=== PATIENT | male | born 1970 | race Caucasian/White ===

== ENCOUNTER 2016-10-29 10:01 | Inpatient (IN) | payer MEDICARE, MEDICAID ==
[2016-10-29] MEDS ORDERED: Insulin Regular, Human 100 Units/ML 3 ML Vial IV ONE (10:24)
[2016-10-29] MEDS ORDERED: Sodium Chloride 0.9% 1,000 ML IV ONE (10:27)
[2016-10-29 10:59] LABS: HEMATOCRIT 34.9 % (40.0-52.0); HEMOGLOBIN 11.6 g/dL (14.0-18.0); MEAN CORPUSCULAR HEMOGLOBIN 30.2 pg (26.0-32.0); MEAN CORPUSCULAR HGB CONC 33.2 g/dL (32.0-36.0); MEAN CORPUSCULAR VOLUME 90.9 fL (78.0-93.0); RED BLOOD CELL COUNT 3.84 x10^6/uL (4.5-6.0)
[2016-10-29 11:21] LABS: BAND PERCENT MAN 1 % (0-6); HYPERSEGMENTED NEUTROPHILS OCCASIONAL; SEG NEUTROPHILS PERCENT MAN 77 % (50-80); TOTAL CELLS COUNTED 100
[2016-10-29 11:24] LABS: A/G RATIO 0.89; ALBUMIN 3.3 g/dL (3.4-5.0); BILIRUBIN TOTAL 0.5 mg/dL (0.2-1.0); CALCIUM 9.7 mg/dL (8.5-10.1); CORRECTED CALCIUM 10.26 mg/dL (8.5-10.1); CREATININE 1.9 mg/dL (0.70-1.30); EST CRCL DRUG DOSING (CG) 51.43 mL/min; PHOSPHORUS 4.8 mg/dL (2.6-4.7)
[2016-10-29 12:06] LABS: HCO3 ARTERIAL,ISTAT 7 mmol/L (22-26); O2 SATURATION ARTERIAL,ISTAT 98 % (95-98); PCO2 ARTERIAL,ISTAT 19 mmHG (35-45); PH ARTERIAL,ISTAT 7.167 (7.35-7.45); PO2 ARTERIAL,ISTAT 135 mmHG (80-105); TCO2 ARTERIAL,ISTAT 8 mmol/L (23-27)
--- NOTE | 2016-10-29 12:26 | EDM.PDOC ---
ED HPI GENERAL MEDICAL PROBLEM - General Chief Complaint: General Stated Complaint: VOMITING Time Seen by Provider: 10/29/16 10:12 Source of Information: Reports: Patient, EMS, Family () - History of Present Illness INITIAL COMMENTS - FREE TEXT/NARRATIVE: The patient comes in and he is in DKA. Patient is belligerent. He is brought in by EMS. His had called because he wasn't making a lot of sense. We did give him some IV fluids and gave him additional insulin. His glucose was found to be over 500. I did give him 12 units and discuss the case with Dr. Nicole and Dr. Nicole was going to put him on a insulin drip. The patient did tear out his IV and use profane language with the nursing staff. The patient is being admitted. The patient otherwise looks very ill and is not a good historian currently. The patient has had nausea emesis and diarrhea. Onset: sudden Location: Reports: generalized Severity: severe Associated Symptoms: Reports: confusion, diaphoresis, fever/chills, loss of appetite, malaise, nausea/vomiting, weakness Treatments BOOK EDITOR: Reports: Other (see below) (The patient's did give him eight units of insulin at 5:00 this morning.) - Related Data Allergies Allergy/AdvReac Type Severity Reaction Status Date / Time cyclobenzaprine HCl AdvReac Muscle Verified 10/29/16 10:31 [From Flexeril] Weakness quetiapine fumarate AdvReac Agitation Verified 10/29/16 10:31 [From Seroquel] Home Meds: Home Meds Cholecalciferol (Vitamin D3) [Vitamin D] 1,000 units PO DAILY 02/13/14 [History] Insulin Aspart [NovoLOG] 0 unit SQ TID 02/13/14 [History] Insulin Detemir [Levemir] 25 unit SUBCUT DAILY 02/13/14 [History] Multivitamin [Multi Vitamin Daily] 1 each PO DAILY 02/13/14 [History] Magnesium 1,000 mg PO BID 12/07/14 [History] Sodium Chloride 0.9% [Normal Saline] 1,000 ml IV Q7D 02/09/16 [History] Past Medical History Cardiovascular History: Reports: High cholesterol, PVD, Syncope, Other (see below) Other Cardiovascular History: orthostatic hypotension Gastrointestinal History: Reports: GI bleed, Other (see below) Other Gastrointestinal History: ischemic colitis Musculoskeletal History: Reports: Fracture, Other (see below) Other Musculoskeletal History: osteomyelitis of foot/ankle Neurological History: Reports: Neuropathy, diabetic, Other (see below) Other Neuro History: cognitive impairment Psychiatric History: Reports: Other (see below) Other Psychiatric History: alcohol abuse Endocrine/Metabolic History: Reports: Diabetes, type I, Other (see below) Other Endocrine/Metabolic History: hypomagnesemia, DKA Hematologic History: Reports: Anemia - Infectious Disease History Infectious Disease History: Reports: C-difficile, Other (see below) Other Infectious Disease History: MSSA pneumonia, Klebsiella bacteremia - Past Surgical History Musculoskeletal Surgical History: Reports: Other (see below) Other Musculoskeletal Surgeries/Procedures:: bilat. foot surgeries Social & Family History - Tobacco Use Smoking Status *Q: Current Every Day Smoker Years of Tobacco use: 30 Packs/Tins Daily: 1.5 - Alcohol Use Days Per Week of Alcohol Use: 0 - Recreational Drug Use Recreational Drug Use: No ED ROS GENERAL - Review of Systems Review Of Systems: See Below (Obtained by interviewing family.) Constitutional: Reports: fever, chills, malaise, weakness, fatigue, night sweats , diaphoresis, decreased appetite Respiratory: Reports: no symptoms Cardiovascular: Reports: Dyspnea on exertion, Lightheadedness Endocrine: Reports: hi glucose, polyuria GI/Abdominal: Reports: Abdominal pain (generalized. ), Diarrhea, Nausea, Vomiting : Reports: frequency Musculoskeletal: Reports: muscle pain, muscle stiffness Skin: Reports: diaphoresis Neurological: Reports: confusion, gait disturbance Psychiatric: Reports: Agitation, Mood lability ED EXAM, GENERAL - Physical Exam Exam: See Below Exam Limited By: Uncooperative General Appearance: alert, anxious, severe distress, thin, other (Older than stated age. ) Eye Exam: bilateral eye: EOMI Ears: normal external exam, normal canal Nose: normal inspection Throat/Mouth: Normal inspection Head: atraumatic Neck: normal inspection Respiratory/Chest: no respiratory distress Cardiovascular: regular rate, rhythm, no murmur GI/Abdominal: normal bowel sounds, soft Extremities: normal inspection Neurological: confused Psychiatric: anxious Skin Exam: Warm Course - Vital Signs Text/Narrative:: Serial bedside accu checks done. Last Recorded V/S: Last Vital Signs Temp 36.3 C 10/30/16 13:44 Pulse 101 H 10/30/16 13:44 Resp 22 H 10/30/16 13:44 BP 142/77 H 10/30/16 13:44 Pulse Ox 95 10/30/16 13:44 - Orders/Labs/Meds Orders: Medication Orders Acetaminophen (Tylenol) 650 mg PO Q4H PRN PRN Reason: analgesia/fever Enoxaparin Sodium (Lovenox) 30 mg SUBCUT DAILY [facility] Last Admin: 10/30/16 08:50 Dose: 30 mg Admin: 10/29/16 14:05 Dose: 30 mg Dextrose/Sodium Chloride (Dextrose 5%-Normal Saline) 1,000 mls @ 150 mls/hr IV ASDIRECTED [facility] Last Admin: 10/30/16 07:30 Dose: 150 mls/hr Infusion: 10/30/16 07:25 Dose: 150 mls/hr Admin: 10/30/16 00:44 Dose: 150 mls/hr Insulin Aspart (Novolog) 3 unit SUBCUT TIDAC [facility] Last Admin: 10/30/16 11:46 Dose: Admin: 10/30/16 08:53 Dose: 3 units Insulin Detemir (Levemir) 25 unit SUBCUT DAILY [facility] Last Admin: 10/30/16 08:52 Dose: 25 units Lorazepam (Ativan) 0.5 mg PO Q6H PRN PRN Reason: Anxiety Lorazepam (Ativan) 0.5 mg IVPUSH Q4H PRN PRN Reason: Agitation Magnesium Oxide (Magnesium Oxide) 1,000 mg PO BID [facility] Last Admin: 10/30/16 11:47 Dose: Not Given Multivitamins/Minerals (Thera M Plus) 1 tab PO DAILY [facility] Last Admin: 10/30/16 11:47 Dose: Not Given Nicotine (Habitrol) 21 mg TRDERM DAILY [facility] Last Admin: 10/30/16 08:51 Dose: 21 mg Admin: 10/29/16 13:58 Dose: 21 mg Labs: Laboratory Tests 10/29/16 10/29/16 10/29/16 Range/Units 10:22 10:55 10:55 WBC 11.3 H (4.0-10.0) x10^3/uL RBC 3.84 L (4.5-6.0) x10^6/uL Hgb 11.6 L (14.0-18.0) g/dL Hct 34.9 L (40.0-52.0) % MCV 90.9 (78.0-93.0) fL MCH 30.2 (26.0-32.0) pg MCHC 33.2 (32.0-36.0) g/dL RDW Coeff of Madeline 12.0 (10.0-15.0) % Plt Count 332 (130-400) x10^3/uL Add Manual Diff Yes Neutrophils % (Manual) 77 (50-80) % Band Neutrophils % 1 (0-6) % Lymphocytes % (Manual) 12 L (25-50) % Monocytes % (Manual) 10 (2-11) % Hypersegmented Neuts Occasional H Platelet Estimate Adequate POC ABG pH (7.35-7.45) POC ABG pCO2 (35-45) mmHG POC ABG pO2 (80-105) mmHG POC ABG HCO3 (22-26) mmol/L POC ABG Total CO2 (23-27) mmol/L POC ABG O2 Sat (95-98) % POC ABG Base Excess (-2-3) mmol/L POC FiO2 Sodium 128 L* (136-145) mmol/L Potassium 5.1 (3.5-5.1) mmol/L Chloride 90 L (98-107) mmol/L Carbon Dioxide 9 L (21-32) mmol/L BUN 42 H (7-18) mg/dL Creatinine 1.9 H (0.70-1.30) mg/dL Est Cr Clr Drug Dosing 51.43 mL/min Estimated GFR (MDRD) 38 Glucose 594 H* (74-106) mg/dL POC Glucose > 500 H* (74-106) mg/dL Calcium 9.7 (8.5-10.1) mg/dL Corrected Calcium 10.26 H (8.5-10.1) mg/dL Phosphorus 4.8 H (2.6-4.7) mg/dL Magnesium (1.8-2.4) mg/dL Total Bilirubin 0.5 (0.2-1.0) mg/dL AST 18 (15-37) U/L ALT 28 (16-63) U/L Alkaline Phosphatase 140 H (46-116) U/L Total Protein 7.0 (6.4-8.2) g/dL Albumin 3.3 L (3.4-5.0) g/dL Globulin 3.7 Albumin/Globulin Ratio 0.89 POC Result Comm 10/29/16 10/29/16 10/29/16 Range/Units 10:55 11:58 12:04 WBC (4.0-10.0) x10^3/uL RBC (4.5-6.0) x10^6/uL Hgb (14.0-18.0) g/dL Hct (40.0-52.0) % MCV (78.0-93.0) fL MCH (26.0-32.0) pg MCHC (32.0-36.0) g/dL RDW Coeff of Madeline (10.0-15.0) % Plt Count (130-400) x10^3/uL Add Manual Diff Neutrophils % (Manual) (50-80) % Band Neutrophils % (0-6) % Lymphocytes % (Manual) (25-50) % Monocytes % (Manual) (2-11) % Hypersegmented Neuts Platelet Estimate POC ABG pH 7.167 L* (7.35-7.45) POC ABG pCO2 19 L (35-45) mmHG POC ABG pO2 135 H (80-105) mmHG POC ABG HCO3 7 L (22-26) mmol/L POC ABG Total CO2 8 L (23-27) mmol/L POC ABG O2 Sat 98 (95-98) % POC ABG Base Excess -22 L (-2-3) mmol/L POC FiO2 0.21 Sodium (136-145) mmol/L Potassium (3.5-5.1) mmol/L Chloride (98-107) mmol/L Carbon Dioxide (21-32) mmol/L BUN (7-18) mg/dL Creatinine (0.70-1.30) mg/dL Est Cr Clr Drug Dosing mL/min Estimated GFR (MDRD) Glucose (74-106) mg/dL POC Glucose > 500 H* (74-106) mg/dL Calcium (8.5-10.1) mg/dL Corrected Calcium (8.5-10.1) mg/dL Phosphorus (2.6-4.7) mg/dL Magnesium 2.0 (1.8-2.4) mg/dL Total Bilirubin (0.2-1.0) mg/dL AST (15-37) U/L ALT (16-63) U/L Alkaline Phosphatase (46-116) U/L Total Protein (6.4-8.2) g/dL Albumin (3.4-5.0) g/dL Globulin Albumin/Globulin Ratio POC Result Comm Called critical res Meds: Medications Generic Name Dose Route Start Last Admin Trade Name Aldair PRN Reason Stop Dose Admin Acetaminophen 650 mg 10/29/16 13:35 Tylenol PO Q4H PRN analgesia/fever Enoxaparin Sodium 30 mg 10/29/16 13:45 10/30/16 08:50 Lovenox SUBCUT 30 mg DAILY [facility] Administration Dextrose/Sodium Chloride 1,000 mls @ 150 mls/hr 10/30/16 00:30 10/30/16 14:18 Dextrose 5%-Normal Saline IV 150 mls/hr ASDIRECTED [facility] Administration Insulin Aspart 3 unit 10/30/16 08:30 10/30/16 11:46 Novolog SUBCUT Not Given TIDAC [facility] Insulin Detemir 25 unit 10/30/16 08:30 10/30/16 08:52 Levemir SUBCUT 25 units DAILY [facility] Administration Lorazepam 0.5 mg 10/30/16 08:57 Ativan PO Q6H PRN Anxiety Lorazepam 0.5 mg 10/30/16 08:59 Ativan IVPUSH Q4H PRN Agitation Magnesium Oxide 1,000 mg 10/30/16 08:30 10/30/16 11:47 Magnesium Oxide PO Not Given BID [facility] Multivitamins/Minerals 1 tab 10/30/16 08:30 10/30/16 11:47 Thera M Plus PO Not Given DAILY [facility] Nicotine 21 mg 10/29/16 13:45 10/30/16 08:51 Habitrol TRDERM 21 mg DAILY [facility] Administration Discontinued Medications Generic Name Dose Route Start Last Admin Trade Name Aldair PRN Reason Stop Dose Admin Sodium Chloride 1,000 mls @ 999 mls/hr 10/29/16 10:27 10/29/16 10:52 Normal Saline IV 10/29/16 11:27 999 mls/hr .BOLUS ONE Administration Insulin Human Regular 100 unit 100 mls @ 0.5 mls/hr 10/29/16 13:45 10/30/16 06:05 / Sodium Chloride IV 1.5 units/hr TITRATE [facility] 1.5 mls/hr Protocol Titration 0.5 UNITS/HR Sodium Chloride 1,000 mls @ 200 mls/hr 10/29/16 13:45 10/29/16 23:07 Normal Saline IV 200 mls/hr ASDIRECTED [facility] Administration Magnesium Sulfate 2 gm/ Premix 50 mls @ 25 mls/hr 10/29/16 20:44 10/29/16 21: 09 IV 10/29/16 22:43 25 mls/hr ONETIME ONE Administration Potassium Chloride 20 meq/ 50 mls @ 25 mls/hr 10/30/16 08:12 10/30/16 08:49 Premix IV 10/30/16 10:11 25 mls/hr ONETIME ONE Administration Insulin Human Regular 12 unit 10/29/16 10:24 10/29/16 10:55 Humulin R IV 10/29/16 10:25 12 units ONETIME ONE Administration Protocol Lorazepam 1 mg 10/29/16 15:03 10/30/16 08:50 Ativan IVPUSH 1 mg Q4H PRN Administration Agitation Magnesium Sulfate 1 gm 10/30/16 08:13 10/30/16 08:49 Magnesium Sulfate 50% IM 10/30/16 08:14 1 gm ONETIME ONE Administration Nicotine 21 mg 10/29/16 18:30 Habitrol TRDERM DAILY [facility] Nicotine 21 mg 10/29/16 22:00 10/29/16 21:11 Habitrol TRDERM 10/29/16 22:01 21 mg ONETIME ONE Administration Departure - Departure Time of Disposition: 11:30 (Decision to admit) Disposition: DC/Tfer to Medicaid [facility] 64 Condition: serious Clinical Impression: Diabetic keto-acidosis Qualifiers: Diabetes mellitus type: type 2 Diabetes mellitus complication detail: without coma Qualified Code(s): E13.10 - Other specified diabetes mellitus with ketoacidosis without coma
[2016-10-29] MEDS ORDERED: Acetaminophen 325 MG Tab PO PRN (13:35)
[2016-10-29] MEDS: Nicotine 21 MG/24 Hr Patch TRDERM SCH (13:58)
[2016-10-29] MEDS: Enoxaparin 30 MG/0.3 ML Syringe SUBCUT SCH (14:05)
[2016-10-29] MEDS: Sodium Chloride 0.9% 1,000 ML IV SCH ×3 (14:06→23:07)
[2016-10-29] MEDS: LORazepam 2 MG/ML MDV IVPUSH PRN ×2 (15:21→19:55)
--- NOTE | 2016-10-29 18:16 | HP ---
REASON FOR ADMISSION: Nausea, vomiting, weakness. HISTORY OF PRESENT ILLNESS: A 46-year-old white male comes in accompanied by his mother with whom he lives. He has been ill for the past day or so and he got worse today. He just was not himself yesterday according to his mother. Today, he has had multiple episodes of nausea, vomiting and not eating. He denies any bladder hematemesis. The patient thought he took his insulin a couple days ago, his mother said he took his long-acting insulin this morning. He has known history of diabetes mellitus type 1. Last known episode of DKA was approximately a year ago. PAST MEDICAL HISTORY: 1. Diabetes mellitus type 1. 2. Autonomic neuropathic orthostatic hypotension for which he receives 1 unit of the fluids weekly to maintain his blood pressure. 3. Hyperlipidemia. 4. Ischemic colitis. 5. Cognitive impairment. 6. Surgery for diabetic foot ulcers. 7. Tonsillectomy. MEDICATIONS: Multivitamin daily, magnesium daily, Levemir 25 units daily, NovoLog t.i.d. with meals, vitamin D3 daily, aspirin 81 mg daily. ALLERGIES: Cyclobenzaprine and quetiapine. HABITS: Tobacco use 1-1/2 packs a day. Alcohol use; he has not had a drink for the past 6 years. He has had a prior history of alcohol abuse. FAMILY AND SOCIAL HISTORY: Lives with his mother. REVIEW OF SYSTEMS: Denies fever or chills. No cold symptoms, except for occasional cough. No chest pain. No shortness of breath. No abdominal pain. He does feel weak. Difficult to obtain history. OBJECTIVE: General: He is lying in bed, at times moaning, at times answering questions. Vital Signs: He is afebrile, pulse of 112, blood pressure is 120/69. In the emergency room, his blood pressure was 95/41 prior to IV fluid administration. Respirations are 22, O2 saturations are 97%. HEENT: TMs negative. Throat clear. Neck: No adenopathy. Heart: Regular rate and rhythm. No murmur heard. Lungs: Clear to auscultation. Abdomen: Soft and nontender. No masses palpable. No hepatosplenomegaly noted. Extremities: Some decreased range of motion. There is trace edema. They are warm and dry. Neurological: Sensation is intact. LABORATORY DATA: White count 11.3, hemoglobin 11.6. Blood gases; pH is 7.167, pCO2 of 19. Sodium 128, potassium 5.1, creatinine 1.9, glucose 594, phosphorus 4.8, magnesium 2.0. LFTs were normal essentially. EKG shows sinus tachycardia. TREATMENT: In the emergency room, he received 12 units of regular insulin IV and then 1 L of normal saline. ASSESSMENT: 1. Diabetic ketoacidosis. 2. Diabetes mellitus type 1, uncontrolled. PLAN: The patient is admitted to acute care status. He will be given insulin drip per protocol, IV fluids. We will monitor his electrolytes magnesium and phosphorus, and replace as indicated. He identifies Dr. Angélica Alejandro as his primary physician and I assume that she will be back tomorrow to assume care. He is a code level 1. FM: 10/29/2016 13:56:13 MODL: 10/29/2016 18:11:47 /[id number]
[2016-10-29] MEDS ORDERED: Nicotine 21 MG/24 Hr Patch TRDERM SCH (18:30)
[2016-10-29 19:25] LABS: CALCIUM 9.2 mg/dL (8.5-10.1); CREATININE 1.6 mg/dL (0.70-1.30); EST CRCL DRUG DOSING (CG) 61.81 mL/min; MAGNESIUM 1.7 mg/dL (1.8-2.4)
[2016-10-29] MEDS ORDERED: Magnesium Sulfate/Water 2 GM in Premix Bag 1 BAG IV ONE (20:44)
[2016-10-29] MEDS ORDERED: Nicotine 21 MG/24 Hr Patch TRDERM ONE (22:00)
[2016-10-30] MEDS: LORazepam 2 MG/ML MDV IVPUSH PRN ×3 (00:39→08:50)
[2016-10-30] MEDS: Dextrose 5%-0.9% NaCl 1,000 ML IV SCH ×3 (00:44→14:18)
[2016-10-30 06:43] LABS: BASOPHILS PERCENT AUTO 0.2 % (0.2-1.2); HEMATOCRIT 29.5 % (40.0-52.0); HEMOGLOBIN 10.4 g/dL (14.0-18.0); LYMPHOCYTES PERCENT AUTO 16.5 % (25.0-50.0); MEAN CORPUSCULAR HEMOGLOBIN 30.3 pg (26.0-32.0); MEAN CORPUSCULAR HGB CONC 35.3 g/dL (32.0-36.0); MONOCYTES PERCENT AUTO 11.6 % (2.0-11.0); NEUTROPHILS PERCENT AUTO 70.7 % (50.0-80.0); RDW CV 11.7 % (10.0-15.0); RED BLOOD CELL COUNT 3.43 x10^6/uL (4.5-6.0)
[2016-10-30 07:02] LABS: CALCIUM 8.4 mg/dL (8.5-10.1); CHLORIDE,CL 108 mmol/L (98-107); CREATININE 1.2 mg/dL (0.70-1.30); EST CRCL DRUG DOSING (CG) 82.41 mL/min; ESTIMATED GFR > 60; GLUCOSE RANDOM 167 mg/dL (74-106); MAGNESIUM 1.6 mg/dL (1.8-2.4); PHOSPHORUS 1.6 mg/dL (2.6-4.7)
[2016-10-30] MEDS ORDERED: Potassium Chloride 20 MEQ in Premix Bag 1 BAG IV ONE (08:12)
[2016-10-30] MEDS ORDERED: Magnesium Sulfate (4.06 MEQ/ML) 1 GM/2 ML SDV IM ONE (08:13)
[2016-10-30] MEDS ORDERED: Insulin Detemir 100 Units/ML 3 ML Pen SUBCUT SCH (08:30)
[2016-10-30] MEDS: Enoxaparin 30 MG/0.3 ML Syringe SUBCUT SCH (08:50)
[2016-10-30] MEDS: Multivitamins with Iron/Calcium/Folic Acid/Minerals Tab PO SCH ×2 (08:50→11:47)
[2016-10-30] MEDS: Magnesium Oxide 400 MG Tab PO SCH ×3 (08:50→20:08)
[2016-10-30] MEDS: Nicotine 21 MG/24 Hr Patch TRDERM SCH (08:51)
[2016-10-30] MEDS: Insulin Aspart 100 Units/ML 3 ML Pen SUBCUT SCH ×3 (08:53→17:36)
[2016-10-30] MEDS ORDERED: LORazepam 0.5 MG Tab PO PRN (08:57)
[2016-10-30] MEDS ORDERED: LORazepam 2 MG/ML MDV IVPUSH PRN (08:59)
--- NOTE | 2016-10-30 09:28 | PN ---
Progress Note for LOYD GRIJALVA Date: 10/30/2016 Room #: VM.214 SUBJECTIVE: This is a 46-year-old, with known uncontrolled type 1 diabetes, admitted yesterday with DKA. The patient has been on IV fluids and IV insulin. His gap has improved from initial 29 down to normal this morning. He was in acute renal failure with creatinine up to 1.9, that has improved down to 1.2. He has been quite sleepy. He has been swearing out at staff, although I reported to them that is his baseline. He has been getting some IV Ativan, last dose was at 4:30 this morning. He pulled out his IV from his port but it was replaced. He is denying any headache. He is denying any chest pain, any nausea. He is aware he is in the hospital but he stated he did not know who I was even though he has met me numerous times. No source of infection was identified. No chest x-ray was done. I do not see a UA on record but he is denying any dysuria. He is denying any cough, and he does have a longstanding history of noncompliance with previous multiple admissions for DKA. He has been on the insulin drip through the night. Blood sugars have now been below 200 consistently. He has been on D5 half-normal saline. His insulin drip was around 1 unit. OBJECTIVE: Vital Signs: Temperature 98.6, pulse 95, blood pressure 118/69, respiratory rate 20, O2 of 97% on room air. General: He is in no acute distress. He does mumble quite a bit. He was able to open his eyes to command. His pupils are equal, round, reactive to light. He is answering most questions appropriately with yes or no. Heart: Regular rate and rhythm. S1, S2 without murmur. Lungs: Sounds are clear to auscultation bilaterally without crackles or wheezes. Abdomen: Positive bowel sounds. Soft and nontender. Extremities: Warm and dry. He does have edema noted to both legs. It is nonpitting. Sort of appears more like a malnutrition type of an edema. Mental Status: He is orientated to place but would not answer questions about the date. LABORATORY DATA: Lab work this morning reviewed. White count is 10.7; hemoglobin 10.4, that is likely down due to some hemodilution; platelets 302. Sodium 141, potassium 3.4, chloride 108, bicarb 24, BUN 26, creatinine 1.2, glucose 169, calcium 8.4, phosphorus 1.6, magnesium 1.6. He did receive 2 g of magnesium yesterday. ASSESSMENT: 1. Diabetic ketoacidosis, likely due to noncompliance. Insulin drip can be discontinued today 1 hour after starting his home Levemir 25 units and 3 units of NovoLog. I will keep to D5 half-normal saline going as I do not know how much he will be eating. He said he is not feeling like eating yet, we will continue to monitor this closely. We will repeat another panel this afternoon at 2:00 p.m. 2. Acute renal failure secondary to diabetic ketoacidosis, resolved with IV fluids. 3. Uncontrolled type 1 diabetes, with unspecified complications, on long-term insulin. He does have a Sensor. 4. Autonomic neuropathic orthostatic hypotension. He has been receiving IV fluids weekly through the hospital. 5. Hyperlipidemia. 6. Ischemic colitis. 7. Cognitive impairment due to severe hypoglycemic episode in the past with fear of hypoglycemia. 8. Previous surgery for diabetic foot ulcers. 9. Severe hypomagnesemia. 10.Mild hypokalemia. 11.Mild hypophosphatemia. PLAN: At this point, the patient will continue on acute cares. We will make adjustments as discussed above with stopping the insulin drip. We will continue IV fluids with D5 half-normal saline until he is eating better. I will get a renal panel this afternoon at 2:00 p.m. We will switch to IV Ativan over to oral for agitation but IV will still be available if needed. Otherwise, the patient will likely spend at least 1 to 2 more nights on acute cares. lead supply worker will also be involved. This is a patient who has had multiple previous admissions for DKA but had been really doing quite well at home with no recent admissions. We will also get him up and working with therapies due to his weakness. MKA: 10/30/2016 08:57:52 MODL: 10/30/2016 09:20:21 /[id number]
--- NOTE | 2016-10-30 12:59 | PCM.SN ---
- Free Text/Narrative Note: Blood sugars stable, he isn't eating yet. We will check accuchecks Q 2 hrs and keep D5 until blood sugar over 200. No meal insulin was given as he didn't eat. Levemir given this AM. Insulin drop off. Anion gap closed. He is due for lab again at 2 pm a renal panel. No further ativan given this AM but up a couple times to the bathroom with staff.
[2016-10-30 14:37] LABS: ALBUMIN 2.8 g/dL (3.4-5.0); CALCIUM 8.5 mg/dL (8.5-10.1); CHLORIDE,CL 110 mmol/L (98-107); CORRECTED CALCIUM 9.46 mg/dL (8.5-10.1); CREATININE 1.1 mg/dL (0.70-1.30); EST CRCL DRUG DOSING (CG) 90.07 mL/min; ESTIMATED GFR > 60; GLUCOSE RANDOM 148 mg/dL (74-106)
[2016-10-30 14:39] LABS: PHOSPHORUS 1.3 mg/dL (2.6-4.7)
[2016-10-30] MEDS: Enoxaparin 40 MG/0.4 ML Syringe SUBCUT SCH (16:49)
[2016-10-30] MEDS: Potassium Phosphate,Mb-Db/Sodium Phosphate,Mb-Db Packet PO SCH ×2 (17:36→20:08)
[2016-10-30] MEDS ORDERED: POTASSIUM PHOSPHATES IV SCH (18:00)
[2016-10-30] MEDS ORDERED: SODIUM CHLORIDE IV SCH (18:00)
[2016-10-31] MEDS: Dextrose 5%-0.9% NaCl 1,000 ML IV SCH (05:00)
[2016-10-31] MEDS ORDERED: Insulin Detemir 100 Units/ML 3 ML Pen SUBCUT SCH (07:02)
[2016-10-31 07:07] LABS: ALBUMIN 2.6 g/dL (3.4-5.0); BUN/CREATININE RATIO 13.75; CALCIUM 8.2 mg/dL (8.5-10.1); CHLORIDE,CL 109 mmol/L (98-107); CORRECTED CALCIUM 9.32 mg/dL (8.5-10.1); CREATININE 0.8 mg/dL (0.70-1.30); EST CRCL DRUG DOSING (CG) 123.84 mL/min; ESTIMATED GFR > 60; GLUCOSE RANDOM 217 mg/dL (74-106); PHOSPHORUS 1.9 mg/dL (2.6-4.7)
[2016-10-31] MEDS: Enoxaparin 40 MG/0.4 ML Syringe SUBCUT SCH (08:02)
[2016-10-31] MEDS: Nicotine 21 MG/24 Hr Patch TRDERM SCH (08:02)
[2016-10-31] MEDS: Magnesium Oxide 400 MG Tab PO SCH ×2 (08:03→20:26)
[2016-10-31] MEDS: Potassium Phosphate,Mb-Db/Sodium Phosphate,Mb-Db Packet PO SCH ×4 (08:04→20:27)
[2016-10-31] MEDS: Multivitamins with Iron/Calcium/Folic Acid/Minerals Tab PO SCH (08:04)
[2016-10-31] MEDS: Insulin Aspart 100 Units/ML 3 ML Pen SUBCUT SCH ×4 (08:26→17:33)
[2016-10-31] MEDS: Potassium Chloride 10 MEQ Tab.ER PO SCH ×3 (10:43→20:26)
[2016-10-31 11:02] LABS: APPEARANCE,URINE CLOUDY (CLEAR); BILIRUBIN,URINE NEGATIVE (NEGATIVE); GLUCOSE,URINE 500 mg/dL (NEGATIVE); KETONES,URINE TRACE mg/dL (NEGATIVE); LEUKOCYTE ESTERASE,URINE SMALL (NEGATIVE); NITRITE,URINE NEGATIVE (NEGATIVE); OCCULT BLOOD,URINE SMALL (NEGATIVE); PROTEIN,URINE NEGATIVE (NEGATIVE); UROBILINOGEN,URINE 0.2 EU/dL (0.2)
[2016-10-31 11:14] LABS: BACTERIA,URINE FEW /HPF (NEGATIVE); RENAL EPITHELIAL CELLS,URINE RARE /HPF (NEGATIVE); WBC,URINE 40-50 /HPF (NOT SEEN)
[2016-10-31 11:15] LABS: MUCUS,URINE NOT SEEN /LPF (NEGATIVE)
[2016-10-31] MEDS: Sulfamethoxazole/Trimethoprim 800-160 MG Tab PO SCH ×2 (14:53→20:27)
--- NOTE | 2016-10-31 15:20 | PN ---
Progress Note for LOYD GRIJALVA Date: 10/31/2016 Room #: VM.214 SUBJECTIVE: Hospital day #3 on a 46-year-old admitted with DKA. The patient was taken off the insulin drip yesterday morning. He finally started eating this morning, but did not receive any meal insulin and had a reduced dose at 18 units of Levemir due to concerns that he may not eat. His blood sugars have therefore went up now into the 210 to 257 range. D5 was actually shut off this morning at 7:00 a.m. He is more alert. He is denying any pain. New symptom of urinary frequency came up during the night. He denies any abdominal pain. He has been coughing more, but no shortness of breath. No nausea. OBJECTIVE: Vital Signs: His temperature is 98.6, pulse 101, blood pressure 136/85, respiratory rate 18, and O2 of 99% on room air. General: He is in no acute distress. He does recognize me, but would not say my name. He is still aware he is in the hospital. He did not give me the date. Heart: Regular rate and rhythm. S1, S2 without murmur. Lungs: Sounds are clear to auscultation bilaterally without crackles or wheezes. Abdomen: Positive bowel sounds. It is soft. There is minimal tenderness, maybe distention, in the suprapubic area. Extremities: Warm and dry. He still has about 1+ taut edema. LABORATORY DATA: Lab work reviewed. White count had normalized yesterday nearly at 10.7, today it was not checked. Phosphorus was severely low yesterday and it came up to 1.9 today after IV phosphorous and oral. Sodium 143, potassium 3.4, chloride 109, bicarb 27, BUN 11, creatinine 0.8, glucose 217, calcium 8.2, albumin 2.6. UA done did show 40 to 50 wbc's and 5 to 10 rbc's. He was able to void 400, but had 1100 on straight cath. ASSESSMENT: 1. Diabetic ketoacidosis due to presumed noncompliance, resolving. He is now back on meal insulin and Levemir. He is eating. We will continue to monitor electrolytes. 2. Urinary tract infection. We will culture his urine. We will place him on Bactrim. 3. Acute renal failure due to diabetic ketoacidosis, resolved. 4. Urinary retention. He was straight cathed today. We will continue bladder scans 3 times a day and straight cath for over 400. He is not a candidate for Flomax due to his hypotension. He will need a prostate exam. Could consider Proscar, but very likely he will need Urology referral. 5. Uncontrolled type 1 diabetes with unspecified complications, on long-term insulin. 6. Autonomic neuropathic orthostatic hypotension. Blood pressures are better today. 7. Hyperlipidemia. 8. History of ischemic colitis, likely in the setting of hypotension. 9. Cognitive impairment related to severe hypoglycemia in the past. 10.Previous diabetic foot ulcers. 11.Hypomagnesemia, hypokalemia, and hypophosphatemia. We will continue his oral supplements and repeat labs tomorrow. PLAN: At this point, the patient will continue on acute cares. He is off IV fluids. He is on his regular insulin and Accu-Cheks, which have been decreased every 3 hours, can now go to 4 times a day with meals and at bedtime. Again, we are culturing his urine, but we will start him on Bactrim. Chest x-ray was done today and did not show any source of infection. Social Service is also involved. The patient is agreeable to go home with home health. He was hopeful to go home today, but due to these bladder issues, I do not recommend discharge. DVT prophylaxis is with Lovenox. MKA: 10/31/2016 14:28:31 MODL: 10/31/2016 15:10:17 /[id number]
[2016-11-01] MEDS: Insulin Detemir 100 Units/ML 3 ML Pen SUBCUT SCH ×2 (06:12→08:16)
[2016-11-01 06:39] LABS: BASOPHILS PERCENT AUTO 0.7 % (0.2-1.2); EOSINOPHILS PERCENT AUTO 0.7 % (0.0-4.0); HEMATOCRIT 35.9 % (40.0-52.0); HEMOGLOBIN 12.3 g/dL (14.0-18.0); LYMPHOCYTES PERCENT AUTO 26.5 % (25.0-50.0); MEAN CORPUSCULAR HEMOGLOBIN 30.2 pg (26.0-32.0); MEAN CORPUSCULAR HGB CONC 34.3 g/dL (32.0-36.0); MEAN CORPUSCULAR VOLUME 88.2 fL (78.0-93.0); MONOCYTES PERCENT AUTO 9.1 % (2.0-11.0); RDW CV 12.5 % (10.0-15.0); RED BLOOD CELL COUNT 4.07 x10^6/uL (4.5-6.0)
[2016-11-01 06:47] LABS: ALBUMIN 2.9 g/dL (3.4-5.0); BUN/CREATININE RATIO 12.22; CALCIUM 9.5 mg/dL (8.5-10.1); CHLORIDE,CL 100 mmol/L (98-107); CORRECTED CALCIUM 10.38 mg/dL (8.5-10.1); CREATININE 0.9 mg/dL (0.70-1.30); EST CRCL DRUG DOSING (CG) 110.08 mL/min; ESTIMATED GFR > 60; MAGNESIUM 1.6 mg/dL (1.8-2.4); PHOSPHORUS 2.6 mg/dL (2.6-4.7)
[2016-11-01 06:49] LABS: GLUCOSE RANDOM 412 mg/dL (74-106)
[2016-11-01] MEDS: Nicotine 21 MG/24 Hr Patch TRDERM SCH (08:12)
[2016-11-01] MEDS: Potassium Chloride 10 MEQ Tab.ER PO SCH ×2 (08:13→11:16)
[2016-11-01] MEDS: Multivitamins with Iron/Calcium/Folic Acid/Minerals Tab PO SCH (08:13)
[2016-11-01] MEDS: Enoxaparin 40 MG/0.4 ML Syringe SUBCUT SCH (08:13)
[2016-11-01] MEDS: Magnesium Oxide 400 MG Tab PO SCH (08:14)
[2016-11-01] MEDS: Sulfamethoxazole/Trimethoprim 800-160 MG Tab PO SCH (08:14)
[2016-11-01] MEDS: Potassium Phosphate,Mb-Db/Sodium Phosphate,Mb-Db Packet PO SCH ×2 (08:14→11:14)
[2016-11-01] MEDS: Insulin Aspart 100 Units/ML 3 ML Pen SUBCUT SCH ×2 (08:15→11:14)
[2016-11-01] MEDS ORDERED: Finasteride 5 MG Tab PO SCH (08:45)
--- NOTE | 2016-11-01 14:10 | DISCH ---
PRIMARY DISCHARGE DIAGNOSES: 1. Diabetic ketoacidosis due to urinary retention, urinary tract infection, and also noncompliance with medications with history of missing doses of insulin. 2. Urinary tract infection. Culture on discharge is still pending. 3. Urinary retention, possible autonomic neuropathy-related. The patient has a history of this, but never followed up with Urology, requiring straight catheterization for over a 1000 mL 3 times and Cerda was placed. The patient is willing to try the Cerda at home. 4. Possible benign prostatic hyperplasia with mildly elevated prostate. Proscar was started. He will not tolerate alpha blockers due to hypotension. 5. Uncontrolled diabetes with unspecified complications, on long-term insulin use. His A1c is 12.9 recently. 6. Autonomic neuropathic orthostatic hypotension, hyperlipidemia, history of ischemic colitis in the setting of hypotension, cognitive impairment related to previous severe hypoglycemic episode. 7. Previous diabetic foot ulcers. 8. Hypomagnesemia, hypokalemia, hypophosphatemia. Replaced and adequate on discharge. REASON FOR ADMISSION: On the date of admission, this 46-year-old came into the ER very lethargic, unable to eat, vomiting, was found to be in DKA. Received IV insulin and insulin drip. His anion gap did close by the next day, and he was able to be taken off the drip. He continued on D5 with his home insulin doses until he was able to the eat and then restarted his meal dosing. He did quite well. He was more alert. He did receive some Ativan initially due to some agitation, but it did get better by discharge. He was denying any burning with urination and no fevers. During his stay, he did have leukocytosis, but it resolved when DKA improved. However, he was having urinary frequency. Urine was positive for infection, and his postvoid residual was quite high, actually 1100 is what he was cath'd for. Therefore, he had a Cerda placed, and he had some scrotal discomfort after this, but no redness or signs of infection. PHYSICAL EXAMINATION: General: On discharge, he is in no acute distress. He recognized me. He is aware he is in the hospital. Heart: Regular rate and rhythm without murmur. Lungs: Sounds are clear to auscultation bilaterally without crackles or wheezes. Abdomen: Positive bowel sounds. Soft and nontender. Extremities: Warm and dry. His edema has resolved with support stockings in place. : He does have a Cerda in place. Prostate exam, mildly enlarged and nontender. No nodules. DISCHARGE PLANS AND INSTRUCTIONS: He is going to follow up with Dr. Alejandro in the clinic in 1 to 2 weeks for post-hospital followup. He is to keep his Cerda in. He is also to follow up with Urology and a referral has been placed. Home Health will be following him for Cerda care. He will continue with his Dexcom, and this may be changed for him today if his mother brings in the supplies. He should continue blood sugar checks at least 4 times a day and during the night if needed when he goes home. His Levemir dosing will be left at 25 units daily. His NovoLog will be 5 to 6 units with breakfast and 7 units with lunch and supper when he is eating. During his stay, he was also treated with Lovenox for DVT prophylaxis. An x-ray was also done, which was negative for any pneumonia. He had a nicotine patch for his smoking. Greater than 30 minutes spent on discharge. MKA: 11/01/2016 13:32:37 MODL: 11/01/2016 14:01:03 /[id number]
[2016-11-01 15:02] VITALS: BP 99/70
== END 2016-11-01 16:35 | disposition home health service (06) | DRG 638 ==
LOC: VM.ED 10:01 → VM.MS 12:23 → UNDOADMIN 12:26
PROVIDERS: ADMIT Family Medicine; ATTEND Internal Medicine
DX: E10.10 Type 1 diabetes mellitus with ketoacidosis without coma (principal); E78.00 Pure hypercholesterolemia, unspecified; I73.9 Peripheral vascular disease, unspecified; N17.9 Acute kidney failure, unspecified; N39.0 Urinary tract infection, site not specified; N40.1 Benign prostatic hyperplasia with lower urinary tract symptoms; Z79.899 Other long term (current) drug therapy; R33.8 Other retention of urine; I95.1 Orthostatic hypotension; E78.5 Hyperlipidemia, unspecified; E83.42 Hypomagnesemia; E87.6 Hypokalemia; E83.39 Other disorders of phosphorus metabolism; Z79.4 Long term (current) use of insulin; Z88.8 Allergy status to other drugs, medicaments and biological substances; F17.200 Nicotine dependence, unspecified, uncomplicated
CPT/HCPCS: 36415; 36600; 80053; 82803; 82962 ×2; 83735; 84100; 85025; 93005; 96361; 96374; 99285 ×2; J7030; 71020; 80048; 80069; 81001; 87086; 97161-GP; 97165-GO; A9270-GY; J1650; J1815-GY; J2060; J3475; J3480; J3490; J7042

== ENCOUNTER 2017-03-05 09:06 | Inpatient (IN) | payer MEDICARE, MEDICAID ==
[2017-03-05] MEDS ORDERED: Loperamide 2 MG Cap PO PRN (09:51)
[2017-03-05] MEDS ORDERED: Ondansetron 4 MG/2 ML SDV IV PRN (09:51)
[2017-03-05] MEDS ORDERED: Acetaminophen 325 MG Tab PO PRN (09:51)
[2017-03-05] MEDS ORDERED: INSULIN ASPART 100 UNIT/ML SUBCUT SCH ×2 (11:30→17:30)
[2017-03-05] MEDS ORDERED: Insulin Aspart 100 Units/ML 3 ML Pen SUBCUT ONE (11:49)
[2017-03-05] MEDS: Magnesium Oxide 400 MG Tab PO SCH ×2 (14:25→20:40)
[2017-03-05] MEDS: INSULIN ASPART 100 UNIT/ML SUBCUT SCH (17:56)
[2017-03-06] MEDS: ATORVASTATIN 10 MG PO SCH (07:35)
[2017-03-06] MEDS: FINASTERIDE 5 MG PO SCH (07:36)
[2017-03-06] MEDS: INSULIN DETEMIR 100 UNIT/ML SUBCUT SCH (07:36)
[2017-03-06] MEDS: INSULIN ASPART 100 UNIT/ML SUBCUT SCH ×4 (07:37→17:21)
[2017-03-06] MEDS: Magnesium Oxide 400 MG Tab PO SCH ×4 (07:38→20:02)
[2017-03-06] MEDS: Multivitamins with Iron/Calcium/Folic Acid/Minerals Tab PO SCH (07:38)
[2017-03-06] MEDS: Cholecalciferol (Vitamin D3) 1,000 Unit Tab PO SCH (07:38)
[2017-03-06] MEDS ORDERED: INSULIN ASPART 100 UNIT/ML SUBCUT SCH (08:00)
[2017-03-07] MEDS: INSULIN DETEMIR 100 UNIT/ML SUBCUT SCH (08:10)
[2017-03-07] MEDS: INSULIN ASPART 100 UNIT/ML SUBCUT SCH ×3 (08:11→17:35)
[2017-03-07] MEDS: ATORVASTATIN 10 MG PO SCH (08:11)
[2017-03-07] MEDS: Magnesium Oxide 400 MG Tab PO SCH ×3 (08:12→20:13)
[2017-03-07] MEDS: Multivitamins with Iron/Calcium/Folic Acid/Minerals Tab PO SCH (08:12)
[2017-03-07] MEDS: FINASTERIDE 5 MG PO SCH (08:12)
[2017-03-07] MEDS: Cholecalciferol (Vitamin D3) 1,000 Unit Tab PO SCH (08:12)
[2017-03-08] MEDS: Multivitamins with Iron/Calcium/Folic Acid/Minerals Tab PO SCH (09:04)
[2017-03-08] MEDS: Cholecalciferol (Vitamin D3) 1,000 Unit Tab PO SCH (09:04)
[2017-03-08] MEDS: Magnesium Oxide 400 MG Tab PO SCH ×3 (09:04→20:38)
[2017-03-08] MEDS: ATORVASTATIN 10 MG PO SCH (09:04)
[2017-03-08] MEDS: FINASTERIDE 5 MG PO SCH (09:04)
[2017-03-08] MEDS: INSULIN ASPART 100 UNIT/ML SUBCUT SCH ×3 (09:05→17:49)
[2017-03-08] MEDS: INSULIN DETEMIR 100 UNIT/ML SUBCUT SCH (09:05)
[2017-03-09] MEDS ORDERED: Sodium Chloride 0.9% 1,000 ML IV ONE (08:30)
--- NOTE | 2017-03-09 09:26 | PN ---
Progress Note for LOYD GRIJALVA Date: 03/09/2017 Room #: VM.214 SUBJECTIVE: Nursing staff reporting the patient is more depressed. The patient is depressed about not smoking, he has told me that. He is concerned about going [facility] the [facility] and not being able to smoke there. He did not get fluids on Sunday for his weekly infusion because he was 146/79. Later that night, he was 91/47. He has been refusing vitals since. He is more withdrawn, not allowing staff to do cares today. Mother was asked by nursing about an antidepressant. I was told that she said no. ASSESSMENT: 1. Today would be probable need for IV fluids again due to recurrent hypotension from severe autonomic insufficiency from uncontrolled diabetes, 1 L of fluid ordered. 2. Uncontrolled type 1 diabetes with multiple complications, on long-term insulin use. Blood sugar has not been checked since Sunday night. It was 337 then. Prior to that, his readings had been better; down in the 105, 143, and 181 range, but he did have a 447 on 03/05/2017, and got some extra insulin for that. He is eating 100% of his meals. He seems to be voiding okay. 3. Chronic anemia. 4. Cognitive impairment related to previous hypoglycemic episodes. He refused his cognitive evaluation. 5. Probable depression. 6. Urinary retention. PLAN: At this point, the patient will continue swing bed cares. Awaiting a bed at the [facility] when the new unit is available. We will continue to encourage him to allow us to help with cares. We will try to get his vitals today and 1 L of fluid. We will also get some Accu-Cheks. MKA: 03/09/2017 08:27:03 MODL: 03/09/2017 08:44:33 /[id number]
[2017-03-09] MEDS: FINASTERIDE 5 MG PO SCH (09:33)
[2017-03-09] MEDS: Magnesium Oxide 400 MG Tab PO SCH ×3 (09:34→20:11)
[2017-03-09] MEDS: Cholecalciferol (Vitamin D3) 1,000 Unit Tab PO SCH (09:34)
[2017-03-09] MEDS: Multivitamins with Iron/Calcium/Folic Acid/Minerals Tab PO SCH (09:34)
[2017-03-09] MEDS: ATORVASTATIN 10 MG PO SCH (09:34)
[2017-03-09] MEDS: INSULIN ASPART 100 UNIT/ML SUBCUT SCH ×3 (09:35→17:19)
[2017-03-09] MEDS: INSULIN DETEMIR 100 UNIT/ML SUBCUT SCH (09:35)
[2017-03-09] MEDS: Sodium Chloride 0.9% 10 ML Syringe FLUSH PRN (18:31)
[2017-03-10] MEDS: Cholecalciferol (Vitamin D3) 1,000 Unit Tab PO SCH ×3 (10:25→11:25)
[2017-03-10] MEDS: ATORVASTATIN 10 MG PO SCH ×3 (10:25→11:25)
[2017-03-10] MEDS: Multivitamins with Iron/Calcium/Folic Acid/Minerals Tab PO SCH ×3 (10:25→11:25)
[2017-03-10] MEDS: Magnesium Oxide 400 MG Tab PO SCH ×4 (10:25→19:50)
[2017-03-10] MEDS: INSULIN ASPART 100 UNIT/ML SUBCUT SCH ×4 (10:26→17:04)
[2017-03-10] MEDS: FINASTERIDE 5 MG PO SCH ×3 (10:26→11:25)
[2017-03-10] MEDS: INSULIN DETEMIR 100 UNIT/ML SUBCUT SCH ×4 (10:26→14:44)
--- NOTE | 2017-03-10 12:49 | PCM.SN ---
- Free Text/Narrative Note: S: Asked by nursing staff to look at a bump on the top of his head noted over the past 48 hours. Patient denies complaints. O: Fluctuant nodule on the top of his head with minimal overlying erythema. A/P: #1 Inflamed Sebaceous Cyst - Does not appear truly infected at this time. - Recommend warm compresses to the area. - Recheck tomorrow, sooner if significant change in appearance. Kelley Marie MD
[2017-03-11] MEDS: FINASTERIDE 5 MG PO SCH (10:35)
[2017-03-11] MEDS: ATORVASTATIN 10 MG PO SCH (10:35)
[2017-03-11] MEDS: Multivitamins with Iron/Calcium/Folic Acid/Minerals Tab PO SCH (10:36)
[2017-03-11] MEDS: Magnesium Oxide 400 MG Tab PO SCH ×4 (10:36→19:56)
[2017-03-11] MEDS: Cholecalciferol (Vitamin D3) 1,000 Unit Tab PO SCH (10:36)
[2017-03-11] MEDS: INSULIN DETEMIR 100 UNIT/ML SUBCUT SCH (10:36)
[2017-03-11] MEDS: INSULIN ASPART 100 UNIT/ML SUBCUT SCH ×3 (10:37→17:10)
[2017-03-11] MEDS: Sodium Chloride 0.9% 1,000 ML IV ONE ×2 (12:15→13:38)
[2017-03-11] MEDS: Sodium Chloride 0.9% 1,000 ML IV SCH (12:30)
--- NOTE | 2017-03-11 12:33 | PCM.SN ---
- Free Text/Narrative Note: Called by nursing due to patient having blood pressures in the 60s/30s. He is at his normal mental status but seemed more unsteady with ambulation today. Patient denies complaints. Lying in bed in no distress. Recheck BP now 104/63 when he is laying down. Will give 1 liter of fluids today. Continue to monitor.
[2017-03-11] MEDS: Sodium Chloride 0.9% 10 ML Syringe FLUSH PRN (15:08)
[2017-03-12] MEDS ORDERED: Insulin Aspart 100 Units/ML 3 ML Pen SUBCUT SCH (08:23)
[2017-03-12] MEDS: Cholecalciferol (Vitamin D3) 1,000 Unit Tab PO SCH (09:39)
[2017-03-12] MEDS: INSULIN DETEMIR 100 UNIT/ML SUBCUT SCH (09:39)
[2017-03-12] MEDS: Multivitamins with Iron/Calcium/Folic Acid/Minerals Tab PO SCH (09:39)
[2017-03-12] MEDS: Magnesium Oxide 400 MG Tab PO SCH ×3 (09:39→19:52)
[2017-03-12] MEDS: FINASTERIDE 5 MG PO SCH (09:40)
[2017-03-12] MEDS: ATORVASTATIN 10 MG PO SCH (09:40)
[2017-03-12] MEDS: INSULIN ASPART 100 UNIT/ML SUBCUT SCH (09:52)
[2017-03-12] MEDS: NOVOLOG SUBCUT SCH ×2 (12:09→17:57)
[2017-03-13] MEDS: INSULIN GLARGINE SUBCUT SCH (07:59)
[2017-03-13] MEDS: NOVOLOG SUBCUT SCH ×3 (07:59→17:13)
[2017-03-13] MEDS: Magnesium Oxide 400 MG Tab PO SCH (08:39)
[2017-03-13] MEDS: ATORVASTATIN 10 MG PO SCH (08:39)
[2017-03-13] MEDS: Cholecalciferol (Vitamin D3) 1,000 Unit Tab PO SCH (08:39)
[2017-03-13] MEDS: Multivitamins with Iron/Calcium/Folic Acid/Minerals Tab PO SCH (08:39)
[2017-03-13] MEDS: FINASTERIDE 5 MG PO SCH (08:39)
--- NOTE | 2017-03-13 09:20 | PN ---
Progress Note for LOYD GRIJALVA Date: 03/13/2017 Room #: VM.214 SUBJECTIVE: This is a 46-year-old on swing bed after significant hypotension. He has uncontrolled diabetes. Blood pressure, again, this morning was 73/43, but he denies feeling lightheaded. He declines IV fluids today, but says he will take them tomorrow, which is his regular day. He did have 1 L over the weekend because he had not had it on the previous week because of good blood pressures. Otherwise, he is denying any trouble breathing. He is denying any pain with urination. He continues to have some retention, but after bladder scan, he will void, and he will go okay. He was incontinent all over his room this morning. He just got out of the shower. He seems to be more content now, but he was swinging at the aide this morning. He did allow them to give him the insulin, but blood sugar was over 400. OBJECTIVE: Vital Signs: His temperature has not yet been assessed. Pulse 100, blood pressure 73/43, respiratory rate 16, and O2 of 100% on room air. General: He is in no acute distress. Heart: Regular rate and rhythm. Lungs: Sounds are clear to auscultation with some rare wheezing. Extremities: Warm and dry. No edema. He has good 2+ dorsal pedis pulses. Mental Status: He is alert. He is orientated. LABORATORY DATA: Lab work again shows blood sugar 464. Yesterday morning, it was 234. No other checks were recorded for yesterday. ASSESSMENT AND PLAN: 1. Recurrent hypotension due to autonomic dysfunction from poorly controlled diabetes. We will check another set of vitals today. If his blood pressure continues to be low, we will encourage the IV fluids today. 2. Uncontrolled diabetes type 1 with multiple complications. We will increase his Lantus to 26 units daily. We did increase meal insulin to 7 units t.i.d. recently, and he did get a dose this morning. He has not yet ate breakfast. 3. Chronic anemia. 4. Cognitive impairment related to previous hypoglycemic episodes. He is set to move in to [facility] tomorrow. 5. Probable depression. 6. Urinary retention. He seems to be voiding okay with postvoid residuals around a 100 after voiding. 7. Behavior concerns. Mother did decline any antidepressants for him. He is upset about not being able to smoke. We will continue to monitor behaviors closely. If the [facility] is unable to manage these, he may end up in the special care unit depending on how things go. MKA: 03/13/2017 08:24:45 MODL: 03/13/2017 09:15:25 /[id number]
[2017-03-13] MEDS ORDERED: Insulin Aspart 100 Units/ML 3 ML Pen SUBCUT ONE ×2 (11:00)
[2017-03-14 03:01] VITALS: BP 137/79
[2017-03-14] MEDS: Sodium Chloride 0.9% 1,000 ML IV SCH (06:58)
[2017-03-14] MEDS ORDERED: Sodium Chloride 0.9% 500 ML IV ONE (07:00)
[2017-03-14] MEDS: FINASTERIDE 5 MG PO SCH (08:29)
[2017-03-14] MEDS: Cholecalciferol (Vitamin D3) 1,000 Unit Tab PO SCH (08:29)
[2017-03-14] MEDS: Multivitamins with Iron/Calcium/Folic Acid/Minerals Tab PO SCH (08:29)
[2017-03-14] MEDS: ATORVASTATIN 10 MG PO SCH (08:29)
[2017-03-14] MEDS: NOVOLOG SUBCUT SCH (08:30)
[2017-03-14] MEDS: INSULIN GLARGINE SUBCUT SCH (08:31)
[2017-03-14] MEDS ORDERED: Insulin Aspart 100 Units/ML 3 ML Pen SUBCUT ONE (09:40)
--- NOTE | 2017-03-15 00:36 | DISCH ---
PRIMARY DISCHARGE DIAGNOSES: 1. Symptomatic hypotension which is recurrent due to autonomic dysfunction due to poorly controlled diabetes. 2. Uncontrolled type 1 diabetes with unspecified complications, on long-term insulin use. 3. Hypomagnesemia due to uncontrolled diabetes. 4. Loose stools due to magnesium replacement. 5. Smoking. 6. Adjustment disorder with concern over going to long-term care and not being able to smoke. 7. Chronic anemia. 8. Cognitive impairment related to previous episodes of hypoglycemia. 9. Urinary retention. The patient was having bladder scans that were elevated but after voiding, they would improve. We will continue to monitor. 10.Behavior concerns due to agitation from not being able to go home and sometimes refusing cares. REASON FOR ADMISSION: On the date of admission, this 46-year-old was admitted under acute care with hypotension, low blood pressures in the 80s. He was given IV fluids, which improved his overall condition. His electrolytes were replaced. He was also having loose stools and diarrhea, but was ruled out for C. diff. He transitioned over to swing bed, but mother felt that she could not take him home and care for him any longer. There was a new unit opening up at the [facility] and she was hoping to place him there. Pino was not excited about going there. He said he did not have a choice, however, his biggest concern continues to be that he will not be allowed to smoke. Otherwise, he did use a nicotine patch early on but has not been using it in the last several days. He states he is fine here because he knows he cannot smoke but is going to be harder over there. Otherwise, he did receive his weekly IV saline bolus today prior to transfer. He had refused it on the previous week on Sunday but then ended up getting it over the weekend. It was not felt that he needed it last Sunday because of higher blood pressures that day and he was overall feeling well, but by Sunday he did need it. Otherwise, he denies pain. He does have a large epidermoid type cyst on his head, minimal redness, but no warmth, no drainage. It is not bothering him at all, so I advised him just to leave it at this point, but if it gets worse, we would consider seeing a surgeon to have it removed. He was not having any breathing trouble. He was not having any burning with urination. PHYSICAL EXAMINATION: Vital Signs: Discharge vitals, temperature 98.2, pulse 87, blood pressure 137/79, respiratory rate 16, and O2 of 98% on room air. General: He is in no acute distress. Heart: Regular rate and rhythm. Lungs: Sounds are clear to auscultation bilaterally without crackles or wheezes. Abdomen: Positive bowel sounds, soft, and nontender. Extremities: Warm and dry. No edema. Mental Status: He is alert, he is orientated. He knows he is at the hospital. He recognizes me. He answers questions appropriately with yes and no. DISCHARGE PLANS/INSTRUCTIONS: Otherwise, he does have a Dexcom sensor in place, it was changed yesterday. Ideally, it should be changed about every 5 to 7 days, but due to the expense, they were changing it about every 2 weeks, so we will continue this with his IV infusions, which are done weekly through [facility] to prevent hypotension. Blood sugars will be checked 4 times a day. On discharge, we had increased his Lantus up to 26 units daily and meal insulin up to 7 units t.i.d. here but if blood sugars under 100, we will do 3 units at the meal. Glucagon was also ordered. His lowest blood sugar during his stay here was 79. Otherwise, many of his readings were in the 200s and even 400 yesterday morning, so he did get extra doses of meal insulin up to 10 units instead of 7. He at times was refusing Accu-Cheks, but otherwise would be cooperative with most cares except when he would get into some periods where he just did not feel like cooperating. Usually if the nurses left him alone, he would do better when they return, but he did have an episode where he did swing at the [employer] on the morning prior to discharge, but did well the rest of the day after that. He did have some loose stools again and we decreased his magnesium dose. Addendum blood sugar check after eating breakfast was over 600 it was checked to sink with his dexcom. He was given 5 extra units of insulin and a bmp was checked with no sign of DKA. Lantus had just been increased on the previous day and we will continue to make insulin adjustments at the [place] as needed. MKA: 03/14/2017 08:38:55 MODL: 03/15/2017 00:31:59 /[id number] BRENT
== END 2017-03-14 10:05 | DRG 639 ==
LOC: VM.MS 11:00
PROVIDERS: ADMIT Internal Medicine; ATTEND Internal Medicine
DX: E10.65 Type 1 diabetes mellitus with hyperglycemia (principal); I95.9 Hypotension, unspecified; Z79.4 Long term (current) use of insulin; E83.42 Hypomagnesemia; D63.8 Anemia in other chronic diseases classified elsewhere; R33.9 Retention of urine, unspecified; F43.20 Adjustment disorder, unspecified; F17.210 Nicotine dependence, cigarettes, uncomplicated; R45.1 Restlessness and agitation; N18.9 Chronic kidney disease, unspecified; G31.84 Mild cognitive impairment of uncertain or unknown etiology; R19.7 Diarrhea, unspecified; L72.8 Other follicular cysts of the skin and subcutaneous tissue; E10.69 Type 1 diabetes mellitus with other specified complication; Z53.29 Procedure and treatment not carried out because of patient's decision for other reasons; E10.22 Type 1 diabetes mellitus with diabetic chronic kidney disease
CPT/HCPCS: 36415; 80048; 82962; 83735; 85025; A9270-GY; J1642; J1815-GY; J7030; J7050

== ENCOUNTER 2017-03-26 11:16 | Emergency (ER) | payer MEDICARE, MEDICAID ==
[2017-03-26] MEDS ORDERED: Sodium Chloride 0.9% 500 ML IV SCH ×2 (11:30→12:15)
--- NOTE | 2017-03-26 11:38 | EDM.PDOC ---
ED HPI GENERAL MEDICAL PROBLEM - General Chief Complaint: General Stated Complaint: sent over from shelter for weakness, hypotension high blood sugar Time Seen by Provider: 03/26/17 11:30 Source of Information: Reports: EMS, EMS Notes Reviewed, Old Records, RN History Limitations: Reports: Other (patient declines to answer lost question, on some will grunt and shake head yes or no, did ask for coffee clearly) - History of Present Illness Onset: Today Onset Date: 03/26/17 Onset Time: 10:00 Duration: Minutes: Location: Reports: Generalized Quality: Reports: Other (wont answer) Improves with: Reports: None Worsens with: Reports: None Context: Reports: Other (wont answer questions) Associated Symptoms: Reports: No Other Symptoms - Related Data Allergies Allergy/AdvReac Type Severity Reaction Status Date / Time cyclobenzaprine HCl AdvReac Muscle Verified 03/26/17 13:33 [From Flexeril] Weakness quetiapine fumarate AdvReac Agitation Verified 03/26/17 13:33 [From Seroquel] Home Meds: Home Meds Cholecalciferol (Vitamin D3) [Vitamin D3] 1,000 units PO DAILY 02/13/14 [History ] Insulin Aspart [NovoLOG] 7 unit SUBCUT TIDMEALS 02/13/14 [History] Multivitamin [Multi-Vitamin Daily] 1 tab PO DAILY 02/13/14 [History] Finasteride [Proscar] 5 mg PO DAILY 02/28/17 [History] atorvaSTATin [Lipitor] 10 mg PO DAILY 02/28/17 [History] Acetaminophen [Tylenol] 650 mg PO Q4H PRN #30 tablet 03/14/17 [Rx] Glucagon,Human Recombinant [Glucagon Emergency Kit] 1 mg IJ DAILY PRN #1 kit [Rx] Insulin Glargine,Hum.Rec.Anlog [Lantus Solostar] 26 unit SQ DAILY #0 03/14/17 [ Rx] Loperamide [Imodium] 2 mg PO Q4H PRN #30 cap 03/14/17 [Rx] Magnesium 500 mg PO DAILY #0 03/14/17 [Rx] Sodium Chloride 0.9% [Normal Saline] 1,000 ml IV ASDIRECTED #1 bag 03/14/17 [Rx] Insulin Aspart [Novolog] 9 unit SQ BID 03/26/17 [History] Past Medical History Cardiovascular History: Reports: High Cholesterol, PVD, Syncope, Other (See Below) Other Cardiovascular History: orthostatic hypotension Gastrointestinal History: Reports: GI Bleed, Other (See Below) Other Gastrointestinal History: ischemic colitis Musculoskeletal History: Reports: Fracture, Other (See Below) Other Musculoskeletal History: osteomyelitis of foot/ankle Neurological History: Reports: Neuropathy, Diabetic, Other (See Below) Other Neuro History: cognitive impairment Psychiatric History: Reports: Other (See Below) Other Psychiatric History: alcohol abuse Endocrine/Metabolic History: Reports: Diabetes, Type I, Other (See Below) Other Endocrine/Metabolic History: hypomagnesemia, DKA Hematologic History: Reports: Anemia - Infectious Disease History Infectious Disease History: Reports: C-Difficile, Other (See Below) Other Infectious Disease History: MSSA pneumonia, Klebsiella bacteremia - Past Surgical History Musculoskeletal Surgical History: Reports: Other (See Below) Social & Family History - Family History Family Medical History: Noncontributory - Tobacco Use Smoking Status *Q: Current Status Unknown Years of Tobacco use: 30 Packs/Tins Daily: 1.5 Used Tobacco, but Quit: No Second Hand Smoke Exposure: No - Caffeine Use Caffeine Use: Reports: None - Alcohol Use Days Per Week of Alcohol Use: 0 - Recreational Drug Use Recreational Drug Use: No ED ROS GENERAL - Review of Systems Review Of Systems: See Below Constitutional: Reports: Weakness HEENT: Reports: No Symptoms Respiratory: Reports: No Symptoms. Denies: Shortness of Breath Cardiovascular: Reports: No Symptoms, Blood Pressure Problem (reportted hypotension at ri). Denies: Chest Pain Endocrine: Reports: High Glucose GI/Abdominal: Reports: No Symptoms. Denies: Abdominal Pain, Diarrhea : Reports: No Symptoms, Other (history of frequent UTI) Musculoskeletal: Reports: No Symptoms Skin: Reports: No Symptoms Neurological: Reports: No Symptoms Psychiatric: Reports: No Symptoms Hematologic/Lymphatic: Reports: No Symptoms Immunologic: Reports: No Symptoms (patient declined to verbally answer but did shake or grunt yes or no in answer to above question. corrobarating infp obtained from EMS and NH) ED EXAM GENERAL NO PERIP PULSE - Physical Exam Exam: See Below Exam Limited By: Other (see previous note) General Appearance: Alert, WD/WN, No Apparent Distress Eye Exam: Bilateral Eye: EOMI, PERRL Ears: Normal External Exam, Normal Canal, Hearing Grossly Normal, Normal TMs Nose: Normal Inspection, Normal Mucosa Throat/Mouth: Normal Inspection, Normal Lips, Normal Oropharynx Head: Atraumatic, Normocephalic, Other (5 cm sebaceous cyst on back of scalp with overlyting reddened skin from pressure lying on it) Neck: Normal Inspection, Supple, Non-Tender Respiratory/Chest: No Respiratory Distress, Lungs Clear, Normal Breath Sounds, No Accessory Muscle Use, Chest Non-Tender Cardiovascular: Regular Rate, Rhythm, Other (1-2 plus edema in feet) GI/Abdominal: Normal Bowel Sounds, Soft, Non-Tender, No Organomegaly, No Distention Back Exam: Normal Inspection. No: Vertebral Tenderness Extremities: Normal Inspection, Normal Range of Motion Neurological: Alert, Oriented EKG INTERPRETATION EKG Date: 03/26/17 Rhythm: NSR Rate (beats/min): 90 [place]: normal P-wave: present QRS: normal ST-T: normal QT: normal Comparison: no change (nsr without acute change) Course - Vital Signs Last Recorded V/S: Last Vital Signs Temp 36.1 C 03/26/17 13:28 Pulse 92 03/26/17 13:28 Resp 14 03/26/17 13:28 BP 89/59 L 03/26/17 13:28 Pulse Ox 97 03/26/17 13:28 - Orders/Labs/Meds Orders: Active Orders 24 hr Category Date Time Status EKG 12 Lead [EKG Documentation Completion] [RC] STAT Care 03/26/17 11:32 Active Sodium Chloride 0.9% [Normal Saline] 1,000 ml Med 03/26/17 12:15 Ordered IV ASDIRECTED Medication Orders Sodium Chloride (Normal Saline) 1,000 mls @ 500 mls/hr IV ASDIRECTED SILVIA Labs: Laboratory Tests 03/26/17 03/26/17 03/26/17 Range/Units 11:26 11:45 11:45 WBC 8.7 (4.0-10.0) x10^3/uL RBC 3.31 L (4.5-6.0) x10^6/uL Hgb 9.9 L (14.0-18.0) g/dL Hct 28.5 L (40.0-52.0) % MCV 86.1 D (78.0-93.0) fL MCH 29.9 (26.0-32.0) pg MCHC 34.7 (32.0-36.0) g/dL RDW Coeff of Madeline 11.4 (10.0-15.0) % Plt Count 291 (130-400) x10^3/uL Neut % (Auto) 49.3 L (50.0-80.0) % Lymph % (Auto) 37.7 (25.0-50.0) % [place] % (Auto) 9.4 (2.0-11.0) % Eos % (Auto) 2.3 (0.0-4.0) % Baso % (Auto) 1.3 H (0.2-1.2) % Sodium 133 L (136-145) mmol/L Potassium 4.5 (3.5-5.1) mmol/L Chloride 96 L (98-107) mmol/L Carbon Dioxide 27 (21-32) mmol/L BUN 39 H (7-18) mg/dL Creatinine 1.7 H (0.70-1.30) mg/dL Est Cr Clr Drug Dosing TNP Estimated GFR (MDRD) 44 Glucose 483 H* (74-106) mg/dL POC Glucose 459 H* (74-106) mg/dL Calcium 9.6 (8.5-10.1) mg/dL Corrected Calcium 10.08 (8.5-10.1) mg/dL Total Bilirubin 0.6 (0.2-1.0) mg/dL AST 25 (15-37) U/L ALT 73 H (16-63) U/L Alkaline Phosphatase 110 (46-116) U/L Total Protein 7.1 (6.4-8.2) g/dL Albumin 3.4 (3.4-5.0) g/dL Globulin 3.7 Albumin/Globulin Ratio 0.92 Urine Color (YELLOW) Urine Appearance (CLEAR) Urine pH (5.0-8.0) Ur Specific [place] Urine Protein (NEGATIVE) mg/dL Urine Glucose (UA) (NEGATIVE) mg/dL Urine Ketones (NEGATIVE) mg/dL Urine Occult Blood (NEGATIVE) Urine Nitrite (NEGATIVE) Urine Bilirubin (NEGATIVE) Urine Urobilinogen (0.2) EU/dL Ur Leukocyte Esterase (NEGATIVE) Urine RBC (NOT SEEN) /HPF Urine WBC (NOT SEEN) /HPF Ur Squamous Epith Cells (NEGATIVE) /HPF Amorphous Sediment Urine Bacteria (NEGATIVE) /HPF Urine Mucus (NEGATIVE) /LPF 03/26/17 03/26/17 Range/Units 12:16 13:03 WBC (4.0-10.0) x10^3/uL RBC (4.5-6.0) x10^6/uL Hgb (14.0-18.0) g/dL Hct (40.0-52.0) % MCV (78.0-93.0) fL MCH (26.0-32.0) pg MCHC (32.0-36.0) g/dL RDW Coeff of Madeline (10.0-15.0) % Plt Count (130-400) x10^3/uL Neut % (Auto) (50.0-80.0) % Lymph % (Auto) (25.0-50.0) % [place] % (Auto) (2.0-11.0) % Eos % (Auto) (0.0-4.0) % Baso % (Auto) (0.2-1.2) % Sodium (136-145) mmol/L Potassium (3.5-5.1) mmol/L Chloride (98-107) mmol/L Carbon Dioxide (21-32) mmol/L BUN (7-18) mg/dL Creatinine (0.70-1.30) mg/dL Est Cr Clr Drug Dosing Estimated GFR (MDRD) Glucose (74-106) mg/dL POC Glucose 412 H* (74-106) mg/dL Calcium (8.5-10.1) mg/dL Corrected Calcium (8.5-10.1) mg/dL Total Bilirubin (0.2-1.0) mg/dL AST (15-37) U/L ALT (16-63) U/L Alkaline Phosphatase (46-116) U/L Total Protein (6.4-8.2) g/dL Albumin (3.4-5.0) g/dL Globulin Albumin/Globulin Ratio Urine Color Yellow (YELLOW) Urine Appearance Cloudy H (CLEAR) Urine pH 7.0 (5.0-8.0) Ur Specific [place] 1.010 Urine Protein Negative (NEGATIVE) mg/dL Urine Glucose (UA) 500 H (NEGATIVE) mg/dL Urine Ketones 15 H (NEGATIVE) mg/dL Urine Occult Blood Trace-intact H (NEGATIVE) Urine Nitrite Negative (NEGATIVE) Urine Bilirubin Negative (NEGATIVE) Urine Urobilinogen 0.2 (0.2) EU/dL Ur Leukocyte Esterase Negative (NEGATIVE) Urine RBC 0-5 (NOT SEEN) /HPF Urine WBC 0-5 (NOT SEEN) /HPF Ur Squamous Epith Cells Not seen (NEGATIVE) /HPF Amorphous Sediment Few Urine Bacteria Moderate H (NEGATIVE) /HPF Urine Mucus Rare H (NEGATIVE) /LPF Meds: Medications Generic Name Dose Route Start Last Admin Trade Name Freq PRN Reason Stop Dose Admin Sodium Chloride 1,000 mls @ 500 mls/hr 03/26/17 12:15 Normal Saline IV ASDIRECTED SILVIA Discontinued Medications Generic Name Dose Route Start Last Admin Trade Name Freq PRN Reason Stop Dose Admin Sodium Chloride 500 mls @ 500 mls/hr 03/26/17 12:15 03/26/17 12:20 Normal Saline IV 500 mls/hr ASDIRECTED SILVIA Administration Insulin Aspart 5 unit 03/26/17 11:42 03/26/17 11:51 Novolog SUBCUT 03/26/17 11:43 Not Given ONETIME ONE Insulin Human Regular 5 unit 03/26/17 11:46 03/26/17 11:50 Humulin R SUBCUT 03/26/17 11:47 5 unit ONETIME ONE Administration Protocol Insulin Human Regular 5 unit 03/26/17 12:17 Humulin R SUBCUT 03/26/17 12:18 ONETIME ONE Protocol Insulin Human Regular 3 unit 03/26/17 12:20 03/26/17 12:21 Humulin R SUBCUT 03/26/17 12:21 3 unit ONETIME ONE Administration Protocol - Re-Assessments/Exams Free Text/Narrative Re-Assessment/Exam: 03/26/17 13:39 Labs and diagnostics done and evaluated. Patient given 8 units insulin. Blood sugars monitored. Given IV NS of 1000 cc NS. Discussed case with PCP Dr Alejandro. Will be transferred back To [place] with orders for outpt IV fluids and BMP tomorrow, Advised mom and patient and they agreed with plan. Free Text/Narrative Re-Assessment/Exam: 03/26/17 13:45 Advised patient I should do a rectal check to follow up on decreased hemoglobin however patient refused, became agitated and and combative. Departure - Departure Time of Disposition: 13:44 Disposition: DC/Tfer to [facility] Condition: good Clinical Impression: Hyperglycemia, Orthostatic hypotension, Prerenal azotemia - Discharge Information Referrals: Angélica Alejandro DO [Primary Care Provider] - Additional Instructions: Come back tomorrow instead of Sunday for a liter of IV NS and check BMP per Dr Alejandro - My Orders Last 24 Hours: My Active Orders 03/26/17 11:32 EKG 12 Lead [EKG Documentation Completion] [RC] STAT 03/26/17 12:15 Sodium Chloride 0.9% [Normal Saline] 1,000 ml IV ASDIRECTED - Assessment/Plan Last 24 Hours: My Active Orders 03/26/17 11:32 EKG 12 Lead [EKG Documentation Completion] [RC] STAT 03/26/17 12:15 Sodium Chloride 0.9% [Normal Saline] 1,000 ml IV ASDIRECTED
[2017-03-26] MEDS ORDERED: Insulin Aspart 100 Units/ML 3 ML Pen SUBCUT ONE (11:42)
[2017-03-26] MEDS ORDERED: Insulin Regular, Human 100 Units/ML 3 ML Vial SUBCUT ONE ×3 (11:46→12:20)
[2017-03-26 12:15] LABS: CHLORIDE,CL 96 mmol/L (98-107); SODIUM,NA 133 mmol/L (136-145)
[2017-03-26] MEDS ORDERED: Sodium Chloride 0.9% 1,000 ML IV SCH (12:15)
[2017-03-26 14:23] VITALS: BP 113/64
== END 2017-03-26 14:04 ==
LOC: VM.ED 11:16
DX: E10.65 Type 1 diabetes mellitus with hyperglycemia (principal); R79.89 Other specified abnormal findings of blood chemistry; I95.1 Orthostatic hypotension; E78.00 Pure hypercholesterolemia, unspecified; E10.41 Type 1 diabetes mellitus with diabetic mononeuropathy; Z79.4 Long term (current) use of insulin; Z88.8 Allergy status to other drugs, medicaments and biological substances; Z79.899 Other long term (current) drug therapy; Z86.2 Personal history of diseases of the blood and blood-forming organs and certain disorders involving the immune mechanism
CPT/HCPCS: 36415; 80053; 81001; 82962; 85025; 93005; 96360; 96361; 96372; 99284; 99285; J1815; J7040

== ENCOUNTER 2017-03-27 14:14 | Inpatient (IN) | payer MEDICARE, MEDICAID ==
[2017-03-27] MEDS ORDERED: Insulin Regular, Human 100 Units/ML 3 ML Vial IV ONE ×3 (14:29→17:15)
[2017-03-27] MEDS ORDERED: Sodium Chloride 0.9% 500 ML IV ONE (14:58)
[2017-03-27] MEDS ORDERED: Sodium Chloride 0.9% 10 ML Syringe IV PRN (15:22)
[2017-03-27] MEDS ORDERED: Ondansetron 4 MG Tab.DIS PO PRN (16:14)
[2017-03-27] MEDS ORDERED: Ondansetron 4 MG/2 ML SDV IV PRN (16:14)
[2017-03-27] MEDS ORDERED: INSULIN REGULAR IV ONE ×4 (16:16→16:21)
[2017-03-27] MEDS ORDERED: DEXTROSE 10% IV ONE ×4 (16:16→16:21)
[2017-03-27] MEDS ORDERED: HUMAN IV ONE ×4 (16:16→16:21)
[2017-03-27] MEDS ORDERED: WATER IV ONE ×4 (16:16→16:21)
[2017-03-27] MEDS ORDERED: Loperamide 2 MG Cap PO PRN (17:22)
[2017-03-27] MEDS ORDERED: Acetaminophen 325 MG Tab PO PRN (17:22)
[2017-03-27] MEDS ORDERED: Glucagon,Human Recombinant 1 MG Vial IM PRN (17:22)
[2017-03-27] MEDS ORDERED: Insulin Aspart 100 Units/ML 3 ML Pen SUBCUT SCH (17:23)
[2017-03-27] MEDS ORDERED: Insulin Glargine,Human Rec. Analog 100 Units/ML 3 ML Pen SUBCUT ONE (17:26)
[2017-03-27] MEDS ORDERED: Sodium Chloride 0.9% 1,000 ML IV SCH (17:30)
--- NOTE | 2017-03-27 22:56 | HP ---
CHIEF COMPLAINT: DKA. HISTORY OF PRESENT ILLNESS: This is a 46-year-old male, who was seen in the ER yesterday [facility] with blood pressure 60/40. He had 1 L of IV fluids. His creatinine was up to 1.7. It had been 1.4 previously. I did advise the recheck of kidney function and another liter of fluids today. Unfortunately, his blood sugar was over 700 and his bicarb had dropped from 27 to 18, his anion gap 15, his sodium 128. He had actually already been sent back to the [facility] and I called the [facility] and had him sent him to the hospital for a direct admit. He had actually been receiving his regular insulin 26 units of Lantus and 7 units with breakfast. The blood sugar was over 400 and he did not eat anything. Then, at lunch, it was reading just high. He got another 9 units at 11:30 and then he was picked up to be brought to the hospital for fluids. [facility] tells me there was a bunch of candy bars and things in his room that was all cleaned out. They are concerned that his mother is bringing him these sweets that are leading to higher blood sugars. Pino himself denies any abdominal pain. He denies any nausea or vomiting. He is not really able to tell me why he did not feel like eating today but he feels like eating now. He has not had any burning with urination, no cough. No shortness of breath or chest pain. Otherwise, the patient received 1.5 L of fluid by the time he had repeat panel at 4:30. His sodium had improved to 134, although his corrected sodium was always normal. His blood sugar had improved down to 468 with a total of 9 units of IV insulin. Creatinine remained elevated at 1.7. White count was normal at 9.5 and hemoglobin 9.6. PAST MEDICAL HISTORY: Reviewed in his recent H and P on 02/[address] Son Chang when he was admitted for another episode of hypotension. The patient has actually been receiving outpatient IV fluids for the last year weekly for severe autonomic insufficiency from uncontrolled diabetes. Other past medical history includes. 1. Long-standing uncontrolled type 1 diabetes with multiple complications. 2. Cognitive impairment from previous hypoglycemic episode. 3. Remote history of alcohol abuse. 4. History of smoking. He quit when [facility] to the [facility]. 5. Past history of GI bleeding, felt to be due to colitis; however, he did not have any followup colonoscopies. 6. Chronic anemia. 7. Urinary retention. 8. Acute on chronic renal failure with creatinine up to 1.7. 9. Mood disorder, likely depression. His mother recently agreed that he could be started on Wellbutrin, this would also help with his smoking. SOCIAL HISTORY: The patient previously lived at home near his mother. [facility] but he states he does not like it there, it is not the place for him. Otherwise, he does have a brother who is his power of workers compensation attorney. FAMILY HISTORY: Mother is living. Brother is living. He has other family members who have diabetes. REVIEW OF SYSTEMS: General: As stated in the HPI. Otherwise, on review it does appear that he has lost a significant amount of weight since discharge when he was around 72 kg and now he is down to 66, so he is down 12 pounds. HEENT: Otherwise, no sore throat. Cardiac: No chest pain. Respiratory: Already reviewed, as in HPI. Abdominal: No diarrhea. Otherwise, all systems reviewed and found to be negative unless otherwise stated. PHYSICAL EXAMINATION: Vital Signs: On admission, his temp 97.8, weight 66.4 kg, pulse 69, blood pressure 111/61, respiratory rate 16, and O2 of 100% on room air. General: He is in no acute distress. Heart: Regular rate and rhythm. S1, S2 without murmur. Lungs: Sounds are clear to auscultation bilaterally without crackles or wheezes. Abdomen: Positive bowel sounds. Soft and nontender. Extremities: Warm and dry. No edema. Mental Status: He is alert. He is orientated. He recognizes me. He knows he is in the hospital. Basically, he is at his baseline mental status. LABORATORY DATA: Lab work already reviewed in HPI. ASSESSMENT AND PLAN: 1. Episode of diabetic ketoacidosis which must have came on quite suddenly since yesterday. I feel this is a minor episode as it has already resolved and his anion gap has closed but at any rate, he needs to be admitted for stabilization of blood sugars. We have given him an extra 10 units of Lantus today. He will be given that. He was given 26 units this morning. We will also continue his meal insulin 7 in the morning, 9 in the afternoon and evening. I think dietary compliance and avoiding large loads of sugar will help significantly with his diabetes. He has not had any lows other than a 79 since being at the [facility]. We will continue to monitor blood sugars frequently. We will decrease from every 1 hour now down to every 3 hours. I think we can hold off on any repeat lab work until the morning. Due to his renal failure, I am going to hold the Lipitor and check a CK level in the morning. 2. Acute renal failure with creatinine up to 1.7. Some of this could be due to urinary retention versus the fluid. Due to the hypotension he had yesterday, we will repeat a UA today. We will do bladder scans and straight cath for elevated postvoid residuals. 3. Long-standing uncontrolled type 1 diabetes, with cognitive impairment. Blood sugars in the 100-200 range are absolutely acceptable. 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 We are working on monitoring how much he is eating at the [facility] and doing some carb counting with Nutrition to make further recommendations. 4. Cognitive impairment. His brother is power of workers compensation attorney and his decision maker. PLAN: At this point, the patient will be admitted under acute cares. We will continue IV fluids. I will decrease his normal saline to 150 mL/h. He has already gotten 1.5 L. We will continue his insulin with the extra 10 units of Lantus. We will do q.3 hours checks. We will continue Proscar for hopefully helping to empty his bladder. We will do bladder scans and straight cath if needed. ANYA: 03/27/2017 17:36:32 MODL: 03/27/2017 22:48:45 /[id number]
[2017-03-28 06:07] VITALS: BP 106/64
[2017-03-28 07:28] LABS: CHLORIDE,CL 106 mmol/L (98-107); SODIUM,NA 141 mmol/L (136-145)
[2017-03-28] MEDS ORDERED: Insulin Aspart 100 Units/ML 3 ML Pen SUBCUT SCH (08:00)
[2017-03-28] MEDS ORDERED: Cholecalciferol (Vitamin D3) 1,000 Unit Tab PO SCH (08:00)
[2017-03-28] MEDS ORDERED: Insulin Glargine,Human Rec. Analog 100 Units/ML 3 ML Pen SUBCUT SCH (08:00)
[2017-03-28] MEDS ORDERED: Multivitamins with Iron/Calcium/Folic Acid/Minerals Tab PO SCH (08:00)
[2017-03-28] MEDS ORDERED: Finasteride 5 MG Tab PO SCH (08:00)
[2017-03-28] MEDS ORDERED: Magnesium Oxide 400 MG Tab PO SCH (08:00)
--- NOTE | 2017-03-28 09:38 | PCM.DCSUM1 ---
Discharge Summary - Discharge Data Discharge Date: 03/28/17 Discharge Disposition: DC[facility] to [facility] Condition: Good - Patient Instructions Diet: Diabetic Diet Activity: As Tolerated Driving: Do Not Drive Showering/Bathing: May Shower Notify Provider of: Fever, Nausea and/or Vomiting Other/Special Instructions: 1. Bactrim 400-80 mg BID for 5 days for UTI. 2. No changes in medications. 3. Avoid foods high in sugar. 4. Dr. Alejnadro will be rounding on Sunday - Discharge Plan Prescriptions/Med Rec: Sulfamethoxazole/Trimethoprim [Bactrim 400-80 MG] 1 each PO BID #10 tablet Home Medications: Home Meds Cholecalciferol (Vitamin D3) [Vitamin D3] 1,000 units PO DAILY 02/13/14 [History ] Insulin Aspart [NovoLOG] 7 unit SUBCUT DAILY 02/13/14 [History] Multivitamin [Multi-Vitamin Daily] 1 tab PO DAILY 02/13/14 [History] Finasteride [Proscar] 5 mg PO DAILY 02/28/17 [History] atorvaSTATin [Lipitor] 10 mg PO DAILY 02/28/17 [History] Acetaminophen [Tylenol] 650 mg PO Q4H PRN #30 tablet 03/14/17 [Rx] Glucagon,Human Recombinant [Glucagon Emergency Kit] 1 mg IJ DAILY PRN #1 kit [Rx] Insulin Glargine,Hum.Rec.Anlog [Lantus Solostar] 26 unit SQ DAILY #0 03/14/17 [ Rx] Loperamide [Imodium] 2 mg PO Q4H PRN #30 cap 03/14/17 [Rx] Magnesium 500 mg PO DAILY #0 03/14/17 [Rx] Insulin Aspart [Novolog Flexpen] 9 unit SQ BID 03/26/17 [History] buPROPion [Wellbutrin] 75 mg PO BID 03/27/17 [History] Sulfamethoxazole/Trimethoprim [Bactrim 400-80 MG] 1 each PO BID #10 tablet 03/28 [Rx] - General Info Date of Service: 03/28/17 Admission Dx/Problem (Free Text: 46 yo male seen on hospital day 2 for DKA. Patient presented to the ER yesterday after the snf noticed his blood sugars were high and his BP was low. Blood sugar was > 700 when he was seen in the ER and BP was 60/40. Patient was sent back to the [facility] but they were contacted and advised to bring him back to [facility] for direct admission. Patient was started on NS and insulin SQ with frequent checks. Sugar had improved to 468 and sodium was back up to 134 by the afternoon. Did not require an insulin drip. Lab work this morning showed Glucose of 136 with a 122 accucheck at 0700. Sodium is now up to 141 and potassium is 3.8. Magnesium is mildly decreased at 1.4. Does take a daily magnesium supplement. Bicarb improved to 27. Creatinine is now down to 1.0 from 1.7 yesterday. The [facility] noticed there were empty candy wrappers and believe this was the cause of the increased sugars. His mother has been bringing in sugary snacks. UA was positive for infection. There was 50-75 WBC and nitrite positive. Patient allergies include flexeril and quetiapine. Patient denies symptoms of dysuria or hematuria. He is feeling ok today. No nausea or vomiting. Has not felt like eating but did finish 100% of his breakfast. No abdominal pain. Would like to go back to the [facility] today. No questions or concerns. - Review of Systems General: Denies: Fever Cardiovascular: Denies: Edema Gastrointestinal: Denies: Abdominal pain, Nausea, Vomiting Genitourinary: Denies: dysuria, hematuria - Patient Data Vitals - Most Recent: Last Vital Signs Temp 36.6 C 03/28/17 06:00 Pulse 90 03/28/17 06:00 Resp 18 03/28/17 06:00 BP 106/64 03/28/17 06:00 Pulse Ox 99 03/28/17 06:00 Weight - Most Recent: 66.451 kg I&O - Last 24 hours: Intake & Output 03/27/17 03/28/17 03/28/17 22:59 06:59 14:59 Intake Total 500 907 240 Output Total 300 Balance 200 907 240 Lab Results - Last 24 hrs: Laboratory Results - last 24 hr 03/26/17 03/27/17 03/27/17 Range/Units 21:54 14:52 16:04 WBC (4.0-10.0) x10^3/uL RBC (4.5-6.0) x10^6/uL Hgb (14.0-18.0) g/dL Hct (40.0-52.0) % MCV (78.0-93.0) fL MCH (26.0-32.0) pg MCHC (32.0-36.0) g/dL RDW Coeff of Madeline (10.0-15.0) % Plt Count (130-400) x10^3/uL Neut % (Auto) (50.0-80.0) % Lymph % (Auto) (25.0-50.0) % [place] % (Auto) (2.0-11.0) % Eos % (Auto) (0.0-4.0) % Baso % (Auto) (0.2-1.2) % Neutrophils % (Manual) (50-80) % Lymphocytes % (Manual) (25-50) % Monocytes % (Manual) (2-11) % Eosinophils % (Manual) (0-4) % Platelet Estimate Hypochromasia Sodium (136-145) mmol/L Potassium (3.5-5.1) mmol/L Chloride (98-107) mmol/L Carbon Dioxide (21-32) mmol/L BUN (7-18) mg/dL Creatinine (0.70-1.30) mg/dL Est Cr Clr Drug Dosing mL/min Estimated GFR (MDRD) Glucose (74-106) mg/dL POC Glucose > 500 H* 473 H* (74-106) mg/dL Calcium (8.5-10.1) mg/dL Magnesium (1.8-2.4) mg/dL Creatine Kinase (39-308) U/L Urine Color Cancelled Urine Appearance Cancelled Urine pH Cancelled Ur Specific [place] Cancelled Urine Protein Cancelled Urine Glucose (UA) Cancelled Urine Ketones Cancelled Urine Occult Blood Cancelled Urine Nitrite Cancelled Urine Bilirubin Cancelled Urine Urobilinogen Cancelled Ur Leukocyte Esterase Cancelled Urine RBC Cancelled Urine Red Cell Clumps Cancelled Urine WBC Cancelled Urine WBC Clumps Cancelled Ur Epithelial Cells Cancelled Ur Squamous Epith Cells Cancelled Ur Transition Epith Cell Cancelled Ur Renal Epithelial Cell Cancelled [place] Biurate Crystals Cancelled Calcium Carbonate Cryst Cancelled Calcium Phosphate Cryst Cancelled Calcium Oxalate Crystal Cancelled Leucine Crystals Cancelled Cystine Crystals Cancelled Uric Acid Crystals Cancelled Triple Phos Crystals Cancelled Sodium Urate Crystals Cancelled Tyrosine Crystals Cancelled Other Crystals Cancelled Amorphous Sediment Cancelled Urine Bacteria Cancelled Epithelial Casts Cancelled Fatty Casts Cancelled Hyaline Casts Cancelled Granular Casts Cancelled Fine Granular Casts Cancelled Coarse Granular Casts Cancelled Waxy Casts Cancelled Broad Casts Cancelled RBC Casts Cancelled WBC Casts Cancelled Urine Mucus Cancelled Urine Other Cancelled Urine Trichomonas Cancelled Urine Yeast Cancelled Ur Yeast w Hyphae Cancelled Urine Yeast (Budding) Cancelled Urinalysis Comment Cancelled 03/27/17 03/27/17 03/27/17 Range/Units 16:33 16:33 17:09 WBC 9.5 (4.0-10.0) x10^3/uL RBC 3.17 L (4.5-6.0) x10^6/uL Hgb 9.6 L (14.0-18.0) g/dL Hct 27.5 L (40.0-52.0) % MCV 86.8 (78.0-93.0) fL MCH 30.3 (26.0-32.0) pg MCHC 34.9 (32.0-36.0) g/dL RDW Coeff of Madeline 11.7 (10.0-15.0) % Plt Count 259 (130-400) x10^3/uL Neut % (Auto) (50.0-80.0) % Lymph % (Auto) (25.0-50.0) % [place] % (Auto) (2.0-11.0) % Eos % (Auto) (0.0-4.0) % Baso % (Auto) (0.2-1.2) % Neutrophils % (Manual) 67 (50-80) % Lymphocytes % (Manual) 27 (25-50) % Monocytes % (Manual) 5 (2-11) % Eosinophils % (Manual) 1 (0-4) % Platelet Estimate Adequate Hypochromasia 2+ moderate H Sodium 134 L (136-145) mmol/L Potassium 4.7 (3.5-5.1) mmol/L Chloride 99 (98-107) mmol/L Carbon Dioxide 22 (21-32) mmol/L BUN 36 H (7-18) mg/dL Creatinine 1.7 H (0.70-1.30) mg/dL Est Cr Clr Drug Dosing 51.03 mL/min Estimated GFR (MDRD) 44 Glucose 468 H* (74-106) mg/dL POC Glucose 398 H (74-106) mg/dL Calcium 9.2 (8.5-10.1) mg/dL Magnesium (1.8-2.4) mg/dL Creatine Kinase (39-308) U/L Urine Color Urine Appearance Urine pH Ur Specific [place] Urine Protein Urine Glucose (UA) Urine Ketones Urine Occult Blood Urine Nitrite Urine Bilirubin Urine Urobilinogen Ur Leukocyte Esterase Urine RBC Urine Red Cell Clumps Urine WBC Urine WBC Clumps Ur Epithelial Cells Ur Squamous Epith Cells Ur Transition Epith Cell Ur Renal Epithelial Cell [place] Biurate Crystals Calcium Carbonate Cryst Calcium Phosphate Cryst Calcium Oxalate Crystal Leucine Crystals Cystine Crystals Uric Acid Crystals Triple Phos Crystals Sodium Urate Crystals Tyrosine Crystals Other Crystals Amorphous Sediment Urine Bacteria Epithelial Casts Fatty Casts Hyaline Casts Granular Casts Fine Granular Casts Coarse Granular Casts Waxy Casts Broad Casts RBC Casts WBC Casts Urine Mucus Urine Other Urine Trichomonas Urine Yeast Ur Yeast w Hyphae Urine Yeast (Budding) Urinalysis Comment 03/27/17 03/27/17 03/27/17 Range/Units 18:01 20:46 21:54 WBC (4.0-10.0) x10^3/uL RBC (4.5-6.0) x10^6/uL Hgb (14.0-18.0) g/dL Hct (40.0-52.0) % MCV (78.0-93.0) fL MCH (26.0-32.0) pg MCHC (32.0-36.0) g/dL RDW Coeff of Madeline (10.0-15.0) % Plt Count (130-400) x10^3/uL Neut % (Auto) (50.0-80.0) % Lymph % (Auto) (25.0-50.0) % [place] % (Auto) (2.0-11.0) % Eos % (Auto) (0.0-4.0) % Baso % (Auto) (0.2-1.2) % Neutrophils % (Manual) (50-80) % Lymphocytes % (Manual) (25-50) % Monocytes % (Manual) (2-11) % Eosinophils % (Manual) (0-4) % Platelet Estimate Hypochromasia Sodium (136-145) mmol/L Potassium (3.5-5.1) mmol/L Chloride (98-107) mmol/L Carbon Dioxide (21-32) mmol/L BUN (7-18) mg/dL Creatinine (0.70-1.30) mg/dL Est Cr Clr Drug Dosing mL/min Estimated GFR (MDRD) Glucose (74-106) mg/dL POC Glucose 369 H 287 H (74-106) mg/dL Calcium (8.5-10.1) mg/dL Magnesium (1.8-2.4) mg/dL Creatine Kinase (39-308) U/L Urine Color Yellow Urine Appearance Slightly cloudy H Urine pH 7.0 Ur Specific [place] 1.010 Urine Protein Negative Urine Glucose (UA) 500 H Urine Ketones 40 H Urine Occult Blood Trace-intact H Urine Nitrite Positive H Urine Bilirubin Negative Urine Urobilinogen 0.2 Ur Leukocyte Esterase Small H Urine RBC 0-5 Urine Red Cell Clumps Urine WBC 50-75 H Urine WBC Clumps Few Ur Epithelial Cells Ur Squamous Epith Cells Occasional H Ur Transition Epith Cell Ur Renal Epithelial Cell Occasional H [place] Biurate Crystals Calcium Carbonate Cryst Calcium Phosphate Cryst Calcium Oxalate Crystal Leucine Crystals Cystine Crystals Uric Acid Crystals Triple Phos Crystals Sodium Urate Crystals Tyrosine Crystals Other Crystals Amorphous Sediment Moderate Urine Bacteria Epithelial Casts Fatty Casts Hyaline Casts Granular Casts Fine Granular Casts Coarse Granular Casts Waxy Casts Broad Casts RBC Casts WBC Casts Urine Mucus Rare H Urine Other Urine Trichomonas Urine Yeast Ur Yeast w Hyphae Urine Yeast (Budding) Urinalysis Comment 03/28/17 03/28/17 03/28/17 Range/Units 00:19 03:19 05:54 WBC (4.0-10.0) x10^3/uL RBC (4.5-6.0) x10^6/uL Hgb (14.0-18.0) g/dL Hct (40.0-52.0) % MCV (78.0-93.0) fL MCH (26.0-32.0) pg MCHC (32.0-36.0) g/dL RDW Coeff of Madeline (10.0-15.0) % Plt Count (130-400) x10^3/uL Neut % (Auto) (50.0-80.0) % Lymph % (Auto) (25.0-50.0) % [place] % (Auto) (2.0-11.0) % Eos % (Auto) (0.0-4.0) % Baso % (Auto) (0.2-1.2) % Neutrophils % (Manual) (50-80) % Lymphocytes % (Manual) (25-50) % Monocytes % (Manual) (2-11) % Eosinophils % (Manual) (0-4) % Platelet Estimate Hypochromasia Sodium (136-145) mmol/L Potassium (3.5-5.1) mmol/L Chloride (98-107) mmol/L Carbon Dioxide (21-32) mmol/L BUN (7-18) mg/dL Creatinine (0.70-1.30) mg/dL Est Cr Clr Drug Dosing mL/min Estimated GFR (MDRD) Glucose (74-106) mg/dL POC Glucose 186 H 164 H 122 H (74-106) mg/dL Calcium (8.5-10.1) mg/dL Magnesium (1.8-2.4) mg/dL Creatine Kinase (39-308) U/L Urine Color Urine Appearance Urine pH Ur Specific [place] Urine Protein Urine Glucose (UA) Urine Ketones Urine Occult Blood Urine Nitrite Urine Bilirubin Urine Urobilinogen Ur Leukocyte Esterase Urine RBC Urine Red Cell Clumps Urine WBC Urine WBC Clumps Ur Epithelial Cells Ur Squamous Epith Cells Ur Transition Epith Cell Ur Renal Epithelial Cell [place] Biurate Crystals Calcium Carbonate Cryst Calcium Phosphate Cryst Calcium Oxalate Crystal Leucine Crystals Cystine Crystals Uric Acid Crystals Triple Phos Crystals Sodium Urate Crystals Tyrosine Crystals Other Crystals Amorphous Sediment Urine Bacteria Epithelial Casts Fatty Casts Hyaline Casts Granular Casts Fine Granular Casts Coarse Granular Casts Waxy Casts Broad Casts RBC Casts WBC Casts Urine Mucus Urine Other Urine Trichomonas Urine Yeast Ur Yeast w Hyphae Urine Yeast (Budding) Urinalysis Comment 03/28/17 03/28/17 03/28/17 Range/Units 06:37 06:37 06:37 WBC 9.6 (4.0-10.0) x10^3/uL RBC 3.14 L (4.5-6.0) x10^6/uL Hgb 9.4 L (14.0-18.0) g/dL Hct 27.1 L (40.0-52.0) % MCV 86.3 (78.0-93.0) fL MCH 29.9 (26.0-32.0) pg MCHC 34.7 (32.0-36.0) g/dL RDW Coeff of Madeline 11.5 (10.0-15.0) % Plt Count 269 (130-400) x10^3/uL Neut % (Auto) 42.3 L (50.0-80.0) % Lymph % (Auto) 43.9 (25.0-50.0) % [place] % (Auto) 8.5 (2.0-11.0) % Eos % (Auto) 4.4 H (0.0-4.0) % Baso % (Auto) 0.9 (0.2-1.2) % Neutrophils % (Manual) (50-80) % Lymphocytes % (Manual) (25-50) % Monocytes % (Manual) (2-11) % Eosinophils % (Manual) (0-4) % Platelet Estimate Hypochromasia Sodium 141 (136-145) mmol/L Potassium 3.8 (3.5-5.1) mmol/L Chloride 106 (98-107) mmol/L Carbon Dioxide 27 (21-32) mmol/L BUN 23 H (7-18) mg/dL Creatinine 1.0 (0.70-1.30) mg/dL Est Cr Clr Drug Dosing 86.76 mL/min Estimated GFR (MDRD) > 60 Glucose 136 H (74-106) mg/dL POC Glucose (74-106) mg/dL Calcium 9.3 (8.5-10.1) mg/dL Magnesium 1.4 L (1.8-2.4) mg/dL Creatine Kinase 129 (39-308) U/L Urine Color Urine Appearance Urine pH Ur Specific [place] Urine Protein Urine Glucose (UA) Urine Ketones Urine Occult Blood Urine Nitrite Urine Bilirubin Urine Urobilinogen Ur Leukocyte Esterase Urine RBC Urine Red Cell Clumps Urine WBC Urine WBC Clumps Ur Epithelial Cells Ur Squamous Epith Cells Ur Transition Epith Cell Ur Renal Epithelial Cell [place] Biurate Crystals Calcium Carbonate Cryst Calcium Phosphate Cryst Calcium Oxalate Crystal Leucine Crystals Cystine Crystals Uric Acid Crystals Triple Phos Crystals Sodium Urate Crystals Tyrosine Crystals Other Crystals Amorphous Sediment Urine Bacteria Epithelial Casts Fatty Casts Hyaline Casts Granular Casts Fine Granular Casts Coarse Granular Casts Waxy Casts Broad Casts RBC Casts WBC Casts Urine Mucus Urine Other Urine Trichomonas Urine Yeast Ur Yeast w Hyphae Urine Yeast (Budding) Urinalysis Comment Med Orders - Current: Current Medications Acetaminophen (Tylenol) 650 mg PO Q4H PRN PRN Reason: Pain Bupropion HCl (Wellbutrin) 75 mg PO BID [facility] Last Admin: 03/28/17 09:24 Dose: 75 mg Cholecalciferol (Vitamin D3) 1,000 units PO DAILY [facility] Last Admin: 03/28/17 09:24 Dose: 1,000 units Finasteride (Proscar) 5 mg PO DAILY [facility] Last Admin: 03/28/17 09:24 Dose: 5 mg Glucagon (Glucagen) 1 mg IM DAILY PRN PRN Reason: Hypoglycemia Heparin Sodium (Porcine) (Heparin Lock Flush 100 Units/Ml Syringe) 500 units IVPUSH ASDIRECTED PRN PRN Reason: Keep Vein Open Last Admin: 03/28/17 06:39 Dose: 500 units Sodium Chloride (Normal Saline) 1,000 mls @ 150 mls/hr IV ASDIRECTED [facility] Last Admin: 03/27/17 17:56 Dose: 150 mls/hr Insulin Aspart (Novolog) 7 unit SUBCUT DAILY [facility] Last Admin: 03/28/17 09:23 Dose: 7 units Insulin Aspart (Novolog) 9 unit SUBCUT BID@1200,1700 [facility] Last Admin: 03/27/17 17:54 Dose: 9 unit Insulin Glargine (Lantus Solostar) 26 units SUBCUT DAILY [facility] Last Admin: 03/28/17 09:22 Dose: 26 units Loperamide HCl (Imodium) 2 mg PO Q4H PRN PRN Reason: Diarrhea Magnesium Oxide (Magnesium Oxide) 400 mg PO DAILY [facility] Last Admin: 03/28/17 09:23 Dose: 400 mg Multivitamins/Minerals (Thera M Plus) 1 tab PO DAILY [facility] Last Admin: 03/28/17 09:24 Dose: 1 tab Ondansetron HCl (Zofran) 4 mg IV Q4H PRN PRN Reason: Nausea/Vomiting Ondansetron HCl (Zofran Odt) 4 mg PO Q4H PRN PRN Reason: nausea, able to take PO Sodium Chloride (Saline Flush) 20 ml IV ASDIRECTED PRN PRN Reason: Keep Vein Open Last Admin: 03/27/17 17:07 Dose: 20 ml Discontinued Medications Sodium Chloride (Normal Saline) 500 mls @ 500 mls/hr IV ONETIME ONE Stop: 03/27/17 15:57 Last Admin: 03/27/17 15:04 Dose: 500 mls/hr Insulin Human Regular 6 unit/ (Dextrose/Water) 500.06 mls @ 500 mls/hr IV ONETIME ONE PRN Reason: Protocol Stop: 03/27/17 17:16 Last Admin: 03/27/17 16:39 Dose: Not Given Insulin Human Regular 3 unit/ (Dextrose/Water) 500.03 mls @ 500 mls/hr IV ONETIME ONE PRN Reason: Protocol Stop: 03/27/17 17:15 Last Admin: 03/27/17 16:43 Dose: Not Given Insulin Glargine (Lantus Solostar) 10 units SUBCUT ONETIME ONE Stop: 03/27/17 17:27 Last Admin: 03/27/17 17:55 Dose: 10 unit Insulin Human Regular (Humulin R) 6 unit IV ONETIME ONE PRN Reason: Protocol Stop: 03/27/17 14:30 Last Admin: 03/27/17 14:54 Dose: 6 units Insulin Human Regular (Humulin R) 3 unit IV ONETIME ONE PRN Reason: Protocol Stop: 03/27/17 16:40 Last Admin: 03/27/17 17:10 Dose: Not Given Insulin Human Regular (Humulin R) 3 unit IV ONETIME ONE Stop: 03/27/17 17:16 Last Admin: 03/27/17 17:07 Dose: 3 unit - Exam Quality Assessment: Denies: supplemental oxygen General: Reports: alert, oriented Lungs: Reports: Clear to auscultation, Normal respiratory effort. Denies: Decreased breath sounds, Crackles, Rales, Rhonchi, Wheezing Cardiovascular: Reports: Regular Rate, Regular Rhythm, No Murmurs Abdomen: Reports: bowel sounds present, soft, no tenderness, no distension Extremities: Reports: no edema Skin: Reports: warm, dry Psy/Mental Status: Reports: alert, normal affect, normal mood *Q Meaningful Use (DIS) - VTE *Q VTE Criteria *Q: - Stroke *Q Stroke Criteria *Q: - AMI *Q AMI Criteria *Q:
== END 2017-03-28 10:10 | DRG 638 ==
LOC: VM.MS 14:20
PROVIDERS: ADMIT Internal Medicine; ATTEND Internal Medicine
DX: E10.10 Type 1 diabetes mellitus with ketoacidosis without coma (principal); N39.0 Urinary tract infection, site not specified; N17.9 Acute kidney failure, unspecified; Z79.4 Long term (current) use of insulin; G31.84 Mild cognitive impairment of uncertain or unknown etiology; R33.9 Retention of urine, unspecified; E10.22 Type 1 diabetes mellitus with diabetic chronic kidney disease; N18.9 Chronic kidney disease, unspecified; Z87.891 Personal history of nicotine dependence; F10.21 Alcohol dependence, in remission
CPT/HCPCS: 36415; 80048; 81001; 82550; 82962; 83735; 85025; 87086; A9270-GY; J1642; J1815-GY; J7030; J7040; J7050

== ENCOUNTER 2017-04-03 17:31 | Emergency (ER) | payer MEDICARE, MEDICAID ==
[2017-04-03] MEDS ORDERED: Sodium Chloride 0.9% 10 ML Syringe FLUSH PRN (17:40)
[2017-04-03] MEDS ORDERED: Sodium Chloride 0.9% 1,000 ML IV ONE (17:41)
[2017-04-03 18:25] LABS: CHLORIDE,CL 106 mmol/L (98-107); SODIUM,NA 141 mmol/L (136-145)
[2017-04-04 16:10] VITALS: BP 123/75
--- NOTE | 2017-04-10 09:12 | ER ---
Date of Service: 04/03/2017 SUBJECTIVE: Pino presents to the emergency room via EMS. The patient is a resident at [facility]. He is from the [facility] with complaints of lightheadedness. The patient is a frequent utilizer of the emergency room being sent here due to dehydration as he refuses to drink at the [facility]. The patient has a history of alcoholism and traumatic brain injury. Staff states that he was exhibiting decreased level of consciousness and was found to be hypotensive with the blood pressure of approximately 80/40. The patient was subsequently transferred here to the emergency room. PAST MEDICAL HISTORY: 1. Depression. 2. Anxiety. 3. Type 2 diabetes mellitus. 4. Dyslipidemia. 5. Traumatic brain injury. 6. History of alcohol abuse. 7. History of GI bleeding. 8. Ischemic colitis. 9. Acute renal failure. 10.History of hypomagnesemia. 11.History of DKA. 12.Anemia. MEDICATIONS: 1. Bupropion. 2. Lipitor. 3. Multivitamin. 4. Magnesium. 5. Imodium. 6. NovoLog. 7. Lantus. 8. Glucagon. 9. Proscar. 10.Vitamin D3. 11.Tylenol. ALLERGIES: Cyclobenzaprine and Seroquel. REVIEW OF SYSTEMS: Unobtainable. The patient was nonverbal and unable to relate any complaints. PHYSICAL EXAMINATION: General: This is a 46-year-old male patient, who is in no acute distress. Vital Signs: Initially, blood pressure was 73/48, heart rate was 98, temperature was 36.8, respiratory rate was 18, O2 saturations 98%. Skin: Warm, pink, and dry. HEENT: Head is normocephalic, atraumatic. Mouth, oral mucosa is moist. Lungs: Clear to auscultation. Heart: Regular rate and rhythm. Abdomen: Soft and nontender. There is no hepatosplenomegaly noted. There are no masses noted. Extremities: Without edema. Neurologic: He is minimally responsive, only to verbal stimuli. He is maintaining his own airway. Remainder of his physical examination is within normal limits. LABORATORY DATA: WBCs 14.5, hemoglobin is 10.1, platelets are 319. PT is 10.4, INR is 0.9. Sodium is 141, potassium is 4.7, chloride is 106, bicarb is 26, BUN is 32, creatinine is 1.8, glucose is 236, GFR is 41, calcium is 8.9, corrected calcium is 9.54, total bilirubin is 0.2, AST is 28, ALT is 49, alkaline phosphatase is 96. Troponin is less than 0.017. EMERGENCY ROOM COURSE: IV access was established. The patient was given a total of 1500 mL of normal saline. As he was rehydrated, his blood pressure improved and at time of discharge, was approximately 123/75. He was alert and was verbally abusive to staff which is the norm for him. He was unwilling to answer any meaningful questions but certainly appeared improved. ASSESSMENT: Hypotension secondary to acute dehydration. PLAN: The patient will be sent back to the care center via taxi. The patient's mother was present during his care. Follow up in the clinic as needed. The staff and mother were encouraged to offer more fluids for this patient. MWK: 04/09/2017 18:59:14 MODL: 04/10/2017 00:51:12 /[id number]
== END 2017-04-03 19:53 | disposition home or self-care (01) ==
LOC: VM.ED 17:31
DX: E86.0 Dehydration (principal); I95.9 Hypotension, unspecified; E11.9 Type 2 diabetes mellitus without complications; D64.9 Anemia, unspecified; F32.9 Major depressive disorder, single episode, unspecified; F41.9 Anxiety disorder, unspecified; Z79.4 Long term (current) use of insulin; E78.5 Hyperlipidemia, unspecified
CPT/HCPCS: 36415; 80053; 84484; 85025; 85610; 93005; 96360; 99283-GF; 99285

== ENCOUNTER 2017-04-06 10:30 | Emergency (ER) | payer MEDICARE, MEDICAID ==
[2017-04-06] MEDS ORDERED: Sodium Chloride 0.9% 1,000 ML IV ONE (11:06)
--- NOTE | 2017-04-06 11:06 | EDM.PDOC ---
ED HPI GENERAL MEDICAL PROBLEM - General Chief Complaint: General Stated Complaint: low blood pressure Time Seen by Provider: 04/06/17 10:56 Source of Information: Reports: EMS Notes Reviewed, [facility] Records, RN, RN Notes Reviewed History Limitations: Reports: Altered Mental Status - History of Present Illness INITIAL COMMENTS - FREE TEXT/NARRATIVE: Patient is brought to the ED at [facility] for elevated blood sugar and low blood pressure. Patient has a history and is very chronic with low blood pressure and high blood sugars. According to [facility] records, patient has been refusing to drink fluids over the past few days. Otherwise, [facility] staff do not have any other concerns. Patient is a very poor historian due to TBI. Onset: Unknown/Unsure Duration: Chronic - Related Data Allergies Allergy/AdvReac Type Severity Reaction Status Date / Time cyclobenzaprine HCl AdvReac Muscle Verified 04/06/17 10:44 [From Flexeril] Weakness quetiapine fumarate AdvReac Agitation Verified 04/06/17 10:44 [From Seroquel] Home Meds: Home Meds Cholecalciferol (Vitamin D3) [Vitamin D3] 1,000 units PO DAILY 02/13/14 [History ] Insulin Aspart [NovoLOG] 7 unit SUBCUT DAILY 02/13/14 [History] Multivitamin [Multi-Vitamin Daily] 1 tab PO DAILY 02/13/14 [History] Finasteride [Proscar] 5 mg PO DAILY 02/28/17 [History] atorvaSTATin [Lipitor] 10 mg PO DAILY 02/28/17 [History] Acetaminophen [Tylenol] 650 mg PO Q4H PRN #30 tablet 03/14/17 [Rx] Glucagon,Human Recombinant [Glucagon Emergency Kit] 1 mg IJ DAILY PRN #1 kit [Rx] Insulin Glargine,Hum.Rec.Anlog [Lantus Solostar] 26 unit SQ DAILY #0 03/14/17 [ Rx] Loperamide [Imodium] 2 mg PO Q4H PRN #30 cap 03/14/17 [Rx] Magnesium 500 mg PO DAILY #0 03/14/17 [Rx] Insulin Aspart [Novolog Flexpen] 9 unit SQ BID 03/26/17 [History] buPROPion [Wellbutrin] 75 mg PO BID 03/27/17 [History] Sulfamethoxazole/Trimethoprim [Bactrim 400-80 MG] 1 each PO BID #10 tablet 03/28 [Rx] Past Medical History Cardiovascular History: Reports: High Cholesterol, PVD, Syncope, Other (See Below) Other Cardiovascular History: orthostatic hypotension Gastrointestinal History: Reports: GI Bleed, Other (See Below) Other Gastrointestinal History: ischemic colitis Genitourinary History: Reports: Acute Renal Failure, Retention, Urinary Musculoskeletal History: Reports: Fracture, Other (See Below) Other Musculoskeletal History: osteomyelitis of foot/ankle Neurological History: Reports: Neuropathy, Diabetic, Other (See Below) Other Neuro History: cognitive impairment. TBI Psychiatric History: Reports: Other (See Below) Other Psychiatric History: alcohol abuse Endocrine/Metabolic History: Reports: Diabetes, Type I, Other (See Below) Other Endocrine/Metabolic History: hypomagnesemia, DKA Hematologic History: Reports: Anemia - Infectious Disease History Infectious Disease History: Reports: C-Difficile, Other (See Below) Other Infectious Disease History: MSSA pneumonia, Klebsiella bacteremia - Past Surgical History Musculoskeletal Surgical History: Reports: Other (See Below) Social & Family History - Family History Family Medical History: Noncontributory - Tobacco Use Smoking Status *Q: Current Status Unknown Years of Tobacco use: 30 Packs/Tins Daily: 1.5 Used Tobacco, but Quit: No Second Hand Smoke Exposure: No - Caffeine Use Caffeine Use: Reports: Coffee - Alcohol Use Days Per Week of Alcohol Use: 0 - Recreational Drug Use Recreational Drug Use: No ED ROS GENERAL - Review of Systems Review Of Systems: See Below Constitutional: Denies: Fever, Chills, Weakness Respiratory: Denies: Shortness of Breath, Cough Cardiovascular: Reports: Blood Pressure Problem. Denies: Chest Pain, Palpitations Endocrine: Reports: High Glucose GI/Abdominal: Denies: Abdominal Pain, Nausea, Vomiting Skin: Reports: No Symptoms Neurological: Reports: No Symptoms ED EXAM, GENERAL - Physical Exam Exam: See Below Exam Limited By: Altered Mental Status General Appearance: Alert, No Apparent Distress Respiratory/Chest: No Respiratory Distress, Lungs Clear, Normal Breath Sounds Cardiovascular: Normal Peripheral Pulses, Regular Rate, Rhythm, No Edema Peripheral Pulses: 2+: Radial (L), Radial (R) GI/Abdominal: Normal Bowel Sounds, Soft, Non-Tender Neurological: Alert, Oriented Skin Exam: Warm, Dry, Intact, Normal Color, No Rash Course - Vital Signs Last Recorded V/S: Last Vital Signs Temp 36.2 C 04/06/17 10:30 Pulse 99 04/06/17 11:01 Resp 14 04/06/17 10:30 BP 126/73 04/06/17 11:36 Pulse Ox 99 04/06/17 10:30 - Orders/Labs/Meds Orders: Active Orders 24 hr Category Date Time Status Implanted Port Access [RC] ONETIME Care 04/06/17 11:06 Active Labs: Laboratory Tests 04/06/17 Range/Units 11:10 Sodium 130 L D (136-145) mmol/L Potassium 5.5 H (3.5-5.1) mmol/L Chloride 95 L (98-107) mmol/L Carbon Dioxide 22 (21-32) mmol/L BUN 32 H (7-18) mg/dL Creatinine 1.4 H (0.70-1.30) mg/dL Est Cr Clr Drug Dosing TNP Estimated GFR (MDRD) 55 Glucose 631 H* (74-106) mg/dL Calcium 9.1 (8.5-10.1) mg/dL Meds: Medications Discontinued Medications Generic Name Dose Route Start Last Admin Trade Name Freq PRN Reason Stop Dose Admin Sodium Chloride 1,000 mls @ 999 mls/hr 04/06/17 11:06 04/06/17 11:16 Normal Saline IV 04/06/17 12:06 999 mls/hr ONETIME ONE Administration Insulin Human Regular 12 unit 04/06/17 12:01 04/06/17 12:07 Humulin R IV 04/06/17 12:02 12 units ONETIME ONE Administration Protocol Departure - Departure Time of Disposition: 12:19 Disposition: DC/Tfer to [facility] Condition: Fair Clinical Impression: Hyperglycemia - Discharge Information Referrals: Angélica Alejandro DO [Primary Care Provider] - Forms: ED Department Discharge Additional Instructions: 1. Patient to return to [facility] on 04/07/2017 for IVF hydration ED Communication - ED Communication Date/Time Date: 04/06/17 Time Called: 12:03 - Discussed Case With (1) Discussed Case With (1): Other Person/s Notified (1): Angélica Alejandro - Conversation Summary Outpatient Provider Agreed to Follow-up on this Patient: Yes Summary Comment: Case discussed with Dr. Angélica Alejandro, PCP. Will feed patient in the ER and give 12 units regular insulin and discharge back to [facility]. Patient to continue on [facility] [employer] schedule for tomorrow for IVF's. - Problem List Review Problem List Initiated/Reviewed/Updated: Yes - My Orders Last 24 Hours: My Active Orders 04/06/17 11:06 Implanted Port Access [RC] ONETIME - Assessment/Plan Last 24 Hours: My Active Orders 04/06/17 11:06 Implanted Port Access [RC] ONETIME
[2017-04-06 11:39] LABS: CHLORIDE,CL 95 mmol/L (98-107); SODIUM,NA 130 mmol/L (136-145)
[2017-04-06] MEDS ORDERED: Insulin Regular, Human 100 Units/ML 3 ML Vial IV ONE (12:01)
[2017-04-06 12:41] VITALS: BP 104/67
== END 2017-04-06 12:40 ==
LOC: VM.ED 10:30
DX: E10.65 Type 1 diabetes mellitus with hyperglycemia (principal); E78.00 Pure hypercholesterolemia, unspecified; I73.9 Peripheral vascular disease, unspecified; Z86.2 Personal history of diseases of the blood and blood-forming organs and certain disorders involving the immune mechanism; Z79.899 Other long term (current) drug therapy; Z88.8 Allergy status to other drugs, medicaments and biological substances
CPT/HCPCS: 80048; 96361; 96374; 99285; J1815; J7030; 99284-GF

== ENCOUNTER 2017-04-06 18:08 | Emergency (ER) | payer MEDICARE, MEDICAID ==
[2017-04-06 18:16] VITALS: BP 105/59
[2017-04-06] MEDS ORDERED: Sodium Chloride 0.9% 1,000 ML IV ONE (18:24)
--- NOTE | 2017-04-06 18:30 | EDM.PDOC ---
ED HPI GENERAL MEDICAL PROBLEM - General Chief Complaint: General Stated Complaint: Hyperglycemia; Hypotension Time Seen by Provider: 04/06/17 18:11 Source of Information: Reports: EMS, EMS Notes Reviewed, Family, Assisted Records, RN, RN Notes Reviewed History Limitations: Reports: Altered Mental Status - History of Present Illness INITIAL COMMENTS - FREE TEXT/NARRATIVE: Patient brought to the ED at [facility] via EMS for severe hyperglycemia and problems with low blood pressure. Patient is very well known to this facility. Patient has a long standing history of uncontrolled Type I DM, TBI, Hypotension, Weakness, and kidney disease. 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 Patient blood pressure were ok around 90. Patient is responsive. Patient is a poor historian due to his TBI. Communication with patient is difficult. Patient was seen in this ER earlier today for the same symptoms. At that time, again, blood sugar was >600. Patient was given 12 units of regular insulin, fluids, and a meal and sent back to the skilled nursing. Onset: Other (Chronic) - Related Data Allergies Allergy/AdvReac Type Severity Reaction Status Date / Time cyclobenzaprine HCl AdvReac Muscle Verified 04/06/17 18:18 [From Flexeril] Weakness quetiapine fumarate AdvReac Agitation Verified 04/06/17 18:18 [From Seroquel] Home Meds: Home Meds Cholecalciferol (Vitamin D3) [Vitamin D3] 1,000 units PO DAILY 02/13/14 [History ] Insulin Aspart [NovoLOG] 7 unit SUBCUT DAILY 02/13/14 [History] Multivitamin [Multi-Vitamin Daily] 1 tab PO DAILY 02/13/14 [History] Finasteride [Proscar] 5 mg PO DAILY 02/28/17 [History] atorvaSTATin [Lipitor] 10 mg PO DAILY 02/28/17 [History] Acetaminophen [Tylenol] 650 mg PO Q4H PRN #30 tablet 03/14/17 [Rx] Glucagon,Human Recombinant [Glucagon Emergency Kit] 1 mg IJ DAILY PRN #1 kit [Rx] Insulin Glargine,Hum.Rec.Anlog [Lantus Solostar] 26 unit SQ DAILY #0 03/14/17 [ Rx] Loperamide [Imodium] 2 mg PO Q4H PRN #30 cap 03/14/17 [Rx] Magnesium 500 mg PO DAILY #0 03/14/17 [Rx] Insulin Aspart [Novolog Flexpen] 9 unit SQ BID 03/26/17 [History] buPROPion [Wellbutrin] 75 mg PO BID 03/27/17 [History] Sulfamethoxazole/Trimethoprim [Bactrim 400-80 MG] 1 each PO BID #10 tablet 03/28 [Rx] Past Medical History Cardiovascular History: Reports: High Cholesterol, PVD, Syncope, Other (See Below) Other Cardiovascular History: orthostatic hypotension Gastrointestinal History: Reports: GI Bleed, Other (See Below) Other Gastrointestinal History: ischemic colitis Musculoskeletal History: Reports: Fracture, Other (See Below) Other Musculoskeletal History: osteomyelitis of foot/ankle Neurological History: Reports: Neuropathy, Diabetic, Other (See Below) Other Neuro History: cognitive impairment Psychiatric History: Reports: Other (See Below) Other Psychiatric History: alcohol abuse Endocrine/Metabolic History: Reports: Diabetes, Type I, Other (See Below) Other Endocrine/Metabolic History: hypomagnesemia, DKA Hematologic History: Reports: Anemia - Infectious Disease History Infectious Disease History: Reports: C-Difficile, Other (See Below) Other Infectious Disease History: MSSA pneumonia, Klebsiella bacteremia - Past Surgical History Musculoskeletal Surgical History: Reports: Other (See Below) Social & Family History - Family History Family Medical History: Noncontributory - Tobacco Use Smoking Status *Q: Current Status Unknown Years of Tobacco use: 30 Packs/Tins Daily: 1.5 Used Tobacco, but Quit: No Second Hand Smoke Exposure: No - Caffeine Use Caffeine Use: Reports: Coffee - Alcohol Use Days Per Week of Alcohol Use: 0 - Recreational Drug Use Recreational Drug Use: No ED ROS GENERAL - Review of Systems Review Of Systems: See Below Constitutional: Reports: Weakness. Denies: Fever, Chills Respiratory: Denies: Shortness of Breath, Cough Cardiovascular: Denies: Chest Pain, Palpitations GI/Abdominal: Denies: Abdominal Pain, Nausea, Vomiting : Reports: Incontinence Skin: Reports: No Symptoms Neurological: Reports: No Symptoms ED EXAM, GENERAL - Physical Exam Exam: See Below Exam Limited By: Altered Mental Status General Appearance: Alert, No Apparent Distress, Thin Neck: Supple Respiratory/Chest: No Respiratory Distress, Lungs Clear, Normal Breath Sounds Cardiovascular: Regular Rate, Rhythm Peripheral Pulses: 2+: Radial (L), Radial (R) GI/Abdominal: Soft, Non-Tender, Abnormal Bowel Sounds (Hyperactive) Neurological: Alert, Inattentive, Disoriented, Memory Loss Remote Events, Memory Loss Recent Events, Other (garbled speech secondary to TBI) Skin Exam: Warm, Dry, Intact, Normal Color, No Rash Course - Vital Signs Last Recorded V/S: Last Vital Signs Temp 35.6 C 04/06/17 18:08 Pulse 105 H 04/06/17 18:08 Resp 14 04/06/17 18:08 BP 105/59 L 04/06/17 18:08 Pulse Ox 98 04/06/17 18:08 - Orders/Labs/Meds Orders: Active Orders 24 hr Category Date Time Status Implanted Port Access [RC] ONETIME Care 04/06/17 18:24 Ordered C-REACTIVE PROTEIN [CHEM] Stat Lab 04/06/17 18:13 Ordered CBC WITH AUTO DIFF [HEME] Stat Lab 04/06/17 18:13 Ordered CK W CKMB [CHEM] Stat Lab 04/06/17 18:13 Ordered COMPREHENSIVE METABOLIC PN,CMP [CHEM] Stat Lab 04/06/17 18:13 Ordered GLYCOSYLATED HEMOGLOBIN,HGBA1C [CHEM] Stat Lab 04/06/17 18:16 Ordered LACTIC ACID [CHEM] Stat Lab 04/06/17 18:13 Ordered MAGNESIUM [CHEM] Stat Lab 04/06/17 18:13 Ordered PH,VENOUS [BG] Stat Lab 04/06/17 18:13 Ordered PHOSPHORUS [CHEM] Stat Lab 04/06/17 18:13 Ordered TROPONIN I [CHEM] Stat Lab 04/06/17 18:13 Ordered TSH ULTRASENSITIVE [CHEM] Stat Lab 04/06/17 18:16 Ordered UA W/MICROSCOPIC [URIN] Stat Lab 04/06/17 18:23 Uncollected Sodium Chloride 0.9% [Normal Saline] 1,000 ml Med 04/06/17 18:24 Ordered IV ONETIME Medication Orders Sodium Chloride (Normal Saline) 1,000 mls @ 999 mls/hr IV ONETIME ONE Stop: 04/06/17 19:24 Meds: Medications Generic Name Dose Route Start Last Admin Trade Name Freq PRN Reason Stop Dose Admin Sodium Chloride 1,000 mls @ 999 mls/hr 04/06/17 18:24 Normal Saline IV 04/06/17 19:24 ONETIME ONE Departure - Discharge Information Forms: ED Department Discharge - Problem List Review Problem List Initiated/Reviewed/Updated: Yes - My Orders Last 24 Hours: My Active Orders 04/06/17 18:13 C-REACTIVE PROTEIN [CHEM] Stat CBC WITH AUTO DIFF [HEME] Stat CK W CKMB [CHEM] Stat COMPREHENSIVE METABOLIC PN,CMP [CHEM] Stat LACTIC ACID [CHEM] Stat MAGNESIUM [CHEM] Stat PH,VENOUS [BG] Stat PHOSPHORUS [CHEM] Stat TROPONIN I [CHEM] Stat 04/06/17 18:16 GLYCOSYLATED HEMOGLOBIN,HGBA1C [CHEM] Stat TSH ULTRASENSITIVE [CHEM] Stat 04/06/17 18:23 UA W/MICROSCOPIC [URIN] Stat 04/06/17 18:24 Implanted Port Access [RC] ONETIME Sodium Chloride 0.9% [Normal Saline] 1,000 ml IV ONETIME - Assessment/Plan Last 24 Hours: My Active Orders 04/06/17 18:13 C-REACTIVE PROTEIN [CHEM] Stat CBC WITH AUTO DIFF [HEME] Stat CK W CKMB [CHEM] Stat COMPREHENSIVE METABOLIC PN,CMP [CHEM] Stat LACTIC ACID [CHEM] Stat MAGNESIUM [CHEM] Stat PH,VENOUS [BG] Stat PHOSPHORUS [CHEM] Stat TROPONIN I [CHEM] Stat 04/06/17 18:16 GLYCOSYLATED HEMOGLOBIN,HGBA1C [CHEM] Stat TSH ULTRASENSITIVE [CHEM] Stat 04/06/17 18:23 UA W/MICROSCOPIC [URIN] Stat 04/06/17 18:24 Implanted Port Access [RC] ONETIME Sodium Chloride 0.9% [Normal Saline] 1,000 ml IV ONETIME
--- NOTE | 2017-04-06 18:46 | EDM.PDOC ---
ED HPI GENERAL MEDICAL PROBLEM - General Chief Complaint: General Stated Complaint: Hyperglycemia; Hypotension Time Seen by Provider: 04/06/17 18:11 Source of Information: Reports: EMS, EMS Notes Reviewed, Family, [facility] Records, RN, RN Notes Reviewed History Limitations: Reports: Altered Mental Status - History of Present Illness INITIAL COMMENTS - FREE TEXT/NARRATIVE: Patient brought to the ED at [facility] via EMS for severe hyperglycemia and problems with low blood pressure. Patient is very well known to this facility. Patient has a long standing history of uncontrolled Type I DM, TBI, Hypotension, Weakness, and kidney disease. 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 Patient blood pressure were ok around 90. Patient is responsive. Patient is a poor historian due to his TBI. Communication with patient is difficult. Patient was seen in this ER earlier today for the same symptoms. At that time, again, blood sugar was >600. Patient was given 12 units of regular insulin, fluids, and a meal and [facility] to the [facility]. Onset: Other (Chronic) - Related Data Allergies Allergy/AdvReac Type Severity Reaction Status Date / Time cyclobenzaprine HCl AdvReac Muscle Verified 04/06/17 18:18 [From Flexeril] Weakness quetiapine fumarate AdvReac Agitation Verified 04/06/17 18:18 [From Seroquel] Home Meds: Home Meds Cholecalciferol (Vitamin D3) [Vitamin D3] 1,000 units PO DAILY 02/13/14 [History ] Insulin Aspart [NovoLOG] 7 unit SUBCUT DAILY 02/13/14 [History] Multivitamin [Multi-Vitamin Daily] 1 tab PO DAILY 02/13/14 [History] Finasteride [Proscar] 5 mg PO DAILY 02/28/17 [History] atorvaSTATin [Lipitor] 10 mg PO DAILY 02/28/17 [History] Acetaminophen [Tylenol] 650 mg PO Q4H PRN #30 tablet 03/14/17 [Rx] Glucagon,Human Recombinant [Glucagon Emergency Kit] 1 mg IJ DAILY PRN #1 kit [Rx] Insulin Glargine,Hum.Rec.Anlog [Lantus Solostar] 26 unit SQ DAILY #0 03/14/17 [ Rx] Loperamide [Imodium] 2 mg PO Q4H PRN #30 cap 03/14/17 [Rx] Magnesium 500 mg PO DAILY #0 03/14/17 [Rx] Insulin Aspart [Novolog Flexpen] 9 unit SQ BID 03/26/17 [History] buPROPion [Wellbutrin] 75 mg PO BID 03/27/17 [History] Past Medical History Cardiovascular History: Reports: High Cholesterol, PVD, Syncope, Other (See Below) Other Cardiovascular History: orthostatic hypotension Gastrointestinal History: Reports: GI Bleed, Other (See Below) Other Gastrointestinal History: ischemic colitis Musculoskeletal History: Reports: Fracture, Other (See Below) Other Musculoskeletal History: osteomyelitis of foot/ankle Neurological History: Reports: Neuropathy, Diabetic, Other (See Below) Other Neuro History: cognitive impairment Psychiatric History: Reports: Other (See Below) Other Psychiatric History: alcohol abuse Endocrine/Metabolic History: Reports: Diabetes, Type I, Other (See Below) Other Endocrine/Metabolic History: hypomagnesemia, DKA Hematologic History: Reports: Anemia - Infectious Disease History Infectious Disease History: Reports: C-Difficile, Other (See Below) Other Infectious Disease History: MSSA pneumonia, Klebsiella bacteremia - Past Surgical History Musculoskeletal Surgical History: Reports: Other (See Below) Social & Family History - Family History Family Medical History: Noncontributory - Tobacco Use Smoking Status *Q: Current Status Unknown Years of Tobacco use: 30 Packs/Tins Daily: 1.5 Used Tobacco, but Quit: No Second Hand Smoke Exposure: No - Caffeine Use Caffeine Use: Reports: Coffee - Alcohol Use Days Per Week of Alcohol Use: 0 - Recreational Drug Use Recreational Drug Use: No ED ROS GENERAL - Review of Systems Review Of Systems: See Below Constitutional: Reports: Weakness. Denies: Fever, Chills Respiratory: Denies: Shortness of Breath, Cough Cardiovascular: Denies: Chest Pain, Palpitations GI/Abdominal: Denies: Abdominal Pain, Nausea, Vomiting : Reports: Incontinence Skin: Reports: No Symptoms Neurological: Reports: No Symptoms ED EXAM, GENERAL - Physical Exam Exam: See Below Exam Limited By: Altered Mental Status General Appearance: Alert, No Apparent Distress, Thin Neck: Supple Respiratory/Chest: No Respiratory Distress, Lungs Clear, Normal Breath Sounds Cardiovascular: Regular Rate, Rhythm Peripheral Pulses: 2+: Radial (L), Radial (R) GI/Abdominal: Soft, Non-Tender, Abnormal Bowel Sounds (Hyperactive) Neurological: Alert, Inattentive, Disoriented, Memory Loss Remote Events, Memory Loss Recent Events, Other (garbled speech secondary to TBI) Skin Exam: Warm, Dry, Intact, Normal Color, No Rash Course - Vital Signs Last Recorded V/S: Last Vital Signs Temp 35.6 C 04/06/17 18:08 Pulse 105 H 04/06/17 18:08 Resp 14 04/06/17 18:08 BP 105/59 L 04/06/17 18:08 Pulse Ox 98 04/06/17 18:08 - Orders/Labs/Meds Orders: Active Orders 24 hr Category Date Time Status Implanted Port Access [RC] ONETIME Care 04/06/17 18:24 Active UA W/MICROSCOPIC [URIN] Stat Lab 04/06/17 18:23 Uncollected Labs: Laboratory Tests 04/06/17 04/06/17 04/06/17 Range/Units 18:30 18:30 18:30 WBC 9.5 (4.0-10.0) x10^3/uL RBC 3.08 L (4.5-6.0) x10^6/uL Hgb 9.3 L (14.0-18.0) g/dL Hct 26.8 L (40.0-52.0) % MCV 87.0 D (78.0-93.0) fL MCH 30.2 (26.0-32.0) pg MCHC 34.7 (32.0-36.0) g/dL RDW Coeff of Madeline 11.6 (10.0-15.0) % Plt Count 309 (130-400) x10^3/uL Neut % (Auto) 49.9 L (50.0-80.0) % Lymph % (Auto) 38.1 (25.0-50.0) % [place] % (Auto) 9.9 (2.0-11.0) % Eos % (Auto) 1.3 (0.0-4.0) % Baso % (Auto) 0.8 (0.2-1.2) % POC ABG pH POC ABG pCO2 POC ABG pO2 POC ABG HCO3 POC ABG Total CO2 POC ABG O2 Sat POC ABG Base Excess VBG pH 7.32 (7.31-7.41) POC VBG pH POC VBG pCO2 POC VBG pO2 POC VBG HCO3 POC VBG Total CO2 POC VBG Base Excess O2 Delivery Device POC O2 Flow Rate POC FiO2 Sodium 131 L (136-145) mmol/L Potassium 4.6 (3.5-5.1) mmol/L Chloride 97 L (98-107) mmol/L Carbon Dioxide 23 (21-32) mmol/L BUN 33 H (7-18) mg/dL Creatinine 1.6 H (0.70-1.30) mg/dL Est Cr Clr Drug Dosing TNP Estimated GFR (MDRD) 47 Glucose 541 H* (74-106) mg/dL Hemoglobin A1c (4.5-6.2) % Lactic Acid (0.4-2.0) mmol/L Calcium 9.0 (8.5-10.1) mg/dL Corrected Calcium 9.64 (8.5-10.1) mg/dL Phosphorus 3.6 (2.6-4.7) mg/dL Magnesium 1.6 L (1.8-2.4) mg/dL Total Bilirubin 0.4 (0.2-1.0) mg/dL AST 20 (15-37) U/L ALT 53 (16-63) U/L Alkaline Phosphatase 103 (46-116) U/L Creatine Kinase 66 (39-308) U/L Creatine Kinase Index 3.6 (0.0-4.0) % CK-MB (CK-2) 2.4 (0.0-3.6) ng/mL Troponin I < 0.017 (<=0.056) ng/mL C-Reactive Protein < 0.2 (<=0.9) mg/dL Total Protein 6.5 (6.4-8.2) g/dL Albumin 3.2 L (3.4-5.0) g/dL Globulin 3.3 Albumin/Globulin Ratio 0.97 TSH, Ultra Sensitive 1.887 (0.358-3.74) uIU/mL 04/06/17 04/06/17 04/06/17 Range/Units 18:30 18:30 18:37 WBC (4.0-10.0) x10^3/uL RBC (4.5-6.0) x10^6/uL Hgb (14.0-18.0) g/dL Hct (40.0-52.0) % MCV (78.0-93.0) fL MCH (26.0-32.0) pg MCHC (32.0-36.0) g/dL RDW Coeff of Madeline (10.0-15.0) % Plt Count (130-400) x10^3/uL Neut % (Auto) (50.0-80.0) % Lymph % (Auto) (25.0-50.0) % [place] % (Auto) (2.0-11.0) % Eos % (Auto) (0.0-4.0) % Baso % (Auto) (0.2-1.2) % POC ABG pH Cancelled POC ABG pCO2 Cancelled POC ABG pO2 Cancelled POC ABG HCO3 Cancelled POC ABG Total CO2 Cancelled POC ABG O2 Sat Cancelled POC ABG Base Excess Cancelled VBG pH (7.31-7.41) POC VBG pH Cancelled POC VBG pCO2 Cancelled POC VBG pO2 Cancelled POC VBG HCO3 Cancelled POC VBG Total CO2 Cancelled POC VBG Base Excess Cancelled O2 Delivery Device Cancelled POC O2 Flow Rate Cancelled POC FiO2 Cancelled Sodium (136-145) mmol/L Potassium (3.5-5.1) mmol/L Chloride (98-107) mmol/L Carbon Dioxide (21-32) mmol/L BUN (7-18) mg/dL Creatinine (0.70-1.30) mg/dL Est Cr Clr Drug Dosing Estimated GFR (MDRD) Glucose (74-106) mg/dL Hemoglobin A1c 11.8 H (4.5-6.2) % Lactic Acid 1.2 (0.4-2.0) mmol/L Calcium (8.5-10.1) mg/dL Corrected Calcium (8.5-10.1) mg/dL Phosphorus (2.6-4.7) mg/dL Magnesium (1.8-2.4) mg/dL Total Bilirubin (0.2-1.0) mg/dL AST (15-37) U/L ALT (16-63) U/L Alkaline Phosphatase (46-116) U/L Creatine Kinase (39-308) U/L Creatine Kinase Index (0.0-4.0) % CK-MB (CK-2) (0.0-3.6) ng/mL Troponin I (<=0.056) ng/mL C-Reactive Protein (<=0.9) mg/dL Total Protein (6.4-8.2) g/dL Albumin (3.4-5.0) g/dL Globulin Albumin/Globulin Ratio TSH, Ultra Sensitive (0.358-3.74) uIU/mL Meds: Medications Discontinued Medications Generic Name Dose Route Start Last Admin Trade Name Aldair PRN Reason Stop Dose Admin Sodium Chloride 1,000 mls @ 999 mls/hr 04/06/17 18:24 04/06/17 18:30 Normal Saline IV 04/06/17 19:24 999 mls/hr ONETIME ONE Administration Departure - Departure Time of Disposition: 20:09 Disposition: DC/Tfer to Acute Hospital 02 Condition: Fair Clinical Impression: Hyponatremia, Hypomagnesemia, Dehydration Uncontrolled diabetes mellitus Qualifiers: Diabetes mellitus type: type 1 Diabetes mellitus complication status: with kidney complications Diabetes mellitus complication detail: with nephropathy Qualified Code(s): E10.29 - Type 1 diabetes mellitus with other diabetic kidney complication; E10.65 - Type 1 diabetes mellitus with hyperglycemia - Discharge Information Forms: Interfacility Transfer [facility] ED Communication - ED Communication Date/Time Date: 04/06/17 Time Called: 20:07 - Discussed Case With (1) Discussed Case With (1): Admitting Provider (Dr. Crawford, Hospitalist) - Conversation Summary Admitting Provider Agreed to Patient's Admission: Yes Summary Comment: Patient will be transferred to [facility] for further treatment and care. Patient will need Endocrine consult. Dr. Crawford accepted patient. Report given. - Problem List Review Problem List Initiated/Reviewed/Updated: Yes - My Orders Last 24 Hours: My Active Orders 04/06/17 18:23 UA W/MICROSCOPIC [URIN] Stat 04/06/17 18:24 Implanted Port Access [RC] ONETIME - Assessment/Plan Last 24 Hours: My Active Orders 04/06/17 18:23 UA W/MICROSCOPIC [URIN] Stat 04/06/17 18:24 Implanted Port Access [RC] ONETIME
[2017-04-06 19:11] LABS: CHLORIDE,CL 97 mmol/L (98-107); SODIUM,NA 131 mmol/L (136-145)
== END 2017-04-06 21:02 | disposition short-term general hospital (02) ==
LOC: VM.ED 18:08
DX: E10.65 Type 1 diabetes mellitus with hyperglycemia (principal); E10.29 Type 1 diabetes mellitus with other diabetic kidney complication; E87.1 Hypo-osmolality and hyponatremia; E86.0 Dehydration; E83.42 Hypomagnesemia; E78.00 Pure hypercholesterolemia, unspecified; Z86.2 Personal history of diseases of the blood and blood-forming organs and certain disorders involving the immune mechanism; Z79.899 Other long term (current) drug therapy; Z88.8 Allergy status to other drugs, medicaments and biological substances; I73.9 Peripheral vascular disease, unspecified
CPT/HCPCS: 80048; 80053; 82550; 82553; 82800; 83036; 83605; 83735; 84100; 84443; 84484; 85025; 86140; 96360; 96361; 96374; 99284; 99285; J1815; J7030

== ENCOUNTER 2018-01-30 04:18 | Inpatient (IN) | payer MEDICARE, MEDICAID ==
[2018-01-30] MEDS ORDERED: Ondansetron 4 MG/2 ML SDV IVPUSH ONE (04:41)
[2018-01-30] MEDS ORDERED: Lactated Ringers 1,000 ML IV SCH ×2 (04:45→06:45)
--- NOTE | 2018-01-30 06:26 | EDM.PDOC ---
ED HPI GENERAL MEDICAL PROBLEM - General Chief Complaint: Gastrointestinal Problem Stated Complaint: Vomiting, Diarrhea Time Seen by Provider: 01/30/18 04:20 Source of Information: Reports: Patient History Limitations: Reports: No Limitations - History of Present Illness INITIAL COMMENTS - FREE TEXT/NARRATIVE: pt. presents to ER with complaints of nausea, vomiting, and diarrhea. Pt. 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 Pt. lives with his mother. She states that he has vomited numerous times and has had several episodes of diarrhea/lose stools. He is very difficult to communicate with due to his brain injury. His mom states he has not been exposed to any sick contacts. Onset: Today Onset Date: 01/30/18 Onset Time: 01:00 Duration: Constant, Getting Worse Treatments DINKEY ENGINEER: Reports: Other (see below) Other Treatments DINKEY ENGINEER: Accu check, 350 - Related Data Allergies Allergy/AdvReac Type Severity Reaction Status Date / Time cyclobenzaprine HCl AdvReac Muscle Verified 01/30/18 05:21 [From Flexeril] Weakness quetiapine fumarate AdvReac Agitation Verified 01/30/18 05:21 [From Seroquel] Home Meds: Home Meds Cholecalciferol (Vitamin D3) [Vitamin D3] 1,000 units PO DAILY 02/13/14 [History ] Insulin Aspart [NovoLOG] 0 unit SUBCUT TIDMEALS 02/13/14 [History] Multivitamin [Multi-Vitamin Daily] 1 tab PO DAILY 02/13/14 [History] Acetaminophen [Tylenol] 650 mg PO Q4H PRN #30 tablet 03/14/17 [Rx] Glucagon,Human Recombinant [Glucagon Emergency Kit] 1 mg IJ DAILY PRN #1 kit [Rx] Loperamide [Imodium] 2 mg PO Q4H PRN #30 cap 03/14/17 [Rx] Magnesium 500 mg PO DAILY #0 03/14/17 [Rx] Insulin Aspart [Novolog Flexpen] 3 - 8 unit SQ TIDMEALS 03/26/17 [History] Insulin Glargine,Hum.Rec.Anlog [Lantus Solostar] 23 unit SQ DAILY 08/26/17 [ History] Past Medical History Cardiovascular History: Reports: High Cholesterol, PVD, Syncope, Other (See Below) Other Cardiovascular History: orthostatic hypotension Gastrointestinal History: Reports: GI Bleed, Other (See Below) Other Gastrointestinal History: ischemic colitis Genitourinary History: Reports: Acute Renal Failure, Retention, Urinary Musculoskeletal History: Reports: Fracture, Other (See Below) Other Musculoskeletal History: osteomyelitis of foot/ankle Neurological History: Reports: Neuropathy, Diabetic, Other (See Below) Other Neuro History: cognitive impairment Psychiatric History: Reports: Other (See Below) Other Psychiatric History: alcohol abuse Endocrine/Metabolic History: Reports: Diabetes, Type I, Other (See Below) Other Endocrine/Metabolic History: hypomagnesemia, DKA Hematologic History: Reports: Anemia - Infectious Disease History Infectious Disease History: Reports: C-Difficile, Other (See Below) Other Infectious Disease History: MSSA pneumonia, Klebsiella bacteremia - Past Surgical History Musculoskeletal Surgical History: Reports: Other (See Below) Social & Family History - Family History Family Medical History: Noncontributory - Tobacco Use Smoking Status *Q: Former Smoker Years of Tobacco use: 30 Packs/Tins Daily: 1.5 Used Tobacco, but Quit: No Second Hand Smoke Exposure: No - Caffeine Use Caffeine Use: Reports: Coffee - Alcohol Use Days Per Week of Alcohol Use: 0 - Recreational Drug Use Recreational Drug Use: No ED ROS GENERAL - Review of Systems Review Of Systems: See Below Constitutional: Reports: No Symptoms. Denies: Fever, Chills HEENT: Reports: No Symptoms Respiratory: Reports: No Symptoms Cardiovascular: Reports: No Symptoms Endocrine: Reports: High Glucose GI/Abdominal: Reports: Abdominal Pain, Diarrhea, Nausea, Vomiting : Reports: No Symptoms Musculoskeletal: Reports: No Symptoms Skin: Reports: No Symptoms Neurological: Reports: Pre-Existing Deficit Psychiatric: Reports: No Symptoms Hematologic/Lymphatic: Reports: No Symptoms Immunologic: Reports: No Symptoms ED EXAM, GENERAL - Physical Exam Exam: See Below Exam Limited By: No Limitations General Appearance: Alert, WD/WN, No Apparent Distress Eye Exam: Bilateral Eye: EOMI, PERRL Ears: Normal External Exam, Normal Canal, Hearing Grossly Normal, Normal TMs Ear Exam: Bilateral Ear: Auricle Normal, Canal Normal, TM normal Nose: Normal Inspection, Normal Mucosa, No Blood Throat/Mouth: Normal Lips, Normal Teeth, Normal Gums, Normal Voice, No Airway Compromise, Other (oral mucosa dry) Head: Atraumatic, Normocephalic Neck: Normal Inspection, Supple, Full Range of Motion Respiratory/Chest: No Respiratory Distress, Lungs Clear, Normal Breath Sounds, No Accessory Muscle Use, Chest Non-Tender Cardiovascular: Normal Peripheral Pulses, Regular Rate, Rhythm, No Edema GI/Abdominal: Normal Bowel Sounds, Soft, No Organomegaly, No Distention, No Abnormal Bruit, No Mass, Tender (Male) Exam: Deferred Rectal (Males) Exam: Deferred Back Exam: Normal Inspection, Full Range of Motion, NT Extremities: Normal Inspection, Normal Range of Motion, Non-Tender, Normal Capillary Refill, No Pedal Edema Neurological: Alert, Oriented, CN II-XII Intact, Normal Cognition, Normal Gait, Normal Reflexes, No Motor/Sensory Deficits Psychiatric: Normal Affect, Normal Mood Skin Exam: Warm, Dry, Intact, Normal Color, No Rash Course - Vital Signs Last Recorded V/S: Last Vital Signs Temp 36.3 C 01/30/18 04:20 Pulse 88 01/30/18 04:20 Resp 20 01/30/18 04:20 BP 70/39 L 01/30/18 04:20 Pulse Ox 100 01/30/18 04:20 - Orders/Labs/Meds Orders: Active Orders 24 hr Category Date Time Status Patient Status [ADT] Routine ADT 01/30/18 06:02 Cancelled Patient Status [ADT] Routine ADT 01/30/18 06:16 Ordered Implanted Port Access [RC] DAILY Care 01/30/18 04:40 Active Lactated Ringers [Ringers, Lactated] 1,000 ml Med 01/30/18 04:45 Active IV ASDIRECTED Medication Orders Lactated Ringer's (Ringers, Lactated) 1,000 mls @ 500 mls/hr IV ASDIRECTED SILVIA Last Admin: 01/30/18 04:55 Dose: 500 mls/hr Labs: Laboratory Tests 01/30/18 01/30/18 01/30/18 Range/Units 04:45 04:45 04:45 WBC 10.6 H (4.0-10.0) x10^3/uL RBC 3.76 L (4.5-6.0) x10^6/uL Hgb 11.5 L D (14.0-18.0) g/dL Hct 32.6 L (40.0-52.0) % MCV 86.7 (78.0-93.0) fL MCH 30.6 (26.0-32.0) pg MCHC 35.3 (32.0-36.0) g/dL RDW Coeff of Madeline 12.3 (10.0-15.0) % Plt Count 320 (130-400) x10^3/uL Neut % (Auto) 73.2 (50.0-80.0) % Lymph % (Auto) 12.0 L (25.0-50.0) % [place] % (Auto) 13.0 H (2.0-11.0) % Eos % (Auto) 1.5 (0.0-4.0) % Baso % (Auto) 0.3 (0.2-1.2) % PT 9.6 L (9.8-11.8) SEC INR 0.9 L (2.0-3.5) Sodium 136 (136-145) mmol/L Potassium 4.3 (3.5-5.1) mmol/L Chloride 101 (98-107) mmol/L Carbon Dioxide 22 (21-32) mmol/L Anion Gap 17.3 BUN 34 H (7-18) mg/dL Creatinine 3.1 H* D (0.70-1.30) mg/dL Est Cr Clr Drug Dosing 31.75 mL/min Estimated GFR (MDRD) 22 Glucose 249 H (74-106) mg/dL Calcium 9.8 (8.5-10.1) mg/dL Corrected Calcium 9.96 (8.5-10.1) mg/dL Phosphorus 2.7 (2.6-4.7) mg/dL Magnesium 1.3 L (1.8-2.4) mg/dL Total Bilirubin 0.4 (0.2-1.0) mg/dL AST 15 (15-37) U/L ALT 28 (16-63) U/L Alkaline Phosphatase 132 H (46-116) U/L C-Reactive Protein 0.3 (<=0.9) mg/dL Total Protein 8.1 (6.4-8.2) g/dL Albumin 3.8 (3.4-5.0) g/dL Globulin 4.3 Albumin/Globulin Ratio 0.88 Meds: Medications Generic Name Dose Route Start Last Admin Trade Name Freq PRN Reason Stop Dose Admin Lactated Ringer's 1,000 mls @ 500 mls/hr 01/30/18 04:45 01/30/18 04:55 Ringers, Lactated IV 500 mls/hr ASDIRECTED SILVIA Administration Discontinued Medications Generic Name Dose Route Start Last Admin Trade Name Aldair PRN Reason Stop Dose Admin Ondansetron HCl 4 mg 01/30/18 04:41 01/30/18 05:00 Zofran IVPUSH 01/30/18 04:42 4 mg ONETIME ONE Administration Departure - Departure Time of Disposition: 06:31 Disposition: Admitted As Inpatient 66 Clinical Impression: Gastroenteritis, Acute kidney injury, Hypomagnesemia - Discharge Information Referrals: PCP,Unobtain [Primary Care Provider] - - My Orders Last 24 Hours: My Active Orders 01/30/18 04:40 Implanted Port Access [RC] DAILY 01/30/18 04:45 Lactated Ringers [Ringers, Lactated] 1,000 ml IV ASDIRECTED 01/30/18 06:02 Patient Status [ADT] Routine (Cancelled) 01/30/18 06:16 Patient Status [ADT] Routine - Assessment/Plan Last 24 Hours: My Active Orders 01/30/18 04:40 Implanted Port Access [RC] DAILY 01/30/18 04:45 Lactated Ringers [Ringers, Lactated] 1,000 ml IV ASDIRECTED 01/30/18 06:02 Patient Status [ADT] Routine (Cancelled) 01/30/18 06:16 Patient Status [ADT] Routine
[2018-01-30] MEDS ORDERED: Magnesium Sulfate/Water 100 ML IV ONE (06:38)
[2018-01-30] MEDS ORDERED: Metoclopramide 10 MG/2 ML SDV IVPUSH ONE (07:03)
[2018-01-30] MEDS: Lactated Ringers 1,000 ML IV SCH ×3 (07:30→17:05)
[2018-01-30] MEDS ORDERED: Acetaminophen 325 MG Tab PO PRN (07:54)
[2018-01-30] MEDS ORDERED: Ondansetron 4 MG/2 ML SDV IVPUSH PRN (07:57)
--- NOTE | 2018-01-30 08:20 | PCM.HP ---
H&P History of Present Illness - General Date of Service: 01/30/18 Admit Problem/Dx: Admission Diagnosis/Problem Admission Diagnosis/Problem Gastroenteritis Source of Information: Patient, Family History Limitations: Reports: Other (patient has underlying cognitive impairment but is able to answer simple questions) - History of Present Illness Initial Comments - Free Text/Narative: Mr. Stern is a 47 yo male with PMH of autonomic neuropathy with associated orthostatic hypotension as well as brittle type 1 DM who presented to the ER for evaluation of vomiting and diarrhea that started abruptly at 1 am. He ate at [employer] last night between 6-7 pm. He did fine right after that but then woke up in the implementation technician hours with vomiting and diarrhea. No blood in either that his mother could see. She was unable to count the number of emesis or diarrhea because both were happening so frequently. He has not had any abdominal pain, fever, or chills. His mother does report 2 prior occurrences of presumed food poisoning for which he required IV fluids but was not quite as ill as he has been this time. He also became increasingly weak and also had a syncopal episode. He did not sustain any injuries with this. His glucose at home was 500 and his mother did give him 12 units of novolog; when he arrived in the ER, it was in the 200's. He was given IV fluids and IV zofran in the ER with good relief in symptoms. He has a long history of admissions for syncope related to his orthostatic hypotension. Over the past 4 months, he has been getting biweekly IV fluids here at [facility] and has been doing well over that time period. He is currently residing with his mother. - Related Data Allergies/Adverse Reactions: Allergies Allergy/AdvReac Type Severity Reaction Status Date / Time cyclobenzaprine HCl AdvReac Muscle Verified 01/30/18 05:21 [From Flexeril] Weakness quetiapine fumarate AdvReac Agitation Verified 01/30/18 05:21 [From Seroquel] Home Medications: Home Meds Cholecalciferol (Vitamin D3) [Vitamin D3] 1,000 units PO DAILY 02/13/14 [History ] Insulin Aspart [NovoLOG] 0 unit SUBCUT TIDMEALS 02/13/14 [History] Multivitamin [Multi-Vitamin Daily] 1 tab PO DAILY 02/13/14 [History] Acetaminophen [Tylenol] 650 mg PO Q4H PRN #30 tablet 03/14/17 [Rx] Glucagon,Human Recombinant [Glucagon Emergency Kit] 1 mg IJ DAILY PRN #1 kit [Rx] Loperamide [Imodium] 2 mg PO Q4H PRN #30 cap 03/14/17 [Rx] Magnesium 500 mg PO DAILY #0 03/14/17 [Rx] Insulin Aspart [Novolog Flexpen] 3 - 8 unit SQ TIDMEALS 03/26/17 [History] Insulin Glargine,Hum.Rec.Anlog [Lantus Solostar] 23 unit SQ DAILY 08/26/17 [ History] Fludrocortisone [Fludrocortisone Acetate] 0.1 mg PO DAILY 01/30/18 [History] Past Medical History HEENT History: Reports: None Cardiovascular History: Reports: High Cholesterol, PVD, Syncope, Other (See Below) Other Cardiovascular History: orthostatic hypotension Respiratory History: Reports: None Gastrointestinal History: Reports: GI Bleed, Other (See Below) Other Gastrointestinal History: ischemic colitis Genitourinary History: Reports: Acute Renal Failure, Retention, Urinary Musculoskeletal History: Reports: Fracture, Other (See Below) Other Musculoskeletal History: osteomyelitis of foot/ankle Neurological History: Reports: Neuropathy, Diabetic, Other (See Below) Other Neuro History: cognitive impairment Psychiatric History: Reports: Other (See Below) Other Psychiatric History: alcohol abuse Endocrine/Metabolic History: Reports: Diabetes, Type I, Other (See Below) Other Endocrine/Metabolic History: hypomagnesemia, DKA Hematologic History: Reports: Anemia Immunologic History: Reports: None Oncologic (Cancer) History: Reports: None Dermatologic History: Reports: None - Infectious Disease History Infectious Disease History: Reports: C-Difficile, Other (See Below) Other Infectious Disease History: MSSA pneumonia, Klebsiella bacteremia - Past Surgical History HEENT Surgical History: Reports: Adenoidectomy, Tonsillectomy GI Surgical History: Reports: Colonoscopy Musculoskeletal Surgical History: Reports: Other (See Below) (I&D left hallux; right hallux arthroplasty) Social & Family History - Family History Cardiac: Reports: Hypertension Musculoskeletal: Reports: Arthritis Endocrine/Metabolic: Reports: Diabetes, Type I, Diabetes, type II, Hypothyroidism - Tobacco Use Smoking Status *Q: Former Smoker Years of Tobacco use: 30 Packs/Tins Daily: 1.5 Used Tobacco, but Quit: No Second Hand Smoke Exposure: No - Caffeine Use Caffeine Use: Reports: Coffee - Alcohol Use Alcohol Use History: Yes Days Per Week of Alcohol Use: 0 Alcohol Use in Last Twelve Months: No - Recreational Drug Use Recreational Drug Use: No - Living Situation & Occupation Living situation: Reports: Single, with Family Occupation: Disabled H&P Review of Systems - Review of Systems: Review Of Systems: See Below General: Reports: No Symptoms HEENT: Reports: No Symptoms Pulmonary: Reports: No Symptoms Cardiovascular: Reports: No Symptoms Gastrointestinal: Reports: Diarrhea, Nausea, Vomiting. Denies: Abdominal Pain Genitourinary: Reports: No Symptoms Musculoskeletal: Reports: No Symptoms Skin: Reports: No Symptoms Neurological: Reports: No Symptoms Exam - Exam Exam: See Below - Vital Signs Vital Signs: Last Vital Signs Temp 36.8 C 01/30/18 06:34 Pulse 98 01/30/18 06:34 Resp 18 01/30/18 06:34 BP 136/89 01/30/18 06:34 Pulse Ox 98 01/30/18 06:34 Weight: 76.204 kg - Exam General: Alert, Cooperative HEENT: Conjunctiva Clear, Mucosa Moist & [place], Pupils Equal, Pupils Reactive Neck: Supple, Trachea Midline. No: Lymphadenopathy, Thyromegaly Lungs: Clear to Auscultation, Normal Respiratory Effort Cardiovascular: Regular Rate, Regular Rhythm, Normal S1, Normal S2 GI/Abdominal Exam: Normal Bowel Sounds, Soft, Non-Tender, No Organomegaly, No Distention, No Mass Extremities: Non-Tender, No Pedal Edema, Normal Capillary Refill Peripheral Pulses: 2+: Radial (L), Radial (R) Skin: Warm, Dry, Intact Neuro Extensive - Mental Status: Alert, Other (patient has a chronically odd affect; no focal neurologic deficits) - Patient Data Lab Results Last 24 hrs: Laboratory Results - last 24 hr 01/30/18 01/30/18 01/30/18 Range/Units 04:45 04:45 04:45 WBC 10.6 H (4.0-10.0) x10^3/uL RBC 3.76 L (4.5-6.0) x10^6/uL Hgb 11.5 L D (14.0-18.0) g/dL Hct 32.6 L (40.0-52.0) % MCV 86.7 (78.0-93.0) fL MCH 30.6 (26.0-32.0) pg MCHC 35.3 (32.0-36.0) g/dL RDW Coeff of Madeline 12.3 (10.0-15.0) % Plt Count 320 (130-400) x10^3/uL Neut % (Auto) 73.2 (50.0-80.0) % Lymph % (Auto) 12.0 L (25.0-50.0) % [place] % (Auto) 13.0 H (2.0-11.0) % Eos % (Auto) 1.5 (0.0-4.0) % Baso % (Auto) 0.3 (0.2-1.2) % PT 9.6 L (9.8-11.8) SEC INR 0.9 L (2.0-3.5) Sodium 136 (136-145) mmol/L Potassium 4.3 (3.5-5.1) mmol/L Chloride 101 (98-107) mmol/L Carbon Dioxide 22 (21-32) mmol/L Anion Gap 17.3 BUN 34 H (7-18) mg/dL Creatinine 3.1 H* D (0.70-1.30) mg/dL Est Cr Clr Drug Dosing 31.75 mL/min Estimated GFR (MDRD) 22 Glucose 249 H (74-106) mg/dL Calcium 9.8 (8.5-10.1) mg/dL Corrected Calcium 9.96 (8.5-10.1) mg/dL Phosphorus 2.7 (2.6-4.7) mg/dL Magnesium 1.3 L (1.8-2.4) mg/dL Total Bilirubin 0.4 (0.2-1.0) mg/dL AST 15 (15-37) U/L ALT 28 (16-63) U/L Alkaline Phosphatase 132 H (46-116) U/L C-Reactive Protein 0.3 (<=0.9) mg/dL Total Protein 8.1 (6.4-8.2) g/dL Albumin 3.8 (3.4-5.0) g/dL Globulin 4.3 Albumin/Globulin Ratio 0.88 Result Diagrams: 01/30/18 04:45 01/30/18 04:45 - Problem List (1) Acute kidney injury SNOMED Code(s): 58584675 ICD Code: N17.9 - ACUTE KIDNEY FAILURE, UNSPECIFIED Status: Acute Current Visit: Yes Problem Details: - Creatinine up to 3.1 on admission. Recent baseline normal at 1-1.2. - Likely prerenal based on clinical history. - Patient will receive IV fluids throughout the day today. - Recheck tomorrow and consider further work-up if not improving. (2) Dehydration SNOMED Code(s): 61318342 ICD Code: E86.0 - DEHYDRATION Status: Acute Current Visit: No Problem Details: - IV fluids as above. (3) Gastroenteritis SNOMED Code(s): 92655627 ICD Code: K52.9 - NONINFECTIVE GASTROENTERITIS AND COLITIS, UNSPECIFIED Status: Acute Current Visit: Yes Problem Details: - More likely food-borne illness based on timing of onset of symptoms after eating out last night. Consider viral gastroenteritis but time will tell on this. - IV fluids. - Will also do PRN zofran for nausea. (4) Hypomagnesemia SNOMED Code(s): 931805901 ICD Code: E83.42 - HYPOMAGNESEMIA Status: Acute Current Visit: Yes Problem Details: - Magnesium repletion ordered by ER provider. - Will recheck magnesium in the am. (5) Autonomic dysfunction with type 2 diabetes mellitus SNOMED Code(s): 86732850, 854882402 ICD Code: E11.43 - TYPE 2 DIABETES W DIABETIC AUTONOMIC (POLY)NEUROPATHY Status: Chronic Priority: Low Current Visit: No Problem Details: - BP low on admission, which is not unusual for him. - Improved after initial IV fluid bolus. - Will continue IV fluids throughout the day today and bolus as needed for drops in BP. - His florinef will be continued. (6) DM type 1 (diabetes mellitus, type 1) SNOMED Code(s): 29043670 ICD Code: E10.9 - TYPE 1 DIABETES MELLITUS WITHOUT COMPLICATIONS Status: Chronic Current Visit: No Problem Details: - Glucose on presentation acceptable after his mom gave him additional units overnight. - Labs not consistent with DKA. - Will continue levemir but at dose before increase (22 units). Mom states he gets this at 11 am. - Will do lower mealtime dosing with hold instructions. - QID glucoses. Qualifiers: Diabetes mellitus complication status: with neurologic complications Diabetes mellitus complication detail: with autonomic neuropathy Qualified Code(s): E10.43 - Type 1 diabetes mellitus with diabetic autonomic (poly) neuropathy (7) Anemia SNOMED Code(s): 288097338 ICD Code: D64.9 - ANEMIA, UNSPECIFIED Status: Chronic Current Visit: No Problem Details: - Hgb stable. Qualifiers: Anemia type: unspecified type Qualified Code(s): D64.9 - Anemia, unspecified (8) Cognitive impairment SNOMED Code(s): 416035763 ICD Code: R41.89 - OTH SYMPTOMS AND SIGNS W COGNITIVE FUNCTIONS AND AWARENESS Status: Chronic Current Visit: No Problem Details: - severe, related to hypoglycemic reaction, functions @ 8-10yo level - Mother is with him today to give the history. - Main risk here during admission is fall risk and nursing staff is well aware of his behaviors. (9) Orthostatic hypotension SNOMED Code(s): 50876543 ICD Code: I95.1 - ORTHOSTATIC HYPOTENSION Status: Chronic Current Visit: No Problem Details: - Fluids as above. Problem List Initiated/Reviewed/Updated: Yes Orders Last 24hrs: Active Orders 24 hr Category Date Time Status Patient Status [ADT] Routine ADT 01/30/18 06:16 Active Implanted Port Access [RC] DAILY Care 01/30/18 04:40 Active Intake and Output [RC] 06,18 Care 01/30/18 06:40 Active Notify Provider Vital Signs [RC] ASDIRECTED Care 01/30/18 07:55 Active Oxygen Therapy [RC] PRN Care 01/30/18 07:54 Active Up With Assistance [RC] ASDIRECTED Care 01/30/18 06:40 Active VTE/DVT Education [RC] PER UNIT ROUTINE Care 01/30/18 07:54 Active Vital Signs [RC] 06,10,14,18,22,02 Care 01/30/18 06:40 Active Vital Signs [RC] Q4H Care 01/30/18 07:54 Active [place] [employer] Diet [DIET] Diet 01/30/18 Breakfast Active BASIC METABOLIC PANEL,BMP [CHEM] Routine Lab 01/31/18 05:11 Ordered CBC WITH AUTO DIFF [HEME] Routine Lab 01/31/18 05:11 Ordered Acetaminophen [Tylenol] Med 01/30/18 07:54 Active 650 mg PO Q6H PRN Lactated Ringers [Ringers, Lactated] 1,000 ml Med 01/30/18 08:00 Active IV ASDIRECTED Magnesium Sulfate/Water [Magnesium Sulfate 4 GM in Med 01/30/18 06:38 Active Water 100 ML] 100 ml IV ONETIME Ondansetron [Zofran] Med 01/30/18 07:57 Active 4 mg IVPUSH Q6H PRN Resuscitation Status Routine Resus Stat 01/30/18 07:54 Ordered Medication Orders Acetaminophen (Tylenol) 650 mg PO Q6H PRN PRN Reason: Pain (Mild 1-3)/fever Magnesium Sulfate (Magnesium Sulfate 4 Gm In Water 100 Ml) 100 mls @ 25 mls/hr IV ONETIME ONE Stop: 01/30/18 10:37 Last Admin: 01/30/18 07:58 Dose: 25 mls/hr Lactated Ringer's (Ringers, Lactated) 1,000 mls @ 125 mls/hr IV ASDIRECTED SILVIA Ondansetron HCl (Zofran) 4 mg IVPUSH Q6H PRN PRN Reason: Nausea Assessment/Plan Comment:: 47 yo male admitted with WILMER secondary to vomiting and diarrhea, most likely related to food-borne illness. IV fluids, PRN zofran, and monitoring of vital signs. Otherwise, see details as above. Admitted to acute status due to fairly significant WILMER - anticipate admission for 2 nights but may be able to go home tomorrow if labs significantly improved overnight. Hold off on VTE prophylaxis until duration of hospitalization is established. He does not require this if he is discharged in less than 48 hours. Code status is full. Dr. Alejandro is his PCP and will assume care in the morning.
[2018-01-30] MEDS ORDERED: Glucagon,Human Recombinant 1 MG Vial IM PRN (08:40)
[2018-01-30] MEDS ORDERED: Lactated Ringers 500 ML IV ONE (10:45)
[2018-01-30] MEDS: Fludrocortisone 0.1 MG Tab PO SCH (10:57)
[2018-01-30] MEDS: Insulin Detemir 100 Units/ML 3 ML Pen SUBCUT SCH (10:59)
[2018-01-30] MEDS: Insulin Aspart 100 Units/ML 3 ML Pen SUBCUT SCH ×2 (12:00→17:04)
[2018-01-31] MEDS: Lactated Ringers 1,000 ML IV SCH (01:42)
[2018-01-31 07:33] LABS: CHLORIDE,CL 106 mmol/L (98-107); SODIUM,NA 143 mmol/L (136-145)
[2018-01-31] MEDS: Fludrocortisone 0.1 MG Tab PO SCH (07:52)
[2018-01-31] MEDS: Insulin Aspart 100 Units/ML 3 ML Pen SUBCUT SCH ×2 (07:53→12:07)
[2018-01-31] MEDS ORDERED: Magnesium Sulfate/Water 2 GM in Premix Bag 1 BAG IV ONE (08:14)
[2018-01-31] MEDS ORDERED: Potassium Chloride 10 MEQ Tab.ER PO ONE (08:44)
--- NOTE | 2018-01-31 10:25 | PN ---
Progress Note for LOYD GRIJALVA Date: 01/31/2018 Room #: VM.215 SUBJECTIVE: This is hospital day #2 for a 47-year-old admitted yesterday with vomiting and diarrhea. Working diagnosis was felt to be food poisoning. It started during the night and when he got up to the floor yesterday morning, he has had no further episodes of emesis or diarrhea. He was eating only about 25% of his meals, but did not have ate a snack. He has uncontrolled type 1 diabetes. He was getting regular long-acting insulin. His blood sugar was down to 82 this morning. He was not symptomatic, but has not eaten his breakfast yet. Creatinine was up to 3.1 when it was around 1.0 in October. He had residual of 500 of urine and then on recheck after being unable to void, it was 700, so a Cerda was placed. His creatinine is down to 1.2 now. He had 3.5 L in and 2.9 L out. He denies any shortness of breath. The only complaint or concern he has is that he wants to go home and the catheter bothers him. He wants it out. His urine test did show no infection. He was not in DKA. OBJECTIVE: Vital Signs: Otherwise objectively, he has been afebrile. His temperature is 97.8, his pulse is 100, blood pressure 86/49. He did receive a bolus yesterday for an 83/36, but then he also got his fludrocortisone which he did not get routinely that morning otherwise blood pressure has been between 96 and 110 which is the norm for him. Respiratory rate 18 and O2 of 97% on room air. General: He is in no acute distress. Heart: Regular rate and rhythm. Lungs: Lung sounds are decreased in the bases. There is poor respiratory effort. He is not coughing. No crackles appreciated. Abdomen: Nondistended and nontender. Extremities: Warm and dry. He has trace ankle edema. Mental Status: He is alert. He is orientated x3. He is able to answer questions appropriately. He seems to be in a good mood and very cooperative this morning. LABORATORY DATA: Lab work does show his white count 10, hemoglobin 9.2 which is similar to his October reading. It was 11.5 on admission, but he was very dehydrated. Platelets 277. Sodium 143, potassium 3.5, chloride 106, bicarb 29, BUN 23, creatinine 1.2, magnesium 1.7. ASSESSMENT AND PLAN: 1. Acute renal failure due to volume depletion from nausea, vomiting, and diarrhea. This has resolved. Working diagnosis is food poisoning. He also had some urinary retention, which is a chronic problem. He had a Cerda. 2. Urinary retention due to autonomic dysfunction from type 2 diabetes. 3. Autonomic dysfunction with recurrent hypotension. He normally gets a liter of fluids twice weekly. He would have been due yesterday. 4. Hypomagnesemia replaced IV yesterday. I will order 1 more IV dose today. This is probably also from his uncontrolled underlying diabetes, but could be from the diarrhea as well. 5. Chronic anemia. Hemoglobin at baseline. 6. Type 1 diabetes. Blood sugars here have been okay. He has been 190 last evening then up to 264. He is on his home Levemir 22 units. No changes will be made. I think he will not on the lower end in the morning when he starts eating better. He is on NovoLog 3 units t.i.d. with meals. We will hold this morning due to blood sugar under 100. We are also holding if he does not eat. 7. Cognitive impairment, longstanding. He lives at home. He gets some assistance from his mother. He has some impaired mobility due to his autonomic dysfunction. We will get PT to see him, get him up and moving around and make sure he is safe for discharge today. Possibly, he will be staying 1 more night to see how he does off IV fluids to make sure he maintains his blood pressure and also ensure that he is voiding appropriately. We will do bladder scans. ANYA: 01/31/2018 08:43:55 MODL: 01/31/2018 09:07:09 /[id number]
[2018-01-31] MEDS: Insulin Detemir 100 Units/ML 3 ML Pen SUBCUT SCH (10:49)
[2018-01-31 17:08] VITALS: BP 120/76
--- NOTE | 2018-02-01 10:18 | DISCH ---
PRIMARY DISCHARGE DIAGNOSES: 1. Acute renal failure due to volume depletion and dehydration along with acute urinary. 2. Possible gastroenteritis versus food poisoning. 3. Autonomic dysfunction with type 1 diabetes. 4. Type 1 diabetes, uncontrolled with A1c over 10. 5. Urinary retention, longstanding due to autonomic dysfunction due to diabetes. Postvoid residuals were only around 500 initially, after IV fluids, they went up to 700. A Cerda was placed. It was removed the next morning, and he was able to void without problems. 6. Anemia due to some hemodilution. His hemoglobin is around his baseline of 9. 7. Cognitive impairment, longstanding due to a previous hypoglycemic episode. 8. Orthostatic hypotension. This has been worked up extensively. He received IV fluids and fludrocortisone during his stay. His fluid balance was positive only around 1.9 L. He was breathing well, not requiring any oxygen. REASON FOR ADMISSION: On the date of admission, this 47-year-old was brought into the ER with nausea, vomiting, diarrhea. His creatinine was found to be 3.1. He was given IV fluids, IV nausea medications, and his symptoms resolved. By the next morning, his creatinine had improved down to 1.2. His baseline is around 1.0. His Cerda was removed. He was voiding. He was up ambulating with his walker. He was tolerating a diet and wanting to be discharged. Blood sugars during his stay went up to 306, but it was lower at 82 this morning, so he only got long-acting insulin. Magnesium was low at 1.7. He received some more IV magnesium and he is on oral magnesium at home. His UA did not show any infection. He did not require any antibiotics. He had no further nausea or vomiting or diarrhea. DISCHARGE PLANS AND INSTRUCTIONS: He will see Dr. Alejandro in the clinic on 02/18. He will resume twice weekly saline or LR 1 L infusions through [facility] next on Sunday. No insulin changes were made. No medication changes were made. FELIPEA: 01/31/2018 15:35:19 MODL: 01/31/2018 19:02:11 /[id number]
== END 2018-01-31 17:30 | disposition home or self-care (01) | DRG 684 ==
LOC: VM.ED 04:18 → UNDOADMIN 06:15 → VM.MS 06:15
PROVIDERS: ADMIT Family Medicine; ATTEND Internal Medicine
DX: N17.9 Acute kidney failure, unspecified (principal); K52.9 Noninfective gastroenteritis and colitis, unspecified; R33.9 Retention of urine, unspecified; E10.40 Type 1 diabetes mellitus with diabetic neuropathy, unspecified; R10.9 Unspecified abdominal pain; R11.2 Nausea with vomiting, unspecified; E83.42 Hypomagnesemia; E86.9 Volume depletion, unspecified; E86.0 Dehydration; R19.7 Diarrhea, unspecified; E78.00 Pure hypercholesterolemia, unspecified; T62.91XA Toxic effect of unspecified noxious substance eaten as food, accidental (unintentional), initial encounter; E10.43 Type 1 diabetes mellitus with diabetic autonomic (poly)neuropathy; D64.9 Anemia, unspecified; Z88.8 Allergy status to other drugs, medicaments and biological substances; R41.89 Other symptoms and signs involving cognitive functions and awareness; R33.8 Other retention of urine; Z74.09 Other reduced mobility; Z87.891 Personal history of nicotine dependence; Z79.899 Other long term (current) drug therapy; I95.1 Orthostatic hypotension; Z79.4 Long term (current) use of insulin
CPT/HCPCS: 80053; 83735; 84100; 85025; 85610; 86140; 96361; 96374; 99285 ×2; J2405; J7120; 36415; 51702; 80048; 81001; 82962; 97161-GP; A9270-GY; J1815-GY; J2765; J3475

== ENCOUNTER 2019-04-16 08:33 | Inpatient (IN) | payer MEDICARE, MEDICAID ==
--- NOTE | 2019-04-16 08:48 | EDM.PDOC ---
ED HPI GENERAL MEDICAL PROBLEM - General Chief Complaint: Diabetic Complaint Stated Complaint: Hyperglycemia; URI; Weakness Time Seen by Provider: 04/16/19 08:40 Source of Information: Reports: EMS Notes Reviewed, Family, Old Records, RN, RN Notes Reviewed History Limitations: Reports: No Limitations - History of Present Illness INITIAL COMMENTS - FREE TEXT/NARRATIVE: Patient is brought to the ED at [facility] for weakness, fall, and elevated blood sugars. The patients mother states she had trouble getting the patient off the commode last evening and he ended up falling. She states he did not hit his head or have any LOC. She states he had been feeling weak. This AM, she notes his blood sugar was >500 on home meter. Patient continued to have weakness , so the mother called EMS. Patient was sitting in a chair upon EMS arrival. Patient was alert and cooperative. They transferred the patient to the cart and was brought to the ED. Due to history of head injury, the patient is a poor historian. ROS obtained from patient's mother. Patient has a very long standing history of uncontrolled DM. He has had many previous admissions for DKA. Patient receives IVF boluses 2-3 times per week. Patient current resides with his mother at home. Onset: Today Onset Date: 04/16/19 - Related Data Allergies Allergy/AdvReac Type Severity Reaction Status Date / Time cyclobenzaprine HCl AdvReac Muscle Verified 04/16/19 09:12 [From Flexeril] Weakness quetiapine fumarate AdvReac Agitation Verified 04/16/19 09:12 [From Seroquel] Heniewl-Rzf-Rmq Reductase AdvReac Confusion Verified 04/16/19 09:12 Inhibitor Home Meds: Home Meds Cholecalciferol (Vitamin D3) [Vitamin D3] 1,000 units PO DAILY 02/13/14 [History ] Multivitamin [Multi-Vitamin Daily] 1 tab PO DAILY 02/13/14 [History] Magnesium 500 mg PO DAILY #0 03/14/17 [Rx] Insulin Aspart [Novolog Flexpen] 3 - 8 unit SQ TIDMEALS 03/26/17 [History] Acetaminophen [Tylenol] 650 mg PO Q6H PRN 09/27/18 [History] Glucagon,Human Recombinant [Glucagon Emergency Kit] 1 mg SUBCUT ASDIRECTED PRN 09/27/18 [History] Insulin Detemir [Levemir] 23 unit SUBCUT DAILY 09/27/18 [History] Brimonidine Tartrate/Timolol [Combigan Eye Drops] 1 drop EYELF BID 03/12/19 [ History] Past Medical History HEENT History: Reports: None Cardiovascular History: Reports: High Cholesterol, PVD, Syncope, Other (See Below) Other Cardiovascular History: orthostatic hypotension Respiratory History: Reports: None Gastrointestinal History: Reports: GI Bleed, Other (See Below) Other Gastrointestinal History: ischemic colitis Genitourinary History: Reports: Acute Renal Failure, Retention, Urinary Musculoskeletal History: Reports: Fracture, Other (See Below) Other Musculoskeletal History: osteomyelitis of foot/ankle Neurological History: Reports: Neuropathy, Diabetic, Other (See Below) Other Neuro History: cognitive impairment Psychiatric History: Reports: Other (See Below) Other Psychiatric History: alcohol abuse Endocrine/Metabolic History: Reports: Diabetes, Type I, Other (See Below) Other Endocrine/Metabolic History: hypomagnesemia, DKA Hematologic History: Reports: Anemia Immunologic History: Reports: None Oncologic (Cancer) History: Reports: None Dermatologic History: Reports: None - Infectious Disease History Infectious Disease History: Reports: C-Difficile, Other (See Below) Other Infectious Disease History: MSSA pneumonia, Klebsiella bacteremia - Past Surgical History HEENT Surgical History: Reports: Adenoidectomy, Tonsillectomy GI Surgical History: Reports: Colonoscopy Musculoskeletal Surgical History: Reports: Other (See Below) Social & Family History - Family History Family Medical History: Noncontributory Cardiac: Reports: Hypertension Musculoskeletal: Reports: Arthritis Endocrine/Metabolic: Reports: Diabetes, Type I, Diabetes, type II, Hypothyroidism - Caffeine Use Caffeine Use: Reports: Soda - Living Situation & Occupation Living situation: Reports: Single, with Family Occupation: Disabled ED ROS GENERAL - Review of Systems Review Of Systems: See Below (ROS obtained from patient's mother) Constitutional: Denies: Fever, Chills HEENT: Reports: Rhinitis, Sinus Problem Respiratory: Denies: Shortness of Breath, Cough Cardiovascular: Denies: Chest Pain, Palpitations GI/Abdominal: Denies: Abdominal Pain, Nausea, Vomiting Skin: Reports: No Symptoms Neurological: Reports: Other (No new symptoms) ED EXAM GENERAL NO PERIP PULSE - Physical Exam Exam: See Below Exam Limited By: Altered Mental Status General Appearance: Alert, No Apparent Distress Respiratory/Chest: No Respiratory Distress, Lungs Clear, Normal Breath Sounds Cardiovascular: Normal Peripheral Pulses, Regular Rate, Rhythm GI/Abdominal: Normal Bowel Sounds, Soft, Non-Tender Neurological: Alert Skin Exam: Warm, Dry, Intact, Normal Color Course - Vital Signs Last Recorded V/S: Last Vital Signs Temp 98.1 F 04/16/19 08:31 Pulse 105 H 04/16/19 08:31 Resp 16 04/16/19 08:31 BP 92/53 L 04/16/19 08:31 Pulse Ox 99 04/16/19 08:31 - Orders/Labs/Meds Orders: Active Orders 24 hr Category Date Time Status Admission Status [Patient Status] [ADT] Routine ADT 04/16/19 10:31 Ordered Accu Check [Blood Glucose Check, Bedside] [RC] ONETIME Care 04/16/19 08:42 Active Accu Check [Blood Glucose Check, Bedside] [RC] ONETIME Care 04/16/19 08:42 Active Implanted Port Access [RC] PRN Care 04/16/19 08:49 Active OSMOLALITY - SERUM [REF] Stat Lab 04/16/19 09:00 Received PH,VENOUS [BG] Stat Lab 04/16/19 08:52 Received Serum Ketones [B-HYDROXYBUTYRATE] [REF] Stat Lab 04/16/19 09:00 Received UA RFX NICOLE AND CULT IF INDIC [URIN] Stat Lab 04/16/19 08:52 Ordered Lactated Ringers [Ringers, Lactated] 1,000 ml Med 04/16/19 10:06 Active IV ONETIME Medication Orders Lactated Ringer's (Ringers, Lactated) 1,000 mls @ 999 mls/hr IV ONETIME ONE Stop: 04/16/19 11:06 Last Admin: 04/16/19 10:11 Dose: 999 mls/hr Labs: Laboratory Tests 04/16/19 04/16/19 04/16/19 Range/Units 08:41 08:52 08:52 WBC 6.4 (4.0-10.0) x10^3/uL RBC 3.37 L (4.5-6.0) x10^6/uL Hgb 10.0 L (14.0-18.0) g/dL Hct 29.7 L (40.0-52.0) % MCV 88.1 D (78.0-93.0) fL MCH 29.7 (26.0-32.0) pg MCHC 33.7 (32.0-36.0) g/dL RDW Coeff of Madeline 12.4 (10.0-15.0) % Plt Count 296 (130-400) x10^3/uL Neut % (Auto) 55.0 (50.0-80.0) % Lymph % (Auto) 35.6 (25.0-50.0) % Gaines % (Auto) 8.6 (2.0-11.0) % Eos % (Auto) 0.2 (0.0-4.0) % Baso % (Auto) 0.6 (0.2-1.2) % POC ABG pH (7.35-7.45) POC ABG pCO2 (35-45) mmHG POC ABG pO2 (80-105) mmHG POC ABG HCO3 (22-26) mmol/L POC ABG Total CO2 (23-27) mmol/L POC ABG O2 Sat (95-98) % POC ABG Base Excess (-2-3) mmol/L POC VBG pH (7.31-7.41) O2 Delivery Device POC FiO2 Sodium 132 L (136-145) mmol/L Potassium 3.9 (3.5-5.1) mmol/L Chloride 92 L (98-107) mmol/L Carbon Dioxide 13 L D (21-32) mmol/L Anion Gap 30.9 H (10-20) mmol/L BUN 40 H (7-18) mg/dL Creatinine 2.0 H (0.70-1.30) mg/dL Est Cr Clr Drug Dosing TNP Estimated GFR (MDRD) 36 Glucose 491 H* (74-106) mg/dL POC Glucose > 500 H* (74-106) mg/dL Lactic Acid (0.4-2.0) mmol/L Calcium 9.4 (8.5-10.1) mg/dL Corrected Calcium 10.12 H (8.5-10.1) mg/dL Phosphorus 3.6 (2.6-4.7) mg/dL Magnesium 1.5 L (1.8-2.4) mg/dL Total Bilirubin 0.5 (0.2-1.0) mg/dL AST 21 (15-37) U/L ALT 36 (16-63) U/L Alkaline Phosphatase 158 H (46-116) U/L Creatine Kinase 116 (39-308) U/L Troponin I < 0.017 (<=0.056) ng/mL Total Protein 7.4 (6.4-8.2) g/dL Albumin 3.1 L (3.4-5.0) g/dL Globulin 4.3 Albumin/Globulin Ratio 0.72 Amylase 35 (25-115) U/L Lipase 76 (73-393) U/L 04/16/19 04/16/19 04/16/19 Range/Units 08:52 08:52 09:31 WBC (4.0-10.0) x10^3/uL RBC (4.5-6.0) x10^6/uL Hgb (14.0-18.0) g/dL Hct (40.0-52.0) % MCV (78.0-93.0) fL MCH (26.0-32.0) pg MCHC (32.0-36.0) g/dL RDW Coeff of Madeline (10.0-15.0) % Plt Count (130-400) x10^3/uL Neut % (Auto) (50.0-80.0) % Lymph % (Auto) (25.0-50.0) % Gaines % (Auto) (2.0-11.0) % Eos % (Auto) (0.0-4.0) % Baso % (Auto) (0.2-1.2) % POC ABG pH 7.337 L (7.35-7.45) POC ABG pCO2 22 L (35-45) mmHG POC ABG pO2 119 H (80-105) mmHG POC ABG HCO3 12 L (22-26) mmol/L POC ABG Total CO2 12 L (23-27) mmol/L POC ABG O2 Sat 99 H (95-98) % POC ABG Base Excess -14 L (-2-3) mmol/L POC VBG pH 7.26 L (7.31-7.41) O2 Delivery Device Room air POC FiO2 0.21 0.21 Sodium (136-145) mmol/L Potassium (3.5-5.1) mmol/L Chloride (98-107) mmol/L Carbon Dioxide (21-32) mmol/L Anion Gap (10-20) mmol/L BUN (7-18) mg/dL Creatinine (0.70-1.30) mg/dL Est Cr Clr Drug Dosing Estimated GFR (MDRD) Glucose (74-106) mg/dL POC Glucose (74-106) mg/dL Lactic Acid 2.2 H* (0.4-2.0) mmol/L Calcium (8.5-10.1) mg/dL Corrected Calcium (8.5-10.1) mg/dL Phosphorus (2.6-4.7) mg/dL Magnesium (1.8-2.4) mg/dL Total Bilirubin (0.2-1.0) mg/dL AST (15-37) U/L ALT (16-63) U/L Alkaline Phosphatase (46-116) U/L Creatine Kinase (39-308) U/L Troponin I (<=0.056) ng/mL Total Protein (6.4-8.2) g/dL Albumin (3.4-5.0) g/dL Globulin Albumin/Globulin Ratio Amylase (25-115) U/L Lipase (73-393) U/L Meds: Medications Generic Name Dose Route Start Last Admin Trade Name Freq PRN Reason Stop Dose Admin Lactated Ringer's 1,000 mls @ 999 mls/hr 04/16/19 10:06 04/16/19 10:11 Ringers, Lactated IV 04/16/19 11:06 999 mls/hr ONETIME ONE Administration Discontinued Medications Generic Name Dose Route Start Last Admin Trade Name Freq PRN Reason Stop Dose Admin Lactated Ringer's 1,000 mls @ 999 mls/hr 04/16/19 08:50 04/16/19 09:00 Ringers, Lactated IV 04/16/19 09:50 999 mls/hr ONETIME ONE Administration Insulin Human Regular 10 unit 04/16/19 09:46 04/16/19 09:59 Humulin R IVPUSH 04/16/19 09:47 10 units ONETIME ONE Administration Sodium Bicarbonate 50 meq 04/16/19 09:44 04/16/19 10:00 Sodium Bicarbonate 8.4% IVPUSH 04/16/19 09:45 50 meq ONETIME ONE Administration Departure - Departure Time of Disposition: 10:34 Disposition: Admitted As Inpatient 66 Condition: Good Clinical Impression: WILMER (acute kidney injury), Dehydration DKA (diabetic ketoacidoses) Qualifiers: Diabetes mellitus type: type 1 Diabetes mellitus complication detail: without coma Qualified Code(s): E10.10 - Type 1 diabetes mellitus with ketoacidosis without coma - Discharge Information *PRESCRIPTION DRUG MONITORING PROGRAM REVIEWED*: Not Applicable *COPY OF PRESCRIPTION DRUG MONITORING REPORT IN PATIENT BEATRICE: Not Applicable ED Communication - ED Communication Date/Time Date: 04/16/19 Time Called: 10:32 - Discussed Case With (1) Discussed Case With (1): Admitting Provider Person/s Notified (1): Parveen Pérez - Conversation Summary Admitting Provider Agreed to Patient's Admission: Yes Patient Aware of Amendments fo Care Plan: Yes Patient's POA/Guardian Aware of Amendments to Care Plan: Yes - Problem List Review Problem List Initiated/Reviewed/Updated: Yes - My Orders Last 24 Hours: My Active Orders 04/16/19 08:42 Accu Check [Blood Glucose Check, Bedside] [RC] ONETIME Accu Check [Blood Glucose Check, Bedside] [RC] ONETIME 04/16/19 08:49 Implanted Port Access [RC] PRN 04/16/19 08:52 PH,VENOUS [BG] Stat UA RFX NICOLE AND CULT IF INDIC [URIN] Stat 04/16/19 09:00 OSMOLALITY - SERUM [REF] Stat Serum Ketones [B-HYDROXYBUTYRATE] [REF] Stat 04/16/19 10:06 Lactated Ringers [Ringers, Lactated] 1,000 ml IV ONETIME 04/16/19 10:31 Admission Status [Patient Status] [ADT] Routine - Assessment/Plan Last 24 Hours: My Active Orders 04/16/19 08:42 Accu Check [Blood Glucose Check, Bedside] [RC] ONETIME Accu Check [Blood Glucose Check, Bedside] [RC] ONETIME 04/16/19 08:49 Implanted Port Access [RC] PRN 04/16/19 08:52 PH,VENOUS [BG] Stat UA RFX NICOLE AND CULT IF INDIC [URIN] Stat 04/16/19 09:00 OSMOLALITY - SERUM [REF] Stat Serum Ketones [B-HYDROXYBUTYRATE] [REF] Stat 04/16/19 10:06 Lactated Ringers [Ringers, Lactated] 1,000 ml IV ONETIME 04/16/19 10:31 Admission Status [Patient Status] [ADT] Routine Assessment:: DKA WILMER Dehydration Plan: Case discussed with Dr. Pérez. Patient will be admitted acute for DKA, WILMER, and dehydration. Anticipate >48 stay. Patient signed out to Dr. Pérez.
[2019-04-16] MEDS ORDERED: Lactated Ringers 1,000 ML IV ONE ×2 (08:50→10:06)
[2019-04-16] MEDS ORDERED: Sodium Bicarbonate 8.4% 50 MEQ/50 ML Syringe IVPUSH ONE (09:44)
[2019-04-16] MEDS ORDERED: Insulin Regular, Human 100 Units/ML 3 ML Vial IVPUSH ONE (09:46)
[2019-04-16 09:53] LABS: ANION GAP 30.9 mmol/L (10-20); CHLORIDE,CL 92 mmol/L (98-107); SODIUM,NA 132 mmol/L (136-145)
[2019-04-16] MEDS ORDERED: Acetaminophen 325 MG Tab PO PRN (14:54)
[2019-04-16] MEDS ORDERED: 50% Dextrose in Water 50 ML Syringe IV PRN (14:54)
[2019-04-16] MEDS ORDERED: Sodium Chloride 0.9% 10 ML Syringe IV PRN (15:17)
[2019-04-16] MEDS: Insulin Lispro 100 Unit/ML 3 ML KwikPen SUBCUT SCH ×4 (15:26→18:05)
[2019-04-16] MEDS: Insulin Glargine,Human Rec. Analog 100 Units/ML 3 ML Pen SUBCUT SCH (15:28)
--- NOTE | 2019-04-16 16:47 | PCM.HP ---
H&P History of Present Illness - General Date of Service: 04/16/19 Admit Problem/Dx: Admission Diagnosis/Problem Admission Diagnosis/Problem Diabetic ketoacidosis - History of Present Illness Initial Comments - Free Text/Narative: HPI: 48-year-old man who has had type 1 diabetes since age 21. His control has been remarkably poor during most of that time, glycated Hb ran from 09-11 for most of the time between and , between 11 and 13 since then. He was brought to ER by ambulance this morning because his mother had trouble getting him on and off the toilet yesterday, he was very weak, he was still weak this morning and his blood sugars so over 500. He was actually sitting in a chair when the ambulance arrived. In the ER his blood sugar was 490, his pH was minimally decreased at 7.3 and 0, and he was ordered admitted to get 2 L of Ringers lactate to start with and insulin drip at 10 units per hour IV. He got 10 units of regular insulin SC in the ER also. He seemed to improve with just the IV fluid, and his mother refuses to let him have the insulin infusion. Even with that his blood sugars came down to the high 300s. His NovoLog orders read 3-8 units with each meal, and he cannot begin to describe to me how he chooses how much to take, says sometimes Im hungry and sometimes not, sometimes I eat and sometimes I dont. His mother apparently does not become involved in that decision either. He also has a supplemental mealtime order of 1-4 units and it is possible that he is only using that and not the 3-8 units ordered. His Levemir dose is 23 units daily. Medical History: In his chart this is a list of diagnoses, foot ulcer, tobacco use disorder ( says he quit 2 years ago), traumatic brain injury, peripheral artery disease, hyperlipidemia, osteomyelitis of ankle or foot, cataracts, macular degeneration with injections, cognitive impairment, kidney disease, erectile dysfunction, hypertriglyceridemia, group B strep infection, diabetic neuropathy, anemia. He has been hospitalized for acidosis in the past, including prolonged intensive care at his initial DX. Surgical History: -Tonsillectomy age 12 -Tracheostomy during his initial hospitalization at DX of type 1 diabetes -Eye injections -Colonoscopy 10/03 and 04/04 -Arthroplasty of R great toe 02/01 Family History: Parents, brother, and sister are said to be living Social History: Lives with his mother, Pino Setrn said to be guardian, presume medical as well as financial. Systems Review: -Constitutional: Says he did eat yesterday, says no longer drinks alcohol -Eyes: Im kind of blind -ENT: Has his own teeth, says hearing OK -Pulmonary: Has been a 1 ppd smoker but quit 2 years ago, denies any DX of COPD -Cardiac: Denies any heart disease or chest pain; he has a vascular port in his upper right chest for venous access; he did have THIERRY of both ankles a couple years ago and it was OK, about 1.15 -GI: Denies any problems such as diarrhea or constipation. -: Denies any urinary hesitancy or other problems -Musculoskeletal: Says his joints are pretty good -Neurologic: Doesnt comment on the weakness he had yesterday but says he does not have any trouble with syncope -Psych: Denies any depression or mood trouble -Skin: Has open sores on his L thigh, which he picks, says theyve been there a couple years and they come and go. Physical Exam: -General: He is able to answer questions, is very vague -Eyes: Pupils equal -ENT: Some of his teeth are present but he will open his mouth very wide -Neck: No bruit heard -Cardiac: Sounds are distant but regular and normal -Pulmonary: Lung sounds clear -Abdomen: No organomegaly or tenderness noted -Neuro: Affect is extremely dull, speech is halting, he has a swinging motion of his neck, speech is difficult to understand -Psych: Affect is dull but he answers questions appropriately and does not offer any vulgarities as he did in the ER this morning and seems to be cooperative. -Skin: Band-Aids over to open ulcerations on L5 which have had some serous drainage, did not remove them -Extremities: 1+ ankle edema, unable to palpate pulses Impression: -Mild diabetic DKA in type 1 diabetes, improved with IV fluid, did not get insulin infusion, just 10 units subcu in ER -Diabetes overall very poorly controlled Plan: -After the ER insulin he got one extra dose of NovoLog 4 units in the afternoon , now we will switch to regular meals and mealtime insulin at his previous dose , NovoLog 3-8 units with meals (we will give 5), additional 1-4 units depending on his pre-meal readings; Levemir 23 units daily -After these 2 units of LR, no further IV fluid -His regular physician ANYA will assume care tomorrow - Related Data Allergies/Adverse Reactions: Allergies Allergy/AdvReac Type Severity Reaction Status Date / Time cyclobenzaprine HCl AdvReac Muscle Verified 04/16/19 09:12 [From Flexeril] Weakness quetiapine fumarate AdvReac Agitation Verified 04/16/19 09:12 [From Seroquel] Ymvcfdl-Zjf-Sac Reductase AdvReac Confusion Verified 04/16/19 09:12 Inhibitor Home Medications: Home Meds Cholecalciferol (Vitamin D3) [Vitamin D3] 1,000 units PO DAILY 02/13/14 [History ] Multivitamin [Multi-Vitamin Daily] 1 tab PO DAILY 02/13/14 [History] Magnesium 500 mg PO DAILY #0 03/14/17 [Rx] Insulin Aspart [Novolog Flexpen] 3 - 8 unit SQ TIDMEALS 03/26/17 [History] Acetaminophen [Tylenol] 650 mg PO Q6H PRN 09/27/18 [History] Glucagon,Human Recombinant [Glucagon Emergency Kit] 1 mg SUBCUT ASDIRECTED PRN 09/27/18 [History] Insulin Detemir [Levemir] 23 unit SUBCUT DAILY@1300 09/27/18 [History] Brimonidine Tartrate/Timolol [Combigan Eye Drops] 1 drop EYELF BID 03/12/19 [ History] Past Medical History HEENT History: Reports: None Cardiovascular History: Reports: High Cholesterol, PVD, Syncope, Other (See Below) Other Cardiovascular History: orthostatic hypotension Respiratory History: Reports: None Gastrointestinal History: Reports: GI Bleed, Other (See Below) Other Gastrointestinal History: ischemic colitis Genitourinary History: Reports: Acute Renal Failure, Retention, Urinary Musculoskeletal History: Reports: Fracture, Other (See Below) Other Musculoskeletal History: osteomyelitis of foot/ankle Neurological History: Reports: Neuropathy, Diabetic, Other (See Below) Other Neuro History: cognitive impairment Psychiatric History: Reports: Other (See Below) Other Psychiatric History: alcohol abuse Endocrine/Metabolic History: Reports: Diabetes, Type I, Other (See Below) Other Endocrine/Metabolic History: hypomagnesemia, DKA Hematologic History: Reports: Anemia Immunologic History: Reports: None Oncologic (Cancer) History: Reports: None Dermatologic History: Reports: None - Infectious Disease History Infectious Disease History: Reports: C-Difficile, Other (See Below) Other Infectious Disease History: MSSA pneumonia, Klebsiella bacteremia - Past Surgical History HEENT Surgical History: Reports: Adenoidectomy, Tonsillectomy GI Surgical History: Reports: Colonoscopy Musculoskeletal Surgical History: Reports: Other (See Below) Social & Family History - Family History Family Medical History: Noncontributory Cardiac: Reports: Hypertension Musculoskeletal: Reports: Arthritis Endocrine/Metabolic: Reports: Diabetes, Type I, Diabetes, type II, Hypothyroidism - Tobacco Use Smoking Status *Q: Unknown Ever Smoked Used Tobacco, but Quit: Yes Month/Year Tobacco Last Used: 2016 - Caffeine Use Caffeine Use: Reports: Soda - Recreational Drug Use Recreational Drug Use: No - Living Situation & Occupation Living situation: Reports: Single, with Family Occupation: Disabled H&P Review of Systems - Review of Systems: Review Of Systems: See Below Exam - Exam Exam: See Below - Vital Signs Vital Signs: Last Vital Signs Temp 36.6 C 04/16/19 14:00 Pulse 110 H 04/16/19 14:00 Resp 20 04/16/19 14:00 BP 116/42 L 04/16/19 14:00 Pulse Ox 100 04/16/19 14:00 Weight: 74.208 kg - Patient Data Lab Results Last 24 hrs: Laboratory Results - last 24 hr 04/16/19 04/16/19 04/16/19 Range/Units 08:41 08:52 08:52 WBC 6.4 (4.0-10.0) x10^3/uL RBC 3.37 L (4.5-6.0) x10^6/uL Hgb 10.0 L (14.0-18.0) g/dL Hct 29.7 L (40.0-52.0) % MCV 88.1 D (78.0-93.0) fL MCH 29.7 (26.0-32.0) pg MCHC 33.7 (32.0-36.0) g/dL RDW Coeff of Madeline 12.4 (10.0-15.0) % Plt Count 296 (130-400) x10^3/uL Neut % (Auto) 55.0 (50.0-80.0) % Lymph % (Auto) 35.6 (25.0-50.0) % [place] % (Auto) 8.6 (2.0-11.0) % Eos % (Auto) 0.2 (0.0-4.0) % Baso % (Auto) 0.6 (0.2-1.2) % POC ABG pH POC ABG pCO2 POC ABG pO2 POC ABG HCO3 POC ABG Total CO2 POC ABG O2 Sat POC ABG Base Excess VBG pH (7.31-7.41) POC VBG pH POC VBG pCO2 POC VBG pO2 POC VBG HCO3 POC VBG Total CO2 POC VBG Base Excess O2 Delivery Device POC O2 Flow Rate POC FiO2 Sodium 132 L (136-145) mmol/L Potassium 3.9 (3.5-5.1) mmol/L Chloride 92 L (98-107) mmol/L Carbon Dioxide 13 L D (21-32) mmol/L Anion Gap 30.9 H (10-20) mmol/L BUN 40 H (7-18) mg/dL Creatinine 2.0 H (0.70-1.30) mg/dL Est Cr Clr Drug Dosing TNP Estimated GFR (MDRD) 36 Glucose 491 H* (74-106) mg/dL POC Glucose > 500 H* (74-106) mg/dL Lactic Acid (0.4-2.0) mmol/L Calcium 9.4 (8.5-10.1) mg/dL Corrected Calcium 10.12 H (8.5-10.1) mg/dL Phosphorus 3.6 (2.6-4.7) mg/dL Magnesium 1.5 L (1.8-2.4) mg/dL Total Bilirubin 0.5 (0.2-1.0) mg/dL AST 21 (15-37) U/L ALT 36 (16-63) U/L Alkaline Phosphatase 158 H (46-116) U/L Creatine Kinase 116 (39-308) U/L Troponin I < 0.017 (<=0.056) ng/mL Total Protein 7.4 (6.4-8.2) g/dL Albumin 3.1 L (3.4-5.0) g/dL Globulin 4.3 Albumin/Globulin Ratio 0.72 Amylase 35 (25-115) U/L Lipase 76 (73-393) U/L 04/16/19 04/16/19 04/16/19 Range/Units 08:52 08:52 08:52 WBC (4.0-10.0) x10^3/uL RBC (4.5-6.0) x10^6/uL Hgb (14.0-18.0) g/dL Hct (40.0-52.0) % MCV (78.0-93.0) fL MCH (26.0-32.0) pg MCHC (32.0-36.0) g/dL RDW Coeff of Madeline (10.0-15.0) % Plt Count (130-400) x10^3/uL Neut % (Auto) (50.0-80.0) % Lymph % (Auto) (25.0-50.0) % [place] % (Auto) (2.0-11.0) % Eos % (Auto) (0.0-4.0) % Baso % (Auto) (0.2-1.2) % POC ABG pH Cancelled POC ABG pCO2 Cancelled POC ABG pO2 Cancelled POC ABG HCO3 Cancelled POC ABG Total CO2 Cancelled POC ABG O2 Sat Cancelled POC ABG Base Excess Cancelled VBG pH 7.26 L (7.31-7.41) POC VBG pH Cancelled POC VBG pCO2 Cancelled POC VBG pO2 Cancelled POC VBG HCO3 Cancelled POC VBG Total CO2 Cancelled POC VBG Base Excess Cancelled O2 Delivery Device Cancelled POC O2 Flow Rate Cancelled POC FiO2 Cancelled Sodium (136-145) mmol/L Potassium (3.5-5.1) mmol/L Chloride (98-107) mmol/L Carbon Dioxide (21-32) mmol/L Anion Gap (10-20) mmol/L BUN (7-18) mg/dL Creatinine (0.70-1.30) mg/dL Est Cr Clr Drug Dosing Estimated GFR (MDRD) Glucose (74-106) mg/dL POC Glucose (74-106) mg/dL Lactic Acid 2.2 H* (0.4-2.0) mmol/L Calcium (8.5-10.1) mg/dL Corrected Calcium (8.5-10.1) mg/dL Phosphorus (2.6-4.7) mg/dL Magnesium (1.8-2.4) mg/dL Total Bilirubin (0.2-1.0) mg/dL AST (15-37) U/L ALT (16-63) U/L Alkaline Phosphatase (46-116) U/L Creatine Kinase (39-308) U/L Troponin I (<=0.056) ng/mL Total Protein (6.4-8.2) g/dL Albumin (3.4-5.0) g/dL Globulin Albumin/Globulin Ratio Amylase (25-115) U/L Lipase (73-393) U/L 04/16/19 04/16/19 04/16/19 Range/Units 09:31 10:59 12:05 WBC (4.0-10.0) x10^3/uL RBC (4.5-6.0) x10^6/uL Hgb (14.0-18.0) g/dL Hct (40.0-52.0) % MCV (78.0-93.0) fL MCH (26.0-32.0) pg MCHC (32.0-36.0) g/dL RDW Coeff of Madeline (10.0-15.0) % Plt Count (130-400) x10^3/uL Neut % (Auto) (50.0-80.0) % Lymph % (Auto) (25.0-50.0) % [place] % (Auto) (2.0-11.0) % Eos % (Auto) (0.0-4.0) % Baso % (Auto) (0.2-1.2) % POC ABG pH 7.337 L POC ABG pCO2 22 L POC ABG pO2 119 H POC ABG HCO3 12 L POC ABG Total CO2 12 L POC ABG O2 Sat 99 H POC ABG Base Excess -14 L VBG pH (7.31-7.41) POC VBG pH POC VBG pCO2 POC VBG pO2 POC VBG HCO3 POC VBG Total CO2 POC VBG Base Excess O2 Delivery Device Room air POC O2 Flow Rate POC FiO2 0.21 Sodium (136-145) mmol/L Potassium (3.5-5.1) mmol/L Chloride (98-107) mmol/L Carbon Dioxide (21-32) mmol/L Anion Gap (10-20) mmol/L BUN (7-18) mg/dL Creatinine (0.70-1.30) mg/dL Est Cr Clr Drug Dosing Estimated GFR (MDRD) Glucose (74-106) mg/dL POC Glucose 332 H 299 H (74-106) mg/dL Lactic Acid (0.4-2.0) mmol/L Calcium (8.5-10.1) mg/dL Corrected Calcium (8.5-10.1) mg/dL Phosphorus (2.6-4.7) mg/dL Magnesium (1.8-2.4) mg/dL Total Bilirubin (0.2-1.0) mg/dL AST (15-37) U/L ALT (16-63) U/L Alkaline Phosphatase (46-116) U/L Creatine Kinase (39-308) U/L Troponin I (<=0.056) ng/mL Total Protein (6.4-8.2) g/dL Albumin (3.4-5.0) g/dL Globulin Albumin/Globulin Ratio Amylase (25-115) U/L Lipase (73-393) U/L 04/16/19 04/16/19 04/16/19 Range/Units 13:05 14:16 15:35 WBC (4.0-10.0) x10^3/uL RBC (4.5-6.0) x10^6/uL Hgb (14.0-18.0) g/dL Hct (40.0-52.0) % MCV (78.0-93.0) fL MCH (26.0-32.0) pg MCHC (32.0-36.0) g/dL RDW Coeff of Madeline (10.0-15.0) % Plt Count (130-400) x10^3/uL Neut % (Auto) (50.0-80.0) % Lymph % (Auto) (25.0-50.0) % [place] % (Auto) (2.0-11.0) % Eos % (Auto) (0.0-4.0) % Baso % (Auto) (0.2-1.2) % POC ABG pH POC ABG pCO2 POC ABG pO2 POC ABG HCO3 POC ABG Total CO2 POC ABG O2 Sat POC ABG Base Excess VBG pH (7.31-7.41) POC VBG pH POC VBG pCO2 POC VBG pO2 POC VBG HCO3 POC VBG Total CO2 POC VBG Base Excess O2 Delivery Device POC O2 Flow Rate POC FiO2 Sodium (136-145) mmol/L Potassium (3.5-5.1) mmol/L Chloride (98-107) mmol/L Carbon Dioxide (21-32) mmol/L Anion Gap (10-20) mmol/L BUN (7-18) mg/dL Creatinine (0.70-1.30) mg/dL Est Cr Clr Drug Dosing Estimated GFR (MDRD) Glucose (74-106) mg/dL POC Glucose 336 H 396 H 447 H* (74-106) mg/dL Lactic Acid (0.4-2.0) mmol/L Calcium (8.5-10.1) mg/dL Corrected Calcium (8.5-10.1) mg/dL Phosphorus (2.6-4.7) mg/dL Magnesium (1.8-2.4) mg/dL Total Bilirubin (0.2-1.0) mg/dL AST (15-37) U/L ALT (16-63) U/L Alkaline Phosphatase (46-116) U/L Creatine Kinase (39-308) U/L Troponin I (<=0.056) ng/mL Total Protein (6.4-8.2) g/dL Albumin (3.4-5.0) g/dL Globulin Albumin/Globulin Ratio Amylase (25-115) U/L Lipase (73-393) U/L 04/16/19 Range/Units 16:10 WBC (4.0-10.0) x10^3/uL RBC (4.5-6.0) x10^6/uL Hgb (14.0-18.0) g/dL Hct (40.0-52.0) % MCV (78.0-93.0) fL MCH (26.0-32.0) pg MCHC (32.0-36.0) g/dL RDW Coeff of Madeline (10.0-15.0) % Plt Count (130-400) x10^3/uL Neut % (Auto) (50.0-80.0) % Lymph % (Auto) (25.0-50.0) % [place] % (Auto) (2.0-11.0) % Eos % (Auto) (0.0-4.0) % Baso % (Auto) (0.2-1.2) % POC ABG pH POC ABG pCO2 POC ABG pO2 POC ABG HCO3 POC ABG Total CO2 POC ABG O2 Sat POC ABG Base Excess VBG pH (7.31-7.41) POC VBG pH POC VBG pCO2 POC VBG pO2 POC VBG HCO3 POC VBG Total CO2 POC VBG Base Excess O2 Delivery Device POC O2 Flow Rate POC FiO2 Sodium (136-145) mmol/L Potassium (3.5-5.1) mmol/L Chloride (98-107) mmol/L Carbon Dioxide (21-32) mmol/L Anion Gap (10-20) mmol/L BUN (7-18) mg/dL Creatinine (0.70-1.30) mg/dL Est Cr Clr Drug Dosing Estimated GFR (MDRD) Glucose (74-106) mg/dL POC Glucose 441 H* (74-106) mg/dL Lactic Acid (0.4-2.0) mmol/L Calcium (8.5-10.1) mg/dL Corrected Calcium (8.5-10.1) mg/dL Phosphorus (2.6-4.7) mg/dL Magnesium (1.8-2.4) mg/dL Total Bilirubin (0.2-1.0) mg/dL AST (15-37) U/L ALT (16-63) U/L Alkaline Phosphatase (46-116) U/L Creatine Kinase (39-308) U/L Troponin I (<=0.056) ng/mL Total Protein (6.4-8.2) g/dL Albumin (3.4-5.0) g/dL Globulin Albumin/Globulin Ratio Amylase (25-115) U/L Lipase (73-393) U/L Result Diagrams: 04/16/19 08:52 04/16/19 08:52 Problem List Initiated/Reviewed/Updated: Yes Orders Last 24hrs: Active Orders 24 hr Category Date Time Status Admission Status [Patient Status] [ADT] Routine ADT 04/16/19 10:31 Active Patient Status [ADT] Routine ADT 04/16/19 14:52 Active Accu Check [Blood Glucose Check, Bedside] [RC] Q1HR Care 04/16/19 11:05 Active Implanted Port Access [RC] .PRN Care 04/16/19 08:49 Active Oxygen Therapy [RC] .PRN Care 04/16/19 14:52 Active VTE/DVT Education [RC] .PRN Care 04/16/19 14:52 Active Vital Signs [RC] 02,06,10,14,18,22 Care 04/16/19 14:52 Active ADA Diabetic [[place] [employer] Diet] [DIET Diet 04/16/19 Dinner Active ] OSMOLALITY - SERUM [REF] Stat Lab 04/16/19 09:00 Received Serum Ketones [B-HYDROXYBUTYRATE] [REF] Stat Lab 04/16/19 09:00 Received UA RFX NICOLE AND CULT IF INDIC [URIN] Stat Lab 04/16/19 08:52 Ordered Acetaminophen [Tylenol] Med 04/16/19 14:54 Active 650 mg PO Q6H PRN Brimonidine [Alphagan 0.2% Ophth Soln] Med 04/16/19 20:00 Active 0 ml EYELF BID Cholecalciferol (Vitamin D3) [Vitamin D3] Med 04/17/19 08:00 Active 1,000 units PO DAILY Dextrose 50% in Water Med 04/16/19 14:54 Active 50 ml IV ASDIRECTED PRN Heparin Sodium [Heparin Lock Flush 100 Units/ML] Med 04/16/19 15:14 Active 500 units IVPUSH ASDIRECTED PRN Insulin Glarg,Human.Rec.Analog [LantUS Solostar] Med 04/16/19 15:15 Active 23 units SUBCUT DAILY@1300 Insulin Lispro [HumaLOG] Med 04/16/19 18:00 Active 1 - 4 unit SUBCUT TIDMEALS Insulin Lispro [HumaLOG] Med 04/16/19 15:15 Active 5 unit SUBCUT TIDMEALS Magnesium Oxide Med 04/17/19 08:00 Active 400 mg PO DAILY Multivitamins w-Iron/Ca/FA/Min [Thera M Plus] Med 04/17/19 08:00 Active 1 tab PO DAILY Sodium Chloride 0.9% [Saline Flush] Med 04/16/19 15:17 Active 20 ml IV ASDIRECTED PRN Timolol Maleate [Timoptic 0.5% Ophth Soln] Med 04/16/19 20:00 Active 0 ml EYELF BID Resuscitation Status Routine Resus Stat 04/16/19 14:51 Ordered Medication Orders Acetaminophen (Tylenol) 650 mg PO Q6H PRN PRN Reason: Headache Brimonidine Tartrate (Alphagan 0.2% Ophth Soln) 0 ml EYELF BID [facility] Cholecalciferol (Vitamin D3) 1,000 units PO DAILY [facility] Dextrose/Water (Dextrose 50% In Water) 50 ml IV ASDIRECTED PRN PRN Reason: Hypoglycemia Heparin Sodium (Porcine) (Heparin Lock Flush 100 Units/Ml) 500 units IVPUSH ASDIRECTED PRN PRN Reason: for PORT: after each use Last Admin: 04/16/19 15:29 Dose: 500 units Insulin Glargine (Lantus Solostar) 23 units SUBCUT DAILY@1300 [facility] Last Admin: 04/16/19 15:28 Dose: 23 units Insulin Human Lispro (Humalog) 5 unit SUBCUT TIDMEALS [facility] Last Admin: 04/16/19 15:30 Dose: Insulin Human Lispro (Humalog) 1 - 4 unit SUBCUT TIDMEALS [facility]; Protocol Last Admin: 04/16/19 15:26 Dose: 4 units Magnesium Oxide (Magnesium Oxide) 400 mg PO DAILY [facility] Multivitamins/Minerals (Thera M Plus) 1 tab PO DAILY [facility] Sodium Chloride (Saline Flush) 20 ml IV ASDIRECTED PRN PRN Reason: Keep Vein Open Last Admin: 04/16/19 15:29 Dose: 20 ml Timolol Maleate (Timoptic 0.5% Ophth Soln) 0 ml EYELF BID [facility]
[2019-04-16] MEDS: Timolol Maleate 0.5% Ophth Soln 5 ML Bottle EYELF SCH (20:05)
[2019-04-16] MEDS: Brimonidine 0.2% Ophth Soln 5 ML Bottle EYELF SCH (20:05)
[2019-04-17] MEDS: Sodium Chloride 0.9% 10 ML Syringe FLUSH SCH ×2 (06:22→12:33)
[2019-04-17 06:50] LABS: ANION GAP 17.6 mmol/L (10-20)
[2019-04-17] MEDS ORDERED: Magnesium Sulfate (4.06 MEQ/ML) 1 GM/2 ML SDV IM ONE (08:32)
[2019-04-17] MEDS: Brimonidine 0.2% Ophth Soln 5 ML Bottle EYELF SCH ×2 (10:53→19:31)
[2019-04-17] MEDS: Insulin Lispro 100 Unit/ML 3 ML KwikPen SUBCUT SCH ×4 (10:55→18:24)
[2019-04-17] MEDS: Timolol Maleate 0.5% Ophth Soln 5 ML Bottle EYELF SCH ×2 (10:59→19:32)
[2019-04-17] MEDS ORDERED: Magnesium Sulfate/Water 2 GM in Premix Bag 1 BAG IV ONE (12:00)
[2019-04-17] MEDS: Magnesium Oxide 400 MG Tab PO SCH (12:48)
[2019-04-17] MEDS: Multivitamins with Iron/Calcium/Folic Acid/Minerals Tab PO SCH (12:49)
[2019-04-17] MEDS: Cholecalciferol (Vitamin D3) 25 MCG Tab PO SCH (12:49)
--- NOTE | 2019-04-17 14:23 | CR ---
[id number] RAD/RAD Chest PA or AP 1V EXAM: SINGLE VIEW CHEST. INDICATION: COUGH COMPARISON: CORRELATION IS MADE WITH THE EXAM OF FEBRUARY 28, 2017. FINDINGS: The lungs are clear. The cardiomediastinal contour is stable. A chest port is seen. IMPRESSION: NO PNEUMONIA OR EDEMA. Robin Elizalde MD 04/17/19 1428 Thank you for allowing us to participate in the care of your patient.
[2019-04-17] MEDS: Insulin Glargine,Human Rec. Analog 100 Units/ML 3 ML Pen SUBCUT SCH ×2 (14:29→16:04)
[2019-04-17] MEDS: Potassium Chloride 10 MEQ Tab.ER PO SCH ×2 (16:36→19:31)
--- NOTE | 2019-04-17 22:00 | PCM.PN ---
- General Info Date of Service: 04/17/19 Admission Dx/Problem (Free Text): Hospital day # 2 for 48 yo admitted with DKA no vomiting overnight, Anion gap closed. He refused IV insulin but blood sugars now in the 200s has refused breakfast this AM but doesn't eat early. He denies pain or cough but did cough during my exam and his mom has been concerned about respiratory symptoms. He initially refused CXR. Has had numerous admits for DKA but none recently since getting IV fluids 2 x a week. Functional Status: Reports: Pain Controlled - Review of Systems General: Reports: No Symptoms HEENT: Reports: No Symptoms Pulmonary: Reports: Cough. Denies: Shortness of Breath Cardiovascular: Denies: Chest Pain Gastrointestinal: Denies: Abdominal Pain, Constipation, Diarrhea Genitourinary: Denies: Dysuria Skin: Reports: Other (sores on legs but no redness or drainage ) Neurological: Reports: Other (He refuses to answer orientation questions). Denies: Dizziness Psychiatric: Reports: Mood Lability, Agitation - Patient Data Vitals - Most Recent: Last Vital Signs Temp 97.5 F 04/17/19 18:00 Pulse 71 04/17/19 18:00 Resp 18 04/17/19 06:00 BP 112/74 04/17/19 18:00 Pulse Ox 95 04/17/19 18:00 Weight - Most Recent: 74.208 kg I&O - Last 24 Hours: Intake & Output 04/17/19 04/17/19 04/17/19 06:59 14:59 22:59 Intake Total 0 300 0 Output Total 1200 Balance 0 -900 0 Lab Results Last 24 Hours: Laboratory Results - last 24 hr 04/16/19 04/16/19 04/16/19 Range/Units 09:00 09:00 22:55 WBC (4.0-10.0) x10^3/uL RBC (4.5-6.0) x10^6/uL Hgb (14.0-18.0) g/dL Hct (40.0-52.0) % MCV (78.0-93.0) fL MCH (26.0-32.0) pg MCHC (32.0-36.0) g/dL RDW Coeff of Madeline (10.0-15.0) % Plt Count (130-400) x10^3/uL Neut % (Auto) (50.0-80.0) % Lymph % (Auto) (25.0-50.0) % [place] % (Auto) (2.0-11.0) % Eos % (Auto) (0.0-4.0) % Baso % (Auto) (0.2-1.2) % Sodium (136-145) mmol/L Potassium (3.5-5.1) mmol/L Chloride (98-107) mmol/L Carbon Dioxide (21-32) mmol/L Anion Gap (10-20) mmol/L BUN (7-18) mg/dL Creatinine (0.70-1.30) mg/dL Est Cr Clr Drug Dosing mL/min Estimated GFR (MDRD) Glucose (74-106) mg/dL Serum Osmolality 320 H (275-295) mosm/kg Calcium (8.5-10.1) mg/dL Magnesium (1.8-2.4) mg/dL Urine Color Yellow (YELLOW) Urine Appearance Clear (CLEAR) Urine pH 5.5 (5.0-8.0) Ur Specific [place] 1.010 Urine Protein Negative (NEGATIVE) mg/dL Urine Glucose (UA) 500 H (NEGATIVE) mg/dL Urine Ketones 80 H (NEGATIVE) mg/dL Urine Occult Blood Negative (NEGATIVE) Urine Nitrite Negative (NEGATIVE) Urine Bilirubin Small H (NEGATIVE) Urine Urobilinogen 0.2 (0.2) EU/dL Ur Leukocyte Esterase Negative (NEGATIVE) B-Hydroxybutyrate >8.0 H* (0.0-0.2) mmol/L 04/17/19 04/17/19 04/17/19 Range/Units 06:26 06:26 06:26 WBC 6.2 (4.0-10.0) x10^3/uL RBC 3.28 L (4.5-6.0) x10^6/uL Hgb 9.8 L (14.0-18.0) g/dL Hct 28.2 L (40.0-52.0) % MCV 86.0 (78.0-93.0) fL MCH 29.9 (26.0-32.0) pg MCHC 34.8 (32.0-36.0) g/dL RDW Coeff of [place]eline 12.4 (10.0-15.0) % Plt Count 271 (130-400) x10^3/uL Neut % (Auto) 59.1 (50.0-80.0) % Lymph % (Auto) 29.0 (25.0-50.0) % [place] % (Auto) 10.6 (2.0-11.0) % Eos % (Auto) 0.8 (0.0-4.0) % Baso % (Auto) 0.5 (0.2-1.2) % Sodium 143 D (136-145) mmol/L Potassium 3.6 (3.5-5.1) mmol/L Chloride 103 (98-107) mmol/L Carbon Dioxide 26 D (21-32) mmol/L Anion Gap 17.6 (10-20) mmol/L BUN 20 H (7-18) mg/dL Creatinine 1.3 (0.70-1.30) mg/dL Est Cr Clr Drug Dosing 72.94 mL/min Estimated GFR (MDRD) 59 Glucose 248 H (74-106) mg/dL Serum Osmolality (275-295) mosm/kg Calcium 9.4 (8.5-10.1) mg/dL Magnesium 1.1 L (1.8-2.4) mg/dL Urine Color (YELLOW) Urine Appearance (CLEAR) Urine pH (5.0-8.0) Ur Specific [place] Urine Protein (NEGATIVE) mg/dL Urine Glucose (UA) (NEGATIVE) mg/dL Urine Ketones (NEGATIVE) mg/dL Urine Occult Blood (NEGATIVE) Urine Nitrite (NEGATIVE) Urine Bilirubin (NEGATIVE) Urine Urobilinogen (0.2) EU/dL Ur Leukocyte Esterase (NEGATIVE) B-Hydroxybutyrate (0.0-0.2) mmol/L Med Orders - Current: Current Medications Acetaminophen (Tylenol) 650 mg PO Q6H PRN PRN Reason: Headache Brimonidine Tartrate (Alphagan 0.2% Ophth Soln) 0 ml EYELF BID [facility] Last Admin: 04/17/19 19:31 Dose: 1 drop Cholecalciferol (Vitamin D3) 1,000 units PO DAILY [facility] Last Admin: 04/17/19 12:49 Dose: Not Given Dextrose/Water (Dextrose 50% In Water) 50 ml IV ASDIRECTED PRN PRN Reason: Hypoglycemia Heparin Sodium (Porcine) (Heparin Lock Flush 100 Units/Ml) 500 units IVPUSH ASDIRECTED PRN PRN Reason: for PORT: after each use Last Admin: 04/17/19 06:29 Dose: 500 units Heparin Sodium (Porcine) (Heparin Lock Flush 100 Units/Ml) 500 units IVPUSH DAILY [facility] Last Admin: 04/17/19 12:37 Dose: 500 units Insulin Glargine (Lantus Solostar) 23 units SUBCUT DAILY@1300 [facility] Last Admin: 04/17/19 16:04 Dose: 23 units Insulin Human Lispro (Humalog) 3 unit SUBCUT TIDMEALS [facility] Last Admin: 04/17/19 18:24 Dose: 3 units Magnesium Oxide (Magnesium Oxide) 400 mg PO DAILY [facility] Last Admin: 04/17/19 12:48 Dose: Not Given Multivitamins/Minerals (Thera M Plus) 1 tab PO DAILY [facility] Last Admin: 04/17/19 12:49 Dose: Not Given Potassium Chloride (Klor-Con 10) 10 meq PO BID [facility] Last Admin: 04/17/19 19:31 Dose: 10 meq Sodium Chloride (Saline Flush) 20 ml IV ASDIRECTED PRN PRN Reason: Keep Vein Open Last Admin: 04/16/19 15:29 Dose: 20 ml Sodium Chloride (Saline Flush) 20 ml FLUSH DAILY [facility] Last Admin: 04/17/19 12:33 Dose: 20 ml Timolol Maleate (Timoptic 0.5% Oph Soln) 0 ml EYELF BID [facility] Last Admin: 04/17/19 19:32 Dose: 1 drop Discontinued Medications Lactated Ringer's (Ringers, Lactated) 1,000 mls @ 999 mls/hr IV ONETIME ONE Stop: 04/16/19 09:50 Last Admin: 04/16/19 09:00 Dose: 999 mls/hr Lactated Ringer's (Ringers, Lactated) 1,000 mls @ 999 mls/hr IV ONETIME ONE Stop: 04/16/19 11:06 Last Admin: 04/16/19 10:11 Dose: 999 mls/hr Insulin Human Regular 100 unit (/ Sodium Chloride) 100 mls @ 7.42 mls/hr IV TITRATE [facility]; Protocol Magnesium Sulfate 2 gm/ Premix 50 mls @ 25 mls/hr IV ONETIME ONE Stop: 04/17/19 13:59 Last Admin: 04/17/19 12:37 Dose: 25 mls/hr Insulin Human Lispro (Humalog) 5 unit SUBCUT TIDMEALS [facility] Last Admin: 04/17/19 10:55 Dose: Not Given Insulin Human Lispro (Humalog) 1 - 4 unit SUBCUT TIDMEALS [facility]; Protocol Last Admin: 04/17/19 10:57 Dose: Not Given Insulin Human Regular (Humulin R) 10 unit IVPUSH ONETIME ONE Stop: 04/16/19 09:47 Last Admin: 04/16/19 09:59 Dose: 10 units Magnesium Sulfate (Magnesium Sulfate 50%) 1 gm IM ONETIME ONE Stop: 04/17/19 08:33 Last Admin: 04/17/19 12:49 Dose: Not Given Sodium Bicarbonate (Sodium Bicarbonate 8.4%) 50 meq IVPUSH ONETIME ONE Stop: 04/16/19 09:45 Last Admin: 04/16/19 10:00 Dose: 50 meq - Exam General: Alert. No: Cooperative HEENT: Other (left pupil dilated) Neck: Supple, Trachea Midline, No JVD Lungs: Clear to Auscultation, Normal Respiratory Effort Cardiovascular: Regular Rate, Regular Rhythm GI/Abdominal Exam: Normal Bowel Sounds, Soft Skin: Warm, Dry, Other (sore noted on his thigh) Neurological: No: Normal Gait, Normal Speech Psy/Mental Status: Labile Mood - Problem List & Annotations (1) Acute kidney injury SNOMED Code(s): 93785277, 01689403 Code(s): N17.9 - ACUTE KIDNEY FAILURE, UNSPECIFIED Status: Acute Priority : High Current Visit: Yes (2) DKA (diabetic ketoacidoses) SNOMED Code(s): 196342920, 231460814 Code(s): E11.10 - TYPE 2 DIABETES MELLITUS WITH KETOACIDOSIS WITHOUT COMA Status: Acute Priority: High Current Visit: Yes Qualifiers: Diabetes mellitus type: type 1 Diabetes mellitus complication detail: without coma Qualified Code(s): E10.10 - Type 1 diabetes mellitus with ketoacidosis without coma (3) Hypomagnesemia SNOMED Code(s): 352661993 Code(s): E83.42 - HYPOMAGNESEMIA Status: Acute Priority: High Current Visit: No (4) Uncontrolled diabetes mellitus SNOMED Code(s): 83800836, 904496180 Code(s): E11.65 - TYPE 2 DIABETES MELLITUS WITH HYPERGLYCEMIA Status: Chronic Priority: High Current Visit: No Qualifiers: Diabetes mellitus type: type 1 (5) Autonomic dysfunction with type 2 diabetes mellitus SNOMED Code(s): 69278886, 021467061 Code(s): E11.43 - TYPE 2 DIABETES W DIABETIC AUTONOMIC (POLY)NEUROPATHY Status: Chronic Priority: Low Current Visit: No Annotation/Comment:: - BP low on admission, which is not unusual for him. - Improved after initial IV fluid bolus. (6) Cognitive impairment SNOMED Code(s): 036588633 Code(s): R41.89 - OTH SYMPTOMS AND SIGNS W COGNITIVE FUNCTIONS AND AWARENESS Status: Chronic Current Visit: No Annotation/Comment:: - severe, related to hypoglycemic reaction, functions @ 8-10yo level -. - Problem List Review Problem List Initiated/Reviewed/Updated: Yes - My Orders Last 24 Hours: My Active Orders 04/17/19 12:00 Insulin Lispro [HumaLOG] 3 unit SUBCUT TIDMEALS 04/17/19 13:15 Ready for Discharge [RC] PER UNIT ROUTINE 04/17/19 15:45 Potassium Chloride [Klor-Con 10] 10 meq PO BID 04/18/19 05:15 BASIC METABOLIC PANEL,BMP [CHEM] AM CBC WITH AUTO DIFF [HEME] AM 04/18/19 07:00 MG [MAGNESIUM] [CHEM] Routine - Assessment Assessment:: DKA no infectious source found probably due to non compliance with insulin ARF likely prerenal due dehydration and DKA Cr improved from 2.0 to 1.3 Severe Hypomagnesemia due to uncontrolled blood sugars Uncontrolled Diabetes Cognitive dysfunction Autonomic dysfunction Loose stools on admission this has improved now per staff Plan CXR today showed no infection He is off IV fluids is drinking ok IV Magnesium replacement today due to loose stools I would avoid increasing oral supplements Continue Lantus 23 units Q 4 hr checks to continue will see if we can't replace his Coby tomorrow per discussion with his family Repeat labs in AM, replace K Meal insulin to continue
[2019-04-17] MEDS ORDERED: Insulin Glargine,Human Rec. Analog 100 Units/ML 3 ML Pen SUBCUT STA (22:02)
[2019-04-18 05:29] VITALS: BP 103/67
[2019-04-18] MEDS: Magnesium Oxide 400 MG Tab PO SCH (08:09)
[2019-04-18] MEDS: Potassium Chloride 10 MEQ Tab.ER PO SCH (08:09)
[2019-04-18] MEDS: Cholecalciferol (Vitamin D3) 25 MCG Tab PO SCH (08:09)
[2019-04-18] MEDS: Insulin Lispro 100 Unit/ML 3 ML KwikPen SUBCUT SCH ×2 (08:16→16:00)
[2019-04-18] MEDS ORDERED: Sodium Chloride 0.9% 1,000 ML IV SCH (08:30)
[2019-04-18] MEDS: Sodium Chloride 0.9% 10 ML Syringe FLUSH SCH (08:41)
[2019-04-18] MEDS: Multivitamins with Iron/Calcium/Folic Acid/Minerals Tab PO SCH (08:42)
[2019-04-18] MEDS: Brimonidine 0.2% Ophth Soln 5 ML Bottle EYELF SCH (09:13)
[2019-04-18] MEDS: Timolol Maleate 0.5% Ophth Soln 5 ML Bottle EYELF SCH (09:13)
[2019-04-18] MEDS ORDERED: Insulin Lispro 100 Unit/ML 3 ML KwikPen SUBCUT SCH (12:00)
[2019-04-18] MEDS: Insulin Glargine,Human Rec. Analog 100 Units/ML 3 ML Pen SUBCUT SCH (16:01)
--- NOTE | 2019-04-19 03:44 | DISCH ---
Date for admission on 04/16/2019, discharge 04/18/2019 for diabetic ketoacidosis after presenting with lethargy. His pH was 7.33. His anion gap was 27. He was given IV fluids and insulin, but refused an insulin drip. PRIMARY DISCHARGE DIAGNOSIS: Diabetic ketoacidosis. SECONDARY DISCHARGE DIAGNOSES: 1. Severe hypomagnesemia. 2. Acute renal failure due to diabetic ketoacidosis. Creatinine 2.0 to 1.3 on discharge. 3. Underlying uncontrolled diabetes with complications, on long-term insulin. 4. Cognitive dysfunction due to a previous low blood sugar. 5. Autonomic dysfunction. 6. Loose stools on admission, but only 1-2 x a day not diarrhea. 7. Cough with no evidence of infection by chest x-ray. 8. Sore on his left thigh. No evidence of infection. Brother had questions about using hyperbaric oxygen, which I said that would be okay. We will go ahead and refer him. HOSPITAL COURSE: The patient was aggressively hydrated with IV fluids by the next morning. His bicarb was up to 26. He was initially refusing to eat, but then did start eating and taking his insulin and blood sugars were all in the 200s. Initially, they were over 500. He did receive regular insulin at meals and 23 units of Lantus daily. His hemoglobin remained stable at 9.8 on the 2nd hospital day, his white count was normal. He did refuse blood work the morning of the . On discharge, he did finally cooperate to try to draw it from the port; however, he would not change positions to allow for better blood return, and decision was made to hold off on blood work and have him get it tomorrow as he was due for A1c and other labs through the clinic and he has a routine down with getting IV fluids twice weekly in the ER. Otherwise, his magnesium was only 1.1. We did give him IV magnesium 2 g due to the fact that he was having looser stools. He normally is supposed to take magnesium at home. Urine was negative for any infection, but he did have ketones. He did have a chest x-ray, which did not show any pneumonia. DISCHARGE PLANS AND INSTRUCTIONS: He will follow up in the clinic with Dr. Alejandro on 04/23 as previously scheduled and all lab work will be completed tomorrow through the ER. He will get another L of normal saline on his normal Saturday schedule tomorrow at 2 p.m. He did get IV fluids today as well. He will continue 3-8 units with meals, usually at least 5 units for blood sugars over 250 and he does have the Coby device, which is on the back of his arm, but looked like it was in a good position to be reading well and we were using it during his stay. He will continue on Lantus 23 units daily. PHYSICAL EXAMINATION: Vital Signs: Discharging vitals include a weight 74.2 kg, temperature 98.8, pulse 101, blood pressure 103/67, respiratory rate 16, and O2 of 94% on room air. General: He is in no acute distress. HEART: Regular rate and rhythm. S1, S2 without murmur. Lungs sounds are clear to auscultation bilaterally. No crackles or wheezes. Abdomen: Has positive bowel sounds. Soft, nontender. Extremities: Warm and dry. No edema. Does have that sore over the left thigh, but no sign of infection. Mental Status: He is alert. He refuses to answer orientation questions, but states want to go home. Greater than 30 minutes spent on the discharge process. FELIPEA: 04/18/2019 12:09:28 MODL: 04/19/2019 03:34:06 /[id number] BRENT
== END 2019-04-18 16:50 | disposition home or self-care (01) | DRG 638 ==
LOC: VM.ED 08:33 → VM.MS 10:31
PROVIDERS: ADMIT Family Medicine; ATTEND Internal Medicine
DX: E10.10 Type 1 diabetes mellitus with ketoacidosis without coma (principal); N17.9 Acute kidney failure, unspecified; L97.129 Non-pressure chronic ulcer of left thigh with unspecified severity; E10.51 Type 1 diabetes mellitus with diabetic peripheral angiopathy without gangrene; H26.9 Unspecified cataract; E78.5 Hyperlipidemia, unspecified; E86.0 Dehydration; W19.XXXA Unspecified fall, initial encounter; E78.00 Pure hypercholesterolemia, unspecified; E83.42 Hypomagnesemia; R19.7 Diarrhea, unspecified; G31.84 Mild cognitive impairment of uncertain or unknown etiology; Z87.820 Personal history of traumatic brain injury; I73.9 Peripheral vascular disease, unspecified; E10.40 Type 1 diabetes mellitus with diabetic neuropathy, unspecified; Z91.14 Patient's other noncompliance with medication regimen; Z79.4 Long term (current) use of insulin; Z79.899 Other long term (current) drug therapy; Z88.8 Allergy status to other drugs, medicaments and biological substances
CPT/HCPCS: 36600; 80053; 82010; 82150; 82550; 82800; 82803; 82962; 83605; 83690; 83735; 83930; 84100; 84484; 85025; 96361; 96374; 99284; 99285; J1815; J7120 ×2; 71045; 80048; 81003; A4217; A9270-GY; J1642; J3475; J7030

== ENCOUNTER 2019-04-27 23:10 | Observation (INO) | payer MEDICARE, MEDICAID ==
[2019-04-27] MEDS ORDERED: Sodium Chloride 0.9% 1,000 ML IV SCH (23:45)
[2019-04-28 00:17] LABS: CHLORIDE,CL 99 mmol/L (98-107); SODIUM,NA 141 mmol/L (136-145)
[2019-04-28 00:18] LABS: ANION GAP 14.9 mmol/L (10-20)
--- NOTE | 2019-04-28 00:46 | EDM.PDOC ---
ED HPI GENERAL MEDICAL PROBLEM - General Chief Complaint: General Stated Complaint: Weakness, not eating or drinking Time Seen by Provider: 04/27/19 23:16 Source of Information: Reports: Family History Limitations: Reports: No Limitations - History of Present Illness INITIAL COMMENTS - FREE TEXT/NARRATIVE: Patient brought in via EMS with complaints of weakness, not eating, not drinking , urinary frequency, cough. Was admitted 04/17/19 for dehydration, hypomagnesemia, DKA. Patient lives with mom and she states he really has not eaten anything since . Has tried to take him to his favorite restaurant and having a steak dinner made for him. These attempts were largely unsuccessful. Was in [facility] patient care technician for hydration Sunday04/26/19. Mother states this took nearly 3 hours to get him here. She also states that while he has been sleeping the last few weeks he has been restless and coughing during the night. He tells her he just doesn't feel good. She reports regular bowel movements, no blood in urine or stool that she has noticed. No nausea, vomiting, chest pain, sob, headache or eye pain. States he lost his vision in his left eye. She thinks he is having urinary frequency as he states he has to go even though he has already gone. She also states he had a syncopal episode before EMS arrived. 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 Primary doctor is Angélica Alejandro with [facility] here in [place]. Onset: Gradual Duration: Getting Worse Location: Reports: Generalized - Related Data Allergies Allergy/AdvReac Type Severity Reaction Status Date / Time cyclobenzaprine HCl AdvReac Muscle Verified 04/28/19 00:00 [From Flexeril] Weakness quetiapine fumarate AdvReac Agitation Verified 04/28/19 00:00 [From Seroquel] [id number] Reductase AdvReac Confusion Verified 04/28/19 00:00 Inhibitor Home Meds: Home Meds Cholecalciferol (Vitamin D3) [Vitamin D3] 1,000 units PO DAILY 02/13/14 [History ] Multivitamin [Multi-Vitamin Daily] 1 tab PO DAILY 02/13/14 [History] Magnesium 500 mg PO DAILY #0 03/14/17 [Rx] Insulin Aspart [Novolog Flexpen] 3 - 8 unit SQ TIDMEALS 03/26/17 [History] Acetaminophen [Tylenol] 650 mg PO Q6H PRN 09/27/18 [History] Glucagon,Human Recombinant [Glucagon Emergency Kit] 1 mg SUBCUT ASDIRECTED PRN 09/27/18 [History] Insulin Detemir [Levemir] 23 unit SUBCUT DAILY@1300 09/27/18 [History] Brimonidine Tartrate/Timolol [Combigan 0.2%-0.5% Eye Drops] 1 drop EYELF BID [History] Past Medical History HEENT History: Reports: None Cardiovascular History: Reports: High Cholesterol, PVD, Syncope, Other (See Below) Other Cardiovascular History: orthostatic hypotension Respiratory History: Reports: None Gastrointestinal History: Reports: GI Bleed, Other (See Below) Other Gastrointestinal History: ischemic colitis Genitourinary History: Reports: Acute Renal Failure, Retention, Urinary Musculoskeletal History: Reports: Fracture, Other (See Below) Other Musculoskeletal History: osteomyelitis of foot/ankle Neurological History: Reports: Neuropathy, Diabetic, Other (See Below) Other Neuro History: cognitive impairment Psychiatric History: Reports: Other (See Below) Other Psychiatric History: alcohol abuse Endocrine/Metabolic History: Reports: Diabetes, Type I, Other (See Below) Other Endocrine/Metabolic History: hypomagnesemia, DKA Hematologic History: Reports: Anemia Immunologic History: Reports: None Oncologic (Cancer) History: Reports: None Dermatologic History: Reports: None - Infectious Disease History Infectious Disease History: Reports: C-Difficile, Other (See Below) Other Infectious Disease History: MSSA pneumonia, Klebsiella bacteremia - Past Surgical History HEENT Surgical History: Reports: Adenoidectomy, Tonsillectomy GI Surgical History: Reports: Colonoscopy Musculoskeletal Surgical History: Reports: Other (See Below) Social & Family History - Family History Family Medical History: Noncontributory Cardiac: Reports: Hypertension Musculoskeletal: Reports: Arthritis Endocrine/Metabolic: Reports: Diabetes, Type I, Diabetes, type II, Hypothyroidism - Caffeine Use Caffeine Use: Reports: Soda - Living Situation & Occupation Living situation: Reports: Single, with Family Occupation: Disabled ED ROS GENERAL - Review of Systems Review Of Systems: Unable To Obtain (obtained from mother) Constitutional: Reports: Weakness, Decreased Appetite HEENT: Reports: No Symptoms Respiratory: Reports: No Symptoms Cardiovascular: Reports: No Symptoms Endocrine: Reports: Fatigue GI/Abdominal: Reports: No Symptoms : Reports: Frequency Musculoskeletal: Reports: No Symptoms Skin: Reports: No Symptoms Neurological: Reports: Syncope Psychiatric: Reports: No Symptoms Hematologic/Lymphatic: Reports: No Symptoms Immunologic: Reports: No Symptoms ED EXAM, GENERAL - Physical Exam Exam: See Below Exam Limited By: Physical Impairment General Appearance: Alert, WD/WN, Mild Distress Eye Exam: Bilateral Eye: EOMI, Normal Inspection Ears: Normal TMs Nose: Normal Inspection, Normal Mucosa, No Blood Throat/Mouth: Normal Inspection, Normal Lips, Normal Teeth, Normal Gums, Normal Oropharynx, Normal Voice, No Airway Compromise Head: Atraumatic, Normocephalic Neck: Normal Inspection, Supple, Non-Tender, Full Range of Motion Respiratory/Chest: No Respiratory Distress, Lungs Clear, Normal Breath Sounds, No Accessory Muscle Use, Chest Non-Tender Cardiovascular: Normal Peripheral Pulses, Regular Rate, Rhythm, No Edema, No Gallop, No JVD, No Murmur, No Rub Peripheral Pulses: 2+: Posterior Tibial (L), Posterior Tibial (R), Dorsalis Pedis (L), Dorsalis Pedis (R) GI/Abdominal: Normal Bowel Sounds, Soft, Non-Tender, No Organomegaly, No Distention, No Abnormal Bruit, No Mass Back Exam: Normal Inspection, Full Range of Motion, NT Extremities: Normal Inspection, Normal Range of Motion, Non-Tender, Normal Capillary Refill, No Pedal Edema Neurological: Alert, Sensory/Motor Deficit (traumatic brain injury when 21 from severe case of hypoglycemia) Psychiatric: Normal Affect, Normal Mood Skin Exam: Warm, Dry, Intact, Normal Color, No Rash Lymphatic: No Adenopathy Course - Vital Signs Last Recorded V/S: Last Vital Signs Temp 36.7 C 04/27/19 23:20 Pulse 114 H 04/27/19 23:20 Resp 16 04/27/19 23:20 BP 109/59 L 04/27/19 23:20 Pulse Ox 98 04/27/19 23:20 - Orders/Labs/Meds Orders: Active Orders 24 hr Category Date Time Status Patient Status [ADT] Routine ADT 04/28/19 00:37 Active Chest 1V Frontal [CR] Stat Exams 04/28/19 00:23 Ordered UA W/MICROSCOPIC [URIN] Stat Lab 04/27/19 23:37 Ordered Sodium Chloride 0.9% [Normal Saline] 1,000 ml Med 04/27/19 23:45 Active IV ASDIRECTED Medication Orders Sodium Chloride (Normal Saline) 1,000 mls @ 999 mls/hr IV ASDIRECTED SILVIA Last Admin: 04/27/19 23:45 Dose: 999 mls/hr Labs: Laboratory Tests 04/27/19 04/27/19 04/27/19 Range/Units 23:40 23:40 23:40 WBC 10.0 (4.0-10.0) x10^3/uL RBC 3.48 L (4.5-6.0) x10^6/uL Hgb 10.3 L (14.0-18.0) g/dL Hct 30.4 L (40.0-52.0) % MCV 87.4 (78.0-93.0) fL MCH 29.6 (26.0-32.0) pg MCHC 33.9 (32.0-36.0) g/dL RDW Coeff of Madeline 12.3 (10.0-15.0) % Plt Count 424 H D (130-400) x10^3/uL Add Manual Diff Yes Neutrophils % (Manual) 66 (50-80) % Lymphocytes % (Manual) 27 (25-50) % Monocytes % (Manual) 5 (2-11) % Eosinophils % (Manual) 1 (0-4) % Basophils % (Manual) 1 (0-1) % Platelet Estimate Adequate Sodium 141 (136-145) mmol/L Potassium 3.9 (3.5-5.1) mmol/L Chloride 99 (98-107) mmol/L Carbon Dioxide 31 (21-32) mmol/L Anion Gap 14.9 (10-20) mmol/L BUN 11 (7-18) mg/dL Creatinine 1.2 (0.70-1.30) mg/dL Est Cr Clr Drug Dosing TNP Estimated GFR (MDRD) > 60 Glucose 248 H (74-106) mg/dL Lactic Acid 0.7 (0.4-2.0) mmol/L Calcium 9.8 (8.5-10.1) mg/dL Corrected Calcium 10.60 H (8.5-10.1) mg/dL Magnesium (1.8-2.4) mg/dL Total Bilirubin 0.4 (0.2-1.0) mg/dL AST 13 L (15-37) U/L ALT 23 (16-63) U/L Alkaline Phosphatase 147 H (46-116) U/L Creatine Kinase 106 (39-308) U/L Troponin I < 0.017 (<=0.056) ng/mL C-Reactive Protein 12.8 H (<=0.9) mg/dL Total Protein 7.6 (6.4-8.2) g/dL Albumin 3.0 L (3.4-5.0) g/dL Globulin 4.6 Albumin/Globulin Ratio 0.65 TSH, Ultra Sensitive 3.441 (0.358-3.74) uIU/mL 04/28/19 Range/Units 00:00 WBC (4.0-10.0) x10^3/uL RBC (4.5-6.0) x10^6/uL Hgb (14.0-18.0) g/dL Hct (40.0-52.0) % MCV (78.0-93.0) fL MCH (26.0-32.0) pg MCHC (32.0-36.0) g/dL RDW Coeff of Madeline (10.0-15.0) % Plt Count (130-400) x10^3/uL Add Manual Diff Neutrophils % (Manual) (50-80) % Lymphocytes % (Manual) (25-50) % Monocytes % (Manual) (2-11) % Eosinophils % (Manual) (0-4) % Basophils % (Manual) (0-1) % Platelet Estimate Sodium (136-145) mmol/L Potassium (3.5-5.1) mmol/L Chloride (98-107) mmol/L Carbon Dioxide (21-32) mmol/L Anion Gap (10-20) mmol/L BUN (7-18) mg/dL Creatinine (0.70-1.30) mg/dL Est Cr Clr Drug Dosing Estimated GFR (MDRD) Glucose (74-106) mg/dL Lactic Acid (0.4-2.0) mmol/L Calcium (8.5-10.1) mg/dL Corrected Calcium (8.5-10.1) mg/dL Magnesium 0.5 L* (1.8-2.4) mg/dL Total Bilirubin (0.2-1.0) mg/dL AST (15-37) U/L ALT (16-63) U/L Alkaline Phosphatase (46-116) U/L Creatine Kinase (39-308) U/L Troponin I (<=0.056) ng/mL C-Reactive Protein (<=0.9) mg/dL Total Protein (6.4-8.2) g/dL Albumin (3.4-5.0) g/dL Globulin Albumin/Globulin Ratio TSH, Ultra Sensitive (0.358-3.74) uIU/mL Meds: Medications Generic Name Dose Route Start Last Admin Trade Name Freq PRN Reason Stop Dose Admin Sodium Chloride 1,000 mls @ 999 mls/hr 04/27/19 23:45 04/27/19 23:45 Normal Saline IV 999 mls/hr ASDIRECTED SILVIA Administration Departure - Departure Time of Disposition: 00:40 Disposition: Home, Self-Care 01 Condition: Fair Clinical Impression: Hypomagnesemia - Discharge Information *PRESCRIPTION DRUG MONITORING PROGRAM REVIEWED*: Not Applicable *COPY OF PRESCRIPTION DRUG MONITORING REPORT IN PATIENT BEATRICE: Not Applicable Referrals: PCP,Unobtain [Primary Care Provider] - Forms: ED Department Discharge - Problem List & Annotations (1) Weakness SNOMED Code(s): 25722369 Code(s): R53.1 - WEAKNESS Status: Acute Priority: Low Current Visit: Yes (2) Hypomagnesemia SNOMED Code(s): 825861499 Code(s): E83.42 - HYPOMAGNESEMIA Status: Acute Priority: Medium Current Visit: Yes Annotation/Comment:: - Magnesium repletion ordered by ER provider. - Will recheck magnesium in the am. - Problem List Review Problem List Initiated/Reviewed/Updated: Yes - My Orders Last 24 Hours: My Active Orders 04/27/19 23:37 UA W/MICROSCOPIC [URIN] Stat 04/27/19 23:45 Sodium Chloride 0.9% [Normal Saline] 1,000 ml IV ASDIRECTED 04/28/19 00:23 Chest 1V Frontal [CR] Stat 04/28/19 00:37 Patient Status [ADT] Routine - Assessment/Plan Last 24 Hours: My Active Orders 04/27/19 23:37 UA W/MICROSCOPIC [URIN] Stat 04/27/19 23:45 Sodium Chloride 0.9% [Normal Saline] 1,000 ml IV ASDIRECTED 04/28/19 00:23 Chest 1V Frontal [CR] Stat 04/28/19 00:37 Patient Status [ADT] Routine Assessment:: hypomagnesemia weakness cough Plan: Admit to observation for magnesium repletion and IV fluids. Mother describes possible UTI like symptoms. Urinalysis ordered, hopefully patient will comply so this can be determined. Patient is Code level I, stable in ED.
[2019-04-28] MEDS ORDERED: Docusate Sodium 100 MG Cap PO PRN (01:07)
[2019-04-28] MEDS ORDERED: Ondansetron 4 MG Tab.DIS PO PRN (01:07)
[2019-04-28] MEDS ORDERED: Magnesium Sulfate/Water 2 GM in Premix Bag 1 BAG IV ONE ×2 (01:11→08:16)
[2019-04-28] MEDS ORDERED: Acetaminophen 325 MG Tab PO PRN (01:13)
[2019-04-28] MEDS ORDERED: Glucagon,Human Recombinant 1 MG Vial SUBCUT PRN (01:13)
[2019-04-28] MEDS ORDERED: Lactated Ringers 1,000 ML IV SCH (01:15)
--- NOTE | 2019-04-28 07:52 | CR ---
[id number] RAD/RAD Chest PA or AP 1V EXAM: RAD Chest PA or AP 1V INDICATION: COUGH COMPARISON: April 17, 2019. DISCUSSION: Right-sided port catheter in place. No change in position compared to the prior examination. Cardiomediastinal silhouette is unchanged in size and contour. No infiltrate, effusion, pneumothorax, or edema. IMPRESSION: No acute findings or significant change from the prior examination. Jimbo Norris MD 04/28/19 0750 Thank you for allowing us to participate in the care of your patient.
[2019-04-28] MEDS ORDERED: NOVOLOG SQ SCH (08:00)
[2019-04-28] MEDS ORDERED: LEVEMIR INSULIN SUBCUT SCH (08:00)
[2019-04-28] MEDS ORDERED: Multivitamin, Stress Formula with Zinc Tab PO SCH (08:00)
[2019-04-28] MEDS ORDERED: Cholecalciferol (Vitamin D3) 25 MCG Tab PO SCH (08:00)
[2019-04-28] MEDS ORDERED: Non-Formulary Medication 1 Each (Magnesium [Magnesium] 500 MG) PO SCH (08:00)
[2019-04-28] MEDS ORDERED: Insulin Lispro 100 Unit/ML 3 ML KwikPen SUBCUT SCH (08:00)
--- NOTE | 2019-04-28 08:21 | PCM.PN ---
- General Info Date of Service: 04/28/19 Admission Dx/Problem (Free Text): Pt. states that he is feeling somewhat better. His magnesium has increased from 0.5 to 1.6. He still feels weak. T max since admit is 37.1. Staff states that is cough has been minimal. Radiologist favored bronchitis on the chest x-ray on admission. The chest x-ray was repeated this AM with no infiltrate or other pathology noted. UA appears to still be pending. CBC was normal this AM, as were the patient's electrolytes, other than low magnesium. Functional Status: Reports: Pain Controlled - Review of Systems General: Reports: No Symptoms HEENT: Reports: No Symptoms Pulmonary: Reports: Cough, Other (bronchitis on chest x-ray) Cardiovascular: Reports: No Symptoms Gastrointestinal: Reports: No Symptoms Genitourinary: Reports: No Symptoms Musculoskeletal: Reports: No Symptoms Skin: Reports: No Symptoms Neurological: Reports: No Symptoms Psychiatric: Reports: No Symptoms - Patient Data Vitals - Most Recent: Last Vital Signs Temp 36.6 C 04/28/19 06:00 Pulse 108 H 04/28/19 06:00 Resp 18 04/28/19 06:00 BP 134/72 04/28/19 06:00 Pulse Ox 98 04/28/19 06:00 Weight - Most Recent: 73.21 kg I&O - Last 24 Hours: Intake & Output 04/27/19 04/28/19 04/28/19 22:59 06:59 14:59 Intake Total 1170 Balance 1170 Lab Results Last 24 Hours: Laboratory Results - last 24 hr 04/27/19 04/27/19 04/27/19 Range/Units 23:40 23:40 23:40 WBC 10.0 (4.0-10.0) x10^3/uL RBC 3.48 L (4.5-6.0) x10^6/uL Hgb 10.3 L (14.0-18.0) g/dL Hct 30.4 L (40.0-52.0) % MCV 87.4 (78.0-93.0) fL MCH 29.6 (26.0-32.0) pg MCHC 33.9 (32.0-36.0) g/dL RDW Coeff of Madeline 12.3 (10.0-15.0) % Plt Count 424 H D (130-400) x10^3/uL Neut % (Auto) (50.0-80.0) % Lymph % (Auto) (25.0-50.0) % [place] % (Auto) (2.0-11.0) % Eos % (Auto) (0.0-4.0) % Baso % (Auto) (0.2-1.2) % Add Manual Diff Yes Neutrophils % (Manual) 66 (50-80) % Lymphocytes % (Manual) 27 (25-50) % Monocytes % (Manual) 5 (2-11) % Eosinophils % (Manual) 1 (0-4) % Basophils % (Manual) 1 (0-1) % Platelet Estimate Adequate Sodium 141 (136-145) mmol/L Potassium 3.9 (3.5-5.1) mmol/L Chloride 99 (98-107) mmol/L Carbon Dioxide 31 (21-32) mmol/L Anion Gap 14.9 (10-20) mmol/L BUN 11 (7-18) mg/dL Creatinine 1.2 (0.70-1.30) mg/dL Est Cr Clr Drug Dosing TNP Estimated GFR (MDRD) > 60 Glucose 248 H (74-106) mg/dL Lactic Acid 0.7 (0.4-2.0) mmol/L Calcium 9.8 (8.5-10.1) mg/dL Corrected Calcium 10.60 H (8.5-10.1) mg/dL Magnesium (1.8-2.4) mg/dL Total Bilirubin 0.4 (0.2-1.0) mg/dL AST 13 L (15-37) U/L ALT 23 (16-63) U/L Alkaline Phosphatase 147 H (46-116) U/L Creatine Kinase 106 (39-308) U/L Troponin I < 0.017 (<=0.056) ng/mL C-Reactive Protein 12.8 H (<=0.9) mg/dL Total Protein 7.6 (6.4-8.2) g/dL Albumin 3.0 L (3.4-5.0) g/dL Globulin 4.6 Albumin/Globulin Ratio 0.65 Amylase (25-115) U/L Lipase (73-393) U/L TSH, Ultra Sensitive 3.441 (0.358-3.74) uIU/mL 04/28/19 04/28/19 04/28/19 Range/Units 00:00 06:42 06:42 WBC 10.0 (4.0-10.0) x10^3/uL RBC 3.14 L (4.5-6.0) x10^6/uL Hgb 9.4 L (14.0-18.0) g/dL Hct 28.0 L (40.0-52.0) % MCV 89.2 (78.0-93.0) fL MCH 29.9 (26.0-32.0) pg MCHC 33.6 (32.0-36.0) g/dL RDW Coeff of Madeline 12.5 (10.0-15.0) % Plt Count 409 H (130-400) x10^3/uL Neut % (Auto) 62.9 (50.0-80.0) % Lymph % (Auto) 21.2 L (25.0-50.0) % [place] % (Auto) 14.9 H (2.0-11.0) % Eos % (Auto) 0.6 (0.0-4.0) % Baso % (Auto) 0.4 (0.2-1.2) % Add Manual Diff Neutrophils % (Manual) (50-80) % Lymphocytes % (Manual) (25-50) % Monocytes % (Manual) (2-11) % Eosinophils % (Manual) (0-4) % Basophils % (Manual) (0-1) % Platelet Estimate Sodium (136-145) mmol/L Potassium (3.5-5.1) mmol/L Chloride (98-107) mmol/L Carbon Dioxide (21-32) mmol/L Anion Gap (10-20) mmol/L BUN (7-18) mg/dL Creatinine (0.70-1.30) mg/dL Est Cr Clr Drug Dosing Estimated GFR (MDRD) Glucose (74-106) mg/dL Lactic Acid (0.4-2.0) mmol/L Calcium (8.5-10.1) mg/dL Corrected Calcium (8.5-10.1) mg/dL Magnesium 0.5 L* 1.6 L (1.8-2.4) mg/dL Total Bilirubin (0.2-1.0) mg/dL AST (15-37) U/L ALT (16-63) U/L Alkaline Phosphatase (46-116) U/L Creatine Kinase (39-308) U/L Troponin I (<=0.056) ng/mL C-Reactive Protein (<=0.9) mg/dL Total Protein (6.4-8.2) g/dL Albumin (3.4-5.0) g/dL Globulin Albumin/Globulin Ratio Amylase 30 (25-115) U/L Lipase 51 L (73-393) U/L TSH, Ultra Sensitive (0.358-3.74) uIU/mL Med Orders - Current: Current Medications Acetaminophen (Tylenol) 650 mg PO Q6H PRN PRN Reason: Headache Cholecalciferol (Vitamin D3) 25 mcg PO DAILY SILVIA Docusate Sodium (Colace) 100 mg PO BID PRN PRN Reason: Constipation Glucagon (Glucagen) 1 mg SUBCUT ASDIRECTED PRN PRN Reason: Hypoglycemia Heparin Sodium (Porcine) (Heparin Lock Flush 100 Units/Ml) 500 units IVPUSH ASDIRECTED PRN PRN Reason: Keep Vein Open Lactated Ringer's (Ringers, Lactated) 1,000 mls @ 100 mls/hr IV ASDIRECTED [facility] Last Admin: 04/28/19 01:35 Dose: 100 mls/hr (Brimonidine Tartrate Own Med* 1 drop EYELF BID [facility] Levemir Insulin Pen (Own Med) 24 each SUBCUT DAILY [facility] Non-Formulary Medication (Magnesium [Magnesium]) 500 mg PO DAILY [facility] Timolol 0.5% Own (Med) 1 each EYELF BID [facility] Novolog Flexpen (Own Med) 0 each SQ TIDMEALS SILVIA; Protocol Ondansetron HCl (Zofran Odt) 4 mg PO Q6H PRN PRN Reason: nausea, able to take PO Sodium Chloride (Saline Flush) 20 ml FLUSH BID [facility] Vitamin B Complex/Vit C/Vit E/Zinc (Stress Formula With Zinc) 1 tab PO DAILY SIL[facility]IA Discontinued Medications Sodium Chloride (Normal Saline) 1,000 mls @ 999 mls/hr IV ASDIRECTED [facility] Last Admin: 04/27/19 23:45 Dose: 999 mls/hr Magnesium Sulfate 2 gm/ Premix 50 mls @ 25 mls/hr IV ONETIME ONE Stop: 04/28/19 03:10 Last Admin: 04/28/19 01:24 Dose: 25 mls/hr Insulin Human Lispro (Humalog) 3 - 8 unit SUBCUT TIDMEALS [facility] Novolog Flexpen (Own Med) 3 - 8 each SQ TIDMEALS [facility] - Exam General: Alert, Oriented Neck: Supple Lungs: Clear to Auscultation, Normal Respiratory Effort Cardiovascular: Regular Rate, Regular Rhythm GI/Abdominal Exam: Normal Bowel Sounds, Soft, Non-Tender, No Organomegaly, No Distention, No Mass (Male) Exam: No Hernia, Normal Inspection, Normal Prostate Back Exam: Normal Inspection, Full Range of Motion Extremities: Normal Inspection, Normal Range of Motion, Non-Tender, No Pedal Edema, Normal Capillary Refill Peripheral Pulses: 4+: Radial (R) Skin: Warm, Dry, Intact Wound/Incisions: Healing Well Neurological: No New Focal Deficit Psy/Mental Status: Alert, Normal Affect, Normal Mood - Problem List & Annotations (1) Bronchitis SNOMED Code(s): 74975680 Code(s): J40 - BRONCHITIS, NOT SPECIFIED ACUTE OR CHRONIC Status: Acute Current Visit: Yes (2) Hypomagnesemia SNOMED Code(s): 594741007 Code(s): E83.42 - HYPOMAGNESEMIA Status: Acute Priority: Medium Current Visit: Yes Annotation/Comment:: - Magnesium repletion ordered by ER provider. - Will recheck magnesium in the am. - Problem List Review Problem List Initiated/Reviewed/Updated: Yes - Plan Plan:: Pt. will receive 2 gm of mag sulfate IV. Will start doxycycline 100mg twice daily. Continue maintenance IV fluids. Encourage oral intake today. Anticipate discharge when patient is eating adequately.
[2019-04-28] MEDS: NOVOLOG SQ SCH ×3 (08:32→19:08)
[2019-04-28] MEDS: BRIMONIDINE TARTRATE EYELF SCH ×2 (08:38→20:14)
[2019-04-28] MEDS: TIMOLOL 0.5% EYELF SCH ×2 (08:38→20:14)
[2019-04-28] MEDS: Sodium Chloride 0.9% 10 ML Syringe FLUSH SCH ×2 (09:45→20:12)
[2019-04-28] MEDS ORDERED: cefTRIAXone 2 GM Vial IVPUSH ONE (15:03)
[2019-04-28 17:26] VITALS: BP 98/59; PULSE 104
[2019-04-28] MEDS ORDERED: Sodium Chloride 0.9% 1,000 ML IV ONE (18:45)
--- NOTE | 2019-04-29 04:29 | PCM.DCSUM1 ---
Discharge Summary - Hospital Course Free Text/Narrative:: Pt. was admitted late evening of 04-27-19 with weakness, dehydration, and bronchitis on chest x-ray. Pt. has a history of TBI and is seen in career coordinator frequently for IV hydration. Mom stated that has appetite has been poor. Pt. was noted to have a severely low magnesium on admit. This was repleted during his stay in the hospital. Pt. was given 2 gm of mag sulfate and his potassium went for 0.5 to 1.6. It was still low, so 2 gm was ordered this AM after labs became available. Pt. has had normal vitals. Repeat labs were unchanged. No white count. No fever or chills. Pt. received a total of approx. 3 liters of crystalloid during his stay. UA was ordered on admit, but he was unable to provide a sample. Pt. was subsequently bladder scanned this afternoon for approx. 1000ml of retained urine. Pt. was able to void approx. 300ml to avoid catheterization. Pt. was found to have positive nitrates on his UA. He was given rocephin 2 gm IV. Pt. was requesting to be discharged, stating he feels much better. Diagnosis: Stroke: No - Discharge Data Discharge Date: 04/28/19 Discharge Disposition: Home, Self-Care 01 Condition: Stable - Discharge Diagnosis/Problem(s) (1) Bronchitis SNOMED Code(s): 58646085 ICD Code: J40 - BRONCHITIS, NOT SPECIFIED ACUTE OR CHRONIC Status: Acute (2) Hypomagnesemia SNOMED Code(s): 236036778 ICD Code: E83.42 - HYPOMAGNESEMIA Status: Acute Priority: Medium Problem Details: - Magnesium repletion ordered by ER provider. - Will recheck magnesium in the am. (3) UTI (urinary tract infection) SNOMED Code(s): 37953668 ICD Code: N39.0 - URINARY TRACT INFECTION, SITE NOT SPECIFIED Status: Acute Qualifiers: Urinary tract infection type: acute cystitis - Discharge Plan *PRESCRIPTION DRUG MONITORING PROGRAM REVIEWED*: Not Applicable *COPY OF PRESCRIPTION DRUG MONITORING REPORT IN PATIENT BEATRICE: Not Applicable Home Medications: Home Meds Cholecalciferol (Vitamin D3) [Vitamin D3] 1,000 units PO DAILY 02/13/14 [History ] Multivitamin [Multi-Vitamin Daily] 1 tab PO DAILY 02/13/14 [History] Magnesium 500 mg PO DAILY #0 03/14/17 [Rx] Insulin Aspart [Novolog Flexpen] 3 - 8 unit SQ TIDMEALS 03/26/17 [History] Acetaminophen [Tylenol] 650 mg PO Q6H PRN 09/27/18 [History] Glucagon,Human Recombinant [Glucagon Emergency Kit] 1 mg SUBCUT ASDIRECTED PRN 09/27/18 [History] Insulin Detemir [Levemir] 24 unit SUBCUT DAILY@1300 09/27/18 [History] Brimonidine Tartrate/Timolol [Combigan 0.2%-0.5% Eye Drops] 1 drop EYELF BID [History] Oxygen Therapy Mode: Room Air Forms: ED Department Discharge Referrals: PCP,Unobtain [Ordering Only Provider] - - Discharge Summary/Plan Comment DC Time >30 min.: Yes Discharge Summary/Plan Comment: Discharge home. Augmentin 875mg twice daily for 10 days. This will cover the bronchitis and has an indication for UTI as well. Encourage fluids. It is OK if he doesn't eat solid food, but he needs to maintain hydration. Return if unable to hold down fluids. Recheck in clinic in 7-10 days Continue with other current medications/care plan. - General Info Date of Service: 04/28/19 Functional Status: Reports: Pain Controlled - Review of Systems General: Reports: No Symptoms Pulmonary: Reports: No Symptoms Cardiovascular: Reports: No Symptoms Gastrointestinal: Reports: No Symptoms Genitourinary: Reports: No Symptoms Musculoskeletal: Reports: No Symptoms Skin: Reports: No Symptoms Neurological: Reports: No Symptoms Psychiatric: Reports: No Symptoms - Patient Data Vitals - Most Recent: Last Vital Signs Temp 37.3 C 04/28/19 17:26 Pulse 104 H 04/28/19 17:26 Resp 16 04/28/19 17:26 BP 98/59 L 04/28/19 17:26 Pulse Ox 99 04/28/19 17:26 Weight - Most Recent: 73.21 kg I&O - Last 24 hours: Intake & Output 04/28/19 04/28/19 04/29/19 14:59 22:59 06:59 Intake Total 240 1107 Output Total 1000 Balance 240 107 Lab Results - Last 24 hrs: Laboratory Results - last 24 hr 07/06/0904/28/19 04/28/19 Range/Units 06:42 06:42 10:44 WBC 10.0 (4.0-10.0) x10^3/uL RBC 3.14 L (4.5-6.0) x10^6/uL Hgb 9.4 L (14.0-18.0) g/dL Hct 28.0 L (40.0-52.0) % MCV 89.2 (78.0-93.0) fL MCH 29.9 (26.0-32.0) pg MCHC 33.6 (32.0-36.0) g/dL RDW Coeff of Madeline 12.5 (10.0-15.0) % Plt Count 409 H (130-400) x10^3/uL Neut % (Auto) 62.9 (50.0-80.0) % Lymph % (Auto) 21.2 L (25.0-50.0) % [place] % (Auto) 14.9 H (2.0-11.0) % Eos % (Auto) 0.6 (0.0-4.0) % Baso % (Auto) 0.4 (0.2-1.2) % POC Glucose 234 H (74-106) mg/dL Magnesium 1.6 L (1.8-2.4) mg/dL Amylase 30 (25-115) U/L Lipase 51 L (73-393) U/L Urine Color (YELLOW) Urine Appearance (CLEAR) Urine pH (5.0-8.0) Ur Specific Mathews Urine Protein (NEGATIVE) mg/dL Urine Glucose (UA) (NEGATIVE) mg/dL Urine Ketones (NEGATIVE) mg/dL Urine Occult Blood (NEGATIVE) Urine Nitrite (NEGATIVE) Urine Bilirubin (NEGATIVE) Urine Urobilinogen (0.2) EU/dL Ur Leukocyte Esterase (NEGATIVE) Urine RBC (NOT SEEN) /HPF Urine WBC (NOT SEEN) /HPF Ur Squamous Epith Cells (NEGATIVE) /HPF Urine Bacteria (NEGATIVE) /HPF Urine Mucus (NEGATIVE) /LPF 04/28/19 04/28/19 Range/Units 14:45 18:43 WBC (4.0-10.0) x10^3/uL RBC (4.5-6.0) x10^6/uL Hgb (14.0-18.0) g/dL Hct (40.0-52.0) % MCV (78.0-93.0) fL MCH (26.0-32.0) pg MCHC (32.0-36.0) g/dL RDW Coeff of Madeline (10.0-15.0) % Plt Count (130-400) x10^3/uL Neut % (Auto) (50.0-80.0) % Lymph % (Auto) (25.0-50.0) % [place] % (Auto) (2.0-11.0) % Eos % (Auto) (0.0-4.0) % Baso % (Auto) (0.2-1.2) % POC Glucose 155 H (74-106) mg/dL Magnesium (1.8-2.4) mg/dL Amylase (25-115) U/L Lipase (73-393) U/L Urine Color Yellow (YELLOW) Urine Appearance Cloudy H (CLEAR) Urine pH 5.5 (5.0-8.0) Ur Specific Mathews 1.020 Urine Protein 30 H (NEGATIVE) mg/dL Urine Glucose (UA) 500 H (NEGATIVE) mg/dL Urine Ketones 40 H (NEGATIVE) mg/dL Urine Occult Blood Trace-lysed H (NEGATIVE) Urine Nitrite Positive H (NEGATIVE) Urine Bilirubin Negative (NEGATIVE) Urine Urobilinogen 0.2 (0.2) EU/dL Ur Leukocyte Esterase Negative (NEGATIVE) Urine RBC 0-5 (NOT SEEN) /HPF Urine WBC 0-5 (NOT SEEN) /HPF Ur Squamous Epith Cells Not seen (NEGATIVE) /HPF Urine Bacteria Few H (NEGATIVE) /HPF Urine Mucus Not seen (NEGATIVE) /LPF Med Orders - Current: Current Medications Discontinued Medications Acetaminophen (Tylenol) 650 mg PO Q6H PRN PRN Reason: Headache Ceftriaxone Sodium (Rocephin) 2 gm IVPUSH STAT ONE Stop: 04/28/19 15:04 Last Admin: 04/28/19 15:15 Dose: 2 gm Cholecalciferol (Vitamin D3) 25 mcg PO DAILY [facility] Last Admin: 04/28/19 08:40 Dose: Not Given Docusate Sodium (Colace) 100 mg PO BID PRN PRN Reason: Constipation Glucagon (Glucagen) 1 mg SUBCUT ASDIRECTED PRN PRN Reason: Hypoglycemia Heparin Sodium (Porcine) (Heparin Lock Flush 100 Units/Ml) 500 units IVPUSH ASDIRECTED PRN PRN Reason: Keep Vein Open Last Admin: 04/28/19 20:12 Dose: 500 units Sodium Chloride (Normal Saline) 1,000 mls @ 999 mls/hr IV ASDIRECTED SILVIA Last Admin: 04/27/19 23:45 Dose: 999 mls/hr Magnesium Sulfate 2 gm/ Premix 50 mls @ 25 mls/hr IV ONETIME ONE Stop: 04/28/19 03:10 Last Admin: 04/28/19 01:24 Dose: 25 mls/hr Lactated Ringer's (Ringers, Lactated) 1,000 mls @ 100 mls/hr IV ASDIRECTED SILVIA Last Admin: 04/28/19 01:35 Dose: 100 mls/hr Magnesium Sulfate 2 gm/ Premix 50 mls @ 25 mls/hr IV ONETIME ONE Stop: 04/28/19 10:15 Last Admin: 04/28/19 09:44 Dose: 25 mls/hr Sodium Chloride (Normal Saline) 1,000 mls @ 999 mls/hr IV STAT ONE Stop: 04/28/19 19:45 Last Admin: 04/28/19 18:46 Dose: 999 mls/hr Insulin Human Lispro (Humalog) 3 - 8 unit SUBCUT TIDMEALS SILVIA (Brimonidine Tartrate Own Med* 1 drop EYELF BID SILVIA Last Admin: 04/28/19 20:14 Dose: Not Given Levemir Insulin Pen (Own Med) 24 each SUBCUT DAILY SILVIA Last Admin: 04/28/19 08:32 Dose: 24 each Non-Formulary Medication (Magnesium [Magnesium]) 500 mg PO DAILY SILVIA Novolog Flexpen (Own Med) 3 - 8 each SQ TIDMEALS SILVIA Timolol 0.5% Own (Med) 1 each EYELF BID SILVIA Last Admin: 04/28/19 20:14 Dose: Not Given Novolog Flexpen (Own Med) 0 each SQ TIDMEALS SILVIA; Protocol Last Admin: 04/28/19 19:08 Dose: Not Given Ondansetron HCl (Zofran Odt) 4 mg PO Q6H PRN PRN Reason: nausea, able to take PO Sodium Chloride (Saline Flush) 20 ml FLUSH BID [facility] Last Admin: 04/28/19 20:12 Dose: 20 ml Vitamin B Complex/Vit C/Vit E/Zinc (Stress Formula With Zinc) 1 tab PO DAILY [facility] Last Admin: 04/28/19 08:40 Dose: Not Given - Exam General: Reports: Alert, Oriented, Other (uncooperative. Violent on physical examination. Verbally abusive to patient care staff.) Neck: Reports: Supple Lungs: Reports: Clear to Auscultation, Normal Respiratory Effort Cardiovascular: Reports: Regular Rate, Regular Rhythm GI/Abdominal Exam: Normal Bowel Sounds, Soft, Non-Tender, No Organomegaly, No Distention, No Mass (Male) Exam: Deferred Rectal (Males) Exam: Deferred Back Exam: Reports: Normal Inspection, Full Range of Motion Extremities: Normal Inspection, Normal Range of Motion, Non-Tender, No Pedal Edema, Normal Capillary Refill Skin: Reports: Warm, Dry, Intact Neurological: Reports: No New Focal Deficit Psy/Mental Status: Reports: Alert, Normal Affect, Normal Mood
== END 2019-04-28 22:35 | disposition home or self-care (01) ==
LOC: VM.ED 23:10 → VM.MS 04-28 00:40
PROVIDERS: ADMIT Nurse Practitioner Family; ATTEND Nurse Practitioner Family
DX: E83.42 Hypomagnesemia (principal); J40 Bronchitis, not specified as acute or chronic; N39.0 Urinary tract infection, site not specified; R53.1 Weakness; E78.00 Pure hypercholesterolemia, unspecified; E10.51 Type 1 diabetes mellitus with diabetic peripheral angiopathy without gangrene; D64.9 Anemia, unspecified; Z79.4 Long term (current) use of insulin; Z79.899 Other long term (current) drug therapy; Z88.8 Allergy status to other drugs, medicaments and biological substances
CPT/HCPCS: 51798; 71045; 80053; 81001; 82150; 82550; 82962; 83605; 83690; 83735; 84443; 84484; 85025; 86140; 96361; 96365; 96366; 96375; 99285; A4217; A9270; G0378; J0696; J1642; J3475; J7030; J7120; 96360; 99235

== ENCOUNTER 2020-05-19 12:28 | Inpatient (IN) | payer MEDICARE, MEDICAID ==
[2020-05-19] MEDS ORDERED: Insulin Lispro 100 Units/ML 3 ML Vial SUBCUT SCH ×2 (12:56→18:00)
[2020-05-19 13:36] LABS: CHLORIDE,CL 104 mmol/L (98-107); SODIUM,NA 138 mmol/L (136-145)
[2020-05-19 13:38] LABS: ANION GAP 12.4 mmol/L (10-20)
[2020-05-19] MEDS ORDERED: Magnesium Sulfate/Water 2 GM in Premix Bag 1 BAG IV ONE (14:37)
[2020-05-19] MEDS ORDERED: Glucagon,Human Recombinant 1 MG Vial SUBCUT PRN (14:52)
[2020-05-19] MEDS ORDERED: Non-Formulary Medication 1 Each (Brimonidine/Timolol [Combigan 0.2%/0.5% Ophth Soln] 1 DRO EYELF SCH (15:00)
[2020-05-19] MEDS ORDERED: Glucagon,Human Recombinant 1 MG Vial IM PRN (17:32)
[2020-05-19] MEDS ORDERED: 50% Dextrose in Water 50 ML Syringe IVPUSH PRN (17:32)
[2020-05-19] MEDS: Insulin Lispro 100 Units/ML 3 ML Vial SUBCUT SCH ×2 (17:33→18:57)
[2020-05-19] MEDS ORDERED: Furosemide 20 MG/2 ML VIAL IV ONE (17:41)
[2020-05-19] MEDS: Silver Sulfadiazine 1% Crm 50 GM Tube TOP SCH ×2 (18:54→20:21)
[2020-05-19] MEDS: Brimonidine 0.2% Ophth Soln 5 ML Bottle EYELF SCH (20:22)
[2020-05-19] MEDS: Timolol Maleate 0.5% Ophth Soln 5 ML Bottle EYELF SCH (20:24)
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
[2020-05-19] MEDS: Sodium Chloride 0.9% 10 ML Syringe FLUSH PRN (20:31)
[2020-05-20] MEDS: Cholecalciferol (Vitamin D3) 25 MCG Tab PO SCH (08:16)
[2020-05-20] MEDS: Silver Sulfadiazine 1% Crm 50 GM Tube TOP SCH ×4 (08:18→21:54)
[2020-05-20] MEDS: Insulin Lispro 100 Units/ML 3 ML Vial SUBCUT SCH ×7 (08:18→18:19)
[2020-05-20] MEDS: Timolol Maleate 0.5% Ophth Soln 5 ML Bottle EYELF SCH ×2 (08:19→21:55)
[2020-05-20] MEDS: Brimonidine 0.2% Ophth Soln 5 ML Bottle EYELF SCH ×2 (08:19→21:54)
[2020-05-20] MEDS ORDERED: Furosemide 20 MG/2 ML VIAL IV ONE (08:49)
[2020-05-20] MEDS: ceFAZolin 1 GM Vial IVPUSH SCH ×3 (09:30→22:05)
--- NOTE | 2020-05-20 09:42 | PN ---
Progress Note for LOYD GRIJALVA Date: 05/20/2020 Room #: VM.203 SUBJECTIVE: This is hospital day #2 on a 49-year-old admitted with edema, concern for renal failure due to urinary retention and wounds. His left leg today is more red. He has been afebrile. He did refuse lab work this morning. He denies any pain. He just states that he would like to go home because we did not feed him enough. He did refuse all cares, insulin, lab work, and medications this morning. He has had 2 bowel movements since admission, but none today. He otherwise got a dose of IV Lasix and is down 3.9 L. Catheter was placed for urinary retention. He seems to be tolerating that without issues. His blood pressure is well controlled. OBJECTIVE: Vital Signs: His weight is 87.9 kg. His temperature 97.8, his pulse 101, blood pressure 124/77, respiratory rate 16, and O2 of 95% on room air. General: He is in no acute distress. He is resting comfortably in his chair. He is awake and alert. Heart: Regular rate and rhythm. S1 and S2 without murmur. Lungs: Sounds are clear to auscultation bilaterally without crackles or wheezes. Extremities: Warm and dry. He still has 2+ edema in his shins and 3+ in his feet. Support stockings are in place. The left wound is examined. The redness has extended beyond the lines drawn yesterday. It is warm. There is a central ulcer there. Mental Status: He is alert. He is aware he is at the hospital. He recognizes me. Psychiatric: He is polite and cooperative with me currently. LABORATORY DATA: Blood sugar on his Dexcom is at 251 now. It was written down for 3:30 this morning. I reviewed the overnight readings. He did have a low at 7:30 of 61. After getting 4 units with his supper meal, at 8:30 it was up to 144 and he did have some highs going up overnight, but this morning it was the highest. ASSESSMENT: 1. Left lower extremity wound and cellulitis with diabetes. We will try to get a superficial culture of the wound and start him on Ancef IV q.6 hours. 2. Edema, multifactorial, improved significantly with support hose and IV Lasix. We will give him another dose 20 mg today. 3. Uncontrolled type 1 diabetes. Dexcom is in place. We are trying to convince the patient to take his morning insulin. He will be due for his long-acting insulin as well. We will continue with his consistent carb meals but allow for 15 g snacks 4 times a day. 4. Moderate malnutrition. We will have the dietitian see him today. 5. Impaired mobility. The patient has not been walking as much on his own. We have physical therapy involved. Hopefully with less edema, this will help. 6. Urinary retention. His Cerda catheter is in place. This is felt to be due to autonomic dysfunction from diabetes. 7. Anemia with history of gastrointestinal bleeding. Hemoccult has been requested. He is having other stool studies that are pending for his diarrhea. 8. Diarrhea. So far, seems to be okay. We will get an x-ray for stool burden and monitor today. 9. Cognitive impairment, long-standing. PLAN: The patient will continue with acute cares. We will start IV antibiotics today. We will try to get his lab work drawn today. We will continue to monitor blood sugars closely and have him followed by therapies as well as the dietitian. Social work has also been consulted. His mom and his brother were updated. We will continue wound cares. MKA: 05/20/2020 08:53:06 MODL: 05/20/2020 09:33:22 /[id number]
[2020-05-20 11:47] LABS: CHLORIDE,CL 102 mmol/L (98-107); SODIUM,NA 137 mmol/L (136-145)
[2020-05-20 11:55] LABS: ANION GAP 14.2 mmol/L (10-20)
--- NOTE | 2020-05-20 12:04 | PCM.SN.2 ---
- Free Text/Narrative Note: Labs reviewed. Hgb improved. Rest stable. No changes to plan per PCP this am.
[2020-05-20] MEDS: Sodium Chloride 0.9% 10 ML Syringe FLUSH PRN (22:05)
[2020-05-21] MEDS: Sodium Chloride 0.9% 10 ML Syringe FLUSH PRN ×4 (03:32→20:37)
[2020-05-21] MEDS: ceFAZolin 1 GM Vial IVPUSH SCH ×4 (03:33→20:36)
[2020-05-21] MEDS: Cholecalciferol (Vitamin D3) 25 MCG Tab PO SCH (08:55)
[2020-05-21] MEDS: Acetaminophen 325 MG Tab PO PRN (08:55)
[2020-05-21] MEDS: Vancomycin 125 MG Cap PO SCH ×2 (08:55→12:37)
[2020-05-21] MEDS: Insulin Lispro 100 Units/ML 3 ML Vial SUBCUT SCH ×7 (08:56→20:33)
[2020-05-21] MEDS: Silver Sulfadiazine 1% Crm 50 GM Tube TOP SCH ×2 (08:56→20:35)
[2020-05-21] MEDS: Timolol Maleate 0.5% Ophth Soln 5 ML Bottle EYELF SCH ×2 (08:57→20:35)
[2020-05-21] MEDS: Brimonidine 0.2% Ophth Soln 5 ML Bottle EYELF SCH ×2 (08:57→20:35)
[2020-05-21] MEDS ORDERED: Sodium Chloride 0.9% 500 ML IV ONE (14:29)
[2020-05-21] MEDS ORDERED: Sodium Chloride 0.9% 1,000 ML IV ONE (14:45)
--- NOTE | 2020-05-21 15:15 | PN ---
Progress Note for LOYD GRIJALVA Date: 05/21/2020 Room #: VM.203 SUBJECTIVE: This is hospital day #3, on a 49-year-old admitted with left lower extremity cellulitis, edema, and uncontrolled type 1 diabetes. Overnight, his blood sugars did go up above 400, is 499 this morning. He did get his 8 units with breakfast, it was still elevated at lunch, therefore 12 units was given at 11:14, and his blood sugar has been appropriately coming down. He is eating a 100% of his meals. He is not having any pain. He is denying any trouble breathing. He got IV Lasix again yesterday and his leg swelling has improved. Blood pressures have not been running low, but then I got a call that it was 61/40 this afternoon. He has been afebrile. His stools are now more formed. His initial C. diff PCR was positive, but toxin later negative. Magnesium improved up to 1.5. His hemoglobin has remained stable at 9.8. OBJECTIVE: Vital Signs: Temperature 97.8, pulse 98, blood pressure 101/61, respiratory rate 17, and O2 of 97% on room air. General: He is in no acute distress. Heart: Regular rate and rhythm. S1, S2 without murmur. Lungs: Lung sounds are clear to auscultation bilaterally without crackles or wheezes. Abdomen: Positive bowel sounds. Soft, nontender. Extremities: Warm and dry, improving. He actually had just trace edema in his shins, but his feet still have 2+ edema. Mental Status: He answers questions appropriately. When I said you can stay for the weekend for further cares, he said I suppose I will have to. ASSESSMENT AND PLAN: 1. Left lower extremity cellulitis on IV Zosyn, day #2, improving. 2. Bilateral edema, probably due to malnutrition, improved with IV Lasix. We will continue support stockings in place and hold off on further IV Lasix. 3. Uncontrolled diabetes. He has had hypoglycemia on the 1st night down into the 40s after supper. He has been getting his insulin after he eats. He is now high this morning. He is coming down again after adjustments. He has a Dexcom, which is quite helpful for frequent monitoring and dose changes. He was seen by the dietitian for a brief visit to get a goal of 45 carbs per meal. No protein supplements were yet ordered by Dietary. I will follow up with them. 4. Moderate malnutrition. Encourage protein. 5. Impaired mobility. He is working with therapies. 6. Urinary retention. Cerda is in place. 7. Anemia with history of gastrointestinal bleeding. Hemoccult was collected and was trace. 8. Anemia, chronic. Hemoglobins are stable. 9. Cognitive impairment, longstanding. 10.Diarrhea, seems to be improving. C. diff officially came back negative. PLAN: The patient will continue on acute cares. Due to low blood pressures I will give him a 500 mL saline bolus today. We will get him started on those protein supplements for people with diabetes. We will continue to closely monitor his blood sugars and adjust insulin. We will continue the IV Ancef. Repeat lab work tomorrow as none was done today, it was done later yesterday as he had refused it initially. MKA: 05/21/2020 14:37:06 MODL: 05/21/2020 15:10:59 /[id number]
[2020-05-22] MEDS: Sodium Chloride 0.9% 10 ML Syringe FLUSH PRN ×7 (02:53→21:09)
[2020-05-22] MEDS: ceFAZolin 1 GM Vial IVPUSH SCH ×4 (02:54→21:08)
[2020-05-22] MEDS: Acetaminophen 325 MG Tab PO PRN (08:02)
[2020-05-22] MEDS: Silver Sulfadiazine 1% Crm 50 GM Tube TOP SCH ×2 (08:02→21:06)
[2020-05-22] MEDS: Cholecalciferol (Vitamin D3) 25 MCG Tab PO SCH (08:02)
[2020-05-22] MEDS: Insulin Lispro 100 Units/ML 3 ML Vial SUBCUT SCH ×6 (08:03→18:16)
[2020-05-22] MEDS: Timolol Maleate 0.5% Ophth Soln 5 ML Bottle EYELF SCH ×2 (08:03→21:09)
[2020-05-22] MEDS: Brimonidine 0.2% Ophth Soln 5 ML Bottle EYELF SCH ×2 (08:03→21:05)
[2020-05-22 08:44] LABS: ANION GAP 15.1 mmol/L (10-20); CHLORIDE,CL 98 mmol/L (98-107); SODIUM,NA 134 mmol/L (136-145)
[2020-05-22] MEDS ORDERED: Magnesium Sulfate/Water 2 GM in Premix Bag 1 BAG IV ONE (08:53)
[2020-05-22] MEDS: Insulin Glarg,Human.Rec.Analog 100 Unit/ML SUBCUT SCH (09:45)
[2020-05-22] MEDS: Finasteride 5 MG Tab PO SCH (12:03)
--- NOTE | 2020-05-22 12:46 | PN ---
Progress Note for LYOD GRIJALVA Date: 05/22/2020 Room #: VM.203 SUBJECTIVE: This is hospital day #4 on a 49-year-old admitted with a left lower extremity cellulitis, diarrhea, and severe leg swelling. The patient has a known history of uncontrolled diabetes. He is on Levemir at home. He was given Lantus inadvertently, the Lantus order was not current today and I noted he did not get it yesterday. This is likely why his blood sugar went up overnight and was 580 this morning despite even getting some insulin 3 units during the night. The patient was up most of the night per staff and he was in bed this morning, did not even have breakfast. He got his 8 units of meal insulin and his Lantus 24 units and his blood sugar is coming down. I spoke with him, he is wanting to get up and eat lunch currently. He is denying any pain. His leg swelling has significantly improved. His feet are still swollen, leg wound is also improving. He otherwise did have lab work this morning, which showed his hemoglobin to be stable. He had a low magnesium of 1.5, I had ordered some magnesium replacement. His blood pressure was down to 61/40 yesterday, he did get a 500 mL bolus, now his blood pressures are in the 96/52 range. OBJECTIVE: Vital Signs: On exam, his temperature 97.9, pulse 103, blood pressure 96/52, respiratory rate 18, O2 of 97% on room air. General: He is in no acute distress. He is resting in bed. He mumbles but does answer questions. Heart: He otherwise has a heart that is regular rate and rhythm. S1, S2 without murmur. Lungs: Lungs sounds are clear to auscultation bilaterally without crackles or wheezes. Abdomen: Has positive bowel sounds. Soft, nontender. Extremities: Warm and dry. No edema. Mental Status: He did not answer orientation questions. We also did do a rectal exam which showed him to have a moderately enlarged prostate and light brown stool noted with no blood. The patient did have a smear of stool in his brief. He had been continent of a formed stool yesterday, but then incontinent of stool overnight. LABORATORY DATA: Laboratory work did show his white count 7.6, hemoglobin 9.8, platelets 353. Sodium 134, potassium 5.1, chloride 98, bicarbonate 26, BUN 15, creatinine 1, glucose currently 328, magnesium 1.5, calcium 9. High glucose in the last 12 hours, was at 580 this morning. ASSESSMENT AND PLAN: 1. Left lower extremity cellulitis, clinically improving on IV Ancef day #3. Anticipate we will be switching him over to oral antibiotics tomorrow. Given his hyperglycemia, he is at risk for DKA and he has been up most of the night and sleeping today, has not even eaten yet. I do not know how he will tolerate oral antibiotics. 2. Lower extremity edema, multifactorial, related to malnutrition. This is improving with the support stockings. He is not able have further Lasix due to hypotension. We will continue to monitor. 3. Uncontrolled type 1 diabetes. We will restart long-acting insulin 24 units daily. Continue frequent monitoring every hour with his Dexcom and consistent 45 g carb meals with 4 units at each meal plus his correction dosing if needed. He has had only 1 low blood sugar on his first day of arrival. 4. Moderate malnutrition. He is enjoying the protein supplements. He is eating one currently. 5. Impaired mobility. He is working with therapy. 6. Urinary retention, likely multifactorial due to autonomic dysfunction from diabetes as well as some BPH. I will start him on Proscar today as that will not affect his blood pressure. 7. Anemia with history of previous gastrointestinal bleeding. Hemoglobins are stable. He has no active blood in his stool. We will continue to monitor labs, but he is not due tomorrow. 8. Cognitive impairment, longstanding. 9. Diarrhea. Stools have been more formed now that he is off magnesium. We will continue to monitor. His Clostridium difficile was negative. He is on probiotics given that he is on antibiotics. PLAN: At this point, patient will continue acute cares. We will continue to work on blood sugars with diabetes and adjust insulin. We will continue IV Ancef. We will start Proscar for the BPH. Anticipate the patient will be stable for transitioning over to swing bed in the next 24 to 48 hours. I feel he will benefit from a swing bed stay. His mom did call this morning and was updated by the nurse. MKA: 05/22/2020 11:50:39 MODL: 05/22/2020 12:40:07 /[id number]
[2020-05-23] MEDS: Sodium Chloride 0.9% 10 ML Syringe FLUSH PRN ×2 (02:14→08:05)
[2020-05-23] MEDS: ceFAZolin 1 GM Vial IVPUSH SCH ×2 (02:14→08:04)
[2020-05-23] MEDS: Silver Sulfadiazine 1% Crm 50 GM Tube TOP SCH ×2 (08:04→20:39)
[2020-05-23] MEDS: Insulin Lispro 100 Units/ML 3 ML Vial SUBCUT SCH ×7 (08:04→18:34)
[2020-05-23] MEDS: Brimonidine 0.2% Ophth Soln 5 ML Bottle EYELF SCH ×2 (08:05→20:38)
[2020-05-23] MEDS: Insulin Glarg,Human.Rec.Analog 100 Unit/ML SUBCUT SCH (08:05)
[2020-05-23] MEDS: Timolol Maleate 0.5% Ophth Soln 5 ML Bottle EYELF SCH ×2 (08:05→20:39)
[2020-05-23] MEDS: Cholecalciferol (Vitamin D3) 25 MCG Tab PO SCH (08:06)
[2020-05-23] MEDS: Finasteride 5 MG Tab PO SCH (08:06)
[2020-05-23] MEDS: Acetaminophen 325 MG Tab PO PRN (08:06)
[2020-05-23] MEDS: Cephalexin 500 MG Cap PO SCH ×2 (12:53→18:23)
--- NOTE | 2020-05-23 13:05 | PN ---
Progress Note for LOYD GRIJALVA Date: 05/23/2020 Room #: VM.203 SUBJECTIVE: This is hospital day #5 on a 49-year-old admitted with uncontrolled diabetes and left lower extremity cellulitis, massive edema, and malnutrition. The patient was saying swear words at the nurse this morning, but was not refusing cares. He did eat some, but he did not eat any of his breakfast. He tells me he wants to go home and it is specifically because we do not give him enough food here. We are trying to keep him on a 45 g consistent 3 times a day carbs, and in addition, he may have snacks. Dietitian consult was requested. Blood sugars are under much better control today after getting his long-acting insulin yesterday, but he did go up to nearly 400 on his Dexcom by 8 a.m. Blood sugar at noon now on his Dexcom here is 150. Lunch has arrived. He did get his 4 units of Humalog for breakfast. Because of not eating extra food, no additional correction dose was given. He has not had any hypoglycemia now since his first day of admission. He is not short of breath. His swelling is much better. He has lost like 12 pounds of weight based on the bed scales. His edema is much better. Urine output with the Cerda has been significant, over 3 L some days. He did require some IV fluids bag due to hypotension. He is potentially having some postobstructive diuresis, but he has not had any electrolyte disturbances. Sodium today was just mildly decreased at 134. He has had no fever or chills. He answers questions. He denies pain. OBJECTIVE: Vital Signs: Temperature 97.2, pulse 97, blood pressure 95/59, respiratory rate 16, and O2 of 98% on room air. General: He is in no acute distress. Heart: Regular rate and rhythm. S1, S2 without murmur. Lungs: Lung sounds clear to auscultation bilaterally without crackles or wheezes. Abdomen: He has positive bowel sounds. Soft, nontender. Extremities: Warm and dry. Still with 2+ edema in the feet, but his calf edema is trace. Otherwise, a left leg wound is noted and he had a small scab there, it is not a deeper wound, the surrounding redness has lessened. Mental Status: He did not answer orientation questions, but he is aware of who we were. LABORATORY DATA: Lab work today was not completed. ASSESSMENT AND PLAN: 1. Left lower extremity cellulitis, improving on IV Ancef, day #4. We will switch him over to oral Keflex today to complete a 7-day course. 2. Edema, multifactorial, due to malnutrition. The patient is diuresing well. Weight is going down. We will hold on further Lasix as that might contribute to him needing more IV fluids. He is allowed to eat and drink within his carb limits. We have already added protein supplements in his diet. 3. Severe malnutrition. He is on protein supplements. 4. Uncontrolled type 1 diabetes. Blood sugar excellent at lunchtime. We will continue to adjust insulin. I think some of the snacking also is contributing overnight hyperglycemia. 5. Impaired mobility. He is working with Physical Therapy. Anticipate he would benefit from a swing bed stay, which would be transitioned over tomorrow. 6. Urinary retention due to autonomic dysfunction from diabetes and BPH. He has been started on Proscar. We will leave the Cerda in place to assist with diuresis. 7. Incontinence of stool. He is not having continued diarrhea. Some of it is formed, some of this might be related to autonomic dysfunction from diabetes as well. 8. Anemia with previous gastrointestinal bleeding. He has had no concern here for blood in his stools. His hemoglobins have been stable. We will recheck it tomorrow. 9. Cognitive impairment, long-standing. His mother is his primary caregiver. PLAN: At this point, the patient will continue on acute cares. We will stop the IV antibiotics and place him on oral Keflex. We will continue the Cerda catheter. We will do lab work tomorrow and Social Service Coordinator is involved as well in his care. MKA: 05/23/2020 12:13:00 MODL: 05/23/2020 12:59:16 /[id number]
[2020-05-24] MEDS: Cephalexin 500 MG Cap PO SCH ×3 (00:05→11:50)
[2020-05-24 07:22] LABS: CHLORIDE,CL 99 mmol/L (98-107); SODIUM,NA 136 mmol/L (136-145)
[2020-05-24] MEDS: Insulin Glarg,Human.Rec.Analog 100 Unit/ML SUBCUT SCH (08:16)
[2020-05-24] MEDS: Brimonidine 0.2% Ophth Soln 5 ML Bottle EYELF SCH (08:16)
[2020-05-24] MEDS: Insulin Lispro 100 Units/ML 3 ML Vial SUBCUT SCH ×4 (08:16→12:35)
[2020-05-24] MEDS: Silver Sulfadiazine 1% Crm 50 GM Tube TOP SCH (08:16)
[2020-05-24] MEDS: Timolol Maleate 0.5% Ophth Soln 5 ML Bottle EYELF SCH (08:16)
[2020-05-24] MEDS: Cholecalciferol (Vitamin D3) 25 MCG Tab PO SCH (08:17)
[2020-05-24] MEDS: Finasteride 5 MG Tab PO SCH (08:17)
[2020-05-24 10:09] VITALS: BP 147/78; PULSE 101
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
== END 2020-05-24 13:00 | disposition swing bed (61) | DRG 637 ==
LOC: VM.MS 12:28
PROVIDERS: ADMIT Internal Medicine; ATTEND Internal Medicine
DX: E10.628 Type 1 diabetes mellitus with other skin complications (principal); E43 Unspecified severe protein-calorie malnutrition; L03.116 Cellulitis of left lower limb; M86.679 Other chronic osteomyelitis, unspecified ankle and foot; R33.8 Other retention of urine; N40.1 Benign prostatic hyperplasia with lower urinary tract symptoms; R15.9 Full incontinence of feces; D64.9 Anemia, unspecified; E10.649 Type 1 diabetes mellitus with hypoglycemia without coma; E10.65 Type 1 diabetes mellitus with hyperglycemia; E78.5 Hyperlipidemia, unspecified; E78.1 Pure hyperglyceridemia; F10.10 Alcohol abuse, uncomplicated; E10.51 Type 1 diabetes mellitus with diabetic peripheral angiopathy without gangrene; F45.8 Other somatoform disorders; G31.84 Mild cognitive impairment of uncertain or unknown etiology
CPT/HCPCS: 36415; 80048; 80053; 80069; 81001; 82274; 82550; 82962; 83735; 84100; 85025; 86140; 87045; 87046; 87070; 87147; 87324; 87493; 97116-GP; 97161-GP; A9270-GY; J0690; J1642; J1815-GY; J1940; J3475; J7030

== ENCOUNTER 2020-05-24 10:04 | Inpatient (IN) | payer MEDICARE, MEDICAID ==
[2020-05-24] MEDS ORDERED: Glucagon,Human Recombinant 1 MG Vial IM PRN (13:09)
[2020-05-24] MEDS ORDERED: Glucagon,Human Recombinant 1 MG Vial SUBCUT PRN (13:09)
[2020-05-24] MEDS ORDERED: Acetaminophen 325 MG Tab PO PRN (13:09)
[2020-05-24] MEDS ORDERED: 50% Dextrose in Water 50 ML Syringe IVPUSH PRN (13:09)
[2020-05-24] MEDS: Sodium Chloride 0.9% 10 ML Syringe FLUSH PRN ×2 (13:39→13:40)
[2020-05-24] MEDS: Cephalexin 500 MG Cap PO SCH (17:44)
[2020-05-24] MEDS: Insulin Lispro 100 Units/ML 3 ML Vial SUBCUT SCH ×2 (18:45→18:47)
[2020-05-24] MEDS: Brimonidine 0.2% Ophth Soln 5 ML Bottle EYELF SCH (20:30)
[2020-05-24] MEDS: Timolol Maleate 0.5% Ophth Soln 5 ML Bottle EYELF SCH (20:30)
[2020-05-24] MEDS: Silver Sulfadiazine 1% Crm 50 GM Tube TOP SCH (20:30)
[2020-05-25] MEDS: Cephalexin 500 MG Cap PO SCH ×5 (00:18→23:55)
[2020-05-25] MEDS: Cholecalciferol (Vitamin D3) 25 MCG Tab PO SCH (07:54)
[2020-05-25] MEDS: Finasteride 5 MG Tab PO SCH (07:54)
[2020-05-25] MEDS: Silver Sulfadiazine 1% Crm 50 GM Tube TOP SCH (07:55)
[2020-05-25] MEDS: Brimonidine 0.2% Ophth Soln 5 ML Bottle EYELF SCH (07:56)
[2020-05-25] MEDS: Timolol Maleate 0.5% Ophth Soln 5 ML Bottle EYELF SCH (07:56)
[2020-05-25] MEDS: Insulin Glarg,Human.Rec.Analog 100 Unit/ML SUBCUT SCH (07:58)
[2020-05-25] MEDS: Insulin Lispro 100 Units/ML 3 ML Vial SUBCUT SCH ×6 (08:01→18:20)
[2020-05-26] MEDS: Brimonidine 0.2% Ophth Soln 5 ML Bottle EYELF SCH ×3 (01:55→20:17)
[2020-05-26] MEDS: Silver Sulfadiazine 1% Crm 50 GM Tube TOP SCH ×3 (01:56→20:18)
[2020-05-26] MEDS: Timolol Maleate 0.5% Ophth Soln 5 ML Bottle EYELF SCH ×3 (01:56→20:17)
[2020-05-26] MEDS: Cephalexin 500 MG Cap PO SCH ×4 (06:23→18:24)
[2020-05-26] MEDS ORDERED: Bisacodyl 5 MG Tab PO STA (07:51)
[2020-05-26] MEDS: Finasteride 5 MG Tab PO SCH (08:14)
[2020-05-26] MEDS: Cholecalciferol (Vitamin D3) 25 MCG Tab PO SCH (08:14)
[2020-05-26] MEDS: Insulin Lispro 100 Units/ML 3 ML Vial SUBCUT SCH ×6 (08:15→18:23)
[2020-05-26] MEDS: Insulin Glarg,Human.Rec.Analog 100 Unit/ML SUBCUT SCH (08:16)
[2020-05-26] MEDS ORDERED: Polyethylene Glycol 3350 Powder 17 GM Packet PO ONE (17:12)
[2020-05-26] MEDS ORDERED: Bisacodyl 5 MG Tab PO PRN (17:16)
[2020-05-26] MEDS ORDERED: Polyethylene Glycol 3350 Powder 17 GM Packet PO PRN (17:18)
[2020-05-26] MEDS: Sodium Chloride 0.9% 10 ML Syringe FLUSH PRN (21:59)
[2020-05-27] MEDS: Cholecalciferol (Vitamin D3) 25 MCG Tab PO SCH (08:29)
[2020-05-27] MEDS: Finasteride 5 MG Tab PO SCH (08:29)
[2020-05-27] MEDS: Timolol Maleate 0.5% Ophth Soln 5 ML Bottle EYELF SCH ×2 (08:29→20:21)
[2020-05-27] MEDS: Silver Sulfadiazine 1% Crm 50 GM Tube TOP SCH ×2 (08:29→20:21)
[2020-05-27] MEDS: Insulin Glarg,Human.Rec.Analog 100 Unit/ML SUBCUT SCH (08:31)
[2020-05-27] MEDS: Insulin Lispro 100 Units/ML 3 ML Vial SUBCUT SCH ×7 (08:31→18:03)
[2020-05-27] MEDS: Brimonidine 0.2% Ophth Soln 5 ML Bottle EYELF SCH ×2 (08:32→20:21)
[2020-05-28] MEDS: Cholecalciferol (Vitamin D3) 25 MCG Tab PO SCH (08:25)
[2020-05-28] MEDS: Finasteride 5 MG Tab PO SCH (08:25)
[2020-05-28] MEDS: Insulin Lispro 100 Units/ML 3 ML Vial SUBCUT SCH ×6 (08:26→18:17)
[2020-05-28] MEDS: Silver Sulfadiazine 1% Crm 50 GM Tube TOP SCH ×2 (08:26→20:06)
[2020-05-28] MEDS: Timolol Maleate 0.5% Ophth Soln 5 ML Bottle EYELF SCH ×2 (08:28→20:06)
[2020-05-28] MEDS: Brimonidine 0.2% Ophth Soln 5 ML Bottle EYELF SCH ×2 (08:29→20:05)
[2020-05-28] MEDS ORDERED: Insulin Glarg,Human.Rec.Analog 100 Unit/ML SUBCUT SCH (08:30)
[2020-05-28] MEDS: Insulin Glarg,Human.Rec.Analog 100 Unit/ML SUBCUT SCH (09:39)
--- NOTE | 2020-05-28 17:25 | PCM.SN.2 ---
- Free Text/Narrative Note: Patient had a colonoscopy yesterday. Biopsies taken. He continues with Diarrhea. Mom updated. We will try questran. I will see Sunday and will do labs due to family hx of prostate cancer. He didn't continue to participate with PT so is on self pay swing now for a couple weeks per the social work nurse. Referral placed to [facility] but haven't seen anything on getting for a sacral nerve stimulator eval yet. Catheter remains in place. he is on proscar.
[2020-05-29] MEDS: BRIMONIDINE 0.2% EYELF SCH ×2 (08:38→19:29)
[2020-05-29] MEDS: TIMOLOL MALEATE 0.5% EYELF SCH ×2 (08:39→19:28)
[2020-05-29] MEDS: FINASTERIDE 5 MG PO SCH (08:39)
[2020-05-29] MEDS: SILVER SULFADIAZINE 1% TOP SCH ×2 (08:39→19:31)
[2020-05-29] MEDS: Cholecalciferol (Vitamin D3) 25 MCG Tab PO SCH (08:39)
[2020-05-29] MEDS: INSULIN LISPRO 100 UNIT/ML SUBCUT SCH ×10 (08:39→19:35)
[2020-05-29] MEDS: INSULIN GLARG HUMAN REC ANALOG 100 UNIT/ML SUBCUT SCH (08:40)
[2020-05-29] MEDS: Cholestyramine/Sucrose Powder 4 GM Packet PO SCH (11:29)
[2020-05-30] MEDS: BRIMONIDINE 0.2% EYELF SCH ×2 (09:11→20:50)
[2020-05-30] MEDS: TIMOLOL MALEATE 0.5% EYELF SCH ×2 (09:11→20:50)
[2020-05-30] MEDS: INSULIN GLARG HUMAN REC ANALOG 100 UNIT/ML SUBCUT SCH (09:24)
[2020-05-30] MEDS: INSULIN LISPRO 100 UNIT/ML SUBCUT SCH ×6 (09:25→17:29)
[2020-05-30] MEDS: SILVER SULFADIAZINE 1% TOP SCH ×2 (09:26→20:50)
[2020-05-30] MEDS: FINASTERIDE 5 MG PO SCH (09:26)
[2020-05-30] MEDS: Cholecalciferol (Vitamin D3) 25 MCG Tab PO SCH (09:26)
[2020-05-30] MEDS: Cholestyramine/Sucrose Powder 4 GM Packet PO SCH (11:55)
[2020-05-30] MEDS: Loperamide 2 MG Cap PO PRN (13:40)
--- NOTE | 2020-05-31 08:36 | PCM.SN.2 ---
- Free Text/Narrative Note: Patient refused to see me this AM, he was laying in bed pulled the cover over his head and told me to get the $?&@ away. Blood sugar over 300 but refusing lab, insulin, and breakfast. Will have the nurse try again a little later, Dexcom in place. Questran just started yesterday. Per report was having lot of "blowouts" over the weekend and was refusing cares.
[2020-05-31] MEDS: TIMOLOL MALEATE 0.5% EYELF SCH ×2 (08:40→20:19)
[2020-05-31] MEDS: Cholecalciferol (Vitamin D3) 25 MCG Tab PO SCH ×2 (08:40→16:10)
[2020-05-31] MEDS: FINASTERIDE 5 MG PO SCH ×2 (08:41→16:10)
[2020-05-31] MEDS: BRIMONIDINE 0.2% EYELF SCH ×2 (08:41→20:19)
[2020-05-31] MEDS: INSULIN GLARG HUMAN REC ANALOG 100 UNIT/ML SUBCUT SCH (08:43)
[2020-05-31] MEDS: INSULIN LISPRO 100 UNIT/ML SUBCUT SCH ×6 (08:45→18:20)
[2020-05-31] MEDS: SILVER SULFADIAZINE 1% TOP SCH ×2 (10:29→20:20)
[2020-05-31] MEDS: Cholestyramine/Sucrose Powder 4 GM Packet PO SCH (12:18)
[2020-05-31 15:49] LABS: CHLORIDE,CL 104 mmol/L (98-107); SODIUM,NA 140 mmol/L (136-145)
[2020-05-31 15:50] LABS: ANION GAP 10.7 mmol/L (10-20)
[2020-06-01] MEDS: INSULIN GLARG HUMAN REC ANALOG 100 UNIT/ML SUBCUT SCH (09:00)
[2020-06-01] MEDS: INSULIN LISPRO 100 UNIT/ML SUBCUT SCH ×5 (09:01→18:10)
[2020-06-01] MEDS: BRIMONIDINE 0.2% EYELF SCH ×2 (09:03→23:58)
[2020-06-01] MEDS: TIMOLOL MALEATE 0.5% EYELF SCH ×2 (09:04→23:58)
[2020-06-01] MEDS: FINASTERIDE 5 MG PO SCH (09:06)
[2020-06-01] MEDS: Cholecalciferol (Vitamin D3) 25 MCG Tab PO SCH (09:06)
[2020-06-01] MEDS: Cholestyramine/Sucrose Powder 4 GM Packet PO SCH (12:02)
[2020-06-01] MEDS: SILVER SULFADIAZINE 1% TOP SCH ×3 (12:26→23:58)
[2020-06-01] MEDS: Loperamide 2 MG Cap PO PRN (13:08)
[2020-06-01] MEDS: Insulin Lispro 100 Units/ML 3 ML Vial SUBCUT SCH (18:10)
--- NOTE | 2020-06-02 00:52 | PN ---
Progress Note for LOYD GRIJALVA Date: 06/01/2020 Room #: VM.203 SUBJECTIVE: A 49-year-old seen today for swing bed rounds. The patient had a colonoscopy for diarrhea. His biopsies came back, no specific pathology. He had only 1 tubular adenoma, the rest for hyperplastic polyps. He has had no blood in his stool, but his diarrhea has actually worsened despite starting on Questran a few days ago. Food comes just right out of him including peas he had just for lunch today within an hour or two per the nurse. He also has a Cerda catheter in place due to urinary retention. He had a C. difficile test that was negative, but since then he had completed Keflex for the cellulitis. He also had a stool culture that failed to reveal any bacteria. He has not had any fever or chills. He is not having any cough. No trouble breathing. He does not eat hardly any dairy, but he would like to get hold of more food. He is currently on a 45-carb limit per meal. Blood sugars have actually been quite excellent in the under 200 range today and most of the night, started going up now this morning on his Dexcom. He is hoping to go home soon. Family is hoping to get his urine and bowel improved. He refused his lab work initially yesterday, but did allow it in the afternoon. OBJECTIVE: Vital Signs: Today, his temperature is 98.1. His vitals were from yesterday, he has refused them so far this morning. Pulse 105, blood pressure 148/87, respiratory rate 16, and O2 of 99 on room air. General: He is in no acute distress. Heart: Regular rate and rhythm. S1, S2 without murmur. Lungs: Sounds are clear to auscultation bilaterally without crackles or wheezes. Abdomen: He has positive bowel sounds. Soft, nontender. Extremities: Warm and dry. He does still have 1+ edema to his feet. Mental Status: He is alert. He is orientated x3. At first, he was not interested in talking, but after we started talking about food, he did join the conversation and was hoping to get more to the eat. ASSESSMENT AND PLAN: 1. Diarrhea with incontinence, related somewhat probably to poor nerve function from uncontrolled diabetes. On his colonoscopy, he did have mildly inflamed and friable colonic mucosa, but biopsies were not showing any pathology. His prep was poor. He also had moderate hemorrhoids. I will order a fecal fat testing. 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 2. Uncontrolled type 1 diabetes. We are using his Dexcom, adjusting his insulin per his carbs. I will raise him up to 5 units t.i.d. due to the increase in carbs with 1 to 4 units extra for correction dosing. 3. Urinary retention, probably due to some autonomic dysfunction from diabetes. Cerda is in place. Sacral nerve stimulator is believed to maybe possibly help that. We are waiting on the referral. They have been trying to reach his mom to schedule. 4. Lower extremity edema and cellulitis, resolved. He has completed antibiotics. 5. Impaired mobility due to his fluid and deconditioning, this has improved. He is refusing to work with PT. He is now on self-pay. 6. Anemia with remote history of gastrointestinal bleeding. Again, colonoscopy recently completed. His hemoglobin was stable at 9.2 today. 7. Cognitive impairment due to his severe hypoglycemic reaction. PLAN: The patient is continuing on swing bed cares for at least another week's time. We are collecting another C. difficile and a fecal fat test to look for any pancreatic insufficiency. MKA: 06/01/2020 17:25:03 MODL: 06/01/2020 18:05:05 /[id number]
[2020-06-02] MEDS: INSULIN GLARG HUMAN REC ANALOG 100 UNIT/ML SUBCUT SCH (08:25)
[2020-06-02] MEDS: Insulin Lispro 100 Units/ML 3 ML Vial SUBCUT SCH ×3 (08:26→18:10)
[2020-06-02] MEDS: INSULIN LISPRO 100 UNIT/ML SUBCUT SCH ×3 (08:27→18:11)
[2020-06-02] MEDS: BRIMONIDINE 0.2% EYELF SCH ×2 (08:30→21:39)
[2020-06-02] MEDS: TIMOLOL MALEATE 0.5% EYELF SCH ×2 (08:30→21:40)
[2020-06-02] MEDS: Cholecalciferol (Vitamin D3) 25 MCG Tab PO SCH (08:32)
[2020-06-02] MEDS: FINASTERIDE 5 MG PO SCH (08:33)
[2020-06-02] MEDS: Loperamide 2 MG Cap PO PRN (11:17)
[2020-06-02] MEDS: Cholestyramine/Sucrose Powder 4 GM Packet PO SCH (11:17)
[2020-06-02] MEDS: SILVER SULFADIAZINE 1% TOP SCH ×2 (11:20→21:39)
[2020-06-03] MEDS: BRIMONIDINE 0.2% EYELF SCH ×2 (09:30→22:55)
[2020-06-03] MEDS: Insulin Lispro 100 Units/ML 3 ML Vial SUBCUT SCH ×3 (09:31→17:59)
[2020-06-03] MEDS: INSULIN GLARG HUMAN REC ANALOG 100 UNIT/ML SUBCUT SCH (09:31)
[2020-06-03] MEDS: INSULIN LISPRO 100 UNIT/ML SUBCUT SCH ×3 (09:31→17:59)
[2020-06-03] MEDS: SILVER SULFADIAZINE 1% TOP SCH ×2 (09:32→22:55)
[2020-06-03] MEDS: TIMOLOL MALEATE 0.5% EYELF SCH ×2 (09:32→22:55)
[2020-06-03] MEDS: Cholecalciferol (Vitamin D3) 25 MCG Tab PO SCH (09:32)
[2020-06-03] MEDS: FINASTERIDE 5 MG PO SCH (09:32)
[2020-06-03] MEDS: Cholestyramine/Sucrose Powder 4 GM Packet PO SCH (12:47)
[2020-06-04] MEDS: INSULIN GLARG HUMAN REC ANALOG 100 UNIT/ML SUBCUT SCH (08:37)
[2020-06-04] MEDS: BRIMONIDINE 0.2% EYELF SCH ×2 (08:37→20:45)
[2020-06-04] MEDS: INSULIN LISPRO 100 UNIT/ML SUBCUT SCH ×3 (08:40→19:51)
[2020-06-04] MEDS: TIMOLOL MALEATE 0.5% EYELF SCH ×2 (08:43→20:45)
[2020-06-04] MEDS: Cholecalciferol (Vitamin D3) 25 MCG Tab PO SCH (08:43)
[2020-06-04] MEDS: FINASTERIDE 5 MG PO SCH (08:44)
[2020-06-04] MEDS: Insulin Lispro 100 Units/ML 3 ML Vial SUBCUT SCH ×4 (08:45→20:02)
[2020-06-04] MEDS: SILVER SULFADIAZINE 1% TOP SCH ×2 (14:21→20:45)
[2020-06-04] MEDS: Cholestyramine/Sucrose Powder 4 GM Packet PO SCH (14:22)
--- NOTE | 2020-06-04 18:17 | PN ---
Progress Note for LOYD GRIJALVA Date: 06/04/2020 Room #: VM.203 SUBJECTIVE: This is a 49-year-old on swing bed recovering after a left lower extremity cellulitis. He was needing assistance with ADLs due to having significant incontinence of stool, but he actually had a formed stool today. He was started on Questran, then Imodium over the weekend. He has not needed an Imodium now for 2 days. He is asking for more food. When we saw him, waiting for lunch to come, it was 1015. The patient's blood sugars were reviewed. It was falling currently down in the 197 range. He has not had any high-high readings over 400 on his Dexcom. Couple of days ago, he did get down to 55. He is not having any trouble breathing. No fevers. We did another C. difficile test due to being on antibiotics, which came back negative for the toxin. A fecal fat test was ordered, but is not back yet. The patient has been referred to GI and Surgery for possible sacral nerve stimulator. Letter sent out to help assist with scheduling as they were unable to arrange with his mother on the phone. Otherwise, his main concern is when can I go home. OBJECTIVE: Vital Signs: His weight is 78.4 kg, temperature 98.1, pulse 148/87, respiratory rate 16, O2 of 99 on room air. It should be noted that patient has refused cares yesterday. He still has a sore on his elbow. He tends to bend on it on his night stand. General: He is in no acute distress. Heart: Regular rate and rhythm. S1, S2 without murmur. Lungs: Sounds clear to auscultation bilaterally without crackles or wheezes. Extremities: Left atkinson wound is completely healed. The redness is gone. He just has trace edema. Mental Status: He is alert. He answers yes or no to questions when he chooses. ASSESSMENT AND PLAN: 1. Diarrhea with incontinence, seems to be improving at least today. The patient will continue on our swing bed until his bowel and bladder are under better control. He still has the Cerda catheter for retention. He would need a bladder voiding trial prior to going home. 2. Urinary retention due to autonomic dysfunction from uncontrolled diabetes. 3. Uncontrolled type 1 diabetes. We will try more consistent carbs and insulin. He does refuse cares. We will try not to get him to refuse insulin. Otherwise, we have to withhold food. He seems to be motivated by food. 4. Cognitive impairment due to a previous severe hypoglycemic reaction. 5. Lower extremity cellulitis, resolved. 6. Impaired mobility due to his fluid. This has improved. He has been refusing to work with PT. He did sort of have an episode where he went down on his knees without injury per the nurse yesterday. 7. Anemia with remote history of gastrointestinal bleeding. He had a colonoscopy and biopsies came back okay. His hemoglobin has been stable. PLAN: At this point, the patient will continue on swing bed cares. No lab work is due. We will await his specialty referrals in [place]. He has actually been placed on a lactose-free diet, but has very little milk per staff. Would consider adding some Lactaid if needed. MKA: 06/04/2020 17:07:08 MODL: 06/04/2020 18:09:53 /[id number]
[2020-06-05] MEDS: Loperamide 2 MG Cap PO PRN (00:57)
[2020-06-05] MEDS: TIMOLOL MALEATE 0.5% EYELF SCH ×2 (10:34→23:43)
[2020-06-05] MEDS: FINASTERIDE 5 MG PO SCH (10:34)
[2020-06-05] MEDS: SILVER SULFADIAZINE 1% TOP SCH ×2 (10:34→23:44)
[2020-06-05] MEDS: BRIMONIDINE 0.2% EYELF SCH ×2 (10:34→23:43)
[2020-06-05] MEDS: Cholecalciferol (Vitamin D3) 25 MCG Tab PO SCH (10:35)
[2020-06-05] MEDS: INSULIN GLARG HUMAN REC ANALOG 100 UNIT/ML SUBCUT SCH (10:43)
[2020-06-05] MEDS: Insulin Lispro 100 Units/ML 3 ML Vial SUBCUT SCH ×3 (10:45→19:07)
[2020-06-05] MEDS: INSULIN LISPRO 100 UNIT/ML SUBCUT SCH ×2 (10:46→13:04)
[2020-06-05] MEDS: Cholestyramine/Sucrose Powder 4 GM Packet PO SCH (13:04)
[2020-06-05] MEDS ORDERED: Loperamide 2 MG Cap PO ONE (17:12)
[2020-06-05] MEDS ORDERED: Psyllium Husk Powder Sugar Free 5.85 GM Packet PO SCH (20:00)
[2020-06-06] MEDS: INSULIN LISPRO 100 UNIT/ML SUBCUT SCH ×3 (00:41→11:54)
[2020-06-06] MEDS: FINASTERIDE 5 MG PO SCH (09:50)
[2020-06-06] MEDS: Cholecalciferol (Vitamin D3) 25 MCG Tab PO SCH (09:50)
[2020-06-06] MEDS: TIMOLOL MALEATE 0.5% EYELF SCH ×2 (09:50→20:21)
[2020-06-06] MEDS: BRIMONIDINE 0.2% EYELF SCH ×2 (09:50→20:21)
[2020-06-06] MEDS: INSULIN GLARG HUMAN REC ANALOG 100 UNIT/ML SUBCUT SCH (11:52)
[2020-06-06] MEDS: Insulin Lispro 100 Units/ML 3 ML Vial SUBCUT SCH ×3 (11:53→20:20)
[2020-06-06] MEDS: SILVER SULFADIAZINE 1% TOP SCH ×2 (11:54→21:28)
[2020-06-06] MEDS: Cholestyramine/Sucrose Powder 4 GM Packet PO SCH (13:36)
[2020-06-06] MEDS: Loperamide 2 MG Cap PO PRN (13:36)
[2020-06-07] MEDS: INSULIN LISPRO 100 UNIT/ML SUBCUT SCH ×3 (05:04→12:26)
[2020-06-07] MEDS: BRIMONIDINE 0.2% EYELF SCH ×2 (11:56→22:00)
[2020-06-07] MEDS: FINASTERIDE 5 MG PO SCH (11:56)
[2020-06-07] MEDS: SILVER SULFADIAZINE 1% TOP SCH ×2 (11:56→22:01)
[2020-06-07] MEDS: Insulin Lispro 100 Units/ML 3 ML Vial SUBCUT SCH ×3 (11:56→18:18)
[2020-06-07] MEDS: TIMOLOL MALEATE 0.5% EYELF SCH ×2 (11:57→22:01)
[2020-06-07] MEDS: Cholecalciferol (Vitamin D3) 25 MCG Tab PO SCH (11:57)
[2020-06-07] MEDS: Cholestyramine/Sucrose Powder 4 GM Packet PO SCH (12:24)
[2020-06-07] MEDS: INSULIN GLARG HUMAN REC ANALOG 100 UNIT/ML SUBCUT SCH (12:24)
--- NOTE | 2020-06-07 17:51 | PN ---
Progress Note for LOYD GRIJALVA Date: 06/07/2020 Room #: VM.203 SUBJECTIVE: This is a 49-year-old on swing bed, recovering after a lower extremity cellulitis, diarrhea, and urinary incontinence due to retention and overflow. The patient is sort of picking on his catheter. It is leaking. Recommendations were given to remove it today. The patient was pleased about this. We will give him a voiding trial. He continues to have some loose stools. He got placed on Metamucil over the weekend. He had also previously been placed on Questran and had Imodium p.r.n. available, last dose yesterday. He otherwise had a colonoscopy. Biopsy did not show any abnormalities. He is not having any stomach pain. He is eating 100% of his meals. He has been on a diarrhea low-lactose diet. However, he did not drink much milk or dairy before. He just really wants to go home. He continues to have a lot of leg swelling, but has been refusing the ARABE[place] stockings. He has been refusing to let them wrap his hands. OBJECTIVE: Vital Signs: His weight 78.4 kg, temperature 97.9, pulse 104, blood pressure 106/54, and respiratory rate 18. General: He is in no acute distress. Heart: Regular rate and rhythm. Lungs: Lung sounds are clear to auscultation bilaterally without crackles or wheezes. Extremities: Warm and dry. 2+ edema on the ankles and 3+ to the feet. He has scar still noted on his hands, they are not any deeper, but they are not resolving. Left thigh wound is nearly healed. His left atkinson wound is completely healed. He has padding over his elbow currently. Mental Status: He is alert. He is orientated. LABORATORY DATA: Blood sugars have been quite excellent. No lows since a few days ago, no high readings, over 300. ASSESSMENT: 1. Urinary retention, likely due to diabetes. We will remove the catheter today and give him a voiding trial. He has already been referred for a sacral nerve stimulator. 2. Diarrhea with incontinence. He is on Questran. He has Imodium p.r.n. and now Metamucil was added for a trial over the weekend. We will just see how he does. 3. Type 1 diabetes, uncontrolled. We will continue with his continuous glucose monitoring. 4. Wounds. We will continue wound cares. 5. Leg swelling, probably due to hypoalbuminemia. He is on protein supplements. 6. Cognitive impairment. 7. Anemia. Hemoglobins have been stable. PLAN: At this point, the patient will continue swing bed cares. I will try to update his mother in the next day or two. Hopefully, he can go home within the next 2 weeks; although, he may still have episodes of incontinence. Hopefully, he can get into the specialist soon in [place]. MKA: 06/07/2020 17:24:02 MODL: 06/07/2020 17:46:08 /[id number]
[2020-06-08] MEDS: INSULIN LISPRO 100 UNIT/ML SUBCUT SCH ×4 (05:57→18:13)
[2020-06-08] MEDS ORDERED: Psyllium Husk Powder Sugar Free 5.85 GM Packet PO SCH (08:00)
[2020-06-08] MEDS: BRIMONIDINE 0.2% EYELF SCH ×2 (09:51→20:19)
[2020-06-08] MEDS: FINASTERIDE 5 MG PO SCH (09:52)
[2020-06-08] MEDS: SILVER SULFADIAZINE 1% TOP SCH (09:54)
[2020-06-08] MEDS ORDERED: Silver Sulfadiazine 1% Crm 50 GM Tube TOP PRN (09:56)
[2020-06-08] MEDS: Cholecalciferol (Vitamin D3) 25 MCG Tab PO SCH (10:14)
[2020-06-08] MEDS: TIMOLOL MALEATE 0.5% EYELF SCH ×2 (10:14→20:20)
[2020-06-08] MEDS: INSULIN GLARG HUMAN REC ANALOG 100 UNIT/ML SUBCUT SCH (10:48)
[2020-06-08] MEDS: Insulin Lispro 100 Units/ML 3 ML Vial SUBCUT SCH ×3 (10:49→18:08)
[2020-06-08] MEDS: Cholestyramine/Sucrose Powder 4 GM Packet PO SCH (13:02)
[2020-06-08] MEDS: Polymyxin B/Trimethoprim 10 ML Bottle EYEBOTH SCH ×2 (18:08→19:16)
[2020-06-08] MEDS: Mupirocin Oint 22 GM Tube TOP SCH (20:19)
[2020-06-09] MEDS: Cholecalciferol (Vitamin D3) 25 MCG Tab PO SCH (08:35)
[2020-06-09] MEDS: FINASTERIDE 5 MG PO SCH (08:35)
[2020-06-09] MEDS: INSULIN GLARG HUMAN REC ANALOG 100 UNIT/ML SUBCUT SCH (08:36)
[2020-06-09] MEDS: Insulin Lispro 100 Units/ML 3 ML Vial SUBCUT SCH ×3 (08:36→18:38)
[2020-06-09] MEDS: INSULIN LISPRO 100 UNIT/ML SUBCUT SCH ×3 (08:36→18:38)
[2020-06-09] MEDS: Polymyxin B/Trimethoprim 10 ML Bottle EYEBOTH SCH ×4 (08:37→20:39)
[2020-06-09] MEDS: Mupirocin Oint 22 GM Tube TOP SCH (08:37)
[2020-06-09] MEDS: TIMOLOL MALEATE 0.5% EYELF SCH ×2 (08:37→20:40)
[2020-06-09] MEDS: BRIMONIDINE 0.2% EYELF SCH ×2 (08:37→20:39)
[2020-06-09] MEDS: Bacitracin Oint 1 GM U/D Packet TOP SCH ×2 (11:49→20:39)
[2020-06-09] MEDS: Cholestyramine/Sucrose Powder 4 GM Packet PO SCH (11:50)
[2020-06-10] MEDS: Cholecalciferol (Vitamin D3) 25 MCG Tab PO SCH (08:04)
[2020-06-10] MEDS: FINASTERIDE 5 MG PO SCH (08:04)
[2020-06-10] MEDS: INSULIN LISPRO 100 UNIT/ML SUBCUT SCH ×3 (08:04→18:13)
[2020-06-10] MEDS: Insulin Lispro 100 Units/ML 3 ML Vial SUBCUT SCH ×3 (08:05→18:13)
[2020-06-10] MEDS: BRIMONIDINE 0.2% EYELF SCH ×2 (08:05→20:48)
[2020-06-10] MEDS: INSULIN GLARG HUMAN REC ANALOG 100 UNIT/ML SUBCUT SCH (08:05)
[2020-06-10] MEDS: TIMOLOL MALEATE 0.5% EYELF SCH ×2 (08:06→20:49)
[2020-06-10] MEDS: Polymyxin B/Trimethoprim 10 ML Bottle EYEBOTH SCH ×4 (08:06→20:49)
[2020-06-10] MEDS: Bacitracin Oint 1 GM U/D Packet TOP SCH ×3 (08:09→20:48)
[2020-06-10] MEDS: Cholestyramine/Sucrose Powder 4 GM Packet PO SCH (12:08)
[2020-06-11] MEDS: Bacitracin Oint 1 GM U/D Packet TOP SCH ×3 (09:08→19:29)
[2020-06-11] MEDS: Insulin Lispro 100 Units/ML 3 ML Vial SUBCUT SCH ×4 (09:08→19:26)
[2020-06-11] MEDS: INSULIN GLARG HUMAN REC ANALOG 100 UNIT/ML SUBCUT SCH (09:08)
[2020-06-11] MEDS: INSULIN LISPRO 100 UNIT/ML SUBCUT SCH ×4 (09:08→19:25)
[2020-06-11] MEDS: BRIMONIDINE 0.2% EYELF SCH ×2 (09:09→19:29)
[2020-06-11] MEDS: TIMOLOL MALEATE 0.5% EYELF SCH ×2 (09:09→19:29)
[2020-06-11] MEDS: FINASTERIDE 5 MG PO SCH (09:09)
[2020-06-11] MEDS: Polymyxin B/Trimethoprim 10 ML Bottle EYEBOTH SCH ×4 (09:09→19:52)
[2020-06-11] MEDS: Cholecalciferol (Vitamin D3) 25 MCG Tab PO SCH (09:37)
[2020-06-11] MEDS: Cholestyramine/Sucrose Powder 4 GM Packet PO SCH (14:03)
[2020-06-12] MEDS: Bacitracin Oint 1 GM U/D Packet TOP SCH ×4 (00:47→21:35)
[2020-06-12] MEDS ORDERED: Insulin Lispro 100 Units/ML 3 ML Vial SUBCUT STA (04:42)
[2020-06-12] MEDS: INSULIN GLARG HUMAN REC ANALOG 100 UNIT/ML SUBCUT SCH ×2 (04:49→09:00)
[2020-06-12] MEDS ORDERED: INSULIN LISPRO 100 UNIT/ML SUBCUT SCH (06:01)
[2020-06-12] MEDS: INSULIN LISPRO 100 UNIT/ML SUBCUT SCH ×6 (09:01→18:41)
[2020-06-12] MEDS: BRIMONIDINE 0.2% EYELF SCH ×2 (09:04→21:34)
[2020-06-12] MEDS: Polymyxin B/Trimethoprim 10 ML Bottle EYEBOTH SCH ×5 (09:04→21:34)
[2020-06-12] MEDS: TIMOLOL MALEATE 0.5% EYELF SCH ×2 (09:05→21:34)
[2020-06-12] MEDS: Cholecalciferol (Vitamin D3) 25 MCG Tab PO SCH (09:05)
[2020-06-12] MEDS: FINASTERIDE 5 MG PO SCH (09:05)
[2020-06-12 11:57] LABS: CHLORIDE,CL 103 mmol/L (98-107); SODIUM,NA 141 mmol/L (136-145)
[2020-06-12] MEDS: Cholestyramine/Sucrose Powder 4 GM Packet PO SCH (12:33)
[2020-06-13] MEDS: Bacitracin Oint 1 GM U/D Packet TOP SCH ×3 (08:09→20:42)
[2020-06-13] MEDS: Cholecalciferol (Vitamin D3) 25 MCG Tab PO SCH (08:10)
[2020-06-13] MEDS: INSULIN LISPRO 100 UNIT/ML SUBCUT SCH ×6 (08:16→17:33)
[2020-06-13] MEDS: INSULIN GLARG HUMAN REC ANALOG 100 UNIT/ML SUBCUT SCH (08:17)
[2020-06-13] MEDS: Polymyxin B/Trimethoprim 10 ML Bottle EYEBOTH SCH ×4 (08:18→20:45)
[2020-06-13] MEDS: TIMOLOL MALEATE 0.5% EYELF SCH ×2 (08:18→20:46)
[2020-06-13] MEDS: BRIMONIDINE 0.2% EYELF SCH ×2 (08:18→20:46)
[2020-06-13] MEDS: FINASTERIDE 5 MG PO SCH (08:19)
[2020-06-13] MEDS: Cholestyramine/Sucrose Powder 4 GM Packet PO SCH (12:01)
[2020-06-14 06:26] VITALS: BP 126/77; PULSE 101
[2020-06-14] MEDS: BRIMONIDINE 0.2% EYELF SCH (07:52)
[2020-06-14] MEDS: FINASTERIDE 5 MG PO SCH (07:52)
[2020-06-14] MEDS: Polymyxin B/Trimethoprim 10 ML Bottle EYEBOTH SCH ×3 (07:52→16:58)
[2020-06-14] MEDS: INSULIN GLARG HUMAN REC ANALOG 100 UNIT/ML SUBCUT SCH (07:53)
[2020-06-14] MEDS: INSULIN LISPRO 100 UNIT/ML SUBCUT SCH ×4 (07:53→12:29)
[2020-06-14] MEDS: TIMOLOL MALEATE 0.5% EYELF SCH (07:53)
[2020-06-14] MEDS: Bacitracin Oint 1 GM U/D Packet TOP SCH ×2 (07:54→12:30)
[2020-06-14] MEDS: Cholecalciferol (Vitamin D3) 25 MCG Tab PO SCH (07:54)
[2020-06-14] MEDS: Loperamide 2 MG Cap PO PRN (07:59)
[2020-06-14 09:03] LABS: CHLORIDE,CL 101 mmol/L (98-107); SODIUM,NA 136 mmol/L (136-145)
[2020-06-14] MEDS: Cholestyramine/Sucrose Powder 4 GM Packet PO SCH (12:30)
--- NOTE | 2020-06-14 18:21 | DISCH ---
DATE OF SWING BED SELF-PAY NON-SKILLED ADMISSION: 05/28/2020. DATE OF SWING BED SELF-PAY NON-SKILLED DISCHARGE: 06/14/2020. DATE OF ACUTE CARE ADMISSION: 05/19/2020. DATE OF ACUTE CARE DISCHARGE: 05/24/2020. REASON FOR ADMISSION: On the date of admission, this 49-year-old male who had been previously admitted for a lower extremity cellulitis and edema with concern for renal failure but found to have severe malnutrition and severe diarrhea and urinary retention was admitted. He was placed on a diarrhea diet, low lactose. His stool was checked for Clostridium difficile, which was negative and fecal fat, which was normal and bacteria was also negative. Celiac tested has been requested and is pending. He also underwent a colonoscopy, which showed friable mucosa, but biopsy report from 05/27/2020 did not confirm any colitis. He did have some colon polyps removed including a tubular adenoma. He did get started on Questran, which seemed to help some and then Imodium was added. He actually had not used any for about 1 week until this morning. His catheter was in place. He had good urine output. He needed a couple of doses of IV Lasix, and he diuresed and lost quite a bit of weight. However, he has gained a little bit back now, but his swelling is still improved, and he has been eating well. He had urinary retention likely related to his diabetes. He has been voiding okay after the catheter was removed. His prostate was mildly enlarged, and he has been started on Proscar, and he is tolerating that. Otherwise, he has not had any cough. No trouble breathing. He has been off antibiotics. The wounds on his leg are completely healed, but he had some areas on his hands from previous olvera that he was biting on. At times, he did not allow us to do wound cares, and then they were getting a little bit more red, so we used a bacitracin ointment, and they improved. The patient had also completed some eyedrops for redness in his eyes, concern for infection there. His blood sugars were monitored quite frequently through his Dexcom. He had some lows. They were infrequent, and they were caught. One was at night after he was given some insulin at bedtime with his snack. Otherwise, the patient was able to treat any low blood sugars with eating and he had a good appetite during his stay. Mother was updated throughout the stay including his brother and helped arranging his discharge home. His admitting weight was 87.9 kg. His discharging weight is 84.5 kg. PHYSICAL EXAMINATION: Vital Signs: His discharging blood pressure is 126/77, his temperature 97.5, his pulse 101, respiratory rate 16, and O2 of 99% on room air. General: He is in no acute distress. Heart: Regular rate and rhythm. S1, S2 without murmur. Lungs: Lung sounds are clear to auscultation bilaterally without crackles or wheezes. Extremities: Warm and dry. He does have 2+ edema to his feet and 1+ edema to his ankles and calves. He does spend quite a bit of time sitting and not putting his feet up. He is wearing stockings now but was not always allowing them to be put on. The patient otherwise has scabs noted over his knuckles but no redness or drainage. Eyes: His sclerae are not red or injected. Mental Status: He is alert. He is orientated x3. He is cooperative today. He is asking to go home. DISCHARGING LABORATORY DATA: Showed white count 8.1; hemoglobin was 8.4, previously had been around 9. He did have mildly positive Hemoccult on his exam early on. He has not been on any aspirin. His platelets were 413. His sodium was 136, potassium 5, chloride 101, bicarbonate 27, BUN 31, creatinine 1.1, glucose 254, calcium 9.2, and again his celiac antibody test is pending. Dietitian did see him, and he was placed on a low wheat diet. He was also getting LiquaCel protein powder 16 g twice daily and Benefiber 6 g twice daily. The patient was started out on a 45 carb t.i.d. meal with 4 units of insulin. However, he was quite hungry and asking to eat more. Therefore, the patient's diet was adjusted, so he may have up to 60 g per meal of carbs and 15 g with snacks. The patient was receiving insulin 5 units t.i.d. with meals and then 1 to 4 units of a correction dose for blood sugars over 200, 1 unit; 251, 2 units; 301, 3 units; and 351, 4 units. He had very few blood sugar readings above 300 and almost none over 500 when sticking to this regimen. He did early on in his stay occasionally have some higher readings, but this has improved greatly since he has been here. We were utilizing his Dexcom. It was changed last on Sunday06/11/2020. His last port flush was yesterday. He has not been receiving any outpatient infusions but did require on acute care some IV fluid due to hypotension after diuresis. DISCHARGE PLANS AND INSTRUCTIONS: He is going home with his mom. He will have followup laboratory work with his next port flush in 1 month that is being scheduled to include his BMP, CBC, and A1c. He will recheck with me in the clinic in 1 to 2 weeks. His next Dexcom change will be around 06/24/2020, which is being scheduled. He will take 5 units of insulin 3 times a day with meals and if needed a correction dosing. The patient though historically has been not eating 3 meals a day always at home. He will otherwise use Imodium 2 mg up to 4 times a day if needed for looser stools. His last dose was this morning. He will be on Proscar 5 mg daily for urination and Questran 1 dose daily for his bowels. He will keep the area on his hands covered to avoid from biting them. He will continue on the Beneprotein 6 g twice daily and LiquaCel 1 packet twice daily, which is 16 g of protein. He will avoid dairy. If he wants to have milk, I encouraged his mom to try things like [place] milk. If he does have dairy and it causes diarrhea, then we will consider Lactaid. I had also referred him to specialists including GI and even Surgery for spinal cord stimulator devices for sacral nerves. However, none of these appointments have been set up. His mom is aware they have sent her a letter. MKA: 06/14/2020 16:39:49 MODL: 06/14/2020 17:59:06 /[id number]
== END 2020-06-14 17:15 | disposition home or self-care (01) | DRG 637 ==
LOC: VM.MS 13:00
PROVIDERS: ADMIT Internal Medicine; ATTEND Internal Medicine
DX: E10.69 Type 1 diabetes mellitus with other specified complication (principal); E43 Unspecified severe protein-calorie malnutrition; L03.116 Cellulitis of left lower limb; F45.8 Other somatoform disorders; R33.9 Retention of urine, unspecified; E10.65 Type 1 diabetes mellitus with hyperglycemia; R53.1 Weakness; K64.9 Unspecified hemorrhoids; D64.9 Anemia, unspecified; G31.84 Mild cognitive impairment of uncertain or unknown etiology; E78.5 Hyperlipidemia, unspecified; E78.1 Pure hyperglyceridemia; E10.319 Type 1 diabetes mellitus with unspecified diabetic retinopathy without macular edema; R15.9 Full incontinence of feces; E10.51 Type 1 diabetes mellitus with diabetic peripheral angiopathy without gangrene; D12.6 Benign neoplasm of colon, unspecified; E10.628 Type 1 diabetes mellitus with other skin complications; Z87.891 Personal history of nicotine dependence; Z79.899 Other long term (current) drug therapy; Z68.26 Body mass index [BMI] 26.0-26.9, adult; Z88.8 Allergy status to other drugs, medicaments and biological substances
CPT/HCPCS: 36415; 80048; 80069; 82705; 82784; 82947; 82962; 83516; 84153; 85025; 87324; 87493; 97110-GP; 97116-GP; 97168-GO; A9270-GY; J1642; J1815-GY

== ENCOUNTER 2020-05-27 09:44 | Day surgery (SDC) | payer MEDICARE, MEDICAID ==
[~2020-05-27 09:44] MED LIST: Lactated Ringers 1,000 ML IV SCH
[2020-05-27] MEDS ORDERED: Midazolam 1 MG/ML 2 ML SDV ONE (12:25)
[2020-05-27] MEDS ORDERED: Propofol 200 MG/20 ML SDV ONE (12:25)
[2020-05-27] MEDS ORDERED: fentaNYL 100 MCG/2 ML SDV ONE (12:25)
[2020-05-27 13:20] VITALS: PULSE 97
[2020-05-27 13:27] VITALS: BP 103/67
--- NOTE | 2020-05-31 11:16 | OR ---
DATE OF SURGERY: 05/27/2020. REFERRING PROVIDER: Angélica Alejandro DO PRE-OPERATIVE DIAGNOSES: Possible colitis with history of rectal bleeding and stool incontinence. The patient is currently swing bed in the hospital and is able to do prep a little easier now. He does have history of anoxic brain injury. Consent was obtained from the patient's brother, Woodrow, who is his guardian. POST-OPERATIVE DIAGNOSES: 1. Mildly inflamed and friable colonic mucosa. Random biopsies were taken from the right colon, transverse colon, left colon, and rectal areas. 2. Total of 3 polyps removed. a. 5 mm polyp at 60 cm, removed with hot snare (right colon). b. 6 mm polyp at 25 cm, removed with hot snare. c. 2 mm polyp at 20 cm, removed with cold forceps. 3. Moderate hemorrhoids. 4. Prep was fair to poor, especially on the right side of the colon. This was unable to be suctioned. It did cover up about a 3rd of the right side of the colon near the cecum. PROCEDURE: Colonoscopy with polypectomy x3 (2 hot snares and 1 cold forceps) and random biopsies taken from right colon, transverse colon, left colon, and rectal areas. SURGEON: Luis Johnston M.D. ANESTHESIA: Monitored anesthesia care. BOWEL PREP: Fair to poor, especially right-sided. Much of this was unable to be suctioned as it was thicker in consistency. Pino is a 49-year-old male who was brought to the endoscopy suite after discussing risks and benefits of the procedure. Informed consent was obtained for conscious sedation and colonoscopy with or without biopsy and/or polypectomy. We also discussed possibility of missed lesions. Pre-procedure exam was unremarkable. IV, oxygen, and monitors were placed. The patient was placed in the left lateral decubitus position. Sedation was administered and a digital rectal exam was performed and unremarkable. The patient does have some irritation around the anal area due to frequent stools. Colonoscope was passed into the rectum and slowly advanced all the way to the cecum. The patient did have mildly inflamed and friable mucosa. This was quite evident in the cecum and near the cecum. Cecum was viewed and photographed. I attempted several times to intubate the ileocecal valve, but this was unsuccessful. The colonoscope was slowly withdrawn and the mucosa was closed observed in a direct circumferential manner. Random biopsies were taken from the right colon, transverse colon, left colon, and rectal areas using cold forceps. The entire colonic mucosa did have a mildly inflamed friable appearance to it. The ascending colon also revealed 5 mm polyp at 60 cm, removed with hot snare. The transverse colon was unremarkable. The descending colon was unremarkable. The sigmoid colon revealed 6 mm polyp at 25 cm, removed with hot snare and 2 mm polyp at 20 cm, removed with cold forceps. Retroflexion was performed and rectal mucosa revealed moderate hemorrhoids. Scope was removed. The patient tolerated the procedure well. The patient was monitored until that baseline status. Discharge instructions were reviewed and the patient was discharged in good condition. COMPLICATIONS: None. TOTAL TIME: 38 minutes. ESTIMATED BLOOD LOSS: About 2 mL. RECOMMENDATIONS/FOLLOW-UP: We will await results of path report to determine additional treatment and follow up interval. We will take into account the fair to poor prep, especially on the right side. I would like to kindly thank Angélica Alejandro for this referral. DMB: 05/27/2020 14:23:29 MODL: 05/27/2020 17:20:58 /[id number]
== END 2020-05-27 14:00 | disposition home or self-care (01) ==
LOC: VM.SDS 09:44
PROVIDERS: ATTEND Family Medicine
DX: D12.5 Benign neoplasm of sigmoid colon (principal); K64.9 Unspecified hemorrhoids; K52.9 Noninfective gastroenteritis and colitis, unspecified; E78.5 Hyperlipidemia, unspecified; E78.1 Pure hyperglyceridemia; E10.319 Type 1 diabetes mellitus with unspecified diabetic retinopathy without macular edema; E10.51 Type 1 diabetes mellitus with diabetic peripheral angiopathy without gangrene; R33.9 Retention of urine, unspecified; R19.7 Diarrhea, unspecified; R15.9 Full incontinence of feces; E10.65 Type 1 diabetes mellitus with hyperglycemia; F45.8 Other somatoform disorders; G31.84 Mild cognitive impairment of uncertain or unknown etiology; E10.628 Type 1 diabetes mellitus with other skin complications; L03.116 Cellulitis of left lower limb; D64.9 Anemia, unspecified; R60.9 Edema, unspecified; E44.0 Moderate protein-calorie malnutrition; Z87.828 Personal history of other (healed) physical injury and trauma; Z87.891 Personal history of nicotine dependence; Z88.8 Allergy status to other drugs, medicaments and biological substances; Z87.19 Personal history of other diseases of the digestive system
CPT/HCPCS: 00811; 45380; 45385; 82962; 88305; J1642; J2250; J2704; J3010; J7120

== ENCOUNTER 2020-07-25 20:14 | Emergency (ER) | payer MEDICARE, MEDICAID ==
[2020-07-25 20:36] VITALS: BP 120/63; PULSE 106
--- NOTE | 2020-07-25 20:41 | EDM.PDOC ---
ED HPI GENERAL MEDICAL PROBLEM - General Time Seen by Provider: 07/25/20 20:24 Source of Information: Reports: Family - History of Present Illness INITIAL COMMENTS - FREE TEXT/NARRATIVE: Pino is a 49 y/o male who is brought to the ER by his mother for facial swelling. She reports that he was taking a nap this afternoon and after he got up she notice that he had some swelling to his face. No other symptoms, but he has been more sleepy today. He was recently on a course fo Amoxicillin for the last 7 days for olvera to his hands. He finished the med this AM. No other sx noted. He has a long list of chronic conditions and his mother takes care of him. - Related Data Allergies Allergy/AdvReac Type Severity Reaction Status Date / Time cyclobenzaprine HCl AdvReac Muscle Verified 07/25/20 20:33 [From Flexeril] Weakness quetiapine fumarate AdvReac Agitation Verified 07/25/20 20:33 [From Seroquel] Zcbtwgm-Olh-Dpl Reductase AdvReac Confusion Verified 07/25/20 20:33 Inhibitor Home Meds: Home Meds Cholecalciferol (Vitamin D3) [Vitamin D3] 1,000 units PO DAILY 02/13/14 [History] Acetaminophen [Tylenol] 650 mg PO Q6H PRN 09/27/18 [History] Glucagon,Human Recombinant [Glucagon Emergency Kit] 1 mg SUBCUT ASDIRECTED PRN 09/27/18 [History] Brimonidine/Timolol [Combigan 0.2%/0.5% Ophth Soln] 1 drop EYELF Q12H 05/19/20 [History] Cholestyramine/Sucrose [Cholestyramine] 4 gm PO DAILY@1200 #30 packet 06/14/20 [Rx] Finasteride [Proscar] 5 mg PO DAILY #30 tablet 06/14/20 [Rx] Heparin Sodium [Heparin Lock Flush] 500 units IVPUSH ASDIRECTED PRN syringe [Rx] Insulin Detemir [Levemir] 24 unit SUBCUT DAILY@1300 #0 06/14/20 [Rx] Insulin Glarg,Human.Rec.Analog [Lantus] 24 unit SUBCUT DAILY ml 06/14/20 [Rx] Insulin Lispro [HumaLOG] 5 unit SUBCUT TIDMEALS vial 06/14/20 [Rx] Loperamide [Imodium] 2 mg PO Q6H PRN cap 06/14/20 [Rx] Past Medical History HEENT History: Reports: Cataract, Other (See Below) Other HEENT History: central retinal artery occlusion of left eye. vision loss left eye. rubeosis irisdis of left eye. diabetic retinopathy Cardiovascular History: Reports: High Cholesterol, PVD, Syncope, Other (See Below) Other Cardiovascular History: orthostatic hypotension. edema. PAD Respiratory History: Reports: None Gastrointestinal History: Reports: GI Bleed, Other (See Below) Other Gastrointestinal History: ischemic colitis Genitourinary History: Reports: Acute Renal Failure, Retention, Urinary, Other (See Below) Other Genitourinary History: WILMER. impotence Musculoskeletal History: Reports: Fracture, Other (See Below) Other Musculoskeletal History: osteomyelitis of foot/ankle. humerus fx. hx of diabetic foot ulcers Neurological History: Reports: Brain Injury, Neuropathy, Diabetic, Other (See Below) Other Neuro History: cognitive impairment Psychiatric History: Reports: Addiction, Other (See Below) Other Psychiatric History: hx of alcohol abuse. hx of smoking. 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 Endocrine/Metabolic History: Reports: Diabetes, Type I, Other (See Below) Other Endocrine/Metabolic History: hypomagnesemia, DKA, hypertriglyceridemia Hematologic History: Reports: Anemia Immunologic History: Reports: None Oncologic (Cancer) History: Reports: None Dermatologic History: Reports: None - Infectious Disease History Infectious Disease History: Reports: C-Difficile, Other (See Below) Other Infectious Disease History: MSSA pneumonia, Klebsiella bacteremia - Past Surgical History HEENT Surgical History: Reports: Adenoidectomy, Eye Surgery, Tonsillectomy Cardiovascular Surgical History: Reports: None GI Surgical History: Reports: Colonoscopy Neurological Surgical History: Reports: None Musculoskeletal Surgical History: Reports: Other (See Below) Other Musculoskeletal Surgeries/Procedures:: bilat. foot surgeries (arthroplasty and I&D) Social & Family History - Family History Family Medical History: Noncontributory Cardiac: Reports: Hypertension Musculoskeletal: Reports: Arthritis Endocrine/Metabolic: Reports: Diabetes, Type I, Diabetes, type II, Hypothyroidism - Caffeine Use Caffeine Use: Reports: Soda - Living Situation & Occupation Living situation: Reports: Single, with Family Occupation: Disabled Review of Systems - Review of Systems Review Of Systems: See Below Constitutional: Reports: No Symptoms Eyes: Reports: Other (swelling around eyes) Ears: Reports: No Symptoms Nose: Reports: No Symptoms Mouth/Throat: Reports: No Symptoms Respiratory: Reports: No Symptoms Cardiovascular: Reports: No Symptoms GI/Abdominal: Reports: No Symptoms Genitourinary: Reports: No Symptoms Musculoskeletal: Reports: No Symptoms Skin: Reports: No Symptoms Neurological: Reports: Other (Uses a walker, and was able to walk into the ER.) ED EXAM, GENERAL - Physical Exam Exam: See Below General Appearance: Alert, WD/WN, No Apparent Distress (Adult male, appears much older than stated age) Eye Exam: Right Eye: PERRL (Left pupil is larger and sluggish, but stable for patient) Ears: Normal Canal, Hearing Grossly Normal, Normal TMs Nose: Normal Inspection Throat/Mouth: Normal Lips, Normal Oropharynx (Teeth is poor repair), Other Head: Atraumatic, Normocephalic, Facial Swelling (note mild swelling around nother eyes and cheek region) Neck: Normal Inspection, Supple, Non-Tender Respiratory/Chest: No Respiratory Distress, Chest Non-Tender, Other (Diminished) Cardiovascular: Regular Rate, Rhythm GI/Abdominal: Normal Bowel Sounds, Soft, Non-Tender (Male) Exam: Deferred Rectal (Males) Exam: Deferred Extremities: Other (Note 1+ edema to hands and feet. Healing olvera noted on both hands. Note moist sore area on the left ankle region.) Neurological: Alert, CN II-XII Intact, Slow to Respond, Other (At baseline, does not answer all qustions) Psychiatric: Flat Affect Skin Exam: Warm, Dry, Intact, Pallor Lymphatic: No Adenopathy Course - Vital Signs Text/Narrative:: 2023 The patient was seen by the [facility]. Suspect a mild allergic reaction, possibly the Amoxicillin. Labs ordered since patient had multiple chronic health issues. 2104 Dexamethasone 8mg po and Diphenhydramine 25mg po given. 2119 Labs reviewed. Note hgb=7.0 Hct 27.8 both decreasing, but reflect more chronic anemia. CMP reviewed. Will send patient home with Carlton johnson and have patient follow up with his PCP in the next 1-2 days. Suspect facial swelling is allergica reaction, unknown etiology. Vitals stable. Questions answered. Discharge instructions were given and the patient left the ER in stable condition. Last Recorded V/S: Last Vital Signs Temp 36.3 C 07/25/20 20:35 Pulse 106 H 07/25/20 20:35 Resp 16 07/25/20 20:35 BP 120/63 07/25/20 20:35 Pulse Ox 99 07/25/20 20:35 - Orders/Labs/Meds Orders: Active Orders 24 hr Category Date Time Status AMMONIA [REF] Stat Lab 07/25/20 20:33 Ordered diphenhydrAMINE [Benadryl] Med 07/25/20 21:18 Ordered 25 mg PO Q6H PRN Medication Orders Diphenhydramine HCl (Benadryl) 25 mg PO Q6H PRN PRN Reason: Allergies Labs: Laboratory Tests 07/25/20 07/25/20 Range/Units 20:48 20:48 WBC 6.9 (4.0-10.0) x10^3/uL RBC 2.45 L (4.5-6.0) x10^6/uL Hgb 7.0 L (14.0-18.0) g/dL Hct 21.8 L (40.0-52.0) % MCV 89.0 (78.0-93.0) fL MCH 28.6 (26.0-32.0) pg MCHC 32.1 (32.0-36.0) g/dL RDW Coeff of Madeline 13.0 (10.0-15.0) % Plt Count 436 H (130-400) x10^3/uL Neut % (Auto) 61.5 (50.0-80.0) % Lymph % (Auto) 28.9 (25.0-50.0) % [place] % (Auto) 7.7 (2.0-11.0) % Eos % (Auto) 1.0 (0.0-4.0) % Baso % (Auto) 0.9 (0.2-1.2) % Sodium 135 L (136-145) mmol/L Potassium 5.0 (3.5-5.1) mmol/L Chloride 106 (98-107) mmol/L Carbon Dioxide 20 L (21-32) mmol/L Anion Gap 14.0 (10-20) mmol/L BUN 23 H (7-18) mg/dL Creatinine 1.2 (0.70-1.30) mg/dL Est Cr Clr Drug Dosing TNP Estimated GFR (MDRD) > 60 Glucose 333 H (74-106) mg/dL Calcium 8.5 (8.5-10.1) mg/dL Corrected Calcium 9.94 (8.5-10.1) mg/dL Total Bilirubin 0.2 (0.2-1.0) mg/dL AST 29 (15-37) U/L ALT 24 (16-63) U/L Alkaline Phosphatase 134 H (46-116) U/L Total Protein 6.4 (6.4-8.2) g/dL Albumin 2.2 L (3.4-5.0) g/dL Globulin 4.2 Albumin/Globulin Ratio 0.52 Meds: Medications Generic Name Dose Route Start Last Admin Trade Name Freq PRN Reason Stop Dose Admin Diphenhydramine HCl 25 mg 07/25/20 21:18 Benadryl PO Q6H PRN Allergies Discontinued Medications Generic Name Dose Route Start Last Admin Trade Name Freq PRN Reason Stop Dose Admin Dexamethasone 8 mg 07/25/20 21:01 07/25/20 21:06 Dexamethasone PO 07/25/20 21:02 8 mg ONETIME ONE Administration Diphenhydramine HCl 25 mg 07/25/20 21:02 07/25/20 21:05 Benadryl PO 07/25/20 21:03 25 mg ONETIME ONE Administration Heparin Sodium (Porcine) 500 units 07/25/20 21:19 Heparin Lock Flush 100 Units/Ml IVPUSH 07/25/20 21:20 ASDIRECTED ONE Departure - Departure Time of Disposition: 21:27 Disposition: DC/Tfer W/I Hosp To Swing 61 Preliminary Cause of *Q: Sepsis & Multi System Organ Failure Condition: Good Clinical Impression: Facial swelling Anemia Qualifiers: Anemia type: unspecified type Qualified Code(s): D64.9 - Anemia, unspecified - Discharge Information Instructions: Angioedema, [id number], Anemia Referrals: Angélica Alejandro DO [Primary Care Provider] - Additional Instructions: -Benadryl 25mg oral every 6 hours x 48 hours (Use OTC meds) -Continue all other meds -Blood sugars may be elevated the next few days due to the Dexamethasone you were given for the swelling. -Call the clinic in the AM to set up an appt to Dr Angélica Alejandro in the next 1- 2 days -Return to the ER for any concerns Sepsis Event Note (ED) - Focused Exam Vital Signs: Vital Signs Temp Pulse Resp BP Pulse Ox 07/25/20 20:35 36.3 C 106 H 16 120/63 99 - My Orders Last 24 Hours: My Active Orders 07/25/20 20:33 AMMONIA [REF] Stat 07/25/20 21:18 diphenhydrAMINE [Benadryl] 25 mg PO Q6H PRN - Assessment/Plan Last 24 Hours: My Active Orders 07/25/20 20:33 AMMONIA [REF] Stat 07/25/20 21:18 diphenhydrAMINE [Benadryl] 25 mg PO Q6H PRN Assessment:: 1)Facial Swelling, Etiology Unknown 2)Anemia, Chronic Plan: -Benadryl 25mg oral every 6 hours x 48 hours (Use OTC meds) -Continue all other meds -Blood sugars may be elevated the next few days due to the Dexamethasone you were given for the swelling. -Call the clinic in the AM to set up an appt to Dr Angélica Alejandro in the next 1- 2 days -Return to the ER for any concerns
[2020-07-25] MEDS ORDERED: Dexamethasone 4 MG/ML SDV PO ONE (21:01)
[2020-07-25] MEDS ORDERED: diphenhydrAMINE 25 MG Cap PO ONE (21:02)
[2020-07-25 21:11] LABS: CHLORIDE,CL 106 mmol/L (98-107); SODIUM,NA 135 mmol/L (136-145)
[2020-07-25] MEDS ORDERED: diphenhydrAMINE 25 MG Cap PO PRN (21:18)
== END 2020-07-25 21:42 | disposition home or self-care (01) ==
LOC: VM.ED 20:14 → SUPCPDRO 20:14 → VM.ED 21:42
DX: R22.0 Localized swelling, mass and lump, head (principal); D64.9 Anemia, unspecified; E78.00 Pure hypercholesterolemia, unspecified; E10.40 Type 1 diabetes mellitus with diabetic neuropathy, unspecified; E10.319 Type 1 diabetes mellitus with unspecified diabetic retinopathy without macular edema; Z88.8 Allergy status to other drugs, medicaments and biological substances; Z79.899 Other long term (current) drug therapy
CPT/HCPCS: 80053; 82140; 85025; 96374; 99283-25; 99284; A9270-GY; J1100; J1642

== ENCOUNTER 2020-07-27 13:03 | Inpatient (IN) | payer MEDICARE, MEDICAID ==
[2020-07-27] MEDS ORDERED: Acetaminophen 325 MG Tab PO PRN ×2 (15:33→16:44)
[2020-07-27 16:41] LABS: CHLORIDE,CL 104 mmol/L (98-107); SODIUM,NA 136 mmol/L (136-145)
[2020-07-27 16:43] LABS: ANION GAP 15.9 mmol/L (10-20)
[2020-07-27] MEDS ORDERED: INSULIN ASPART 1 UNIT SQ PRN (16:44)
[2020-07-27] MEDS ORDERED: Glucagon,Human Recombinant 1 MG Vial SUBCUT PRN (16:44)
[2020-07-27] MEDS ORDERED: Non-Formulary Medication 1 Each (Brimonidine/Timolol [Combigan 0.2%/0.5% Ophth Soln] 1 DRO EYELF SCH (16:45)
[2020-07-27] MEDS ORDERED: Furosemide 20 MG/2 ML VIAL IV ONE (19:00)
[2020-07-27] MEDS: Vancomycin 125 MG Cap PO SCH (19:53)
[2020-07-27] MEDS: Insulin Lispro 100 Units/ML 3 ML Vial SUBCUT SCH (19:54)
[2020-07-27] MEDS: Sodium Chloride 0.9% 10 ML Syringe FLUSH PRN (20:09)
[2020-07-27] MEDS: Brimonidine 0.2% Ophth Soln 5 ML Bottle EYELF SCH (20:10)
[2020-07-27] MEDS: Timolol Maleate 0.5% Ophth Soln 5 ML Bottle EYELF SCH (20:10)
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
[2020-07-28] MEDS: Cholestyramine/Sucrose Powder 4 GM Packet PO SCH (07:52)
[2020-07-28] MEDS: Insulin Glarg,Human.Rec.Analog 100 Unit/ML SUBCUT SCH (07:53)
[2020-07-28] MEDS: Cholecalciferol (Vitamin D3) 25 MCG Tab PO SCH (07:55)
[2020-07-28] MEDS: Vancomycin 125 MG Cap PO SCH ×4 (07:55→20:48)
[2020-07-28] MEDS: Finasteride 5 MG Tab PO SCH (07:55)
[2020-07-28] MEDS: Multivitamins with Iron/Calcium/Folic Acid/Minerals Tab PO SCH (07:55)
[2020-07-28] MEDS: Sodium Chloride 0.9% 10 ML Syringe FLUSH PRN ×5 (07:56→17:34)
[2020-07-28] MEDS: Insulin Lispro 100 Units/ML 3 ML Vial SUBCUT SCH ×3 (07:57→17:35)
[2020-07-28] MEDS: WHEY PROTEIN ISOLATE PO SCH ×3 (08:55→21:08)
[2020-07-28] MEDS: PROTEIN HYDR PO SCH ×3 (08:55→21:07)
[2020-07-28] MEDS: WHEY PRO PO SCH ×3 (08:55→21:07)
[2020-07-28] MEDS: AMINO AC PO SCH ×3 (08:55→21:07)
[2020-07-28] MEDS: Timolol Maleate 0.5% Ophth Soln 5 ML Bottle EYELF SCH ×2 (09:07→21:10)
[2020-07-28] MEDS: Brimonidine 0.2% Ophth Soln 5 ML Bottle EYELF SCH ×2 (09:07→21:09)
[2020-07-28 11:48] LABS: ANION GAP 12.5 mmol/L (10-20); CHLORIDE,CL 107 mmol/L (98-107); SODIUM,NA 139 mmol/L (136-145)
[2020-07-28] MEDS ORDERED: Furosemide 20 MG/2 ML VIAL IV ONE (13:07)
--- NOTE | 2020-07-28 14:09 | PN ---
Progress Note for LOYD GRIJALVA Date: 07/28/2020 Room #: VM.214 SUBJECTIVE: This is hospital day #2 on a 49-year-old admitted with observation for possible blood transfusion, however, his hemoglobin was above 7. We gave him some IV Lasix to help with diuresis, and this morning his hemoglobin is down to 6.8. The patient had been quite sleepy in the office. He had been getting some Benadryl for facial swelling. He had just completed Augmentin for hand infection. His hand wounds actually look slightly better in terms of no redness or swelling, but deeper and worse than when he was in our facility a month ago. He has been going to the [facility]. He has 11 or 12 wounds total. He has been having diarrhea. Even before the C diff he had diarrhea, but it is worse now. It was watery so far today, but not black. He had a low blood sugar down into the 40s overnight after getting 5 units at 8 p.m. and then not eating a snack. This is unusual for Loyd as he normally does like to snack. He also went down again to 42 right before lunch. He was given his Lantus this morning. The patient's meal insulin was given after he had breakfast and still he had a low. He got 5 units around 8 o'clock. Otherwise, he is resting comfortably when I saw him. He did not allow for lab draw this morning, but later in the late morning he did. OBJECTIVE: Vital Signs: Temperature 97.6, pulse 102, blood pressure 137/81, respiratory rate 20, O2 of 97% on room air. General: He is in no acute distress. Heart: Regular rate and rhythm. S1, S2 without murmur. Lungs: Sounds are clear to auscultation bilaterally without crackles or wheezes. Abdomen: Has positive bowel sounds. Soft, nontender. Extremities: Warm and dry. He has superficial sore over his shins, but no redness or drainage. He still has 2+ edema to his legs. Mental Status: He is alert, but he is not answering orientation questions. His hand wounds were not visualized today. He had just had his dressings changed due to getting them contaminated with feces. LABORATORY DATA: His white count improved down to 12.6, his hemoglobin is down to 6.7, platelets 415. Sodium 139, potassium 4.5, chloride 107, bicarb 24, BUN 28, creatinine 1.1, glucose 105, calcium 9.4. ASSESSMENT: 1. Acute on chronic anemia. We will check a Hemoccult, but the patient has a known history of colitis and inflammation in his colon with colonoscopy in May. We have also checked a Clostridium difficile. We are empirically treating him with oral vancomycin. 2. Hypoglycemia with known uncontrolled diabetes. The patient is not eating as much as he normally would, but currently he feels a little better and is starting to eat more per nursing. At this point, I will decrease his meal insulin to 3 units t.i.d. I will remove the correction dosing at bedtime and just do t.i.d. with meals. 3. Massive edema and anasarca. Urine protein is pending. He is on protein supplements. We will give him another dose of IV Lasix today. 4. History of autonomic dysfunction and hypotension. His blood pressures are better. 5. BPH. He has refused a Cerda. We will do a bladder scan. 6. Leukocytosis and diarrhea with recent Augmentin use. Concern for Clostridium difficile. He is empirically on vancomycin. 7. Multiple wounds. We will continue with wound cares. I have paperwork from the Wound Clinic for the plan on that. 8. Diarrhea possible IBD has GI follow up planned, stool pending for c. diff PLAN: The patient will be upgraded to inpatient status since he will be getting his blood transfusion today and he had leukocytosis with the worsening diarrhea. Consideration is now for C diff, which he is being treated for. We will continue with wound cares. We will repeat the lab work tomorrow. For DVT prophylaxis, he is on SCDs due to concern for acute bleeding. We will check a Hemoccult. MKA: 07/28/2020 13:10:37 MODL: 07/28/2020 13:59:09 /[id number] BRENT
[2020-07-28] MEDS: Insulin Lispro 100 Units/ML 3 ML Vial SUBCUT PRN (17:36)
[2020-07-29] MEDS: Insulin Lispro 100 Units/ML 3 ML Vial SUBCUT SCH ×3 (07:31→18:13)
[2020-07-29] MEDS: Insulin Lispro 100 Units/ML 3 ML Vial SUBCUT PRN ×2 (07:32→18:13)
[2020-07-29] MEDS: Insulin Glarg,Human.Rec.Analog 100 Unit/ML SUBCUT SCH (07:33)
[2020-07-29] MEDS: Cholestyramine/Sucrose Powder 4 GM Packet PO SCH (07:35)
[2020-07-29] MEDS: Vancomycin 125 MG Cap PO SCH ×2 (07:35→11:24)
[2020-07-29] MEDS: Multivitamins with Iron/Calcium/Folic Acid/Minerals Tab PO SCH (07:36)
[2020-07-29] MEDS: Finasteride 5 MG Tab PO SCH (07:36)
[2020-07-29] MEDS: AMINO AC PO SCH ×2 (07:36→22:16)
[2020-07-29] MEDS: Cholecalciferol (Vitamin D3) 25 MCG Tab PO SCH (07:36)
[2020-07-29] MEDS: PROTEIN HYDR PO SCH ×2 (07:36→22:16)
[2020-07-29] MEDS: WHEY PRO PO SCH ×2 (07:36→22:16)
[2020-07-29] MEDS: WHEY PROTEIN ISOLATE PO SCH ×2 (07:37→22:17)
[2020-07-29] MEDS: Sodium Chloride 0.9% 10 ML Syringe FLUSH PRN ×4 (07:40→17:22)
[2020-07-29 07:57] LABS: CHLORIDE,CL 106 mmol/L (98-107); SODIUM,NA 138 mmol/L (136-145)
[2020-07-29] MEDS: Timolol Maleate 0.5% Ophth Soln 5 ML Bottle EYELF SCH ×2 (09:31→20:25)
[2020-07-29] MEDS: Brimonidine 0.2% Ophth Soln 5 ML Bottle EYELF SCH ×2 (09:31→20:25)
[2020-07-29] MEDS: Furosemide 20 MG/2 ML VIAL IV SCH ×2 (09:47→17:18)
--- NOTE | 2020-07-29 20:07 | PN ---
Progress Note for LOYD GRIJALVA Date: 07/29/2020 Room #: VM.214 SUBJECTIVE: This is hospital day #3 on a 49-year-old admitted with diarrhea, edema, somnolence, and multiple wounds. The patient has been afebrile. His white count was elevated to 16,000 on admission. It has normalized today. He has been getting oral vancomycin, but his C difficile toxin was negative. He did get 1 unit of blood yesterday. His hemoglobin is up to 7.7. He is denying any chest pain, cough, or shortness of breath. He is eating well. He would like larger portion sizes with his meals. He had a low blood sugar once yesterday late morning but has not had any lows since. Otherwise, blood sugars are 200 or better. His Dexcom sensor transmitter should arrive in 2 days. He is getting IV Lasix. He reports good urine output; however, no UA or protein has been collected. He has been afebrile. OBJECTIVELY: Vital Signs: His temperature is 96.7, weight 81.9 kg, down 12 pounds since admission, pulse 82, blood pressure 148/72, respiratory rate 18, O2 of 97% on room air. General: He is in no acute distress. Heart: Regular rate and rhythm. S1 and S2 without murmur. Lungs: Lung sounds are clear to auscultation bilaterally without crackles or wheezes. Abdomen: Positive bowel sounds. Soft and nontender. Extremities: Warm and dry. Still 1+ edema. He has multiple wounds, especially on his hands. He is not keeping the dressings on. Mental Status: He is alert. He is cooperative. He is answering questions appropriately. LABORATORY DATA: Lab work shows white count 9, hemoglobin 7.7, platelets 401. Sodium 138, potassium 5, chloride 106, bicarb 25, BUN 22, creatinine 1.2, glucose 204, calcium 9.3. ASSESSMENT AND PLAN: 1. Diarrhea, possibly underlying inflammatory bowel disease. He has an outpatient appointment later this month. Clostridium difficile was negative. We will stop the vancomycin. Also, pop seemed to exacerbate it this morning, so we will hold that. We will continue Questran. 2. Acute on chronic anemia. Hemoccult is pending. We will repeat a hemoglobin in 2 days. 3. Uncontrolled diabetes. We will do Accu-Chek 4 times a day during the day and once during the night. 4. Massive edema and anasarca. He is improving with IV Lasix. 5. History of autonomic dysfunction and hypotension. He is currently not hypotensive. 6. BPH. He reports voiding okay. He is refusing a Cerda. We will get a bladder scan. 7. Leukocytosis, resolved. 8. Multiple wounds. We will continue wound cares. The patient will continue inpatient cares. He has been working with therapies, but feel he is stable from a PT standpoint to go home. However, he needs supervision and wound cares. Discussed with his mom, likely we will just have some pictures and be in contact with the [facility] to try to avoid a trip over there Sunday. For DVT prophylaxis, SCDs are in place. We will check blood work again in 2 days. Loyd is aware the plan will be to stay till Sunday. We will increase him to 40 carb choice per meal as he is requesting more food. MKA: 07/29/2020 19:29:25 MODL: 07/29/2020 20:00:28 /[id number]
[2020-07-30] MEDS: Finasteride 5 MG Tab PO SCH (07:54)
[2020-07-30] MEDS: Multivitamins with Iron/Calcium/Folic Acid/Minerals Tab PO SCH (07:54)
[2020-07-30] MEDS: Cholecalciferol (Vitamin D3) 25 MCG Tab PO SCH (07:54)
[2020-07-30] MEDS: Cholestyramine/Sucrose Powder 4 GM Packet PO SCH (07:54)
[2020-07-30] MEDS: Furosemide 20 MG/2 ML VIAL IV SCH ×2 (07:55→17:46)
[2020-07-30] MEDS: Insulin Lispro 100 Units/ML 3 ML Vial SUBCUT SCH ×3 (07:59→17:53)
[2020-07-30] MEDS: Insulin Glarg,Human.Rec.Analog 100 Unit/ML SUBCUT SCH (08:00)
[2020-07-30] MEDS: Timolol Maleate 0.5% Ophth Soln 5 ML Bottle EYELF SCH ×2 (08:03→21:38)
[2020-07-30] MEDS: Brimonidine 0.2% Ophth Soln 5 ML Bottle EYELF SCH ×2 (08:03→21:38)
[2020-07-30] MEDS: Sodium Chloride 0.9% 10 ML Syringe FLUSH PRN ×2 (08:11→14:18)
[2020-07-30] MEDS ORDERED: JUVEN PO SCH (09:53)
[2020-07-30] MEDS ORDERED: Loperamide 2 MG Cap PO PRN (12:05)
[2020-07-30] MEDS ORDERED: diphenhydrAMINE 25 MG Cap PO PRN (13:43)
[2020-07-30] MEDS ORDERED: diphenhydrAMINE 25 MG Cap PO ONE (13:45)
[2020-07-30] MEDS: cefTRIAXone 1 GM Vial IVPUSH SCH (14:15)
[2020-07-30] MEDS: WHEY PROTEIN ISOLATE PO SCH (14:22)
[2020-07-30] MEDS: WHEY PRO PO SCH (14:22)
[2020-07-30] MEDS: PROTEIN HYDR PO SCH (14:22)
[2020-07-30] MEDS: AMINO AC PO SCH (14:22)
--- NOTE | 2020-07-30 17:32 | PN ---
Progress Note for LOYD GRIJALVA Date: 07/30/2020 Room #: VM.214 SUBJECTIVE: This is hospital day #4 on a 49-year-old admitted with leukocytosis, somnolence, and edema. He has known hand wounds. They did not appear infected on admission, but now his hand is getting more red and swollen because he keeps taking the dressing off and biting at them. He had been treated with Augmentin prior to the admission, so due to his diarrhea, he had a C. diff test that was positive, but toxin negative. He was empirically given oral vancomycin. His white count normalized, but when the C. diff came back, this was discontinued. His hemoglobin had also dropped to 6.8, so he was given 1 unit of packed red blood cells. He has perked up more since that. He is denying any chest pain. No cough, no shortness of breath. He did have a large loose incontinent stool this morning which was light brown. He had 1 also yesterday. We have been adjusting his diet. He has an outpatient visit planned with GI. Hemoccult testing did come back negative. He did have bladder scan over 999. Therefore, we placed a Cerda and his wbc's in the urine were greater than a 1000. For his edema, it has improved significantly. He is down about 16 pounds. Blood pressures have been running higher, probably due to the swelling. He is eating good. He is afebrile. OBJECTIVE: Vital Signs: Temperature 98.3, pulse 92, blood pressure 125/63, respiratory rate 18, O2 of 95% on room air. General: He is in no acute distress. Heart: Regular rate and rhythm. S1, S2 without murmur. Lungs: Lung sounds are clear to auscultation bilaterally without crackles or wheezes. Abdomen: Positive bowel sounds. Soft, nontender. Extremities: Warm and dry. He still has 3+ edema to his feet, but at his ankles and shins, it is 1+. He still has the sores on his anterior atkinson, those do not appear infected. However, on the right hand, it is getting swollen again. There is some necrosis and redness sort of streaking back up his arm. He is denying any pain. The patient does have very poor dentition. ASSESSMENT: 1. Multiple wounds on his hand, elbow, that one is improving, and shins. We will continue wound cares. We got updated orders from [facility]. We will try to protect his arms, so he cannot remove them. 2. Diarrhea, longstanding problem, possibly underlying inflammatory bowel disease. We will schedule some Imodium since his Clostridium difficile test was negative. 3. Wound infection. We will start him on IV Rocephin. We will repeat lab work tomorrow. 4. Chronic anemia. We will repeat his hemoglobin tomorrow. We gave him a lab holiday today. 5. Uncontrolled diabetes. He now has his Dexcom sensor on. His blood sugars have actually been under quite excellent control for him with just 1 reading yesterday up into 281, but that was just after he finished eating and had been 74 prior. He has a history of hypoglycemia and unawareness, so we will monitor closely. 6. Massive edema and anasarca, improving with IV Lasix. We will continue that twice daily. 7. History of autonomic dysfunction and hypotension. He is currently not hypotensive. 8. Benign prostatic hyperplasia with retention. We will place a Cerda for strict in's and out's. He is on Proscar. 9. Leukocytosis, resolved. 10.Cognitive impairment due to previous severe hypoglycemic reaction. Currently, he is not having any aggressive behaviors. PLAN: The patient will continue acute cares with IV Rocephin for a UTI and skin infection started today. He will continue on acute cares with IV Lasix. We will repeat lab work tomorrow. He has already been working with therapies and physically he is able to go home, but he needs too much other care with his wounds. Wound care will currently be at least every 3 days and will follow up likely via Zoom appointment with the [facility]ound Clinic next week. MKA: 07/30/2020 16:54:40 MODL: 07/30/2020 17:23:22 /[id number]
[2020-07-31] MEDS: Finasteride 5 MG Tab PO SCH (08:12)
[2020-07-31] MEDS: Cholecalciferol (Vitamin D3) 25 MCG Tab PO SCH (08:12)
[2020-07-31] MEDS: Loperamide 2 MG Cap PO SCH (08:13)
[2020-07-31] MEDS: Sodium Chloride 0.9% 10 ML Syringe FLUSH PRN (08:13)
[2020-07-31] MEDS: Furosemide 20 MG/2 ML VIAL IV SCH (08:14)
[2020-07-31] MEDS: cefTRIAXone 1 GM Vial IVPUSH SCH (08:16)
[2020-07-31] MEDS: Cholestyramine/Sucrose Powder 4 GM Packet PO SCH (08:20)
[2020-07-31] MEDS: Timolol Maleate 0.5% Ophth Soln 5 ML Bottle EYELF SCH ×2 (08:21→21:10)
[2020-07-31] MEDS: Insulin Lispro 100 Units/ML 3 ML Vial SUBCUT SCH ×3 (08:22→17:59)
[2020-07-31] MEDS: Brimonidine 0.2% Ophth Soln 5 ML Bottle EYELF SCH ×2 (08:22→21:10)
[2020-07-31] MEDS: Insulin Glarg,Human.Rec.Analog 100 Unit/ML SUBCUT SCH (08:25)
[2020-07-31 08:40] LABS: CHLORIDE,CL 105 mmol/L (98-107); SODIUM,NA 139 mmol/L (136-145)
[2020-07-31 08:41] LABS: ANION GAP 12.6 mmol/L (10-20)
[2020-07-31] MEDS: Multivitamins with Iron/Calcium/Folic Acid/Minerals Tab PO SCH (08:47)
--- NOTE | 2020-07-31 10:04 | PCM.PN ---
- General Info Date of Service: 07/31/20 Subjective Update: 49 yo male hospital day #5 admitted with severe wounds on his hands associated with cellulitis as well as a UTI and generalized edema. Patient states he is doing well. His only complaint is that he would like to eat more for breakfast as he is still hungry. He is otherwise feeling well. He does admit to some pain in his hands but this is overall mild. He has a urinary catheter in place. ROS is otherwise negative. - Review of Systems General: Reports: No Symptoms HEENT: Reports: No Symptoms Pulmonary: Reports: No Symptoms Cardiovascular: Reports: No Symptoms Gastrointestinal: Reports: No Symptoms Genitourinary: Reports: No Symptoms Musculoskeletal: Reports: No Symptoms Skin: Reports: No Symptoms Neurological: Reports: No Symptoms - Patient Data Vitals - Most Recent: Last Vital Signs Temp 36.4 C 07/31/20 07:00 Pulse 96 07/31/20 07:00 Resp 16 07/31/20 07:00 BP 132/61 07/31/20 07:00 Pulse Ox 96 07/31/20 07:00 Weight - Most Recent: 79.379 kg I&O - Last 24 Hours: Intake & Output 07/30/20 07/31/20 07/31/20 22:59 06:59 14:59 Intake Total 180 340 600 Output Total 700 1200 Balance -520 -860 600 Lab Results Last 24 Hours: Laboratory Results - last 24 hr 07/30/20 07/30/20 07/30/20 Range/Units 11:40 14:18 15:07 WBC (4.0-10.0) x10^3/uL RBC (4.5-6.0) x10^6/uL Hgb (14.0-18.0) g/dL Hct (40.0-52.0) % MCV (78.0-93.0) fL MCH (26.0-32.0) pg MCHC (32.0-36.0) g/dL RDW Coeff of Madeline (10.0-15.0) % Plt Count (130-400) x10^3/uL Neut % (Auto) (50.0-80.0) % Lymph % (Auto) (25.0-50.0) % Kings % (Auto) (2.0-11.0) % Eos % (Auto) (0.0-4.0) % Baso % (Auto) (0.2-1.2) % Sodium (136-145) mmol/L Potassium (3.5-5.1) mmol/L Chloride (98-107) mmol/L Carbon Dioxide (21-32) mmol/L Anion Gap (10-20) mmol/L BUN (7-18) mg/dL Creatinine (0.70-1.30) mg/dL Est Cr Clr Drug Dosing mL/min Estimated GFR (MDRD) Glucose (74-106) mg/dL POC Glucose 84 159 H (74-106) mg/dL Calcium (8.5-10.1) mg/dL Urine Color Light yellow (YELLOW) Urine Appearance Cloudy H (CLEAR) Urine pH 5.5 (5.0-8.0) Ur Specific [place] 1.020 Urine Protein 100 H (NEGATIVE) mg/dL Urine Glucose (UA) Negative (NEGATIVE) mg/dL Urine Ketones Negative (NEGATIVE) mg/dL Urine Occult Blood Moderate H (NEGATIVE) Urine Nitrite Negative (NEGATIVE) Urine Bilirubin Negative (NEGATIVE) Urine Urobilinogen 0.2 (0.2) EU/dL Ur Leukocyte Esterase Small H (NEGATIVE) Urine RBC 0-5 (NOT SEEN) /HPF Urine WBC >100 H (NOT SEEN) /HPF Ur Squamous Epith Cells Rare (NEGATIVE) /HPF Urine Bacteria Moderate H (NEGATIVE) /HPF Urine Mucus Rare H (NEGATIVE) /LPF 07/30/20 07/30/20 07/31/20 Range/Units 17:49 18:05 08:10 WBC (4.0-10.0) x10^3/uL RBC (4.5-6.0) x10^6/uL Hgb (14.0-18.0) g/dL Hct (40.0-52.0) % MCV (78.0-93.0) fL MCH (26.0-32.0) pg MCHC (32.0-36.0) g/dL RDW Coeff of Madeline (10.0-15.0) % Plt Count (130-400) x10^3/uL Neut % (Auto) (50.0-80.0) % Lymph % (Auto) (25.0-50.0) % Kings % (Auto) (2.0-11.0) % Eos % (Auto) (0.0-4.0) % Baso % (Auto) (0.2-1.2) % Sodium (136-145) mmol/L Potassium (3.5-5.1) mmol/L Chloride (98-107) mmol/L Carbon Dioxide (21-32) mmol/L Anion Gap (10-20) mmol/L BUN (7-18) mg/dL Creatinine (0.70-1.30) mg/dL Est Cr Clr Drug Dosing mL/min Estimated GFR (MDRD) Glucose (74-106) mg/dL POC Glucose 213 H 240 H 242 H (74-106) mg/dL Calcium (8.5-10.1) mg/dL Urine Color (YELLOW) Urine Appearance (CLEAR) Urine pH (5.0-8.0) Ur Specific [place] Urine Protein (NEGATIVE) mg/dL Urine Glucose (UA) (NEGATIVE) mg/dL Urine Ketones (NEGATIVE) mg/dL Urine Occult Blood (NEGATIVE) Urine Nitrite (NEGATIVE) Urine Bilirubin (NEGATIVE) Urine Urobilinogen (0.2) EU/dL Ur Leukocyte Esterase (NEGATIVE) Urine RBC (NOT SEEN) /HPF Urine WBC (NOT SEEN) /HPF Ur Squamous Epith Cells (NEGATIVE) /HPF Urine Bacteria (NEGATIVE) /HPF Urine Mucus (NEGATIVE) /LPF 07/31/20 07/31/20 Range/Units 08:15 08:15 WBC 8.6 (4.0-10.0) x10^3/uL RBC 2.84 L (4.5-6.0) x10^6/uL Hgb 8.1 L (14.0-18.0) g/dL Hct 25.7 L (40.0-52.0) % MCV 90.5 (78.0-93.0) fL MCH 28.5 (26.0-32.0) pg MCHC 31.5 L (32.0-36.0) g/dL RDW Coeff of Madeline 12.7 (10.0-15.0) % Plt Count 467 H (130-400) x10^3/uL Neut % (Auto) 63.1 (50.0-80.0) % Lymph % (Auto) 25.3 (25.0-50.0) % Kings % (Auto) 9.0 (2.0-11.0) % Eos % (Auto) 2.0 (0.0-4.0) % Baso % (Auto) 0.6 (0.2-1.2) % Sodium 139 (136-145) mmol/L Potassium 4.6 (3.5-5.1) mmol/L Chloride 105 (98-107) mmol/L Carbon Dioxide 26 (21-32) mmol/L Anion Gap 12.6 (10-20) mmol/L BUN 23 H (7-18) mg/dL Creatinine 1.1 (0.70-1.30) mg/dL Est Cr Clr Drug Dosing 86.52 mL/min Estimated GFR (MDRD) > 60 Glucose 242 H (74-106) mg/dL POC Glucose (74-106) mg/dL Calcium 9.4 (8.5-10.1) mg/dL Urine Color (YELLOW) Urine Appearance (CLEAR) Urine pH (5.0-8.0) Ur Specific [place] Urine Protein (NEGATIVE) mg/dL Urine Glucose (UA) (NEGATIVE) mg/dL Urine Ketones (NEGATIVE) mg/dL Urine Occult Blood (NEGATIVE) Urine Nitrite (NEGATIVE) Urine Bilirubin (NEGATIVE) Urine Urobilinogen (0.2) EU/dL Ur Leukocyte Esterase (NEGATIVE) Urine RBC (NOT SEEN) /HPF Urine WBC (NOT SEEN) /HPF Ur Squamous Epith Cells (NEGATIVE) /HPF Urine Bacteria (NEGATIVE) /HPF Urine Mucus (NEGATIVE) /LPF Nikunj Results Last 24 Hours: Microbiology 07/30/20 15:07 Urine Culture - Preliminary Urine, Bladder Gram Negative Rods Med Orders - Current: Current Medications Acetaminophen (Tylenol) 650 mg PO Q4H PRN PRN Reason: Pain (Mild 1-3)/fever Acetaminophen (Tylenol) 650 mg PO Q6H PRN PRN Reason: Headache Brimonidine Tartrate (Alphagan 0.2% Ophth Soln) 0 ml EYELF Q12H [facility] Last Admin: 07/31/20 08:22 Dose: 1 drop Documented by: Ceftriaxone Sodium (Rocephin) 1 gm IVPUSH DAILY [facility] Last Admin: 07/31/20 08:16 Dose: 1 gm Documented by: Cholecalciferol (Vitamin D3) 25 mcg PO DAILY [facility] Last Admin: 07/31/20 08:12 Dose: 25 mcg Documented by: Cholestyramine Resin (Cholestyramine Packet) 4 gm PO WITHBREAKFAST [facility] Last Admin: 07/31/20 08:20 Dose: 4 gm Documented by: Diphenhydramine HCl (Benadryl) 25 mg PO Q4H PRN PRN Reason: Itching Finasteride (Proscar) 5 mg PO DAILY [facility] Last Admin: 07/31/20 08:12 Dose: 5 mg Documented by: Furosemide (Lasix) 20 mg IV BIDDIURETIC [facility] Last Admin: 07/31/20 08:14 Dose: 20 mg Documented by: Glucagon (Glucagen) 1 mg SUBCUT ASDIRECTED PRN PRN Reason: Hypoglycemia Heparin Sodium (Porcine) (Heparin Lock Flush 100 Units/Ml) 500 units IVPUSH ASDIRECTED PRN PRN Reason: PORT FLUSH Last Admin: 07/31/20 08:32 Dose: 500 units Documented by: Insulin Glargine (Lantus) 24 unit SUBCUT DAILY [facility] Last Admin: 07/31/20 08:25 Dose: 24 units Documented by: Insulin Human Lispro (Humalog) 1 unit SUBCUT TID PRN PRN Reason: BLOOD SUGAR Last Admin: 07/29/20 18:13 Dose: 2 units Documented by: Insulin Human Lispro (Humalog) 3 unit SUBCUT TIDMEALS [facility] Last Admin: 07/31/20 08:22 Dose: 3 units Documented by: Loperamide HCl (Imodium) 2 mg PO Q4H PRN PRN Reason: Diarrhea Loperamide HCl (Imodium) 2 mg PO DAILY [facility] Last Admin: 07/31/20 08:13 Dose: 2 mg Documented by: Multivitamins/Minerals (Thera M Plus) 1 tab PO DAILY [facility] Last Admin: 07/31/20 08:47 Dose: 1 tab Documented by: Sodium Chloride (Saline Flush) 10 ml FLUSH ASDIRECTED PRN PRN Reason: Keep Vein Open Last Admin: 07/31/20 08:13 Dose: 10 ml Documented by: Timolol Maleate (Timoptic 0.5% Ophth Soln) 0 ml EYELF Q12H [facility] Last Admin: 07/31/20 08:21 Dose: 1 drop Documented by: Discontinued Medications Diphenhydramine HCl (Benadryl) 25 mg PO ONETIME ONE Stop: 07/30/20 13:46 Last Admin: 07/30/20 14:15 Dose: 25 mg Documented by: Furosemide (Lasix) 20 mg IV ONETIME ONE Stop: 07/27/20 19:01 Last Admin: 07/27/20 19:54 Dose: 20 mg Documented by: Furosemide (Lasix) 20 mg IV ONETIME ONE Stop: 07/28/20 13:08 Last Admin: 07/28/20 13:42 Dose: 20 mg Documented by: Insulin Human Lispro (Humalog) 5 unit SUBCUT TIDMEALS [facility] Last Admin: 07/28/20 11:47 Dose: 5 units Documented by: Amino Ac/Protein Hydr/Whey Pro [ Liquacel Liquid Protein] 1 packet PO BID [facility] Last Admin: 07/30/20 14:22 Dose: 1 packet Documented by: Non-Formulary Medication (Brimonidine/Timolol [Combigan 0.2%/0.5% Ophth Soln]) 1 drop EYELF Q12H [facility] Last Admin: 07/28/20 00:12 Dose: Not Given Documented by: Non-Formulary Medication (Insulin Aspart [Novolog]) 1 unit SQ QID PRN PRN Reason: BLOOD SUGAR Whey Protein Isolate [Beneprotein] 6 Gram 6 gram PO BID [facility] Last Admin: 07/30/20 14:22 Dose: Not Given Documented by: Andrés (Therapeutic Nutrition Powder + Protein) 0 gram PO BID [facility] Vancomycin HCl (Vancocin 125 Mg Capsule) 125 mg PO QID [facility] Last Admin: 07/29/20 11:24 Dose: 125 mg Documented by: - Exam General: Alert, Cooperative, No Acute Distress HEENT: Mucous Membr. Moist/[place] Neck: Supple, Trachea Midline, No Thyromegaly. No: Lymphadenopathy Lungs: Clear to Auscultation, Normal Respiratory Effort Cardiovascular: Regular Rate, Regular Rhythm, No Murmurs GI/Abdominal Exam: Normal Bowel Sounds, Soft, Non-Tender, No Organomegaly, No Distention, No Mass Extremities: Non-Tender, No Pedal Edema, Normal Capillary Refill Peripheral Pulses: 2+: Radial (L), Radial (R) Skin: Warm, Dry Wound/Incisions: Healing Well, No Drainage, Erythema (surrounding the wounds, especially on the right hand) Sepsis Event Note - Evaluation Sepsis Screening Result: No Definite Risk - Focused Exam Vital Signs: Vital Signs Temp Pulse Resp BP Pulse Ox 10/10/20 07:00 36.4 C 96 16 132/61 96 - Problem List & Annotations (1) Wound cellulitis SNOMED Code(s): 696686671 Code(s): L03.90 - CELLULITIS, UNSPECIFIED Status: Acute Current Visit: Yes (2) Edema SNOMED Code(s): 528287053, 654800589 Code(s): R60.9 - EDEMA, UNSPECIFIED Status: Acute Current Visit: Yes Qualifiers: Edema type: generalized Qualified Code(s): R60.1 - Generalized edema (3) Diarrhea SNOMED Code(s): 98997223 Code(s): R19.7 - DIARRHEA, UNSPECIFIED Status: Acute Priority: Medium Current Visit: No Onset Date: ~02/28/17 Qualifiers: Diarrhea type: unspecified type Qualified Code(s): R19.7 - Diarrhea, unspecified (4) UTI (urinary tract infection) SNOMED Code(s): 25502719 Code(s): N39.0 - URINARY TRACT INFECTION, SITE NOT SPECIFIED Status: Acute Current Visit: No Qualifiers: Urinary tract infection type: acute cystitis (5) Urinary retention SNOMED Code(s): 968407102 Code(s): R33.9 - RETENTION OF URINE, UNSPECIFIED Status: Acute Current Visit: No (6) Anemia SNOMED Code(s): 481696264 Code(s): D64.9 - ANEMIA, UNSPECIFIED Status: Acute Current Visit: No Qualifiers: Anemia type: unspecified type Qualified Code(s): D64.9 - Anemia, unspecified Annotation/Comment:: - Hgb stable. (7) DM type 1 (diabetes mellitus, type 1) SNOMED Code(s): 32653052 Code(s): E10.9 - TYPE 1 DIABETES MELLITUS WITHOUT COMPLICATIONS Status: Chronic Current Visit: No Qualifiers: Diabetes mellitus complication status: with neurologic complications Diabetes mellitus complication detail: with autonomic neuropathy Qualified Code(s): E10.43 - Type 1 diabetes mellitus with diabetic autonomic (poly)neuropathy Annotation/Comment:: - Glucose on presentation acceptable after his mom gave him additional units overnight. - Labs not consistent with DKA. - Will continue levemir but at dose before increase (22 units). Mom states he gets this at 11 am. - Will do lower mealtime dosing with hold instructions. - QID glucoses. (8) Hyperlipidemia SNOMED Code(s): 17746814 Code(s): E78.5 - HYPERLIPIDEMIA, UNSPECIFIED Status: Chronic Current Visit: No (9) BPH (benign prostatic hyperplasia) SNOMED Code(s): 993679302 Code(s): N40.0 - BENIGN PROSTATIC HYPERPLASIA WITHOUT LOWER URINRY TRACT SYMP Status: Chronic Current Visit: Yes Qualifiers: Lower urinary tract symptom presence: symptoms present Lower urinary tract symptom detail: urinary retention Qualified Code(s): N40.1 - Benign prostatic hyperplasia with lower urinary tract symptoms; R33.8 - Other retention of urine (10) Hypotension SNOMED Code(s): 55623133 Code(s): I95.9 - HYPOTENSION, UNSPECIFIED Status: Chronic Current Visit: No Qualifiers: Hypotension type: idiopathic hypotension Qualified Code(s): I95.0 - Idiopathic hypotension - Problem List Review Problem List Initiated/Reviewed/Updated: Yes - Assessment Assessment:: 49 yo male admitted initially for mental status changes and leukocytosis. Now being treated for wound infections on his hands as well as a UTI and generalized swelling. Doing much better today. - Plan Plan:: #1 Wound Cellulitis - Wounds with less redness per report today. - WBC normal. - Will continue IV antibiotics today with plan to transition to oral antibiotics tomorrow. - Continue current wound cares. #2 Generalized Edema - No pitting edema noted on exam today. - Will plan to transition to oral lasix this afternoon. #3 Diarrhea - C. difficile negative. - Stools are loose but infrequent. - If ongoing, could consider addition of fiber. #4 UTI #5 Urinary retention - Continue IV antibiotics. - Urine culture positive. Will await susceptibilities but hopefully will be able to transition to oral antibiotics tomorrow. - Will leave catheter in today and tentatively plan for voiding trial tomorrow. #6 Acute on chronic anemia - S/P transfusion. - Hemoglobin stable today. - Will check every other day as per usual routine. #7 Type 1 diabetes #8 Hyperlipidemia - Glucoses have been acceptable in the setting of very brittle diabetes. - Continue current management. #9 BPH #10 Hypotension - BP's have currently been stable. - Continue home medications. Patient will remain on acute today - plan is tentatively to keep him acute over the weekend and consider swing bed next week. Detailed plans as above. Code status is full. Patient is not on any pharmacologic VTE prophylaxis given anemia requiring transfusion within the past few days.
[2020-07-31] MEDS: Furosemide 40 MG Tab PO SCH (15:31)
[2020-07-31] MEDS: Insulin Lispro 100 Units/ML 3 ML Vial SUBCUT PRN (18:02)
[2020-08-01] MEDS: Finasteride 5 MG Tab PO SCH (07:51)
[2020-08-01] MEDS: Cholecalciferol (Vitamin D3) 25 MCG Tab PO SCH (07:51)
[2020-08-01] MEDS: Cholestyramine/Sucrose Powder 4 GM Packet PO SCH (07:52)
[2020-08-01] MEDS: Furosemide 40 MG Tab PO SCH ×2 (07:52→16:22)
[2020-08-01] MEDS: Loperamide 2 MG Cap PO SCH (07:52)
[2020-08-01] MEDS: Sodium Chloride 0.9% 10 ML Syringe FLUSH PRN (07:57)
[2020-08-01] MEDS: Insulin Lispro 100 Units/ML 3 ML Vial SUBCUT SCH ×3 (07:58→17:24)
[2020-08-01] MEDS: Insulin Glarg,Human.Rec.Analog 100 Unit/ML SUBCUT SCH (07:59)
[2020-08-01] MEDS: cefTRIAXone 1 GM Vial IVPUSH SCH (08:03)
[2020-08-01] MEDS: Multivitamins with Iron/Calcium/Folic Acid/Minerals Tab PO SCH (08:03)
[2020-08-01] MEDS: Timolol Maleate 0.5% Ophth Soln 5 ML Bottle EYELF SCH ×2 (08:04→20:52)
[2020-08-01] MEDS: Brimonidine 0.2% Ophth Soln 5 ML Bottle EYELF SCH ×2 (08:04→20:52)
--- NOTE | 2020-08-01 09:00 | PCM.PN ---
- General Info Date of Service: 08/01/20 Subjective Update: 49 yo male hospital day #6 admitted with severe wounds on his hands associated with cellulitis as well as a UTI and generalized edema. Patient is resting comfortably in bed and denies concerns. He refuses to answer questions this morning. Nursing denies any overnight concerns. - Review of Systems Systems Review Comment:: unable to assess as patient refuses to answer questions today - Patient Data Vitals - Most Recent: Last Vital Signs Temp 36.3 C 07/31/20 17:48 Pulse 100 07/31/20 17:48 Resp 16 07/31/20 17:48 BP 136/76 07/31/20 17:48 Pulse Ox 99 07/31/20 17:48 Weight - Most Recent: 79.379 kg I&O - Last 24 Hours: Intake & Output 07/31/20 08/01/20 08/01/20 22:59 06:59 14:59 Intake Total 240 Output Total 450 1400 Balance -210 -1400 Nikunj Results Last 24 Hours: Microbiology 07/30/20 15:07 Urine Culture - Preliminary Urine, Bladder Gram Negative Rods Med Orders - Current: Current Medications Acetaminophen (Tylenol) 650 mg PO Q4H PRN PRN Reason: Pain (Mild 1-3)/fever Acetaminophen (Tylenol) 650 mg PO Q6H PRN PRN Reason: Headache Brimonidine Tartrate (Alphagan 0.2% Ophth Soln) 0 ml EYELF Q12H [facility] Last Admin: 08/01/20 08:04 Dose: 1 drop Documented by: Cefdinir (Omnicef) 300 mg PO BID [facility] Cholecalciferol (Vitamin D3) 25 mcg PO DAILY [facility] Last Admin: 08/01/20 07:51 Dose: 25 mcg Documented by: Cholestyramine Resin (Cholestyramine Packet) 4 gm PO WITHBREAKFAST [facility] Last Admin: 08/01/20 07:52 Dose: 4 gm Documented by: Diphenhydramine HCl (Benadryl) 25 mg PO Q4H PRN PRN Reason: Itching Finasteride (Proscar) 5 mg PO DAILY [facility] Last Admin: 08/01/20 07:51 Dose: 5 mg Documented by: Furosemide (Lasix) 40 mg PO BIDDIURETIC [facility] Last Admin: 08/01/20 07:52 Dose: 40 mg Documented by: Glucagon (Glucagen) 1 mg SUBCUT ASDIRECTED PRN PRN Reason: Hypoglycemia Heparin Sodium (Porcine) (Heparin Lock Flush 100 Units/Ml) 500 units IVPUSH ASDIRECTED PRN PRN Reason: PORT FLUSH Last Admin: 08/01/20 07:57 Dose: 500 units Documented by: Insulin Glargine (Lantus) 24 unit SUBCUT DAILY [facility] Last Admin: 08/01/20 07:59 Dose: 24 units Documented by: Insulin Human Lispro (Humalog) 1 unit SUBCUT TID PRN PRN Reason: BLOOD SUGAR Last Admin: 07/31/20 18:02 Dose: 1 units Documented by: Insulin Human Lispro (Humalog) 3 unit SUBCUT TIDMEALS [facility] Last Admin: 08/01/20 07:58 Dose: 3 units Documented by: Lactobacillus Rhamnosus (Culturelle) 1 cap PO DAILY [facility] Loperamide HCl (Imodium) 2 mg PO Q4H PRN PRN Reason: Diarrhea Loperamide HCl (Imodium) 2 mg PO DAILY [facility] Last Admin: 08/01/20 07:52 Dose: 2 mg Documented by: Multivitamins/Minerals (Thera M Plus) 1 tab PO DAILY [facility] Last Admin: 08/01/20 08:03 Dose: 1 tab Documented by: Sodium Chloride (Saline Flush) 10 ml FLUSH ASDIRECTED PRN PRN Reason: Keep Vein Open Last Admin: 08/01/20 07:57 Dose: 10 ml Documented by: Timolol Maleate (Timoptic 0.5% Ophth Soln) 0 ml EYELF Q12H [facility] Last Admin: 08/01/20 08:04 Dose: 1 drop Documented by: Discontinued Medications Ceftriaxone Sodium (Rocephin) 1 gm IVPUSH DAILY [facility] Last Admin: 08/01/20 08:03 Dose: 1 gm Documented by: Diphenhydramine HCl (Benadryl) 25 mg PO ONETIME ONE Stop: 07/30/20 13:46 Last Admin: 07/30/20 14:15 Dose: 25 mg Documented by: Furosemide (Lasix) 20 mg IV ONETIME ONE Stop: 07/27/20 19:01 Last Admin: 07/27/20 19:54 Dose: 20 mg Documented by: Furosemide (Lasix) 20 mg IV ONETIME ONE Stop: 07/28/20 13:08 Last Admin: 07/28/20 13:42 Dose: 20 mg Documented by: Furosemide (Lasix) 20 mg IV BIDDIURETIC [facility] Last Admin: 07/31/20 08:14 Dose: 20 mg Documented by: Insulin Human Lispro (Humalog) 5 unit SUBCUT TIDMEALS [facility] Last Admin: 07/28/20 11:47 Dose: 5 units Documented by: Amino Ac/Protein Hydr/Whey Pro [ Liquacel Liquid Protein] 1 packet PO BID [facility] Last Admin: 07/30/20 14:22 Dose: 1 packet Documented by: Non-Formulary Medication (Brimonidine/Timolol [Combigan 0.2%/0.5% Ophth Soln]) 1 drop EYELF Q12H [facility] Last Admin: 07/28/20 00:12 Dose: Not Given Documented by: Non-Formulary Medication (Insulin Aspart [Novolog]) 1 unit SQ QID PRN PRN Reason: BLOOD SUGAR Whey Protein Isolate [Beneprotein] 6 Gram 6 gram PO BID [facility] Last Admin: 07/30/20 14:22 Dose: Not Given Documented by: Andrés (Therapeutic Nutrition Powder + Protein) 0 gram PO BID [facility] Vancomycin HCl (Vancocin 125 Mg Capsule) 125 mg PO QID [facility] Last Admin: 07/29/20 11:24 Dose: 125 mg Documented by: - Exam General: No Acute Distress, Other (resting comfortably in bed but does alert to voice) HEENT: Mucous Membr. Moist/Petrey Neck: Supple, Trachea Midline, No Thyromegaly. No: Lymphadenopathy Lungs: Clear to Auscultation, Normal Respiratory Effort Cardiovascular: Regular Rate, Regular Rhythm, No Murmurs GI/Abdominal Exam: Normal Bowel Sounds, Soft, Non-Tender, No Organomegaly, No Distention, No Mass Extremities: Non-Tender, No Pedal Edema, Normal Capillary Refill Peripheral Pulses: 2+: Radial (L), Radial (R) Skin: Warm, Dry Wound/Incisions: Dressing Dry and Intact Sepsis Event Note - Evaluation Sepsis Screening Result: No Definite Risk - Problem List & Annotations (1) Wound cellulitis SNOMED Code(s): 295291273 Code(s): L03.90 - CELLULITIS, UNSPECIFIED Status: Acute Current Visit: Yes (2) Edema SNOMED Code(s): 373142334, 594091002 Code(s): R60.9 - EDEMA, UNSPECIFIED Status: Acute Current Visit: Yes Qualifiers: Edema type: generalized Qualified Code(s): R60.1 - Generalized edema (3) Diarrhea SNOMED Code(s): 70081470 Code(s): R19.7 - DIARRHEA, UNSPECIFIED Status: Acute Priority: Medium Current Visit: No Onset Date: ~02/28/17 Qualifiers: Diarrhea type: unspecified type Qualified Code(s): R19.7 - Diarrhea, unspecified (4) UTI (urinary tract infection) SNOMED Code(s): 00370446 Code(s): N39.0 - URINARY TRACT INFECTION, SITE NOT SPECIFIED Status: Acute Current Visit: No Qualifiers: Urinary tract infection type: acute cystitis (5) Urinary retention SNOMED Code(s): 920901006 Code(s): R33.9 - RETENTION OF URINE, UNSPECIFIED Status: Acute Current Visit: No (6) Anemia SNOMED Code(s): 378652254 Code(s): D64.9 - ANEMIA, UNSPECIFIED Status: Acute Current Visit: No Qualifiers: Anemia type: unspecified type Qualified Code(s): D64.9 - Anemia, unspecified Annotation/Comment:: - Hgb stable. (7) DM type 1 (diabetes mellitus, type 1) SNOMED Code(s): 94378962 Code(s): E10.9 - TYPE 1 DIABETES MELLITUS WITHOUT COMPLICATIONS Status: Chronic Current Visit: No Qualifiers: Diabetes mellitus complication status: with neurologic complications Diabetes mellitus complication detail: with autonomic neuropathy Qualified Code(s): E10.43 - Type 1 diabetes mellitus with diabetic autonomic (poly)neuropathy Annotation/Comment:: - Glucose on presentation acceptable after his mom gave him additional units overnight. - Labs not consistent with DKA. - Will continue levemir but at dose before increase (22 units). Mom states he gets this at 11 am. - Will do lower mealtime dosing with hold instructions. - QID glucoses. (8) Hyperlipidemia SNOMED Code(s): 14598277 Code(s): E78.5 - HYPERLIPIDEMIA, UNSPECIFIED Status: Chronic Current Visit: No (9) BPH (benign prostatic hyperplasia) SNOMED Code(s): 543781088 Code(s): N40.0 - BENIGN PROSTATIC HYPERPLASIA WITHOUT LOWER URINRY TRACT SYMP Status: Chronic Current Visit: Yes Qualifiers: Lower urinary tract symptom presence: symptoms present Lower urinary tract symptom detail: urinary retention Qualified Code(s): N40.1 - Benign prostatic hyperplasia with lower urinary tract symptoms; R33.8 - Other retention of urine (10) Hypotension SNOMED Code(s): 84188420 Code(s): I95.9 - HYPOTENSION, UNSPECIFIED Status: Chronic Current Visit: No Qualifiers: Hypotension type: idiopathic hypotension Qualified Code(s): I95.0 - Idiopathic hypotension - Problem List Review Problem List Initiated/Reviewed/Updated: Yes - My Orders Last 24 Hours: My Active Orders 07/31/20 16:00 Furosemide [Lasix] 40 mg PO BIDDIURETIC 08/01/20 09:00 Lactobacillus Rhamnosus GG [Culturelle] 1 cap PO DAILY 08/01/20 20:00 Cefdinir [Omnicef] 300 mg PO BID 08/02/20 05:11 BASIC METABOLIC PANEL,BMP [CHEM] Routine CBC WITH AUTO DIFF [HEME] Routine - Assessment Assessment:: 49 yo male admitted initially for mental status changes and leukocytosis. Now being treated for wound infections on his hands as well as a UTI and generalized swelling. Continues to improve but is not ready for d/c home yet. - Plan Plan:: #1 Wound Cellulitis - Has been afebrile. - Given improvement even yesterday, will plan to switch to cefdinir today. - Would do the shortest duration possible given ongoing issues with diarrhea. PCP to determine this tomorrow. - Continue current wound cares. #2 Generalized Edema - No pitting edema noted on exam today. - No issues with transition to PO lasix yesterday. Therefore, will continue today. - Labs planned for tomorrow. #3 Diarrhea - C. difficile negative. - Stools remain loose. - Per nurse report, patient does worse with yogurt than without. Therefore, will add a probiotic instead. #4 UTI #5 Urinary retention - Transitioning to PO cefdinir today. - Urine culture positive. Susceptibilities pending. - Will d/c catheter in today and proceed with voiding trial. #6 Acute on chronic anemia - S/P transfusion. - Hemoglobin stable yesterday. - Will recheck tomorrow. #7 Type 1 diabetes #8 Hyperlipidemia - Glucoses have been acceptable in the setting of very brittle diabetes. - Continue current management. #9 BPH #10 Hypotension - BP's have currently been stable. - Continue home medications. Patient will remain on acute today - plan is tentatively to keep him acute over the weekend and consider swing bed next week. Detailed plans as above. Code status is full. Patient is not on any pharmacologic VTE prophylaxis given anemia requiring transfusion within the past few days.
[2020-08-01] MEDS: Lactobacillus Rhamnosus GG (Probiotic) Cap PO SCH (11:34)
[2020-08-01] MEDS: Cefdinir 300 MG Cap PO SCH (21:38)
[2020-08-02] MEDS: Insulin Glarg,Human.Rec.Analog 100 Unit/ML SUBCUT SCH (07:57)
[2020-08-02] MEDS: Insulin Lispro 100 Units/ML 3 ML Vial SUBCUT SCH (07:57)
[2020-08-02] MEDS: Cefdinir 300 MG Cap PO SCH (08:00)
[2020-08-02] MEDS: Loperamide 2 MG Cap PO SCH (08:00)
[2020-08-02] MEDS: Cholestyramine/Sucrose Powder 4 GM Packet PO SCH (08:01)
[2020-08-02] MEDS: Lactobacillus Rhamnosus GG (Probiotic) Cap PO SCH (08:01)
[2020-08-02] MEDS: Multivitamins with Iron/Calcium/Folic Acid/Minerals Tab PO SCH (08:01)
[2020-08-02] MEDS: Furosemide 40 MG Tab PO SCH (08:01)
[2020-08-02] MEDS: Cholecalciferol (Vitamin D3) 25 MCG Tab PO SCH (08:01)
[2020-08-02] MEDS: Finasteride 5 MG Tab PO SCH (08:01)
[2020-08-02] MEDS: Timolol Maleate 0.5% Ophth Soln 5 ML Bottle EYELF SCH (08:04)
[2020-08-02] MEDS: Brimonidine 0.2% Ophth Soln 5 ML Bottle EYELF SCH (08:04)
[2020-08-02 08:18] LABS: ANION GAP 10.5 mmol/L (10-20); CHLORIDE,CL 103 mmol/L (98-107); SODIUM,NA 137 mmol/L (136-145)
[2020-08-02 10:29] VITALS: BP 98/54; PULSE 85
[2020-08-02] MEDS ORDERED: TIMOLOL MALEATE 0.5% EYELF SCH (11:00)
[2020-08-02] MEDS ORDERED: BRIMONIDINE 0.2% EYELF SCH (11:00)
[2020-08-02] MEDS ORDERED: INSULIN LISPRO 100 UNIT/ML SUBCUT PRN (11:01)
[2020-08-02] MEDS ORDERED: INSULIN LISPRO 100 UNIT/ML SUBCUT SCH (12:00)
[2020-08-02] MEDS ORDERED: Furosemide 40 MG Tab (OWN SUPPLY) PO SCH (16:00)
--- NOTE | 2020-08-02 22:25 | DISCH ---
PRIMARY DISCHARGE DIAGNOSES: 1. Anasarca with edema. The patient has lost over 20 pounds of fluid weight since admission. 2. Elevated blood pressures due to edema, resolved. 3. Multiple wounds on his hand, elbow, and shins with a skin and soft tissue infection or cellulitis of that left hand wound, improving with intravenous antibiotics. 4. Diarrhea, longstanding problem. 5. Inflammation, on colonoscopy, but biopsies okay. Negative for Clostridium difficile with continued episodes of diarrhea despite Questran and Imodium. 6. Chronic anemia status post 1 unit of packed red blood cells. Hemoccult testing on this admission though was negative. Possibly some anemia of chronic disease. Also, ferritin 232, but his ESR was 124, so inflammatory markers are elevated. 7. Uncontrolled diabetes with some hypoglycemia down into the 40s, improved after adjusted insulin doses, now with hyperglycemia due to eating more. 8. History of autonomic dysfunction with hypotension. He has not been hypotensive. 9. Benign prostatic hyperplasia, on Proscar. 10.Leukocytosis due to infection, resolved. 11.Cognitive impairment due to his severe hypoglycemic reaction. Currently, doing well and cooperative, allowing lab draws and not having any behaviors. REASON FOR ADMISSION: On the date of admission, this 49-year-old male came to the clinic with his mom. He had been in the ER on the and found to have a hemoglobin of just 7. He was also very sleepy and had been on Benadryl. He was admitted to the hospital for further cares. His hand wound initially looked better. However, he kept removing the dressing. He got some feces in there, and ultimately he had to be started on IV Zosyn on the and switched over to oral antibiotics yesterday of cefdinir. He also had massive edema again and resolved with IV Lasix and now is getting oral Lasix. Lab work has been excellent. He remained afebrile, but initially had a white count of 16.4. Therefore, was started on oral vancomycin while awaiting his C. diff test since he had just finished the Augmentin. His C diff came back negative. Overall, he was denying pain. He was asking for some more food to eat. We made insulin adjustments, so his blood sugars were under better control. He also had some urinary retention and a catheter was placed. It was discontinued yesterday and he is voiding okay. He had diarrhea again last night, but so far none today. Otherwise, the patient was seen by Physical Therapy and did not feel he needed skilled therapy. However, given his 12 wounds and needing wound cares daily because of him taking the dressing off and his uncontrolled diabetes and multiple medical problems, it was decided that he would be admitted for swing bed to allow further wound healing and follow up with the wound clinic later this week by Karol. PHYSICAL EXAMINATION: Discharging Vitals: Included weight 76.8 kg, temperature 96.9, pulse 97, blood pressure 132/72, respiratory rate 18, O2, he has been 98% on room air. General: He is in no acute distress. Heart: Regular rate and rhythm. S1, S2 without murmur. Lungs: Sounds are clear to auscultation bilaterally without crackles or wheezes. Abdomen: Has positive bowel sounds. It is soft, nondistended, nontender. Extremities: Warm and dry. He has no edema in his calf like he did on admission, but he still has 2+ edema in both feet. Mental Status: He is alert. He is oriented x3. He is answering questions. Extremities: The hand wounds are examined. There is no edema. There is no surrounding redness or warmth. There is no tenderness or drainage. He has the wound on the metatarsals on the left hand and on his phalanxes on the right hand. DISCHARGE PLANS AND INSTRUCTIONS: The patient is going over to swing bed. We will get OT involved for some white gloves on his hand per the Wound Clinic recommendations. We will continue the extensive list of wound cares, which I have supplied the nurses from the Wound Clinic. We will continue with his Dexcom sensor. We will continue insulin. No lab work due, but will likely repeat again in a few days. His hemoglobin was up to 8.4 on discharge. His kidney function and electrolytes looked excellent. His blood sugars have all been in the 100 to 240 range. Greater than 30 minutes spent on this discharge process. MKA: 08/02/2020 16:54:28 MODL: 08/02/2020 22:17:02 /[id number]
[2020-08-03] MEDS ORDERED: CHOLESTYRAMINE PO SCH (08:00)
[2020-08-03] MEDS ORDERED: INSULIN GLARG HUMAN REC ANALOG 100 UNIT/ML SUBCUT SCH (08:00)
[2020-08-03] MEDS ORDERED: SUCROSE PO SCH (08:00)
== END 2020-08-02 11:00 | disposition swing bed (61) | DRG 812 ==
LOC: VM.MS 13:03 → OBSVTOIN 07-28 13:03
PROVIDERS: ADMIT Internal Medicine; ATTEND Internal Medicine
PROC: 30233N1 Transfusion of Nonautologous Red Blood Cells into Peripheral Vein, Percutaneous Approach (ICD-10-PCS; principal; 2020-07-28)
DX: D64.9 Anemia, unspecified (principal); E46 Unspecified protein-calorie malnutrition; L03.114 Cellulitis of left upper limb; D72.829 Elevated white blood cell count, unspecified; R19.7 Diarrhea, unspecified; E10.65 Type 1 diabetes mellitus with hyperglycemia; N40.1 Benign prostatic hyperplasia with lower urinary tract symptoms; R33.8 Other retention of urine; K52.9 Noninfective gastroenteritis and colitis, unspecified; Z88.1 Allergy status to other antibiotic agents; G31.84 Mild cognitive impairment of uncertain or unknown etiology; E10.649 Type 1 diabetes mellitus with hypoglycemia without coma; S61.402A Unspecified open wound of left hand, initial encounter; R60.1 Generalized edema; E78.5 Hyperlipidemia, unspecified; E78.1 Pure hyperglyceridemia; E10.51 Type 1 diabetes mellitus with diabetic peripheral angiopathy without gangrene; S51.002A Unspecified open wound of left elbow, initial encounter; S81.802A Unspecified open wound, left lower leg, initial encounter; Z88.8 Allergy status to other drugs, medicaments and biological substances; Z79.899 Other long term (current) drug therapy; Z79.4 Long term (current) use of insulin; Z87.891 Personal history of nicotine dependence; Z93.0 Tracheostomy status; Z95.828 Presence of other vascular implants and grafts; Z68.23 Body mass index [BMI] 23.0-23.9, adult
CPT/HCPCS: 36415; 36430; 51702; 80048; 80053; 81001; 82274; 82570; 82728; 82962; 84156; 85025; 85652; 86140; 86850; 86900; 86901; 86920; 86922; 87086; 87088; 87186; 87324; 87493; 96374; 96375; 96376; 97161-GP; A9270-GY; G0378; G0379; J0696; J1642; J1815-GY; J1940; P9016

== ENCOUNTER 2020-08-02 11:02 | Inpatient (IN) | payer MEDICARE, MEDICAID ==
[2020-08-02] MEDS ORDERED: Acetaminophen 325 MG Tab PO PRN ×2 (11:08)
[2020-08-02] MEDS: INSULIN LISPRO 100 UNIT/ML SUBCUT SCH ×2 (13:16→17:37)
[2020-08-02] MEDS ORDERED: Furosemide 40 MG Tab (OWN SUPPLY) PO SCH (16:00)
[2020-08-02] MEDS: CEFDINIR 300 MG PO SCH (20:03)
[2020-08-02] MEDS: Ascorbic Acid 500 MG Tab PO SCH (20:05)
[2020-08-03] MEDS: TIMOLOL MALEATE 0.5% EYELF SCH ×2 (00:22→12:25)
[2020-08-03] MEDS: BRIMONIDINE 0.2% EYELF SCH ×2 (00:22→12:25)
[2020-08-03] MEDS: CHOLESTYRAMINE PO SCH (08:30)
[2020-08-03] MEDS: CEFDINIR 300 MG PO SCH ×2 (08:30→19:30)
[2020-08-03] MEDS: SUCROSE PO SCH (08:30)
[2020-08-03] MEDS: FINASTERIDE 5 MG PO SCH (08:31)
[2020-08-03] MEDS: INSULIN GLARG HUMAN REC ANALOG 100 UNIT/ML SUBCUT SCH (08:31)
[2020-08-03] MEDS: Lactobacillus Rhamnosus GG (Probiotic) Cap PO SCH (08:32)
[2020-08-03] MEDS: Loperamide 2 MG Cap PO SCH (08:33)
[2020-08-03] MEDS: Zinc (Zinc Gluconate) 50 MG Tab PO SCH (08:33)
[2020-08-03] MEDS: Multivitamins with Iron/Calcium/Folic Acid/Minerals Tab PO SCH (08:33)
[2020-08-03] MEDS: Cholecalciferol (Vitamin D3) 25 MCG Tab PO SCH (08:33)
[2020-08-03] MEDS: Ascorbic Acid 500 MG Tab PO SCH ×2 (08:33→19:29)
[2020-08-03] MEDS: INSULIN LISPRO 100 UNIT/ML SUBCUT SCH ×3 (08:33→17:52)
[2020-08-04] MEDS: BRIMONIDINE 0.2% EYELF SCH ×2 (02:29→11:25)
[2020-08-04] MEDS: TIMOLOL MALEATE 0.5% EYELF SCH ×2 (02:29→11:24)
[2020-08-04] MEDS: INSULIN LISPRO 100 UNIT/ML SUBCUT SCH ×3 (08:59→18:14)
[2020-08-04] MEDS: INSULIN LISPRO 100 UNIT/ML SUBCUT PRN ×2 (09:01→12:35)
[2020-08-04] MEDS: CHOLESTYRAMINE PO SCH (09:03)
[2020-08-04] MEDS: SUCROSE PO SCH (09:03)
[2020-08-04] MEDS: INSULIN GLARG HUMAN REC ANALOG 100 UNIT/ML SUBCUT SCH (09:04)
[2020-08-04] MEDS: Multivitamins with Iron/Calcium/Folic Acid/Minerals Tab PO SCH (09:06)
[2020-08-04] MEDS: Ascorbic Acid 500 MG Tab PO SCH ×2 (09:06→21:09)
[2020-08-04] MEDS: Cholecalciferol (Vitamin D3) 25 MCG Tab PO SCH (09:06)
[2020-08-04] MEDS: Loperamide 2 MG Cap PO SCH (09:06)
[2020-08-04] MEDS: Zinc (Zinc Gluconate) 50 MG Tab PO SCH (09:06)
[2020-08-04] MEDS: Lactobacillus Rhamnosus GG (Probiotic) Cap PO SCH (09:06)
[2020-08-04] MEDS: FINASTERIDE 5 MG PO SCH (09:07)
[2020-08-04] MEDS: CEFDINIR 300 MG PO SCH (09:19)
[2020-08-05] MEDS: TIMOLOL MALEATE 0.5% EYELF SCH ×3 (02:35→22:39)
[2020-08-05] MEDS: BRIMONIDINE 0.2% EYELF SCH ×3 (02:35→22:39)
[2020-08-05] MEDS: INSULIN GLARG HUMAN REC ANALOG 100 UNIT/ML SUBCUT SCH (07:41)
[2020-08-05] MEDS: INSULIN LISPRO 100 UNIT/ML SUBCUT SCH ×3 (07:42→18:18)
[2020-08-05] MEDS: Loperamide 2 MG Cap PO SCH (07:44)
[2020-08-05] MEDS: Lactobacillus Rhamnosus GG (Probiotic) Cap PO SCH (07:44)
[2020-08-05] MEDS: Cholecalciferol (Vitamin D3) 25 MCG Tab PO SCH (07:44)
[2020-08-05] MEDS: Zinc (Zinc Gluconate) 50 MG Tab PO SCH (07:44)
[2020-08-05] MEDS: Ascorbic Acid 500 MG Tab PO SCH ×2 (07:44→19:55)
[2020-08-05] MEDS: Multivitamins with Iron/Calcium/Folic Acid/Minerals Tab PO SCH (07:44)
[2020-08-05] MEDS: SUCROSE PO SCH (07:45)
[2020-08-05] MEDS: CHOLESTYRAMINE PO SCH (07:45)
[2020-08-05] MEDS: FINASTERIDE 5 MG PO SCH (07:48)
--- NOTE | 2020-08-05 10:38 | PN ---
Progress Note for LOYD GRIJALVA Date: 08/05/2020 Room #: VM.214 SUBJECTIVE: This is a 49-year-old on swing bed for wound cares and incontinence of bowel and bladder. Last night, he was very resistant to cares and he was saturated with his brief. He only let them help him this morning when breakfast came. He is quite angry that he is still here. He wants to go home. He does not like it here. His wound cares though overall do seem to be improving. He has not had any redness. No drainage. No fevers. He denies pain in them and he is off antibiotics. He is using the Dexcom now and his blood sugars have been high yesterday morning, but went down overnight, currently around 180. OBJECTIVE: Vital Signs: Temperature 98.2, pulse 102, blood pressure 191/54, respiratory rate 17, O2 of 99 on room air. General: He is in no acute distress. Heart: Regular rate and rhythm. S1, S2 without murmur. Lungs: Sounds are clear to auscultation bilaterally without crackles or wheezes. Extremities: The right elbow wound is dry. It is closing in. Recommended putting some padding on it. The hand wounds, 2 of the areas that were once open are now healed over on the right hand. There is no drainage, no swelling. The left atkinson wound is also smaller, but there is some drainage, needs to be cleaned up today, but no sign of infection. He still has 1+ edema to his feet. ASSESSMENT AND PLAN: 1. Multiple wounds requiring wound care. Wound dressing will be changed today. 2. Behavior disorder with history of cognitive impairment due to severe hypoglycemic reaction. Try to redirect the patient today, but he has at times pushed things or swung at staff. We will discuss with his family considerations for trying a small dose of Seroquel to help with restlessness. 3. Anasarca and edema, improving. 4. Diarrhea and incontinence. He has an appointment with GI next week. He has had extensive workup here already. He is on Imodium and Questran. 5. Urinary incontinence, almost certainly due to overflow incontinence. He has a known history of retention. He is seeing a specialist for consideration of a sacral nerve stimulator next week. He is on Proscar. 6. Chronic anemia. He has not required any further transfusion. 7. Uncontrolled diabetes. He is on his Dexcom. He is on insulin. Blood sugars have improved. 8. History of autonomic dysfunction and hypotension. He seems to be tolerating Lasix once daily currently. 9. Cellulitis due to skin and soft tissue infections from his wound, resolved. He has completed antibiotics. 10.Cognitive impairment. PLAN: The patient will continue swing bed cares. He has a GI and Surgery appointment on 08/09 which his mother is going to take him to. Did instruct him his wounds are moving in the right direction and he will very likely be able to return to home with his mother once healed hopefully in the next couple weeks. We will repeat lab work next Sunday. MKA: 08/05/2020 09:56:23 MODL: 08/05/2020 10:30:07 /[id number] BRENT
[2020-08-05] MEDS: INSULIN LISPRO 100 UNIT/ML SUBCUT PRN (18:18)
[2020-08-05] MEDS: QUEtiapine 25 MG Tab PO PRN (19:55)
[2020-08-06] MEDS: FINASTERIDE 5 MG PO SCH (07:37)
[2020-08-06] MEDS: Loperamide 2 MG Cap PO SCH (07:37)
[2020-08-06] MEDS: Lactobacillus Rhamnosus GG (Probiotic) Cap PO SCH (07:37)
[2020-08-06] MEDS: Cholecalciferol (Vitamin D3) 25 MCG Tab PO SCH (07:37)
[2020-08-06] MEDS: Multivitamins with Iron/Calcium/Folic Acid/Minerals Tab PO SCH (07:37)
[2020-08-06] MEDS: Ascorbic Acid 500 MG Tab PO SCH ×2 (07:37→20:52)
[2020-08-06] MEDS: Zinc (Zinc Gluconate) 50 MG Tab PO SCH (07:37)
[2020-08-06] MEDS: CHOLESTYRAMINE PO SCH (07:38)
[2020-08-06] MEDS: SUCROSE PO SCH (07:38)
[2020-08-06] MEDS: INSULIN LISPRO 100 UNIT/ML SUBCUT SCH ×3 (08:45→17:41)
[2020-08-06] MEDS: INSULIN GLARG HUMAN REC ANALOG 100 UNIT/ML SUBCUT SCH (08:45)
[2020-08-06] MEDS: BRIMONIDINE 0.2% EYELF SCH ×2 (11:20→22:53)
[2020-08-06] MEDS: TIMOLOL MALEATE 0.5% EYELF SCH ×2 (11:20→22:53)
[2020-08-06] MEDS: INSULIN LISPRO 100 UNIT/ML SUBCUT PRN ×2 (12:59→17:42)
[2020-08-07] MEDS: INSULIN GLARG HUMAN REC ANALOG 100 UNIT/ML SUBCUT SCH (08:10)
[2020-08-07] MEDS: INSULIN LISPRO 100 UNIT/ML SUBCUT SCH ×3 (08:12→17:44)
[2020-08-07] MEDS: SUCROSE PO SCH (08:13)
[2020-08-07] MEDS: CHOLESTYRAMINE PO SCH (08:13)
[2020-08-07] MEDS: Lactobacillus Rhamnosus GG (Probiotic) Cap PO SCH (08:13)
[2020-08-07] MEDS: FINASTERIDE 5 MG PO SCH (08:13)
[2020-08-07] MEDS: Multivitamins with Iron/Calcium/Folic Acid/Minerals Tab PO SCH (08:14)
[2020-08-07] MEDS: Ascorbic Acid 500 MG Tab PO SCH ×2 (08:14→21:01)
[2020-08-07] MEDS: Zinc (Zinc Gluconate) 50 MG Tab PO SCH (08:14)
[2020-08-07] MEDS: Loperamide 2 MG Cap PO SCH (08:14)
[2020-08-07] MEDS: Cholecalciferol (Vitamin D3) 25 MCG Tab PO SCH (08:14)
[2020-08-07] MEDS: BRIMONIDINE 0.2% EYELF SCH (10:32)
[2020-08-07] MEDS: TIMOLOL MALEATE 0.5% EYELF SCH (10:33)
[2020-08-07] MEDS: diphenhydrAMINE 25 MG Cap PO PRN (21:01)
[2020-08-08] MEDS: BRIMONIDINE 0.2% EYELF SCH ×2 (00:13→11:57)
[2020-08-08] MEDS: TIMOLOL MALEATE 0.5% EYELF SCH ×2 (00:14→11:57)
[2020-08-08] MEDS: diphenhydrAMINE 25 MG Cap PO PRN ×2 (01:54→20:33)
[2020-08-08] MEDS: INSULIN GLARG HUMAN REC ANALOG 100 UNIT/ML SUBCUT SCH (08:12)
[2020-08-08] MEDS: CHOLESTYRAMINE PO SCH (08:12)
[2020-08-08] MEDS: SUCROSE PO SCH (08:12)
[2020-08-08] MEDS: INSULIN LISPRO 100 UNIT/ML SUBCUT SCH ×3 (08:13→18:03)
[2020-08-08] MEDS: Loperamide 2 MG Cap PO SCH (08:14)
[2020-08-08] MEDS: Lactobacillus Rhamnosus GG (Probiotic) Cap PO SCH (08:14)
[2020-08-08] MEDS: Multivitamins with Iron/Calcium/Folic Acid/Minerals Tab PO SCH (08:14)
[2020-08-08] MEDS: Zinc (Zinc Gluconate) 50 MG Tab PO SCH (08:14)
[2020-08-08] MEDS: Ascorbic Acid 500 MG Tab PO SCH ×2 (08:14→20:33)
[2020-08-08] MEDS: Cholecalciferol (Vitamin D3) 25 MCG Tab PO SCH (08:14)
[2020-08-08] MEDS: FINASTERIDE 5 MG PO SCH (08:15)
[2020-08-08] MEDS: INSULIN LISPRO 100 UNIT/ML SUBCUT PRN ×2 (12:30→18:02)
[2020-08-08] MEDS: Loperamide 2 MG Cap PO PRN ×2 (15:21→20:34)
[2020-08-09] MEDS: BRIMONIDINE 0.2% EYELF SCH ×3 (01:17→22:47)
[2020-08-09] MEDS: TIMOLOL MALEATE 0.5% EYELF SCH ×3 (01:17→22:47)
[2020-08-09] MEDS: SUCROSE PO SCH (07:46)
[2020-08-09] MEDS: CHOLESTYRAMINE PO SCH (07:46)
[2020-08-09] MEDS: FINASTERIDE 5 MG PO SCH (07:47)
[2020-08-09] MEDS: INSULIN LISPRO 100 UNIT/ML SUBCUT SCH ×3 (07:47→18:09)
[2020-08-09] MEDS: INSULIN GLARG HUMAN REC ANALOG 100 UNIT/ML SUBCUT SCH (07:48)
[2020-08-09] MEDS: Multivitamins with Iron/Calcium/Folic Acid/Minerals Tab PO SCH (07:48)
[2020-08-09] MEDS: Zinc (Zinc Gluconate) 50 MG Tab PO SCH (07:49)
[2020-08-09] MEDS: Lactobacillus Rhamnosus GG (Probiotic) Cap PO SCH (07:49)
[2020-08-09] MEDS: Ascorbic Acid 500 MG Tab PO SCH ×2 (07:49→21:03)
[2020-08-09] MEDS: Cholecalciferol (Vitamin D3) 25 MCG Tab PO SCH (07:49)
[2020-08-09] MEDS: Loperamide 2 MG Cap PO SCH (07:49)
[2020-08-09] MEDS: diphenhydrAMINE 25 MG Cap PO PRN (21:03)
[2020-08-09] MEDS: QUEtiapine 25 MG Tab PO PRN (21:04)
[2020-08-10] MEDS: Zinc (Zinc Gluconate) 50 MG Tab PO SCH (08:24)
[2020-08-10] MEDS: FINASTERIDE 5 MG PO SCH (08:25)
[2020-08-10] MEDS: Lactobacillus Rhamnosus GG (Probiotic) Cap PO SCH (08:25)
[2020-08-10] MEDS: INSULIN GLARG HUMAN REC ANALOG 100 UNIT/ML SUBCUT SCH (08:25)
[2020-08-10] MEDS: Multivitamins with Iron/Calcium/Folic Acid/Minerals Tab PO SCH (08:25)
[2020-08-10] MEDS: Loperamide 2 MG Cap PO SCH (08:25)
[2020-08-10] MEDS: Ascorbic Acid 500 MG Tab PO SCH ×2 (08:25→19:27)
[2020-08-10] MEDS: Cholecalciferol (Vitamin D3) 25 MCG Tab PO SCH (08:25)
[2020-08-10] MEDS: INSULIN LISPRO 100 UNIT/ML SUBCUT SCH ×3 (08:26→18:25)
[2020-08-10] MEDS: SUCROSE PO SCH ×2 (08:26→19:28)
[2020-08-10] MEDS: CHOLESTYRAMINE PO SCH ×2 (08:26→19:28)
[2020-08-10] MEDS: TIMOLOL MALEATE 0.5% EYELF SCH ×2 (12:43→19:28)
[2020-08-10] MEDS: BRIMONIDINE 0.2% EYELF SCH ×2 (12:43→19:28)
[2020-08-10] MEDS: INSULIN LISPRO 100 UNIT/ML SUBCUT PRN ×2 (12:44→18:26)
--- NOTE | 2020-08-10 16:58 | PN ---
Progress Note for LOYD GRIJALVA Date: 08/09/2020 Room #: VM.214 SUBJECTIVE: This is a 49-year-old who continues to have loose stools including 2 overnight and 2 yesterday and then 7 recorded the day before. It is like undigested food in water after eating. The patient denies any abdominal pain. He has been afebrile. He has had extensive workup in the past with friable mucosa. No blood in his stool. His last hemoglobin was up to 8.4. He has not had any cough. No trouble breathing. OBJECTIVE: Vital Signs: His temperature is 98.2, pulse 102, blood pressure 91/54, respiratory rate 17, and O2 of 99% on room air. General: He is in no acute distress. Heart: Regular rate and rhythm. S1 and S2, without murmur. Lungs: Lungs sounds are clear to auscultation bilaterally without crackles or wheezes. Extremities: Warm and dry. He still has some trace edema to his ankles. His hand wounds are examined. They are getting smaller. There is no sign of infection. He is off antibiotics. ASSESSMENT: 1. Diarrhea, ongoing. We tried to get a GI visit. Arranged video visit as his mom was unable to take him. Unfortunately, it did not work out, and recommendations were made to increase his Questran to twice daily. If this does not help, we will get a CT of the abdomen and consider a trial of budesonide in case he has some microscopic colitis. We will avoid all NSAIDs. 2. Uncontrolled type 1 diabetes. His blood sugars have been under better control. He has not had any recent lows. 3. Malnutrition, probably due to poor absorption. We have increased the protein in his diet. 4. Anemia. We will check some lab work this week for hemoglobin. 5. Multiple hand wounds. We will try to arrange a Zoom visit with the wound clinic this week. 6. Behavior disorder. He has some Seroquel at bedtime p.r.n. Considerations are being considered for medications for pseudobulbar given the noises that he makes. So far, we have not started that. 7. Urinary incontinence, likely due to overflow. Catheter is now out. 8. History of autonomic dysfunction and hypotension. 9. Edema with anasarca. He is on Lasix. 10.Cellulitis due to skin and soft tissue infection from wounds, resolved. 11.Cognitive impairment. PLAN: The patient will continue swing bed cares. We will increase his Questran to see if it helps. We will consider a CT and even budesonide per GI recommendations, although they were not able to see the patient. MKA: 08/10/2020 16:42:39 MODL: 08/10/2020 16:55:47 /[id number]
[2020-08-10] MEDS: QUEtiapine 25 MG Tab PO PRN (19:27)
[2020-08-10] MEDS: diphenhydrAMINE 25 MG Cap PO PRN (19:27)
[2020-08-10] MEDS: Loperamide 2 MG Cap PO PRN (19:27)
[2020-08-10] MEDS: Cholestyramine/Sucrose Powder 4 GM Packet PO SCH (19:29)
[2020-08-11] MEDS: BRIMONIDINE 0.2% EYELF SCH ×3 (02:16→22:58)
[2020-08-11] MEDS: TIMOLOL MALEATE 0.5% EYELF SCH ×3 (02:17→22:58)
[2020-08-11] MEDS: Ascorbic Acid 500 MG Tab PO SCH ×2 (08:17→20:57)
[2020-08-11] MEDS: Zinc (Zinc Gluconate) 50 MG Tab PO SCH (08:17)
[2020-08-11] MEDS: Cholecalciferol (Vitamin D3) 25 MCG Tab PO SCH (08:17)
[2020-08-11] MEDS: Multivitamins with Iron/Calcium/Folic Acid/Minerals Tab PO SCH (08:17)
[2020-08-11] MEDS: Lactobacillus Rhamnosus GG (Probiotic) Cap PO SCH (08:17)
[2020-08-11] MEDS: Loperamide 2 MG Cap PO SCH (08:17)
[2020-08-11] MEDS: FINASTERIDE 5 MG PO SCH (08:18)
[2020-08-11] MEDS: INSULIN LISPRO 100 UNIT/ML SUBCUT SCH ×3 (08:20→18:29)
[2020-08-11] MEDS: INSULIN GLARG HUMAN REC ANALOG 100 UNIT/ML SUBCUT SCH (08:22)
[2020-08-11] MEDS: Cholestyramine/Sucrose Powder 4 GM Packet PO SCH ×2 (08:24→18:28)
[2020-08-11] MEDS: INSULIN LISPRO 100 UNIT/ML SUBCUT PRN (12:15)
[2020-08-11 13:30] LABS: CHLORIDE,CL 107 mmol/L (98-107); SODIUM,NA 138 mmol/L (136-145)
[2020-08-11 13:44] LABS: ANION GAP 14.7 mmol/L (10-20)
--- NOTE | 2020-08-11 19:48 | PN ---
Progress Note for LOYD GRIJALVA Date: 08/11/2020 Room #: VM.214 SUBJECTIVE: This is a 49-year-old on swing bed for continued wound cares and for fecal incontinence with diarrhea. On Sunday, we visited with the GI specialist, but Loyd was unable to connect on a video visit. I increased his Questran to twice daily. He had no bowel movements during the day, but was incontinent overnight. Stools continue to be loose, but staff report today he was able to get to the bathroom. He did finally agree to allow lab work when he was allowed to get an extra chocolate pudding and a diet Mountain Dew. He asked for more food frequently. He is eating 100% of his meals. He is not having any trouble breathing. He did punch at the wall today and had some bleeding of his hand wounds. Otherwise, the wounds did appear to be improving. He has not had any fever, chills. OBJECTIVE: Vital Signs: His temperature is 97.3, pulse 90, blood pressure 135/82, respiratory rate 16, and O2 of 100% on room air. Weight is 79.8 kg. General: He is in no acute distress. Heart: Regular rate and rhythm. S1, S2 without murmur. Lungs: Sounds are clear to auscultation bilaterally without crackles or wheezes. Extremities: Warm and dry. Still has trace edema over the ankles. Hand wounds are inspected. He did have about half of them covered still, but what is open did not show any redness, swelling, or drainage. Mental Status: He is alert, he is oriented x3. LABORATORY WORK: White count is 11.1, hemoglobin 8.1, which is similar to his discharge, platelets 527. Sodium 138, potassium 5.7, chloride 107, bicarb 22, BUN 55, creatinine 1.1, glucose 169, and calcium 9. ASSESSMENT: 1. Hand wounds and leg wound, overall improving. The patient is not allowing full cares. We are still working with the Wound Clinic for a Zoom visit. 2. Diarrhea, ongoing. The patient is on Questran twice daily. Seems to have at least an improvement during the day. 3. Uncontrolled type 1 diabetes. Blood sugars have actually been under better control. 4. Malnutrition due to poor absorption. He has increased protein in his diet. 5. Anemia. We will repeat lab next week with ferritin and B12. 6. 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 We will start him on Nuedexta 20 mg daily and increase to b.i.d. in 1 week. 7. Urinary incontinence due to overflow. He has been refusing a bladder scan. 8. Autonomic dysfunction. Blood pressures have been acceptable. 9. Edema with anasarca. He is on Lasix. 10.Cellulitis, resolved. 11.Cognitive impairment. PLAN: At this point, the patient will continue swing bed cares. I have tried to contact his mom to update her about the lab and the current plan of care. We will try again tomorrow or try to reach his brother. MKA: 08/11/2020 19:04:16 MODL: 08/11/2020 19:42:49 /[id number]
[2020-08-12] MEDS: Loperamide 2 MG Cap PO PRN ×2 (01:33→21:53)
[2020-08-12] MEDS: INSULIN GLARG HUMAN REC ANALOG 100 UNIT/ML SUBCUT SCH (07:29)
[2020-08-12] MEDS: INSULIN LISPRO 100 UNIT/ML SUBCUT SCH ×3 (07:29→18:31)
[2020-08-12] MEDS: Multivitamins with Iron/Calcium/Folic Acid/Minerals Tab PO SCH (07:31)
[2020-08-12] MEDS: FINASTERIDE 5 MG PO SCH (07:31)
[2020-08-12] MEDS: Zinc (Zinc Gluconate) 50 MG Tab PO SCH (07:31)
[2020-08-12] MEDS: Lactobacillus Rhamnosus GG (Probiotic) Cap PO SCH (07:32)
[2020-08-12] MEDS: Ascorbic Acid 500 MG Tab PO SCH ×2 (07:32→21:11)
[2020-08-12] MEDS: Loperamide 2 MG Cap PO SCH (07:32)
[2020-08-12] MEDS: Cholecalciferol (Vitamin D3) 25 MCG Tab PO SCH (07:32)
[2020-08-12] MEDS: Cholestyramine/Sucrose Powder 4 GM Packet PO SCH ×2 (10:11→17:50)
[2020-08-12] MEDS: TIMOLOL MALEATE 0.5% EYELF SCH ×2 (10:11→22:37)
[2020-08-12] MEDS: BRIMONIDINE 0.2% EYELF SCH ×2 (10:11→22:37)
[2020-08-12] MEDS: Glucagon,Human Recombinant 1 MG Vial SUBCUT PRN (10:21)
[2020-08-12] MEDS: INSULIN LISPRO 100 UNIT/ML SUBCUT PRN ×2 (11:45→18:32)
--- NOTE | 2020-08-12 12:57 | PCM.SN.2 ---
- Free Text/Narrative Note: Patient's brother POA updated I wasn't able to reach his mom yesterday. Brother feels that pursuing NH placement is ok at this point. Did discuss that it doesn't need to be permanent but we can see how it goes. Wounds are improving. Sounds like wound clinic Zoom visit is already scheduled for next week per the epic chart. Told him BS have been really good but then there was another low late morning and now high probably from overcorrection. Sensor changed last on 08/06.
[2020-08-13] MEDS: INSULIN LISPRO 100 UNIT/ML SUBCUT SCH ×3 (07:41→18:27)
[2020-08-13] MEDS: INSULIN GLARG HUMAN REC ANALOG 100 UNIT/ML SUBCUT SCH (07:42)
[2020-08-13] MEDS: FINASTERIDE 5 MG PO SCH (07:44)
[2020-08-13] MEDS: Cholecalciferol (Vitamin D3) 25 MCG Tab PO SCH (07:44)
[2020-08-13] MEDS: Multivitamins with Iron/Calcium/Folic Acid/Minerals Tab PO SCH (07:44)
[2020-08-13] MEDS: Loperamide 2 MG Cap PO SCH (07:44)
[2020-08-13] MEDS: Zinc (Zinc Gluconate) 50 MG Tab PO SCH (07:44)
[2020-08-13] MEDS: Ascorbic Acid 500 MG Tab PO SCH ×2 (07:44→22:52)
[2020-08-13] MEDS: Lactobacillus Rhamnosus GG (Probiotic) Cap PO SCH (07:45)
[2020-08-13] MEDS: Cholestyramine/Sucrose Powder 4 GM Packet PO SCH ×2 (09:14→18:27)
[2020-08-13] MEDS: BRIMONIDINE 0.2% EYELF SCH ×2 (11:31→22:52)
[2020-08-13] MEDS: TIMOLOL MALEATE 0.5% EYELF SCH ×2 (11:31→22:52)
[2020-08-13] MEDS: NUEDEXTA PO SCH (13:45)
[2020-08-13] MEDS ORDERED: Flumazenil 0.1 MG/ML 5 ML MDV IVPUSH PRN (17:12)
[2020-08-13] MEDS ORDERED: LORazepam 2 MG/ML SDV IM PRN (17:12)
[2020-08-13] MEDS: Glucagon,Human Recombinant 1 MG Vial SUBCUT PRN (20:55)
[2020-08-14] MEDS: Cholecalciferol (Vitamin D3) 25 MCG Tab PO SCH (08:08)
[2020-08-14] MEDS: Lactobacillus Rhamnosus GG (Probiotic) Cap PO SCH (08:08)
[2020-08-14] MEDS: Ascorbic Acid 500 MG Tab PO SCH ×2 (08:08→19:36)
[2020-08-14] MEDS: Zinc (Zinc Gluconate) 50 MG Tab PO SCH (08:08)
[2020-08-14] MEDS: Multivitamins with Iron/Calcium/Folic Acid/Minerals Tab PO SCH (08:08)
[2020-08-14] MEDS: Loperamide 2 MG Cap PO SCH (08:09)
[2020-08-14] MEDS: FINASTERIDE 5 MG PO SCH (08:10)
[2020-08-14] MEDS: NUEDEXTA PO SCH (08:10)
[2020-08-14] MEDS: INSULIN LISPRO 100 UNIT/ML SUBCUT SCH ×3 (08:11→17:56)
[2020-08-14] MEDS: INSULIN GLARG HUMAN REC ANALOG 100 UNIT/ML SUBCUT SCH (08:26)
[2020-08-14] MEDS: Sodium Chloride 0.9% 10 ML Syringe FLUSH PRN (08:26)
[2020-08-14] MEDS: Cholestyramine/Sucrose Powder 4 GM Packet PO SCH ×2 (09:14→17:55)
[2020-08-14] MEDS: TIMOLOL MALEATE 0.5% EYELF SCH (11:43)
[2020-08-14] MEDS: BRIMONIDINE 0.2% EYELF SCH (11:43)
[2020-08-15] MEDS: BRIMONIDINE 0.2% EYELF SCH ×2 (00:39→12:04)
[2020-08-15] MEDS: TIMOLOL MALEATE 0.5% EYELF SCH ×2 (00:39→12:04)
[2020-08-15] MEDS: Loperamide 2 MG Cap PO SCH (08:22)
[2020-08-15] MEDS: Multivitamins with Iron/Calcium/Folic Acid/Minerals Tab PO SCH (08:22)
[2020-08-15] MEDS: Ascorbic Acid 500 MG Tab PO SCH ×2 (08:22→21:24)
[2020-08-15] MEDS: Zinc (Zinc Gluconate) 50 MG Tab PO SCH (08:23)
[2020-08-15] MEDS: Lactobacillus Rhamnosus GG (Probiotic) Cap PO SCH (08:23)
[2020-08-15] MEDS: INSULIN LISPRO 100 UNIT/ML SUBCUT PRN (08:24)
[2020-08-15] MEDS: FINASTERIDE 5 MG PO SCH (08:26)
[2020-08-15] MEDS: INSULIN LISPRO 100 UNIT/ML SUBCUT SCH ×3 (08:26→17:44)
[2020-08-15] MEDS: INSULIN GLARG HUMAN REC ANALOG 100 UNIT/ML SUBCUT SCH (08:26)
[2020-08-15] MEDS: NUEDEXTA PO SCH (08:27)
[2020-08-15] MEDS: Cholecalciferol (Vitamin D3) 25 MCG Tab PO SCH (08:29)
[2020-08-15] MEDS: Cholestyramine/Sucrose Powder 4 GM Packet PO SCH ×2 (12:04→17:44)
[2020-08-16] MEDS: BRIMONIDINE 0.2% EYELF SCH ×3 (01:42→22:56)
[2020-08-16] MEDS: TIMOLOL MALEATE 0.5% EYELF SCH ×3 (01:42→22:56)
[2020-08-16] MEDS: INSULIN LISPRO 100 UNIT/ML SUBCUT PRN (07:35)
[2020-08-16] MEDS: INSULIN LISPRO 100 UNIT/ML SUBCUT SCH ×3 (07:35→18:55)
[2020-08-16] MEDS: Loperamide 2 MG Cap PO SCH (07:37)
[2020-08-16] MEDS: diphenhydrAMINE 25 MG Cap PO PRN ×2 (07:37→20:40)
[2020-08-16] MEDS: NUEDEXTA PO SCH (07:37)
[2020-08-16] MEDS: Loperamide 2 MG Cap PO PRN ×2 (07:37→20:40)
[2020-08-16] MEDS: Ascorbic Acid 500 MG Tab PO SCH (07:37)
[2020-08-16] MEDS: Lactobacillus Rhamnosus GG (Probiotic) Cap PO SCH (07:37)
[2020-08-16] MEDS: Cholecalciferol (Vitamin D3) 25 MCG Tab PO SCH (07:37)
[2020-08-16] MEDS: FINASTERIDE 5 MG PO SCH (07:37)
[2020-08-16] MEDS: INSULIN GLARG HUMAN REC ANALOG 100 UNIT/ML SUBCUT SCH (07:38)
[2020-08-16] MEDS: Zinc (Zinc Gluconate) 50 MG Tab PO SCH (07:38)
[2020-08-16] MEDS: Multivitamins with Iron/Calcium/Folic Acid/Minerals Tab PO SCH (07:38)
[2020-08-16 11:48] LABS: ANION GAP 11.4 mmol/L (10-20); CHLORIDE,CL 104 mmol/L (98-107); SODIUM,NA 135 mmol/L (136-145)
[2020-08-16] MEDS: Cholestyramine/Sucrose Powder 4 GM Packet PO SCH ×2 (12:11→18:16)
--- NOTE | 2020-08-16 13:56 | PN ---
Progress Note for LOYD GRIJALVA Date: 08/16/2020 Room #: VM.214 SUBJECTIVE: This is a 49-year-old on swing bed recovering after hand wounds and also for ADLs with his bowels due to ongoing incontinence. No stools were charted yesterday, but the nurse assured me that he had some and they were incontinent. He has been having at least 2 loose watery stools per day despite increasing his Questran. Discussion with GI specialist did recommend a CT scan as the next step. I have also ordered a fecal study for calprotectin, which is pending. The patient did not get any p.r.n. Seroquel over the weekend since being started on his Nuedexta. However, he did get some Benadryl this morning and he was much more cooperative with cares. OBJECTIVE: Vital Signs: His weight is 79.8 kg, temperature 97.3, pulse 90, blood pressure 135/82, respiratory rate 16, and O2 of 100 on room air. General: He is in no acute distress. He is sleepy, but he is able to answer questions. Heart: Regular rate and rhythm without murmur. Lungs: Lung sounds are clear to auscultation bilaterally without crackles or wheezes. Extremities: Warm, dry. His sores on his legs are now healed, just some slight scabbing left. He has a good 2+ edema to his atkinson, slightly increased from last week. Mental Status: He is somnolent, but alert, able to answer questions, although we did not go through orientation questions today. LABORATORY DATA: Laboratory work did show his white count 5.8; hemoglobin 8.2, stable; platelets 460. Sodium 135, potassium 5.4, chloride 104, bicarb 25, BUN 42, creatinine 1, glucose 404, calcium 10.7, alkaline phosphatase 124, albumin 2.1. ASSESSMENT: 1. Diarrhea with likely malabsorption. CT scan for evaluation. We may empirically start him on some budesonide. Inflammatory bowel disease is a definite possibility. 2. Hand and leg wounds. They are improving. He will have a Zoom visit with the Wound Clinic later this week. 3. Uncontrolled type 1 diabetes. This 400 is the highest blood sugar he has had in quite some time. He has not had any recent lows. He did have some extra treats this weekend like a pizza when his mom was up to visit. We will continue to monitor closely and adjust the insulin if needed. 4. Malnutrition due to poor absorption. He is on protein supplements. 5. Anemia, probably due to chronic disease. Ferritin and B12 are pending. 6. Behavior disorder with pseudobulbar affect. He is now on Nuedexta. 7. Urinary incontinence due to overflow. He is refusing bladder scans and Cerda. 8. Autonomic dysfunction. His blood pressures have not been too low. 9. Edema and anasarca. 10.Cognitive impairment. 11.Cellulitis, resolved. PLAN: At this point, the patient will continue on our swing bed cares. Also had discussed with the brother possibly transitioning over to a usp. We will have to check with [employer] if they found any options. MKA: 08/16/2020 13:19:13 MODL: 08/16/2020 13:49:45 /[id number]
[2020-08-16] MEDS: QUEtiapine 25 MG Tab PO PRN (20:40)
[2020-08-17] MEDS: Insulin Lispro 100 Units/ML 3 ML Vial SUBCUT PRN ×3 (02:47→18:04)
[2020-08-17] MEDS: Iopamidol 612 MG/ML 50 ML SDV PO SCH ×2 (06:36→07:12)
[2020-08-17] MEDS ORDERED: Iopamidol 612 MG/ML 100 ML Bottle IVPUSH ONE (08:51)
[2020-08-17] MEDS: Loperamide 2 MG Cap PO SCH (09:05)
[2020-08-17] MEDS: Multivitamins with Iron/Calcium/Folic Acid/Minerals Tab PO SCH (09:05)
[2020-08-17] MEDS: Sodium Chloride 0.9% 10 ML Syringe FLUSH PRN (09:05)
[2020-08-17] MEDS: Lactobacillus Rhamnosus GG (Probiotic) Cap PO SCH (09:05)
[2020-08-17] MEDS: Zinc (Zinc Gluconate) 50 MG Tab PO SCH (09:05)
[2020-08-17] MEDS: Cholecalciferol (Vitamin D3) 25 MCG Tab PO SCH (09:05)
[2020-08-17] MEDS: NUEDEXTA PO SCH (09:06)
[2020-08-17] MEDS: FINASTERIDE 5 MG PO SCH (09:07)
[2020-08-17] MEDS: INSULIN LISPRO 100 UNIT/ML SUBCUT SCH ×3 (09:11→18:02)
[2020-08-17] MEDS: INSULIN GLARG HUMAN REC ANALOG 100 UNIT/ML SUBCUT SCH (09:16)
--- NOTE | 2020-08-17 09:26 | CT ---
[id number] CT/CT Abdomen Pelvis W IV EXAM: CT Abdomen Pelvis W IV CLINICAL DATA: ABDOMINAL DISCOMFORT COMPARISON: NO PREVIOUS SIMILAR EXAM IS AVAILABLE. FINDINGS: There is moderate bowel distention. There is no thickening of bowel wall The liver and spleen, kidneys and adrenals, pancreas and aorta are unremarkable The gallbladder is not distended The pelvis shows no mass or adenopathy The appendix is not distended IMPRESSION: PROBABLE ENTERITIS Robin Elizalde MD 08/17/20 0924 Thank you for allowing us to participate in the care of your patient.
[2020-08-17] MEDS: BRIMONIDINE 0.2% EYELF SCH ×2 (10:25→22:20)
[2020-08-17] MEDS: TIMOLOL MALEATE 0.5% EYELF SCH ×2 (10:25→22:20)
[2020-08-17] MEDS: Cholestyramine/Sucrose Powder 4 GM Packet PO SCH ×2 (10:26→18:01)
[2020-08-17] MEDS: Cyanocobalamin (Vitamin B12) 1,000 MCG Tab PO SCH (12:17)
[2020-08-17] MEDS: Loperamide 2 MG Cap PO PRN (20:39)
[2020-08-17] MEDS: diphenhydrAMINE 25 MG Cap PO PRN (20:40)
[2020-08-18] MEDS: INSULIN GLARG HUMAN REC ANALOG 100 UNIT/ML SUBCUT SCH (07:47)
[2020-08-18] MEDS: NUEDEXTA PO SCH (07:48)
[2020-08-18] MEDS: INSULIN LISPRO 100 UNIT/ML SUBCUT SCH ×3 (07:48→17:44)
[2020-08-18] MEDS: FINASTERIDE 5 MG PO SCH (07:48)
[2020-08-18] MEDS: Loperamide 2 MG Cap PO SCH (07:49)
[2020-08-18] MEDS: Lactobacillus Rhamnosus GG (Probiotic) Cap PO SCH (07:49)
[2020-08-18] MEDS: Cholecalciferol (Vitamin D3) 25 MCG Tab PO SCH (07:49)
[2020-08-18] MEDS: Cyanocobalamin (Vitamin B12) 1,000 MCG Tab PO SCH (07:49)
[2020-08-18] MEDS: Zinc (Zinc Gluconate) 50 MG Tab PO SCH (07:49)
[2020-08-18] MEDS: Multivitamins with Iron/Calcium/Folic Acid/Minerals Tab PO SCH (07:49)
[2020-08-18] MEDS: Cholestyramine/Sucrose Powder 4 GM Packet PO SCH ×2 (09:54→17:44)
[2020-08-18] MEDS: TIMOLOL MALEATE 0.5% EYELF SCH ×2 (11:27→22:26)
[2020-08-18] MEDS: BRIMONIDINE 0.2% EYELF SCH ×2 (11:27→22:26)
[2020-08-18] MEDS: Insulin Lispro 100 Units/ML 3 ML Vial SUBCUT PRN ×2 (11:51→17:45)
--- NOTE | 2020-08-18 13:35 | PCM.SN.2 ---
- Free Text/Narrative Note: Wound clinic zoom went well his wounds are healing change every 3 days although due to soiling that likely will need to be more frequent. Budesonide steroid started for the bowels we will need to monitor BS closely and adjust insulin as needed. NH profiles being sent per my discussion with son Woodrow. With the stoo l incontinence currently his mother isn't able to take him home.
[2020-08-18] MEDS: BUDESONIDE 9 MG PO SCH ×2 (17:23→19:35)
[2020-08-19] MEDS: BUDESONIDE 9 MG PO SCH (08:22)
[2020-08-19] MEDS: FINASTERIDE 5 MG PO SCH (08:23)
[2020-08-19] MEDS: NUEDEXTA PO SCH (08:23)
[2020-08-19] MEDS: Zinc (Zinc Gluconate) 50 MG Tab PO SCH (08:25)
[2020-08-19] MEDS: Lactobacillus Rhamnosus GG (Probiotic) Cap PO SCH (08:25)
[2020-08-19] MEDS: INSULIN LISPRO 100 UNIT/ML SUBCUT SCH ×3 (08:25→17:45)
[2020-08-19] MEDS: Loperamide 2 MG Cap PO SCH (08:25)
[2020-08-19] MEDS: Cyanocobalamin (Vitamin B12) 1,000 MCG Tab PO SCH (08:25)
[2020-08-19] MEDS: Multivitamins with Iron/Calcium/Folic Acid/Minerals Tab PO SCH (08:25)
[2020-08-19] MEDS: Cholecalciferol (Vitamin D3) 25 MCG Tab PO SCH (08:25)
[2020-08-19] MEDS: Insulin Lispro 100 Units/ML 3 ML Vial SUBCUT PRN ×2 (08:26→17:45)
[2020-08-19] MEDS: INSULIN GLARG HUMAN REC ANALOG 100 UNIT/ML SUBCUT SCH (08:27)
[2020-08-19] MEDS: Cholestyramine/Sucrose Powder 4 GM Packet PO SCH ×2 (09:06→17:44)
[2020-08-19] MEDS: TIMOLOL MALEATE 0.5% EYELF SCH (12:32)
[2020-08-19] MEDS: BRIMONIDINE 0.2% EYELF SCH (12:32)
[2020-08-19] MEDS: diphenhydrAMINE 25 MG Cap PO PRN (19:48)
[2020-08-19] MEDS ORDERED: QUEtiapine 25 MG Tab PO PRN (20:00)
[2020-08-20] MEDS: BRIMONIDINE 0.2% EYELF SCH ×2 (01:00→11:44)
[2020-08-20] MEDS: TIMOLOL MALEATE 0.5% EYELF SCH ×2 (01:00→11:44)
[2020-08-20] MEDS: INSULIN GLARG HUMAN REC ANALOG 100 UNIT/ML SUBCUT SCH (07:41)
[2020-08-20] MEDS: INSULIN LISPRO 100 UNIT/ML SUBCUT SCH ×3 (07:42→18:30)
[2020-08-20] MEDS: Insulin Lispro 100 Units/ML 3 ML Vial SUBCUT PRN ×3 (07:43→18:31)
[2020-08-20] MEDS: Cyanocobalamin (Vitamin B12) 1,000 MCG Tab PO SCH (07:43)
[2020-08-20] MEDS: Loperamide 2 MG Cap PO SCH (07:43)
[2020-08-20] MEDS: Zinc (Zinc Gluconate) 50 MG Tab PO SCH (07:45)
[2020-08-20] MEDS: Cholecalciferol (Vitamin D3) 25 MCG Tab PO SCH (07:45)
[2020-08-20] MEDS: Lactobacillus Rhamnosus GG (Probiotic) Cap PO SCH (07:45)
[2020-08-20] MEDS: Multivitamins with Iron/Calcium/Folic Acid/Minerals Tab PO SCH (07:45)
[2020-08-20] MEDS: NUEDEXTA PO SCH (07:46)
[2020-08-20] MEDS: BUDESONIDE 9 MG PO SCH (07:46)
[2020-08-20] MEDS: FINASTERIDE 5 MG PO SCH (07:47)
[2020-08-20] MEDS ORDERED: NOVOLOG 100 UNIT/ML SUBCUT PRN (08:47)
[2020-08-20] MEDS: Cholestyramine/Sucrose Powder 4 GM Packet PO SCH ×2 (09:27→18:32)
[2020-08-20] MEDS ORDERED: INSULIN LISPRO 100 UNIT/ML SUBCUT SCH (12:00)
[2020-08-21] MEDS: NUEDEXTA PO SCH ×3 (05:42→17:56)
[2020-08-21] MEDS: BRIMONIDINE 0.2% EYELF SCH ×3 (05:42→23:18)
[2020-08-21] MEDS: TIMOLOL MALEATE 0.5% EYELF SCH ×3 (05:42→23:18)
[2020-08-21] MEDS: INSULIN LISPRO 100 UNIT/ML SUBCUT SCH ×3 (08:29→17:53)
[2020-08-21] MEDS: INSULIN GLARG HUMAN REC ANALOG 100 UNIT/ML SUBCUT SCH (08:30)
[2020-08-21] MEDS: BUDESONIDE 9 MG PO SCH (08:31)
[2020-08-21] MEDS: FINASTERIDE 5 MG PO SCH (08:32)
[2020-08-21] MEDS: Loperamide 2 MG Cap PO SCH (08:34)
[2020-08-21] MEDS: Cyanocobalamin (Vitamin B12) 1,000 MCG Tab PO SCH (08:34)
[2020-08-21] MEDS: Zinc (Zinc Gluconate) 50 MG Tab PO SCH (08:34)
[2020-08-21] MEDS: Cholecalciferol (Vitamin D3) 25 MCG Tab PO SCH (08:34)
[2020-08-21] MEDS: Multivitamins with Iron/Calcium/Folic Acid/Minerals Tab PO SCH (08:34)
[2020-08-21] MEDS: Lactobacillus Rhamnosus GG (Probiotic) Cap PO SCH (08:34)
[2020-08-21] MEDS: Cholestyramine/Sucrose Powder 4 GM Packet PO SCH ×2 (10:45→17:55)
[2020-08-21] MEDS: Insulin Lispro 100 Units/ML 3 ML Vial SUBCUT PRN (17:58)
[2020-08-22] MEDS: FINASTERIDE 5 MG PO SCH (07:31)
[2020-08-22] MEDS: BUDESONIDE 9 MG PO SCH (07:31)
[2020-08-22] MEDS: NUEDEXTA PO SCH ×3 (07:32→18:02)
[2020-08-22] MEDS: INSULIN LISPRO 100 UNIT/ML SUBCUT SCH ×3 (07:33→18:02)
[2020-08-22] MEDS: INSULIN GLARG HUMAN REC ANALOG 100 UNIT/ML SUBCUT SCH (07:33)
[2020-08-22] MEDS: Cyanocobalamin (Vitamin B12) 1,000 MCG Tab PO SCH (07:34)
[2020-08-22] MEDS: Lactobacillus Rhamnosus GG (Probiotic) Cap PO SCH (07:34)
[2020-08-22] MEDS: Multivitamins with Iron/Calcium/Folic Acid/Minerals Tab PO SCH (07:34)
[2020-08-22] MEDS: Cholecalciferol (Vitamin D3) 25 MCG Tab PO SCH (07:34)
[2020-08-22] MEDS: Loperamide 2 MG Cap PO SCH (07:34)
[2020-08-22] MEDS: Zinc (Zinc Gluconate) 50 MG Tab PO SCH (07:34)
[2020-08-22] MEDS: BRIMONIDINE 0.2% EYELF SCH ×2 (11:51→23:49)
[2020-08-22] MEDS: Cholestyramine/Sucrose Powder 4 GM Packet PO SCH ×2 (11:51→18:05)
[2020-08-22] MEDS: TIMOLOL MALEATE 0.5% EYELF SCH ×2 (11:52→23:49)
[2020-08-22] MEDS: Insulin Lispro 100 Units/ML 3 ML Vial SUBCUT PRN (18:03)
[2020-08-23] MEDS: Cyanocobalamin (Vitamin B12) 1,000 MCG Tab PO SCH (07:19)
[2020-08-23] MEDS: Lactobacillus Rhamnosus GG (Probiotic) Cap PO SCH (07:19)
[2020-08-23] MEDS: Loperamide 2 MG Cap PO SCH (07:19)
[2020-08-23] MEDS: Zinc (Zinc Gluconate) 50 MG Tab PO SCH (07:19)
[2020-08-23] MEDS: Cholecalciferol (Vitamin D3) 25 MCG Tab PO SCH (07:19)
[2020-08-23] MEDS: Multivitamins with Iron/Calcium/Folic Acid/Minerals Tab PO SCH (07:19)
[2020-08-23] MEDS: Insulin Lispro 100 Units/ML 3 ML Vial SUBCUT PRN ×2 (07:20→12:15)
[2020-08-23] MEDS: INSULIN LISPRO 100 UNIT/ML SUBCUT SCH ×3 (07:20→18:07)
[2020-08-23] MEDS: INSULIN GLARG HUMAN REC ANALOG 100 UNIT/ML SUBCUT SCH (07:21)
[2020-08-23] MEDS: NUEDEXTA PO SCH ×2 (07:22→18:08)
[2020-08-23] MEDS: FINASTERIDE 5 MG PO SCH (07:22)
[2020-08-23] MEDS: BUDESONIDE 9 MG PO SCH (07:24)
[2020-08-23] MEDS: BRIMONIDINE 0.2% EYELF SCH (11:19)
[2020-08-23] MEDS: TIMOLOL MALEATE 0.5% EYELF SCH (11:19)
[2020-08-23] MEDS: Cholestyramine/Sucrose Powder 4 GM Packet PO SCH ×2 (11:19→18:07)
[2020-08-23] MEDS ORDERED: Lidocaine/Prilocaine 2.5-2.5% Crm 5 GM Tube TOP ONE (11:30)
[2020-08-23] MEDS: Sodium Chloride 0.9% 10 ML Syringe FLUSH PRN (11:55)
[2020-08-23] MEDS ORDERED: Haloperidol Lactate 5 MG/ML SDV IM PRN (17:12)
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
[2020-08-23] MEDS: Cefdinir 300 MG Cap PO SCH (18:12)
[2020-08-24] MEDS: TIMOLOL MALEATE 0.5% EYELF SCH ×2 (00:40→11:17)
[2020-08-24] MEDS: BRIMONIDINE 0.2% EYELF SCH ×2 (00:40→11:16)
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
[2020-08-24] MEDS: Cyanocobalamin (Vitamin B12) 1,000 MCG Tab PO SCH (08:10)
[2020-08-24] MEDS: Cholecalciferol (Vitamin D3) 25 MCG Tab PO SCH (08:10)
[2020-08-24] MEDS: Zinc (Zinc Gluconate) 50 MG Tab PO SCH (08:10)
[2020-08-24] MEDS: Loperamide 2 MG Cap PO SCH (08:10)
[2020-08-24] MEDS: Lactobacillus Rhamnosus GG (Probiotic) Cap PO SCH (08:10)
[2020-08-24] MEDS: Multivitamins with Iron/Calcium/Folic Acid/Minerals Tab PO SCH (08:10)
[2020-08-24] MEDS: Cefdinir 300 MG Cap PO SCH (08:10)
[2020-08-24] MEDS: BUDESONIDE 9 MG PO SCH (08:11)
[2020-08-24] MEDS: FINASTERIDE 5 MG PO SCH (08:11)
[2020-08-24] MEDS: NUEDEXTA PO SCH ×2 (08:14→18:09)
[2020-08-24] MEDS: INSULIN LISPRO 100 UNIT/ML SUBCUT SCH ×3 (08:15→18:10)
[2020-08-24] MEDS: INSULIN GLARG HUMAN REC ANALOG 100 UNIT/ML SUBCUT SCH (08:15)
[2020-08-24] MEDS: Cholestyramine/Sucrose Powder 4 GM Packet PO SCH ×2 (11:16→18:08)
[2020-08-24] MEDS ORDERED: Sodium Chloride 0.9% 500 ML IV ONE (17:56)
[2020-08-24] MEDS: Sodium Chloride 0.9% 10 ML Syringe FLUSH PRN (18:06)
[2020-08-24] MEDS: CEFDINIR 300 MG PO SCH (18:14)
--- NOTE | 2020-08-24 21:13 | PCM.SN.2 ---
- Free Text/Narrative Note: Started on Cefnidir yesterday for UTI now today he had stomach pain per the nurse. Was sleeping when I rounded then had eaten breakfast but hasn't eaten since. Blood sugars good all day like 170-180 meal insulin held due to not eating. Vitals ok actually BP high. Urine reviewed no ketones and lab ok from yesterday. No nausea. 500 ml of saline given due to elevated BUN and mild tachycardia to see if that will help his symptoms. Discussed case with the [facility] today they will review at their meeting tomorrow and call me. Only prn yesterday was the Seroquel.
[2020-08-25] MEDS: BRIMONIDINE 0.2% EYELF SCH ×2 (00:28→12:57)
[2020-08-25] MEDS: TIMOLOL MALEATE 0.5% EYELF SCH ×2 (00:28→12:57)
[2020-08-25] MEDS: INSULIN GLARG HUMAN REC ANALOG 100 UNIT/ML SUBCUT SCH (08:29)
[2020-08-25] MEDS: INSULIN LISPRO 100 UNIT/ML SUBCUT SCH ×2 (08:32→12:49)
[2020-08-25] MEDS: Insulin Lispro 100 Units/ML 3 ML Vial SUBCUT PRN ×2 (08:34→12:50)
[2020-08-25] MEDS: CEFDINIR 300 MG PO SCH (10:41)
[2020-08-25] MEDS: NUEDEXTA PO SCH (10:41)
[2020-08-25] MEDS: Loperamide 2 MG Cap PO SCH (11:06)
[2020-08-25] MEDS: Lactobacillus Rhamnosus GG (Probiotic) Cap PO SCH (11:06)
[2020-08-25] MEDS: Zinc (Zinc Gluconate) 50 MG Tab PO SCH (11:07)
[2020-08-25] MEDS: Cyanocobalamin (Vitamin B12) 1,000 MCG Tab PO SCH (11:07)
[2020-08-25] MEDS: Multivitamins with Iron/Calcium/Folic Acid/Minerals Tab PO SCH (11:07)
[2020-08-25] MEDS: Cholecalciferol (Vitamin D3) 25 MCG Tab PO SCH (11:07)
[2020-08-25] MEDS: BUDESONIDE 9 MG PO SCH ×2 (11:08→12:56)
[2020-08-25] MEDS: FINASTERIDE 5 MG PO SCH (11:08)
[2020-08-25] MEDS: Cholestyramine/Sucrose Powder 4 GM Packet PO SCH (11:09)
[2020-08-25 11:22] VITALS: BP 150/78; PULSE 95
[2020-08-25] MEDS ORDERED: OLANZapine 10 MG Vial IM PRN (11:36)
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
[2020-09-03] MEDS ORDERED: NOVOLOG 100 UNIT/ML SUBCUT PRN (13:01)
[2020-09-03] MEDS ORDERED: NOVOLOG 100 UNIT/ML SUBCUT SCH (18:00)
[2020-09-03] MEDS ORDERED: INSULIN SUBCUT SCH (18:00)
== END 2020-08-25 15:55 | disposition short-term general hospital (02) | DRG 811 ==
LOC: VM.MS 13:17
PROVIDERS: ADMIT Internal Medicine; ATTEND Internal Medicine
DX: D64.9 Anemia, unspecified (principal); E43 Unspecified severe protein-calorie malnutrition; M86.9 Osteomyelitis, unspecified; H34.12 Central retinal artery occlusion, left eye; L03.90 Cellulitis, unspecified; N39.0 Urinary tract infection, site not specified; Z87.19 Personal history of other diseases of the digestive system; R41.89 Other symptoms and signs involving cognitive functions and awareness; Z87.891 Personal history of nicotine dependence; E78.5 Hyperlipidemia, unspecified; G31.84 Mild cognitive impairment of uncertain or unknown etiology; I73.9 Peripheral vascular disease, unspecified; E78.1 Pure hyperglyceridemia; R33.9 Retention of urine, unspecified; Z93.0 Tracheostomy status; F10.11 Alcohol abuse, in remission; Z96.698 Presence of other orthopedic joint implants; D72.829 Elevated white blood cell count, unspecified; N40.1 Benign prostatic hyperplasia with lower urinary tract symptoms; R33.8 Other retention of urine; K52.9 Noninfective gastroenteritis and colitis, unspecified; R60.1 Generalized edema; E10.649 Type 1 diabetes mellitus with hypoglycemia without coma; Z86.69 Personal history of other diseases of the nervous system and sense organs; Z87.820 Personal history of traumatic brain injury; Z86.39 Personal history of other endocrine, nutritional and metabolic disease; R32 Unspecified urinary incontinence; F91.9 Conduct disorder, unspecified; N39.490 Overflow incontinence; F48.2 Pseudobulbar affect; I95.9 Hypotension, unspecified; Z20.828 Contact with and (suspected) exposure to other viral communicable diseases; S60.922S Unspecified superficial injury of left hand, sequela; S60.921S Unspecified superficial injury of right hand, sequela; S80.922S Unspecified superficial injury of left lower leg, sequela; S80.921S Unspecified superficial injury of right lower leg, sequela; B96.20 Unspecified Escherichia coli [E. coli] as the cause of diseases classified elsewhere
CPT/HCPCS: 36415; 74177; 80048; 80053; 81001; 82607; 82728; 82962; 83520; 83993; 85025; 85652; 86256; 86803; 87086; 87088; 87186; 87341; 87389; A9270-GY; J1610; J1642; J1815-GY; J7030; Q9967; U0002